=== PATIENT | male | born 1945 | race Caucasian/White ===

== ENCOUNTER 2020-05-20 14:13 | Inpatient (IN) ==
[2020-05-20] MEDS ORDERED: SODIUM CHLORIDE 0.9% 1000ML 1,000 ML IV ONE (14:33)
[2020-05-20] MEDS ORDERED: PROCHLORPERAZINE 1 ML IV ONE (14:33)
[2020-05-20] MEDS ORDERED: DiphenhydrAMINE HCL 50 MG/ML VIAL IV STA (14:33)
[2020-05-20] MEDS ORDERED: FAMOTIDINE 20MG/5ML IV PUSH IV STA (14:36)
[2020-05-20 15:16] LABS: Basophils # (auto) 0.01 K/uL (0-0.2); Basophils % (auto) 0.2 %; Eosinophils # (auto) 0.07 K/uL (0-0.5); Eosinophils % (auto) 1.5 %; Hematocrit (blood only) 43.9 % (42-52); Hemoglobin 15.8 g/dL (14.0-18.0); Immature Granulocytes # (auto) 0.01 K/uL (0.00-0.02); Immature Granulocytes % (auto) 0.2 %; Lymphocytes # (auto) 0.62 K/uL (1.2-3.4); Lymphocytes % (auto) 13.3 %; Mean Corpuscular Hemoglobin 32.2 pg (25-34); Mean Corpuscular Volume 89.6 fL (80-100); Mean Platelet Volume 9.6 fL (7.4-10.4); Monocytes # (auto) 0.57 K/uL (0.11-0.59); Monocytes % (auto) 12.3 %; Neutrophils # (auto) 3.37 K/uL (1.4-6.5); Neutrophils % (auto) 72.5 %; Platelet Count 155 K/uL (130-400); White Blood Count 4.65 K/uL (4.8-10.8)
[2020-05-20 15:31] LABS: Alanine Aminotransferase 16 U/L (12-78); Albumin Level 3.3 gm/dl (3.4-5.0); Aspartate Aminotransferase 23 U/L (15-37); BUN Creatinine Ratio 13.9 (10-20); Bilirubin Direct 0.6 mg/dl (0-0.2); Blood Urea Nitrogen 23 mg/dl (7-18); Calcium 8.6 mg/dl (8.5-10.1); Carbon Dioxide 27 mmol/L (21-32); Chloride 91 mmol/L (98-107); Creatinine Clr Calc Pharmacy 40.4 ml/min; Est GFR (African American) 47.1; Est GFR (Non-African American) 40.6; Glucose 92 mg/dl (70-99); Lipase 34 U/L (73-393); Magnesium 2.3 mg/dl (1.8-2.4); Sodium 127 mmol/L (136-145)
[2020-05-20 15:34] LABS: Alkaline Phosphatase 204 U/L (45-117); Bilirubin,Total 1.6 mg/dl (0.2-1); Globulin 3.2 gm/dl (2.5-4.0); Total Protein 6.5 gm/dl (6.4-8.2); Troponin I < 0.015 ng/ml (0-0.045)
--- NOTE | 2020-05-20 16:06 | XRay Report ---
XR chest 1V portable HISTORY: Generalized abdominal pain. COMPARISON: Chest 09/12/2018. FINDINGS: The lungs are clear. The cardiac silhouette remains mildly enlarged. No pleural effusions. No pneumothorax. IMPRESSION: Stable mild cardiomegaly. ACT 112: Negative or not required by law. Electronically signed by: Yonatan Beebe M.D. 05/20/2020 4:05 PM
[2020-05-20] MEDS ORDERED: IOVERSOL 100ml IV ONE (16:21)
--- NOTE | 2020-05-20 16:57 | CT Scan Report ---
ABDOMEN AND PELVIS CT WITH IV CONTRAST CT DOSE: 378.99 mGy.cm HISTORY: Acute generalized abdominal pain with nausea and vomiting abd pain, n/v/d TECHNIQUE: Multiaxial CT images of the abdomen and pelvis were performed following the IV administrat ion of 93 cc of Optiray 320, A dose lowering technique was utilized adhering to the principles of AL CHICHI. COMPARISON STUDY: CT abdomen and pelvis 09/12/2018 FINDINGS: Linear subsegmental scarring/atelectasis of the right lung base with mild traction bronchiectasis. No pneumatosis or pneumoperitoneum. The imaged inferior cardiac chambers are enlarged. Coronary artery calcifications. The spleen and adrenal glands are unremarkable. Cholelithiasis without CT evidence of acute cholecystitis. Moderate to marked generalized pancreatic atrophy. Scattered hepatic cysts carito ure up to 1.7 cm within the right hepatic lobe. 5 mm probable cyst of the posterior interpolar left kidney. No obstructive uropathy. Prostamegaly wit h urinary bladder wall thickening and partial distention. Calcified plaque of the abdominal aorta wit hout aneurysm. No adenopathy. Air and fluid-filled loops of large and small bowel are noted with multiple loops of mild multilevel dilation measuring up to 3.1 cm. No transition point to suggest obstruction. The appendix is not defi nitively seen. The bones appear intact. Anterolisthesis L4 on L5 and L5 on S1 is likely secondary to long-standing facet arthrosis. Remote appearing Schmorl's node with superior endplate compression at L1. IMPRESSION: 1. Distended air and fluid-filled loops of large and small bowel without discrete transition point is suggestive of enteritis with diarrheal illness. 2. No significant bowel wall thickening, pneumatosis or pneumoperitoneum. 3. Cholelithiasis. 4. Cardiomegaly. 5. Prostamegaly. 6. Additional findings as above. ACT 112: Negative or not required by law. The above report was generated using voice recognition software. It may contain grammatical, syntax o r spelling errors. Electronically signed by: Chiki Parker M.D. 05/20/2020 4:56 PM
[2020-05-20] MEDS: POTASSIUM CHLORIDE / WTR 10 MEQ/100 ML PLCT IV SCH ×2 (17:17→18:34)
[2020-05-20 17:44] LABS: Appearance Urine Clear (Clear); Bilirubin Urine Negative (Negative); Blood Urine Negative (Negative); Color Urine Yellow; Glucose Urine UA Negative (Negative); Ketones Urine Negative (Negative); Leukocyte Esterase Urine Negative (Negative); Nitrite Urine Negative (Negative); Protein Urine Negative (Negative); Specific Gravity Urine 1.026 (1.000-1.030); Urobilinogen Urine Negative (Negative)
[2020-05-20] MEDS ORDERED: CARBIDOPA/LEVODOPA 25/100MG TAB PO STA (18:07)
--- NOTE | 2020-05-20 18:32 | History & Physical Report ---
Date of Service May 20, 2020 Assessment & Plan (1) Chronic diarrhea: (2) Acute on chronic renal failure: (3) Hypokalemia due to excessive gastrointestinal loss of potassium: (4) Hyponatremia with decreased serum osmolality: (5) GERD (gastroesophageal reflux disease): (6) CKD (chronic kidney disease) stage 3, GFR 30-59 ml/min: (7) A-fib: (8) Colon, diverticulosis: 74 yo male c PMH AFIB, GERD, Chronic Diarrhea, Diverticulosis, and CKD present with c/o of profuse diarrhea that began May 13 and is not going away. He saw his PCP and got Immodium. It got better, but returned. He was referred to GI who prescribed Cholestyramine, but he couldn't keep it down. He was referred to our ER and found to have Hypo K and Na c dehydration. He will be placed under Obs c a c/s to GI, CT reveals Enteritis IVFs, IBD and Celiac panel, Fe studies, Ferritin, B12, Folate, TIBC, replete lytes, GI eval ROS-No Headache, No Visual Changes, +Nausea, + Vomiting, No Fever, No Chills, No Neck Pain or Stiffness, No Chest Pain, No Palpitations, No SOB, No BOB, No Cough, No Sputum, No Wheezing, No Abdominal Pain, + Diarrhea, No Hematemesis, No Hemoptysis, No Unexpected Weight Loss, No Flank pain, No Melena, No Hematochezia , No Frequency, No Urgency, No Burning, No Hematuria, No Rashes, No Diaphoresis. Appetite is Normal Physical Exam Gen-AAO x 3, NAD, Afebrile Head-NCAT, EOMI, PERRLA, Anicteric Sclera, No Posterior Pharyngeal Erythema Neck-Supple, No JVD, No Thyromegaly, No Masses, No LAD, No Bruits Lungs-Clear to Auscultation Bilaterally, No Rales, No Rhonchi, No Wheezing, No Crepitus Chest-No S4, +S1, +S2, No S3, No Murmurs, No Rubs, No Gallops, No Ectopy Abdomen-Soft, Bowel Sounds Present, Non Tender, Non Distended, No Hepatomegaly, No Splenomegaly, No Palpable Masses, No Rebound, No Rigidity, No Guarding Musculoskeletal-Full Range of Motion Bilaterally, No CVAT Extremities-No Cyanosis, No Clubbing, No Edema Nuero-Cranial Nerves II-XII grossly intact, Motor WNL, DTRs WNL, Strength WNL, Non Focal Psych-Normal Mood History of Present Illness Primary Care Provider: Wilmer Al MD Allergies Allergy/AdvReac Type Severity Reaction Status Date / Time lovastatin [From Mevacor] Allergy Unknown Muscle Pain Verified 05/20/20 14:54 shellfish derived Allergy Unknown Vomiting Verified 05/20/20 14:54 acetaminophen [From Percocet] AdvReac Gastrointestinal Verified 05/20/20 14:54 Upset oxycodone [From Percocet] AdvReac Gastrointestinal Verified 05/20/20 14:54 Upset Home Medications Home Medications Medication Instructions Recorded Confirmed Type omeprazole 20 mg PO QAM 09/12/18 05/20/20 History acetaminophen [Tylenol Extra 1,000 mg PO Q6H PRN 05/12/20 05/20/20 History Strength] apixaban [Eliquis] 5 mg PO BID 05/12/20 05/20/20 History carbidopa-levodopa 1 tab PO TID 05/12/20 05/20/20 History cyanocobalamin (vitamin B-12) 1,000 mcg PO QAM 05/12/20 05/20/20 History dicyclomine 10 mg PO TID 05/12/20 05/20/20 History fluticasone propionate [Flonase 2 spray INTRANASAL DAILY PRN 05/12/20 05/20/20 History Allergy Relief] loperamide [Imodium] 2 mg PO Q6H PRN 05/12/20 05/20/20 History Past Med/Surg History Medical History A-fib on Eliquis CKD (chronic kidney disease) stage 3, GFR 30-59 ml/min GERD (gastroesophageal reflux disease) Parkinson disease "mild"- following with Dr. Rizzo/ERICK Francois's sonal Surgical History History of colonoscopy 11/2017 scattered diverticulosis History of esophagogastroduodenoscopy (EGD) 11/2017 Priscila pruitt, esophagitis History of eye surgery CATARACT LEFT History of hernia repair Family History Father Colon cancer Mother , age 48, of influenza pneumonia Pneumonia Sister Rheumatoid arthritis Social History Smoking Status: Never smoker Second Hand Exposure: No; Hx Alcohol Use: Yes Alcohol type: beer and wine Alcohol Intake Frequency Comment: 1 glass of wine or beer a day Hx Substance Use: No Preferred Language: Mauritanian Communication Ability: Effective Visual Impairment: No Limitations Hearing Ability: Normal Forepart Laster Required: No Beliefs That Will Affect Care: None marital status: Current Living Situation: Spouse Feels Safe at Home: Yes Results & Data Results & Data ([facility]) Vital Signs (Past 12 Hours) Vital Signs Temp Pulse Pulse Resp BP BP Pulse Ox 05/20/20 17:39 69 20 133/89 98 05/20/20 16:12 65 20 100/63 98 05/20/20 14:16 36.5 C 77 20 100/66 98 Allergies lovastatin [From Mevacor] Allergy (Unknown, Verified 05/20/20 14:54) Muscle Pain shellfish derived Allergy (Unknown, Verified 05/20/20 14:54) Vomiting acetaminophen [From Percocet] Adverse Reaction (Verified 05/20/20 14:54) Gastrointestinal Upset oxycodone [From Percocet] Adverse Reaction (Verified 05/20/20 14:54) Gastrointestinal Upset Height/Weight/Isolation Height 5 ft 10 in Weight 73.5 kg Chemistry 05/20/20 14:54 Sodium 127 L Potassium 3.0 L Chloride 91 L Carbon Dioxide 27 Anion Gap 9.0 BUN 23 H Creatinine 1.63 H Glucose 92 Urinalysis 05/20/20 17:28 Urine Color Yellow Urine Appearance Clear Urine pH 6.0 Ur Specific [place] 1.026 Urine Protein Negative Urine Glucose (UA) Negative Urine Ketones Negative Urine Blood Negative Urine Nitrite Negative Urine Bilirubin Negative
[2020-05-20] MEDS ORDERED: DEXTROSE 50% 50 ML SYRINGE IV PRN (20:35)
[2020-05-20] MEDS ORDERED: ONDANSETRON INJ 2 MG/ML 2 ML VIAL IV PRN (20:35)
[2020-05-20] MEDS ORDERED: GLUCOSE 40% GEL 15 GM TUBE PO PRN (20:35)
[2020-05-20] MEDS ORDERED: CARBOHYDRATES FOR HYPOGLYCEMIA PO PRN (20:35)
[2020-05-20] MEDS ORDERED: GLUCOSE 10 TABS/TUBE PO PRN (20:35)
[2020-05-20] MEDS ORDERED: GLUCAGON FOR INJ 1 MG VIAL SQ PRN (20:35)
[2020-05-20] MEDS ORDERED: FLUTICASONE PROPIONATE NA SPR 16 GM BTL PRN (20:35)
[2020-05-20] MEDS ORDERED: ACETAMINOPHEN 500 MG TAB PO PRN (20:48)
[2020-05-20] MEDS ORDERED: PHARMACY GLYCEMIC MGMT CONSULT PRN (20:54)
[2020-05-20] MEDS: POTASSIUM CHLORIDE 40 MEQ in SODIUM CHLORIDE 0.9% 1000ML 1,000 ML IV SCH (21:34)
[2020-05-20] MEDS: INSULIN ASPART 100 UNITS/ML 3 ML PEN SC SCH (21:37)
[2020-05-20] MEDS: APIXABAN 5 MG TABLET PO SCH (22:19)
[2020-05-20] MEDS: DICYCLOMINE HCL 10 MG CAP PO SCH (22:19)
[2020-05-20] MEDS: LOPERAMIDE HCL 2 MG CAP PO PRN (22:19)
[2020-05-20] MEDS: CARBIDOPA/LEVODOPA 25/100MG TAB PO SCH (22:20)
--- NOTE | 2020-05-20 23:30 | Emergency Department Note ---
Impression & Plan Gastroenteritis, Acute hyponatremia, Hypokalemia, Acute kidney insufficiency, Acute dehydration ED Provider Note NAME: JOSELUIS NO AGE: 74 SEX: M ARRIVES VIA: Walk-In INFORMANT: Patient, ED PROVIDER(S): Mason Cobb MD CHIEF COMPLAINT: Diarrhea, weakness PLAN: Disposition: Admit MEDICAL DECISION MAKING: The patient is a pleasant 74-year-old gentleman who presents emerged department accompanied by his with concern for generalized weakness in the setting of having nausea, vomiting and diarrhea that has been worsening over the past 4 days in the setting of his report of having similar symptoms ongoing for many months. Denies any fevers, chills, cough, congestion, urinary symptoms. On arrival the patient is fatigued appearing but no acute distress, afebrile with stable vital signs. Patient appears clinically dry. Abdomen is benign. EKG demonstrates atrial fibrillation without overt acute ischemia. Chest x-ray negative for acute process. WBC 4.6, nonspecific. H/H and platelets within normal limits. Sodium 127 which is new. Potassium 3.0 and electrolytes otherwise unremarkable. Chemistry without acidosis. Creatinine 1.6 which is new for the patient. LFTs unremarkable. Troponin negative/undetectable. Lipase is not elevated. UA negative for infection. CT ab pelvis was performed and findings are consistent with enteritis/diarrheal illness. Otherwise no acute process. Patient was reevaluated and reporting some improvement however the patient and at the bedside agree with plan for admission given his worsening hyponatremia, which may be multifactorial with a component of dehydration as well as low sodium in the setting of the patient's diarrhea. Case was discussed with Dr. Gandhi, [facility] hospitalist, who will evaluate the patient for admission. Triage Nursing notes reviewed and agree them. Additional history obtained from [facility] records. Prior medical records reviewed Vital Signs: reviewed and remarkable for no significant abnormalities Differential diagnosis: Appendicitis, testicular torsion, infections, diverticulitis, UTI, obstruction, mesenteric ischemia, aortic pathology, inflammatory bowel disease, renal colic, PUD, pancreatitis, biliary pathology, hernia, volvulus, constipation, as well as other pathologies. ER treatment provided: See below. Diagnostics interpreted by me: ECG: Atrial fibrillation with PVCs, 63 bpm, no overt ST elevation or depression, QTC 433, QRS 96. Cardiac Monitoring: An order for continuous cardiac monitoring was placed and demonstrated defibrillation, 63 bpm, PVCs. Laboratory studies: See below Imaging studies: XR chest 1V portable HISTORY: Generalized abdominal pain. COMPARISON: Chest 09/12/2018. FINDINGS: The lungs are clear. The cardiac silhouette remains mildly enlarged. No pleural effusions. No pneumothorax. IMPRESSION: Stable mild cardiomegaly. ABDOMEN AND PELVIS CT WITH IV CONTRAST CT DOSE: 378.99 mGy.cm HISTORY: Acute generalized abdominal pain with nausea and vomiting abd pain, n/v/d TECHNIQUE: Multiaxial CT images of the abdomen and pelvis were performed following the IV administration of 93 cc of Optiray 320, A dose lowering technique was utilized adhering to the principles of ALARA. COMPARISON STUDY: CT abdomen and pelvis 09/12/2018 FINDINGS: Linear subsegmental scarring/atelectasis of the right lung base with mild traction bronchiectasis. No pneumatosis or pneumoperitoneum. The imaged inferior cardiac chambers are enlarged. Coronary artery calcifications. The spleen and adrenal glands are unremarkable. Cholelithiasis without CT evidence of acute cholecystitis. Moderate to marked generalized pancreatic atrophy. Scattered hepatic cysts measure up to 1.7 cm within the right hepatic lobe. 5 mm probable cyst of the posterior interpolar left kidney. No obstructive uropathy. Prostamegaly with urinary bladder wall thickening and partial distention. Calcified plaque of the abdominal aorta without aneurysm. No adenopathy. Air and fluid-filled loops of large and small bowel are noted with multiple loops of mild multilevel dilation measuring up to 3.1 cm. No transition point to suggest obstruction. The appendix is not definitively seen. The bones appear intact. Anterolisthesis L4 on L5 and L5 on S1 is likely secondary to long- standing facet arthrosis. Remote appearing Schmorl's node with superior endplate compression at L1. IMPRESSION: 1. Distended air and fluid-filled loops of large and small bowel without discrete transition point is suggestive of enteritis with diarrheal illness. 2. No significant bowel wall thickening, pneumatosis or pneumoperitoneum. 3. Cholelithiasis. 4. Cardiomegaly. 5. Prostamegaly. 6. Additional findings as above. Consultation(s): Case was discussed with Dr. Gandhi, [facility] hospitalist, who will evaluate the patient for admission. HPI: The patient is a pleasant 74-year-old gentleman who presents emerged department accompanied by his with concern for generalized weakness in the setting of having nausea, vomiting and diarrhea that has been worsening over the past 4 days in the setting of his report of having similar symptoms ongoing for many months. Denies any fevers, chills, cough, congestion, urinary symptoms. ROS: See above HPI for pertinent positives & negatives. A total of 10 systems reviewed and were otherwise negative. PAST MEDICAL HISTORY:See Below PAST SURGICAL HISTORY:See Below FAMILY HISTORY:See Below SOCIAL HISTORY:See Below HOME MEDICATIONS:See Below ALLERGIES:See Below VITALS:See Below PHYSICAL EXAMINATION: GENERAL: Awake, alert, fatigued-appearing, in no distress HENT: Normocephalic, atraumatic. Oropharynx with dry mucous membranes and otherwise unremarkable. EYES: Normal conjunctiva. Sclera non-icteric. NECK: Supple. No nuchal rigidity. FROM. No JVD. RESPIRATORY: Clear to auscultation. CARDIAC: Regular rate, normal rhythm. Extremities warm and well perfused. Pulses equal. ABDOMEN: Soft, non-distended. No tenderness to palpation. No rebound or guarding. No masses. RECTAL: Deferred. MUSCULOSKELETAL: Chest examination reveals no tenderness. The back is symmetrical on inspection without obvious abnormality. There is no CVA tenderness to palpation. No joint edema. LOWER EXTREMITIES: Calves are equal size bilaterally and non-tender. No edema. No discoloration. NEURO: Normal sensorium. No sensory or motor deficits noted. SKIN: No rash or jaundice noted. Mason Cobb MD Past Med/Surg History Medical History A-fib on Eliquis CKD (chronic kidney disease) stage 3, GFR 30-59 ml/min GERD (gastroesophageal reflux disease) Parkinson disease "mild"- following with Dr. Rizzo/ERICK pruitt Surgical History History of colonoscopy 11/2017 scattered diverticulosis History of esophagogastroduodenoscopy (EGD) 11/2017 Priscila pruitt, esophagitis History of eye surgery CATARACT LEFT History of hernia repair Family History Father Colon cancer Mother , age 48, of influenza pneumonia Pneumonia Sister Rheumatoid arthritis Social History Smoking Status: Never smoker Second Hand Exposure: No; Hx Alcohol Use: Yes Alcohol type: beer Alcohol Intake Frequency Comment: 1 glass of wine or beer a day Hx Substance Use: No Preferred Language: Belarusian Communication Ability: Effective Visual Impairment: No Limitations Hearing Ability: Normal Merchandising Execution Associate Required: No Beliefs That Will Affect Care: None marital status: Current Living Situation: Spouse Other Information That Helps Us Care for You: No Feels Safe at Home: Yes Safety Concerns: Feels Safe At This Time Allergies Allergies Allergy/AdvReac Type Severity Reaction Status Date / Time lovastatin [From Mevacor] Allergy Unknown Muscle Pain Verified 05/20/20 14:54 shellfish derived Allergy Unknown Vomiting Verified 05/20/20 14:54 acetaminophen [From Percocet] AdvReac Gastrointestinal Verified 05/20/20 14:54 Upset oxycodone [From Percocet] AdvReac Gastrointestinal Verified 05/20/20 14:54 Upset Home Meds Home Medications Medication Instructions Recorded Confirmed omeprazole 20 mg PO QAM 09/12/18 05/20/20 acetaminophen [Tylenol Extra 1,000 mg PO Q6H PRN 05/12/20 05/20/20 Strength] apixaban [Eliquis] 5 mg PO BID 05/12/20 05/20/20 carbidopa-levodopa 1 tab PO TID 05/12/20 05/20/20 cyanocobalamin (vitamin B-12) 1,000 mcg PO QAM 05/12/20 05/20/20 dicyclomine 10 mg PO TID 05/12/20 05/20/20 fluticasone propionate [Flonase 2 spray INTRANASAL DAILY PRN 05/12/20 05/20/20 Allergy Relief] loperamide [Imodium] 2 mg PO Q6H PRN 05/12/20 05/20/20 Results & Data (ED) Vital Signs Vital Signs - 24 hr 05/20/20 14:16 05/20/20 16:12 05/20/20 17:39 Temperature 36.5 C Temperature Source Oral Pulse Rate 77 Pulse Rate [Finger] 65 69 Respiratory Rate 20 20 20 Blood Pressure 100/66 Blood Pressure [Right Arm] 100/63 133/89 Blood Pressure Mean 77 Blood Pressure Mean [Right Arm] 75 103 Pulse Oximetry 98 98 98 Oxygen Delivery Method Room Air Room Air Room Air Sepsis Recent Fever Within 48 Hours No Sepsis New/Unexplained Change in Mental Status No Sepsis Action Taken by Nursing No Action Required Laboratory Data Attestation: I reviewed the patient's lab results. Result diagrams: 05/20/20 14:54 05/20/20 14:54 Lab Results 05/20/20 05/20/20 05/20/20 Range/Units 14:54 14:54 14:54 WBC 4.65 L (4.8-10.8) K/uL RBC 4.90 (4.7-6.1) M/uL Hgb 15.8 (14.0-18.0) g/dL Hct 43.9 (42-52) % MCV 89.6 (80-100) fL MCH 32.2 (25-34) pg MCHC 36.0 (32-36) g/dL RDW Std Deviation 46.0 (36.4-46.3) fL RDW Coeff of [place] 14.0 (11.5-14.5) % Plt Count 155 (130-400) K/uL MPV 9.6 (7.4-10.4) fL Immature Gran % (Auto) 0.2 % Neut % (Auto) 72.5 % Lymph % (Auto) 13.3 % [place] % (Auto) 12.3 % Eos % (Auto) 1.5 % Baso % (Auto) 0.2 % Neut # (Auto) 3.37 (1.4-6.5) K/uL Lymph # (Auto) 0.62 L (1.2-3.4) K/uL [place] # (Auto) 0.57 (0.11-0.59) K/uL Eos # (Auto) 0.07 (0-0.5) K/uL Baso # (Auto) 0.01 (0-0.2) K/uL Immature Gran # (Auto) 0.01 (0.00-0.02) K/uL Sodium 127 L (136-145) mmol/L Potassium 3.0 L (3.5-5.1) mmol/L Chloride 91 L (98-107) mmol/L Carbon Dioxide 27 (21-32) mmol/L Anion Gap 9.0 (3-11) BUN 23 H (7-18) mg/dl Creatinine 1.63 H (0.6-1.4) mg/dl Est Cr Clr Drug Dosing 40.4 ml/min Est GFR ( Amer) 47.1 Est GFR (Non-Af Amer) 40.6 BUN/Creatinine Ratio 13.9 (10-20) Glucose 92 (70-99) mg/dl Osmolality (280-300) mOsm/kg Calcium 8.6 (8.5-10.1) mg/dl Phosphorus 3.0 (2.5-4.9) mg/dl Magnesium 2.3 (1.8-2.4) mg/dl Iron 72 (35-175) mcg/dl TIBC 322 (250-450) mcg/dl Ferritin 98.0 (8-388) ng/ml Total Bilirubin 1.6 H (0.2-1) mg/dl Direct Bilirubin 0.6 H (0-0.2) mg/dl AST 23 (15-37) U/L ALT 16 (12-78) U/L Alkaline Phosphatase 204 H (45-117) U/L Troponin I < 0.015 (0-0.045) ng/ml Total Protein 6.5 (6.4-8.2) gm/dl Albumin 3.3 L (3.4-5.0) gm/dl Globulin 3.2 (2.5-4.0) gm/dl Albumin/Globulin Ratio 1.0 (0.9-2) Lipase 34 L (73-393) U/L Urine Color Urine Appearance (Clear) Urine pH (4.5-7.5) Ur Specific [place] (1.000-1.030) Urine Protein (Negative) Urine Glucose (UA) (Negative) Urine Ketones (Negative) Urine Blood (Negative) Urine Nitrite (Negative) Urine Bilirubin (Negative) Urine Urobilinogen (Negative) Ur Leukocyte Esterase (Negative) Urine Osmolality (500-800) mOsm/kg 05/20/20 05/20/20 05/20/20 Range/Units 17:12 17:28 17:28 WBC (4.8-10.8) K/uL RBC (4.7-6.1) M/uL Hgb (14.0-18.0) g/dL Hct (42-52) % MCV (80-100) fL MCH (25-34) pg MCHC (32-36) g/dL RDW Std Deviation (36.4-46.3) fL RDW Coeff of [place] (11.5-14.5) % Plt Count (130-400) K/uL MPV (7.4-10.4) fL Immature Gran % (Auto) % Neut % (Auto) % Lymph % (Auto) % [place] % (Auto) % Eos % (Auto) % Baso % (Auto) % Neut # (Auto) (1.4-6.5) K/uL Lymph # (Auto) (1.2-3.4) K/uL [place] # (Auto) (0.11-0.59) K/uL Eos # (Auto) (0-0.5) K/uL Baso # (Auto) (0-0.2) K/uL Immature Gran # (Auto) (0.00-0.02) K/uL Sodium (136-145) mmol/L Potassium (3.5-5.1) mmol/L Chloride (98-107) mmol/L Carbon Dioxide (21-32) mmol/L Anion Gap (3-11) BUN (7-18) mg/dl Creatinine (0.6-1.4) mg/dl Est Cr Clr Drug Dosing ml/min Est GFR ( Amer) Est GFR (Non-Af Amer) BUN/Creatinine Ratio (10-20) Glucose (70-99) mg/dl Osmolality 267 L (280-300) mOsm/kg Calcium (8.5-10.1) mg/dl Phosphorus (2.5-4.9) mg/dl Magnesium (1.8-2.4) mg/dl Iron (35-175) mcg/dl TIBC (250-450) mcg/dl Ferritin (8-388) ng/ml Total Bilirubin (0.2-1) mg/dl Direct Bilirubin (0-0.2) mg/dl AST (15-37) U/L ALT (12-78) U/L Alkaline Phosphatase (45-117) U/L Troponin I (0-0.045) ng/ml Total Protein (6.4-8.2) gm/dl Albumin (3.4-5.0) gm/dl Globulin (2.5-4.0) gm/dl Albumin/Globulin Ratio (0.9-2) Lipase (73-393) U/L Urine Color Yellow Urine Appearance Clear (Clear) Urine pH 6.0 (4.5-7.5) Ur Specific [place] 1.026 (1.000-1.030) Urine Protein Negative (Negative) Urine Glucose (UA) Negative (Negative) Urine Ketones Negative (Negative) Urine Blood Negative (Negative) Urine Nitrite Negative (Negative) Urine Bilirubin Negative (Negative) Urine Urobilinogen Negative (Negative) Ur Leukocyte Esterase Negative (Negative) Urine Osmolality 201 L (500-800) mOsm/kg Administered Medications Apixaban (Apixaban 5 Mg Tablet) 5 mg PO BID ROSEANN Stop: 06/19/20 20:59 Last Admin: 05/20/20 22:19 Dose: 5 mg Documented by: [id number] Carbidopa/Levodopa (Carbidopa/Levodopa 25/100mg Tab) 1 tab PO TID ROSEANN Stop: 06/19/20 20:59 Last Admin: 05/20/20 22:20 Dose: 1 tab Documented by: [id number] Dicyclomine HCl (Dicyclomine Hcl 10 Mg Cap) 10 mg PO TID ROSEANN Stop: 06/19/20 20:59 Last Admin: 05/20/20 22:19 Dose: 10 mg Documented by: [id number] Potassium Chloride 40 meq/ (Sodium Chloride) 1,020 mls @ 85 mls/hr IV .Q12H ROSEANN Stop: 06/19/20 20:34 Last Admin: 05/20/20 21:34 Dose: 85 mls/hr Documented by: [id number] Insulin Aspart (Insulin Aspart 100 Units/Ml 3 Ml Pen) 0 units SC ACHS ROSEANN Stop: 06/19/20 20:59 Last Admin: 05/20/20 21:37 Dose: Not Given Documented by: [id number] Cosigned by: [id number] Loperamide HCl (Loperamide Hcl 2 Mg Cap) 2 mg PO Q6H PRN PRN Reason: Diarrhea Stop: 06/19/20 20:34 Last Admin: 05/20/20 22:19 Dose: 2 mg Documented by: [id number] Discontinued Medications Carbidopa/Levodopa (Carbidopa/Levodopa 25/100mg Tab) 1 tab PO NOW STA Stop: 05/20/20 18:08 Last Admin: 05/20/20 18:58 Dose: 1 tab Documented by: [id number] Diphenhydramine HCl (Diphenhydramine Hcl 50 Mg/Ml Vial) 12.5 mg IV NOW STA Stop: 05/20/20 14:34 Last Admin: 05/20/20 16:07 Dose: 12.5 mg Documented by: [id number] Famotidine (Famotidine 20mg/5ml Iv Push) 20 mg IV ONE STA Stop: 05/20/20 14:37 Last Admin: 05/20/20 16:08 Dose: 20 mg Documented by: [id number] Sodium Chloride (Nss 1000ml) 1,000 mls @ 999 mls/hr IV .Q1H1M ONE Stop: 05/20/20 15:33 Last Infusion: 05/20/20 17:09 Dose: 0 mls/hr Documented by: [id number] Admin: 05/20/20 16:08 Dose: 999 mls/hr Documented by: [id number] Prochlorperazine (Compazine) 1 mls @ 1 mls/min IV ONE ONE Stop: 05/20/20 14:34 Last Admin: 05/20/20 16:08 Dose: 1 mls/min Documented by: [id number] Potassium Chloride (K Pietro / Wtr) 10 meq in 100 mls @ 100 mls/hr IV Q1H ROSEANN Stop: 05/20/20 18:59 Last Infusion: 05/20/20 19:55 Dose: 0 mls/hr Documented by: [id number] Admin: 05/20/20 18:34 Dose: 100 mls/hr Documented by: [id number] Infusion: 05/20/20 18:17 Dose: 100 mls/hr Documented by: [id number] Admin: 05/20/20 17:17 Dose: 100 mls/hr Documented by: [id number] Ioversol (Ioversol 100ml) 93 ml IV ONCE ONE Stop: 05/20/20 16:22 Last Admin: 05/20/20 16:21 Dose: 93 ml Documented by: [id number] Blood Pressure Blood Pressure Findings: Normal blood pressure Blood Pressure Disposition: further management by hospitalist Discharge Plan Visit Data Chief Complaint: Diarrhea Stated Complaint: DIARRHEA ED Provider: Mason Cobb Discharge Problem: Gastroenteritis, Acute hyponatremia, Hypokalemia, Acute kidney insufficiency, Acute dehydration Patient Disposition: Admitted As Inpatient Discharge Instructions Interventions: ED Discharge Assessment Last Done: 05/20/20 20:02
[2020-05-21] MEDS: LOPERAMIDE HCL 2 MG CAP PO PRN ×3 (05:10→22:53)
--- NOTE | 2020-05-21 06:00 | Electrocardiogram Report ---
Test Reason : Blood Pressure : / mmHG Vent. Rate : 063 BPM Atrial Rate : 070 BPM P-R Int : 000 ms QRS Dur : 096 ms QT Int : 424 ms P-R-T Axes : 000 -13 -16 degrees QTc Int : 433 ms Atrial fibrillation with premature ventricular or aberrantly conducted complexes Abnormal ECG No previous ECGs available Confirmed by Nicanor Salgado ([id number]) on 05/21/2020 5:59:58 AM Referred By: Wilmer Al Confirmed By:Nicanor Salgado
[2020-05-21 06:15] LABS: Hematocrit (blood only) 41.3 % (42-52); Hemoglobin 14.4 g/dL (14.0-18.0); Mean Corpuscular Hemoglobin 31.8 pg (25-34); Mean Corpuscular Hgb Conc 34.9 g/dL (32-36); Mean Corpuscular Volume 91.2 fL (80-100); Platelet Count 139 K/uL (130-400); RDW Coefficient of Variation 14.4 % (11.5-14.5); RDW Standard Deviation 47.6 fL (36.4-46.3); Red Blood Count 4.53 M/uL (4.7-6.1); White Blood Count 4.17 K/uL (4.8-10.8)
[2020-05-21 06:47] LABS: Albumin Level 2.9 gm/dl (3.4-5.0); BUN Creatinine Ratio 13.9 (10-20); Calcium 8.4 mg/dl (8.5-10.1); Creatinine Clr Calc Pharmacy 51.3 ml/min; Est GFR (African American) 63.6; Est GFR (Non-African American) 54.9
[2020-05-21 06:50] LABS: Albumin Globulin Ratio 1.1 (0.9-2); Bilirubin,Total 1.5 mg/dl (0.2-1); Globulin 2.5 gm/dl (2.5-4.0); Total Protein 5.4 gm/dl (6.4-8.2)
[2020-05-21 07:12] LABS: Estimated Average Glucose 94 mg/dl; Hemoglobin A1C 4.9 % (4.5-5.6)
--- NOTE | 2020-05-21 07:19 | Hospitalist Progress Note ---
Date of Service May 21, 2020 Assessment & Plan (1) Chronic diarrhea: (2) Acute on chronic renal failure: (3) Hypokalemia due to excessive gastrointestinal loss of potassium: (4) Hyponatremia with decreased serum osmolality: (5) GERD (gastroesophageal reflux disease): (6) CKD (chronic kidney disease) stage 3, GFR 30-59 ml/min: (7) A-fib: (8) Colon, diverticulosis: 74 yo male c PMH AFIB, GERD, Chronic Diarrhea, Diverticulosis, and CKD present with c/o of profuse diarrhea that began May 13 and is not going away. He saw his PCP and got Immodium. It got better, but returned. He was referred to GI who prescribed Cholestyramine, but he couldn't keep it down. He was referred to our ER and found to have Hypo K and Na c dehydration. He is placed under Obs c a c/s to GI, CT reveals Enteritis IVFs, IBD and Celiac panel pending, Fe studies are normal, Ferritin normal, B12, Folate, TIBC Normal, replete lytes, GI to see, Add PO k ROS-No Headache, No Visual Changes, no Nausea, no Vomiting, No Fever, No Chills, No Neck Pain or Stiffness, No Chest Pain, No Palpitations, No SOB, No BOB, No Cough, No Sputum, No Wheezing, No Abdominal Pain, +Diarrhea, No Hematemesis, No Hemoptysis, No Unexpected Weight Loss, No Flank pain, No Melena, No Hematochezia, No Frequency, No Urgency, No Burning, No Hematuria, No Rashes, No Diaphoresis. Appetite is Normal Physical Exam Gen-AAO x 3, NAD, Afebrile Head-NCAT, EOMI, PERRLA, Anicteric Sclera, No Posterior Pharyngeal Erythema Neck-Supple, No JVD, No Thyromegaly, No Masses, No LAD, No Bruits Lungs-Clear to Auscultation Bilaterally, No Rales, No Rhonchi, No Wheezing, No Crepitus Chest-No S4, +S1, +S2, No S3, No Murmurs, No Rubs, No Gallops, No Ectopy Abdomen-Soft, Bowel Sounds Present, Non Tender, Non Distended, No Hepatomegaly, No Splenomegaly, No Palpable Masses, No Rebound, No Rigidity, No Guarding Musculoskeletal-Full Range of Motion Bilaterally, No CVAT Extremities-No Cyanosis, No Clubbing, No Edema Nuero-Cranial Nerves II-XII grossly intact, Motor WNL, DTRs WNL, Strength WNL, Non Focal Psych-Normal Mood Admission and Anticipated Discharge Date Admission Date: May 20, 2020 Results & Data Results & Data ([facility]) Vital Signs (Past 12 Hours) Vital Signs Temp Pulse Pulse Resp BP Pulse Ox 05/21/20 03:00 36.6 C 58 L 18 96/65 L 98 05/20/20 23:30 61 05/20/20 23:00 36.4 C L 60 18 98/61 L 98 05/20/20 20:53 81 05/20/20 20:42 36.4 C L 68 20 117/79 99
[2020-05-21] MEDS: PANTOprazole 40 MG TAB PO SCH (08:14)
[2020-05-21] MEDS: POTASSIUM CHLORIDE 20 MEQ TABCR PO SCH ×3 (08:14→20:10)
[2020-05-21] MEDS: APIXABAN 5 MG TABLET PO SCH ×2 (08:14→20:10)
[2020-05-21] MEDS: CYANOCOBALAMIN 500 MCG TABLET (VITAMIN B-12) PO SCH (08:14)
[2020-05-21] MEDS: CARBIDOPA/LEVODOPA 25/100MG TAB PO SCH ×2 (08:14→14:18)
[2020-05-21] MEDS: DICYCLOMINE HCL 10 MG CAP PO SCH ×3 (08:15→20:10)
[2020-05-21] MEDS: POTASSIUM CHLORIDE 40 MEQ in SODIUM CHLORIDE 0.9% 1000ML 1,000 ML IV SCH ×3 (08:16→20:35)
[2020-05-21] MEDS: INSULIN ASPART 100 UNITS/ML 3 ML PEN SC SCH ×2 (08:57→11:42)
--- NOTE | 2020-05-21 09:05 | Gastrointestinal Consultation ---
Date of Consultation May 21, 2020 Assessment & Plan (1) Gastroenteritis: 74 year old male w/ chronic diarrhea > 20 years admitted with acute, worsening diarrhea w/ 6 episodes of loose, watery stools yesterday and 5/6 loose stools overnight without any black/bloody stools. No abd pain but some fecal urgency. He lost [address] w/ enteritis. EGD/Colon in 2017 w/o acute findings, recent colon w/o biopises Check c.diff and culture Continue Bentyl Low FODMAPs diet Questran 1 packet daily Ok to continue imodium 2 tablets, titrated to symptoms no more than TID follow up as OP w/ his regular GI team Will need OP colonoscopy w/ biopsies to rule out microscopic colitis Thank you for allowing us to participate in the care of this patient. Please call with any acute changes, questions or concerns. Please see addendum below with additional recommendation from my supervising physician. Supervising Physician Co-Signing Physician Notes I performed a history and physical examination of the patient today, including specifically on physical exam - soft abdomen. I have discussed the patient's management with the advanced practitioner. Please refer to the nurse practitioner's note for the documented findings and plan of care. Needs EGD/colonoscopy as OP to obtain random Bx and r/o microscopic colitis. Meanwhile, stool studies and PRN Imodium. Recall GI as needed. History of Present Illness Reason for Consultation: diarrhea Requesting Physician: Joe Attending Physician: Christian Gandhi DO History of Present Illness 74 year old male with history of afib, pulm HTN, aortic regurg, chronic diarrhea, CKD, PD and others who is admitted through the ED w/ worsening diarrhea, abd cramping. Pt was seen and evaluated, chart reviewed. Chronic diarrhea > 20 years. Maintained on Bentyl and imodium PRN. Was to trial colestid recently, just picked up the medication. Tried to 2/3 days but didnt notice much improvement. No other new medications or dietary changes. Bowels moved 7 times during the day yesterday and 5/6 times overnight. Brown/green stools. No black or bloody. No abd pain but abd cramping and urgency. Slight nausea but no vomiting. No GERD. No fever, chills, CP, SOB. Down 10 lbs. CTAP: Distended air and fluid-filled loops of large and small bowel without discrete transition point is suggestive of enteritis with diarrheal illness. 2. No significant bowel wall thickening, pneumatosis or pneumoperitoneum. 3. Cholelithiasis. 4. Cardiomegaly. 5. Prostamegaly. 6. Additional findings as above. Colonoscopy 2019: diverticulosis, no evidence of colitis, no biopsies obtained Colonoscopy 2016: diverticulosis, no specimens collected EGD 2017: reflux esophagitis, no stricture, normal stomach and normal duodenum, no specimens Allergies Allergy/AdvReac Type Severity Reaction Status Date / Time lovastatin [From Mevacor] Allergy Unknown Muscle Pain Verified 05/20/20 14:54 shellfish derived Allergy Unknown Vomiting Verified 05/20/20 14:54 acetaminophen [From Percocet] AdvReac Gastrointestinal Verified 05/20/20 14:54 Upset oxycodone [From Percocet] AdvReac Gastrointestinal Verified 05/20/20 14:54 Upset Home Medications Home Medications Medication Instructions Recorded Confirmed Type omeprazole 20 mg PO QAM 09/12/18 05/20/20 History acetaminophen [Tylenol Extra 1,000 mg PO Q6H PRN 05/12/20 05/20/20 History Strength] apixaban [Eliquis] 5 mg PO BID 05/12/20 05/20/20 History carbidopa-levodopa 1 tab PO TID 05/12/20 05/20/20 History cyanocobalamin (vitamin B-12) 1,000 mcg PO QAM 05/12/20 05/20/20 History dicyclomine 10 mg PO TID 05/12/20 05/20/20 History fluticasone propionate [Flonase 2 spray INTRANASAL DAILY PRN 05/12/20 05/20/20 History Allergy Relief] loperamide [Imodium] 2 mg PO Q6H PRN 05/12/20 05/20/20 History Patient History Medical History A-fib on Eliquis CKD (chronic kidney disease) stage 3, GFR 30-59 ml/min GERD (gastroesophageal reflux disease) Parkinson disease "mild"- following with Dr. Rizzo/ERICK Francois's ring Surgical History History of colonoscopy 11/2017 scattered diverticulosis History of esophagogastroduodenoscopy (EGD) 11/2017 Schatzki ring, esophagitis History of eye surgery CATARACT LEFT History of hernia repair Family History Father Colon cancer Mother , age 48, of influenza pneumonia Pneumonia Sister Rheumatoid arthritis Social History Smoking Status: Never smoker Second Hand Exposure: No; Hx Alcohol Use: Yes Alcohol type: beer Alcohol Intake Frequency Comment: 1 glass of wine or beer a day Hx Substance Use: No Preferred Language: Welsh Communication Ability: Effective Visual Impairment: No Limitations Hearing Ability: Normal Assistant Controller Required: No Beliefs That Will Affect Care: None marital status: Current Living Situation: Spouse Other Information That Helps Us Care for You: No Feels Safe at Home: Yes Safety Concerns: Feels Safe At This Time Review of Systems Constitutional: + weight loss; no fever, no fatigue and no anorexia Respiratory: no cough and no dyspnea Cardiovascular: no chest pain and no dyspnea Gastrointestinal: + cramping and + diarrhea/loose stools; no abdominal pain, no nausea, no hematemesis, no blood in stools and no melena Physical Exam Constitutional: well developed and well nourished; no acute distress Neck: trachea midline Respiratory: normal respiratory effort, lungs clear to auscultation Gastrointestinal (Abdomen): normal bowel sounds, soft, nontender, no hepatosplenomegaly Results & Data ([facility]) Vital Signs (Past 12 Hours) Vital Signs Temp Pulse Pulse Resp BP Pulse Ox 05/21/20 07:57 36.3 C L 69 18 112/76 98 05/21/20 07:23 61 05/21/20 03:00 36.6 C 58 L 18 96/65 L 98 05/20/20 23:30 61 05/20/20 23:00 36.4 C L 60 18 98/61 L 98 Laboratory Results 05/21/20 05/21/20 05/21/20 Range/Units 07:36 05:59 05:59 WBC 4.17 L (4.8-10.8) K/uL RBC 4.53 L (4.7-6.1) M/uL Hgb 14.4 (14.0-18.0) g/dL Hct 41.3 L (42-52) % MCV 91.2 (80-100) fL MCH 31.8 (25-34) pg MCHC 34.9 (32-36) g/dL RDW Std Deviation 47.6 H (36.4-46.3) fL RDW Coeff of [place] 14.4 (11.5-14.5) % Plt Count 139 (130-400) K/uL MPV 10.0 (7.4-10.4) fL Immature Gran % (Auto) % Neut % (Auto) % Lymph % (Auto) % D[place]key % (Auto) % Eos % (Auto) % Baso % (Auto) % Neut # (Auto) (1.4-6.5) K/uL Lymph # (Auto) (1.2-3.4) K/uL D[place]key # (Auto) (0.11-0.59) K/uL Eos # (Auto) (0-0.5) K/uL Baso # (Auto) (0-0.2) K/uL Immature Gran # (Auto) (0.00-0.02) K/uL Sodium 131 L (136-145) mmol/L Potassium 3.0 L (3.5-5.1) mmol/L Chloride 99 (98-107) mmol/L Carbon Dioxide 25 (21-32) mmol/L Anion Gap 8.0 (3-11) BUN 18 (7-18) mg/dl Creatinine 1.27 D (0.6-1.4) mg/dl Est Cr Clr Drug Dosing 51.3 ml/min Est GFR ( Amer) 63.6 Est GFR (Non-Af Amer) 54.9 BUN/Creatinine Ratio 13.9 (10-20) Glucose 77 (70-99) mg/dl POC Glucose 91 (70-99) mg/dl Estimat Average Glucose mg/dl Hemoglobin A1c (4.5-5.6) % Osmolality (280-300) mOsm/kg Calcium 8.4 L (8.5-10.1) mg/dl Phosphorus (2.5-4.9) mg/dl Magnesium (1.8-2.4) mg/dl Iron (35-175) mcg/dl TIBC (250-450) mcg/dl Ferritin (8-388) ng/ml Total Bilirubin 1.5 H (0.2-1) mg/dl Direct Bilirubin (0-0.2) mg/dl AST 22 (15-37) U/L ALT 8 L (12-78) U/L Alkaline Phosphatase 181 H (45-117) U/L Troponin I (0-0.045) ng/ml Total Protein 5.4 L (6.4-8.2) gm/dl Albumin 2.9 L (3.4-5.0) gm/dl Globulin 2.5 (2.5-4.0) gm/dl Albumin/Globulin Ratio 1.1 (0.9-2) Lipase (73-393) U/L Urine Color Urine Appearance (Clear) Urine pH (4.5-7.5) Ur Specific [place] (1.000-1.030) Urine Protein (Negative) Urine Glucose (UA) (Negative) Urine Ketones (Negative) Urine Blood (Negative) Urine Nitrite (Negative) Urine Bilirubin (Negative) Urine Urobilinogen (Negative) Ur Leukocyte Esterase (Negative) Urine Osmolality (500-800) mOsm/kg IgA Anti-Proteinase 3 Anti-Myeloperoxidase ANCA Tiss Transglutamin IgA Celiac Disease Interp S.cerevisiae IgG Ab S.cerevisiae IgA Ab 05/21/20 05/20/20 05/20/20 Range/Units 05:59 21:12 21:06 WBC (4.8-10.8) K/uL RBC (4.7-6.1) M/uL Hgb (14.0-18.0) g/dL Hct (42-52) % MCV (80-100) fL MCH (25-34) pg MCHC (32-36) g/dL RDW Std Deviation (36.4-46.3) fL RDW Coeff of [place] (11.5-14.5) % Plt Count (130-400) K/uL MPV (7.4-10.4) fL Immature Gran % (Auto) % Neut % (Auto) % Lymph % (Auto) % D[place]key % (Auto) % Eos % (Auto) % Baso % (Auto) % Neut # (Auto) (1.4-6.5) K/uL Lymph # (Auto) (1.2-3.4) K/uL D[place]key # (Auto) (0.11-0.59) K/uL Eos # (Auto) (0-0.5) K/uL Baso # (Auto) (0-0.2) K/uL Immature Gran # (Auto) (0.00-0.02) K/uL Sodium (136-145) mmol/L Potassium (3.5-5.1) mmol/L Chloride (98-107) mmol/L Carbon Dioxide (21-32) mmol/L Anion Gap (3-11) BUN (7-18) mg/dl Creatinine (0.6-1.4) mg/dl Est Cr Clr Drug Dosing ml/min Est GFR ( Amer) Est GFR (Non-Af Amer) BUN/Creatinine Ratio (10-20) Glucose (70-99) mg/dl POC Glucose 95 (70-99) mg/dl Estimat Average Glucose 94 mg/dl Hemoglobin A1c 4.9 (4.5-5.6) % Osmolality (280-300) mOsm/kg Calcium (8.5-10.1) mg/dl Phosphorus (2.5-4.9) mg/dl Magnesium (1.8-2.4) mg/dl Iron (35-175) mcg/dl TIBC (250-450) mcg/dl Ferritin (8-388) ng/ml Total Bilirubin (0.2-1) mg/dl Direct Bilirubin (0-0.2) mg/dl AST (15-37) U/L ALT (12-78) U/L Alkaline Phosphatase (45-117) U/L Troponin I (0-0.045) ng/ml Total Protein (6.4-8.2) gm/dl Albumin (3.4-5.0) gm/dl Globulin (2.5-4.0) gm/dl Albumin/Globulin Ratio (0.9-2) Lipase (73-393) U/L Urine Color Urine Appearance (Clear) Urine pH (4.5-7.5) Ur Specific [place] (1.000-1.030) Urine Protein (Negative) Urine Glucose (UA) (Negative) Urine Ketones (Negative) Urine Blood (Negative) Urine Nitrite (Negative) Urine Bilirubin (Negative) Urine Urobilinogen (Negative) Ur Leukocyte Esterase (Negative) Urine Osmolality (500-800) mOsm/kg IgA Anti-Proteinase 3 Pending Anti-Myeloperoxidase Pending ANCA Pending Tiss Transglutamin IgA Celiac Disease Interp S.cerevisiae IgG Ab Pending S.cerevisiae IgA Ab Pending 05/20/20 05/20/20 05/20/20 Range/Units 21:06 17:28 17:28 WBC (4.8-10.8) K/uL RBC (4.7-6.1) M/uL Hgb (14.0-18.0) g/dL Hct (42-52) % MCV (80-100) fL MCH (25-34) pg MCHC (32-36) g/dL RDW Std Deviation (36.4-46.3) fL RDW Coeff of [place] (11.5-14.5) % Plt Count (130-400) K/uL MPV (7.4-10.4) fL Immature Gran % (Auto) % Neut % (Auto) % Lymph % (Auto) % D[place]key % (Auto) % Eos % (Auto) % Baso % (Auto) % Neut # (Auto) (1.4-6.5) K/uL Lymph # (Auto) (1.2-3.4) K/uL D[place]key # (Auto) (0.11-0.59) K/uL Eos # (Auto) (0-0.5) K/uL Baso # (Auto) (0-0.2) K/uL Immature Gran # (Auto) (0.00-0.02) K/uL Sodium (136-145) mmol/L Potassium (3.5-5.1) mmol/L Chloride (98-107) mmol/L Carbon Dioxide (21-32) mmol/L Anion Gap (3-11) BUN (7-18) mg/dl Creatinine (0.6-1.4) mg/dl Est Cr Clr Drug Dosing ml/min Est GFR ( Amer) Est GFR (Non-Af Amer) BUN/Creatinine Ratio (10-20) Glucose (70-99) mg/dl POC Glucose (70-99) mg/dl Estimat Average Glucose mg/dl Hemoglobin A1c (4.5-5.6) % Osmolality (280-300) mOsm/kg Calcium (8.5-10.1) mg/dl Phosphorus (2.5-4.9) mg/dl Magnesium (1.8-2.4) mg/dl Iron (35-175) mcg/dl TIBC (250-450) mcg/dl Ferritin (8-388) ng/ml Total Bilirubin (0.2-1) mg/dl Direct Bilirubin (0-0.2) mg/dl AST (15-37) U/L ALT (12-78) U/L Alkaline Phosphatase (45-117) U/L Troponin I (0-0.045) ng/ml Total Protein (6.4-8.2) gm/dl Albumin (3.4-5.0) gm/dl Globulin (2.5-4.0) gm/dl Albumin/Globulin Ratio (0.9-2) Lipase (73-393) U/L Urine Color Yellow Urine Appearance Clear (Clear) Urine pH 6.0 (4.5-7.5) Ur Specific [place] 1.026 (1.000-1.030) Urine Protein Negative (Negative) Urine Glucose (UA) Negative (Negative) Urine Ketones Negative (Negative) Urine Blood Negative (Negative) Urine Nitrite Negative (Negative) Urine Bilirubin Negative (Negative) Urine Urobilinogen Negative (Negative) Ur Leukocyte Esterase Negative (Negative) Urine Osmolality 201 L (500-800) mOsm/kg IgA Pending Anti-Proteinase 3 Anti-Myeloperoxidase ANCA Tiss Transglutamin IgA Pending Celiac Disease Interp Pending S.cerevisiae IgG Ab S.cerevisiae IgA Ab 05/20/20 05/20/20 05/20/20 Range/Units 17:12 14:54 14:54 WBC (4.8-10.8) K/uL RBC (4.7-6.1) M/uL Hgb (14.0-18.0) g/dL Hct (42-52) % MCV (80-100) fL MCH (25-34) pg MCHC (32-36) g/dL RDW Std Deviation (36.4-46.3) fL RDW Coeff of [place] (11.5-14.5) % Plt Count (130-400) K/uL MPV (7.4-10.4) fL Immature Gran % (Auto) % Neut % (Auto) % Lymph % (Auto) % [place] % (Auto) % Eos % (Auto) % Baso % (Auto) % Neut # (Auto) (1.4-6.5) K/uL Lymph # (Auto) (1.2-3.4) K/uL [place] # (Auto) (0.11-0.59) K/uL Eos # (Auto) (0-0.5) K/uL Baso # (Auto) (0-0.2) K/uL Immature Gran # (Auto) (0.00-0.02) K/uL Sodium 127 L (136-145) mmol/L Potassium 3.0 L (3.5-5.1) mmol/L Chloride 91 L (98-107) mmol/L Carbon Dioxide 27 (21-32) mmol/L Anion Gap 9.0 (3-11) BUN 23 H (7-18) mg/dl Creatinine 1.63 H (0.6-1.4) mg/dl Est Cr Clr Drug Dosing 40.4 ml/min Est GFR ( Amer) 47.1 Est GFR (Non-Af Amer) 40.6 BUN/Creatinine Ratio 13.9 (10-20) Glucose 92 (70-99) mg/dl POC Glucose (70-99) mg/dl Estimat Average Glucose mg/dl Hemoglobin A1c (4.5-5.6) % Osmolality 267 L (280-300) mOsm/kg Calcium 8.6 (8.5-10.1) mg/dl Phosphorus 3.0 (2.5-4.9) mg/dl Magnesium 2.3 (1.8-2.4) mg/dl Iron 72 (35-175) mcg/dl TIBC 322 (250-450) mcg/dl Ferritin 98.0 (8-388) ng/ml Total Bilirubin 1.6 H (0.2-1) mg/dl Direct Bilirubin 0.6 H (0-0.2) mg/dl AST 23 (15-37) U/L ALT 16 (12-78) U/L Alkaline Phosphatase 204 H (45-117) U/L Troponin I < 0.015 (0-0.045) ng/ml Total Protein 6.5 (6.4-8.2) gm/dl Albumin 3.3 L (3.4-5.0) gm/dl Globulin 3.2 (2.5-4.0) gm/dl Albumin/Globulin Ratio 1.0 (0.9-2) Lipase 34 L (73-393) U/L Urine Color Urine Appearance (Clear) Urine pH (4.5-7.5) Ur Specific [place] (1.000-1.030) Urine Protein (Negative) Urine Glucose (UA) (Negative) Urine Ketones (Negative) Urine Blood (Negative) Urine Nitrite (Negative) Urine Bilirubin (Negative) Urine Urobilinogen (Negative) Ur Leukocyte Esterase (Negative) Urine Osmolality (500-800) mOsm/kg IgA Anti-Proteinase 3 Anti-Myeloperoxidase ANCA Tiss Transglutamin IgA Celiac Disease Interp S.cerevisiae IgG Ab S.cerevisiae IgA Ab 05/20/20 Range/Units 14:54 WBC 4.65 L (4.8-10.8) K/uL RBC 4.90 (4.7-6.1) M/uL Hgb 15.8 (14.0-18.0) g/dL Hct 43.9 (42-52) % MCV 89.6 (80-100) fL MCH 32.2 (25-34) pg MCHC 36.0 (32-36) g/dL RDW Std Deviation 46.0 (36.4-46.3) fL RDW Coeff of [place] 14.0 (11.5-14.5) % Plt Count 155 (130-400) K/uL MPV 9.6 (7.4-10.4) fL Immature Gran % (Auto) 0.2 % Neut % (Auto) 72.5 % Lymph % (Auto) 13.3 % D[place]key % (Auto) 12.3 % Eos % (Auto) 1.5 % Baso % (Auto) 0.2 % Neut # (Auto) 3.37 (1.4-6.5) K/uL Lymph # (Auto) 0.62 L (1.2-3.4) K/uL D[place]key # (Auto) 0.57 (0.11-0.59) K/uL Eos # (Auto) 0.07 (0-0.5) K/uL Baso # (Auto) 0.01 (0-0.2) K/uL Immature Gran # (Auto) 0.01 (0.00-0.02) K/uL Sodium (136-145) mmol/L Potassium (3.5-5.1) mmol/L Chloride (98-107) mmol/L Carbon Dioxide (21-32) mmol/L Anion Gap (3-11) BUN (7-18) mg/dl Creatinine (0.6-1.4) mg/dl Est Cr Clr Drug Dosing ml/min Est GFR ( Amer) Est GFR (Non-Af Amer) BUN/Creatinine Ratio (10-20) Glucose (70-99) mg/dl POC Glucose (70-99) mg/dl Estimat Average Glucose mg/dl Hemoglobin A1c (4.5-5.6) % Osmolality (280-300) mOsm/kg Calcium (8.5-10.1) mg/dl Phosphorus (2.5-4.9) mg/dl Magnesium (1.8-2.4) mg/dl Iron (35-175) mcg/dl TIBC (250-450) mcg/dl Ferritin (8-388) ng/ml Total Bilirubin (0.2-1) mg/dl Direct Bilirubin (0-0.2) mg/dl AST (15-37) U/L ALT (12-78) U/L Alkaline Phosphatase (45-117) U/L Troponin I (0-0.045) ng/ml Total Protein (6.4-8.2) gm/dl Albumin (3.4-5.0) gm/dl Globulin (2.5-4.0) gm/dl Albumin/Globulin Ratio (0.9-2) Lipase (73-393) U/L Urine Color Urine Appearance (Clear) Urine pH (4.5-7.5) Ur Specific [place] (1.000-1.030) Urine Protein (Negative) Urine Glucose (UA) (Negative) Urine Ketones (Negative) Urine Blood (Negative) Urine Nitrite (Negative) Urine Bilirubin (Negative) Urine Urobilinogen (Negative) Ur Leukocyte Esterase (Negative) Urine Osmolality (500-800) mOsm/kg IgA Anti-Proteinase 3 Anti-Myeloperoxidase ANCA Tiss Transglutamin IgA Celiac Disease Interp S.cerevisiae IgG Ab S.cerevisiae IgA Ab
[2020-05-21] MEDS ORDERED: Nursing to Pharmacy Communication SCH (20:00)
[2020-05-22] MEDS ORDERED: CARBIDOPA/LEVODOPA 25/100MG TAB PO SCH (07:00)
--- NOTE | 2020-05-22 07:29 | Hospitalist Progress Note ---
Date of Service May 22, 2020 Assessment & Plan (1) Chronic diarrhea: (2) Acute on chronic renal failure: (3) Hypokalemia due to excessive gastrointestinal loss of potassium: (4) Hyponatremia with decreased serum osmolality: (5) GERD (gastroesophageal reflux disease): (6) CKD (chronic kidney disease) stage 3, GFR 30-59 ml/min: (7) A-fib: (8) Colon, diverticulosis: 74 yo male c PMH AFIB, GERD, Chronic Diarrhea, Diverticulosis, and CKD present with c/o of profuse diarrhea that began May 13 and is not going away. He saw his PCP and got Immodium. It got better, but returned. He was referred to GI who prescribed Cholestyramine, but he couldn't keep it down. He was referred to our ER and found to have Hypo K and Na c dehydration. He is placed under Obs c a c/s to GI, CT reveals Enteritis IVFs, IBD and Celiac panel pending, Fe studies are normal, Ferritin normal, TIBC Normal, replete chelsi, GI saw him and ok to DC from their perspective, Kept ON for hcelsi, episode of AFIB last PM, On PO K, Labs today are pending, DC later today ROS-No Headache, No Visual Changes, no Nausea, no Vomiting, No Fever, No Chills, No Neck Pain or Stiffness, No Chest Pain, No Palpitations, No SOB, No BOB, No Cough, No Sputum, No Wheezing, No Abdominal Pain, Less Diarrhea, No Hematemesis, No Hemoptysis, No Unexpected Weight Loss, No Flank pain, No Melena, No Hematochezia, No Frequency, No Urgency, No Burning, No Hematuria, No Rashes, No Diaphoresis. Appetite is Normal Physical Exam Gen-AAO x 3, NAD, Afebrile Head-NCAT, EOMI, PERRLA, Anicteric Sclera, No Posterior Pharyngeal Erythema Neck-Supple, No JVD, No Thyromegaly, No Masses, No LAD, No Bruits Lungs-Clear to Auscultation Bilaterally, No Rales, No Rhonchi, No Wheezing, No Crepitus Chest-No S4, +S1, +S2, No S3, No Murmurs, No Rubs, No Gallops, No Ectopy Abdomen-Soft, Bowel Sounds Present, Non Tender, Non Distended, No Hepatomegaly, No Splenomegaly, No Palpable Masses, No Rebound, No Rigidity, No Guarding Musculoskeletal-Full Range of Motion Bilaterally, No CVAT Extremities-No Cyanosis, No Clubbing, No Edema Nuero-Cranial Nerves II-XII grossly intact, Motor WNL, DTRs WNL, Strength WNL, Non Focal Psych-Normal Mood Admission and Anticipated Discharge Date Admission Date: May 21, 2020 Results & Data Results & Data ([facility]) Vital Signs (Past 12 Hours) Vital Signs Temp Pulse Pulse Resp BP Pulse Ox 05/22/20 03:25 36.5 C 66 70 18 112/77 97 05/21/20 22:50 36.6 C 65 17 114/76 96
--- NOTE | 2020-05-22 07:41 | Discharge Summary ---
Date of Service May 22, 2020 Admission HPI Per Admitting Provider 74 yo male c PMH AFIB, GERD, Chronic Diarrhea, Diverticulosis, and CKD present with c/o of profuse diarrhea that began May 13 and is not going away. He saw his PCP and got Immodium. It got better, but returned. He was referred to GI who prescribed Cholestyramine, but he couldn't keep it down. He was referred to our ER and found to have Hypo K and Na c dehydration. He will be placed under Obs c a c/s to GI, CT reveals Enteritis Admission Exam Per Admitting Provider ROS-No Headache, No Visual Changes, +Nausea, + Vomiting, No Fever, No Chills, No Neck Pain or Stiffness, No Chest Pain, No Palpitations, No SOB, No BOB, No Cough, No Sputum, No Wheezing, No Abdominal Pain, + Diarrhea, No Hematemesis, No Hemoptysis, No Unexpected Weight Loss, No Flank pain, No Melena, No Hematochezia, No Frequency, No Urgency, No Burning, No Hematuria, No Rashes, No Diaphoresis. Appetite is Normal Physical Exam Gen-AAO x 3, NAD, Afebrile Head-NCAT, EOMI, PERRLA, Anicteric Sclera, No Posterior Pharyngeal Erythema Neck-Supple, No JVD, No Thyromegaly, No Masses, No LAD, No Bruits Lungs-Clear to Auscultation Bilaterally, No Rales, No Rhonchi, No Wheezing, No Crepitus Chest-No S4, +S1, +S2, No S3, No Murmurs, No Rubs, No Gallops, No Ectopy Abdomen-Soft, Bowel Sounds Present, Non Tender, Non Distended, No Hepatomegaly, No Splenomegaly, No Palpable Masses, No Rebound, No Rigidity, No Guarding Musculoskeletal-Full Range of Motion Bilaterally, No CVAT Extremities-No Cyanosis, No Clubbing, No Edema Nuero-Cranial Nerves II-XII grossly intact, Motor WNL, DTRs WNL, Strength WNL, Non Focal Psych-Normal Mood Principal Diagnosis (1) Chronic diarrhea: (2) Acute on chronic renal failure: (3) Hypokalemia due to excessive gastrointestinal loss of potassium: (4) Hyponatremia with decreased serum osmolality: (5) GERD (gastroesophageal reflux disease): (6) CKD (chronic kidney disease) stage 3, GFR 30-59 ml/min: (7) A-fib: (8) Colon, diverticulosis: Discharge Exam see below Discharge Data Allergies Allergy/AdvReac Type Severity Reaction Status Date / Time lovastatin [From Mevacor] Allergy Unknown Muscle Pain Verified 05/20/20 14:54 shellfish derived Allergy Unknown Vomiting Verified 05/20/20 14:54 acetaminophen [From Percocet] AdvReac Gastrointestinal Verified 05/20/20 14:54 Upset oxycodone [From Percocet] AdvReac Gastrointestinal Verified 05/20/20 14:54 Upset Consultations 05/20/20 17:51 ED Decision to Admit Stat 05/20/20 20:35 Consult Gastroenterology Routine Ordered Studies 05/20/20 14:36 CT abd pelvis IV con only Stat Current Diagnoses Hypo-osmolality and hyponatremia (05/21/20) Hypokalemia (05/21/20) Unspecified atrial fibrillation (05/21/20) Gastro-esophageal reflux disease without esophagitis (05/21/20) Noninfective gastroenteritis and colitis, unspecified (05/21/20) Diverticulosis of large intestine without perforation or abscess without bleeding (05/21/20) Acute kidney failure, unspecified (05/21/20) Chronic kidney disease, stage 3 (moderate) (05/21/20) Chronic kidney disease, unspecified (05/21/20) Allergies lovastatin [From Mevacor] Allergy (Unknown, Verified 05/20/20 14:54) Muscle Pain shellfish derived Allergy (Unknown, Verified 05/20/20 14:54) Vomiting acetaminophen [From Percocet] Adverse Reaction (Verified 05/20/20 14:54) Gastrointestinal Upset oxycodone [From Percocet] Adverse Reaction (Verified 05/20/20 14:54) Gastrointestinal Upset Height/Weight/Isolation Height 5 ft 10 in Weight 73 kg Chemistry 05/20/20 05/21/20 14:54 05:59 Sodium 127 L 131 L Potassium 3.0 L 3.0 L Chloride 91 L 99 Carbon Dioxide 27 25 Anion Gap 9.0 8.0 BUN 23 H 18 Creatinine 1.63 H 1.27 D Glucose 92 77 Urinalysis 05/20/20 17:28 Urine Color Yellow Urine Appearance Clear Urine pH 6.0 Ur Specific [place] 1.026 Urine Protein Negative Urine Glucose (UA) Negative Urine Ketones Negative Urine Blood Negative Urine Nitrite Negative Urine Bilirubin Negative Microbiology 05/21/20 17:00 Stool Escherichia coli Shiga Toxins Test - Pending 05/21/20 17:00 Stool Stool Culture - Pending Hospital Course (1) Chronic diarrhea: (2) Acute on chronic renal failure: (3) Hypokalemia due to excessive gastrointestinal loss of potassium: (4) Hyponatremia with decreased serum osmolality: (5) GERD (gastroesophageal reflux disease): (6) CKD (chronic kidney disease) stage 3, GFR 30-59 ml/min: (7) A-fib: (8) Colon, diverticulosis: 74 yo male c PMH AFIB, GERD, Chronic Diarrhea, Diverticulosis, and CKD present with c/o of profuse diarrhea that began May 13 and is not going away. He saw his PCP and got Immodium. It got better, but returned. He was referred to GI who prescribed Cholestyramine, but he couldn't keep it down. He was referred to our ER and found to have Hypo K and Na c dehydration. He is placed under Obs c a c/s to GI, CT reveals Enteritis IVFs, IBD and Celiac panel pending, Fe studies are normal, Ferritin normal, TIBC Normal, replete chelsi, GI saw him and ok to DC from their perspective, Kept ON for lytes, episode of AFIB last PM, On PO K, Labs today are pending, DC later today Physical Exam Gen-AAO x 3, NAD, Afebrile Head-NCAT, EOMI, PERRLA, Anicteric Sclera, No Posterior Pharyngeal Erythema Neck-Supple, No JVD, No Thyromegaly, No Masses, No LAD, No Bruits Lungs-Clear to Auscultation Bilaterally, No Rales, No Rhonchi, No Wheezing, No Crepitus Chest-No S4, +S1, +S2, No S3, No Murmurs, No Rubs, No Gallops, No Ectopy Abdomen-Soft, Bowel Sounds Present, Non Tender, Non Distended, No Hepatomegaly, No Splenomegaly, No Palpable Masses, No Rebound, No Rigidity, No Guarding Musculoskeletal-Full Range of Motion Bilaterally, No CVAT Extremities-No Cyanosis, No Clubbing, No Edema Nuero-Cranial Nerves II-XII grossly intact, Motor WNL, DTRs WNL, Strength WNL, Non Focal Psych-Normal Mood Total Time Total Time Spent Total Time Spent (In Minutes): 45 mins Total Time Includes: Examination of the Patient, Discharge Planning, Medication Reconciliation and Communication With Other Providers Discharge Plan Discharge Items Patient Disposition: Home - Self-Care Reason For Visit: DIARRHEA, DEHYDRATION Discharge Diagnosis: (1) Chronic diarrhea: (2) Acute on chronic renal failure: (3) Hypokalemia due to excessive gastrointestinal loss of potassium: (4) Hyponatremia with decreased serum osmolality: (5) GERD (gastroesophageal reflux disease): (6) CKD (chronic kidney disease) stage 3, GFR 30-59 ml/min: (7) A-fib: (8) Colon, diverticulosis: Condition on Discharge: Good Health Concerns: Continued Diarrhea Activity: Resume your previous activity Lifting: Gradually increase as tolerated Bathing: No limitations Sexual Activity: When tolerated Exercise/Sports: Gradually increase as tolerated Driving/Machine Use: No limitations Weightbearing: Full weightbearing Non-emergency contact: Primary Care Provider and Entry Level Account Manager Call non-emergency contact if: you have any medication questions Follow-up/Referrals: Wilmer Al MD [Primary Care Provider] - Diet: Regular Addtl Attending Provider Instructions: Take Pepto Bismal 30 ml every 6 hours if having Diarrhea Cholestyramine 4g Twice Daily if having Diarrhea Imodium 2 mg after each loose stool, no more than 8 tabs in a 24 hour period Pending Studies at Discharge: Yes Studies:: Electrolytes Stand-Alone Forms: My [employer], Smoking Cessation Medications and DC Order Prescriptions: New potassium chloride [Klor-Con M20] 20 mEq Tablet,Er Particles/Crystals 20 meq PO BID Qty: 30 RF: 0 prochlorperazine maleate [Compazine] 10 mg tablet 10 mg PO Q8H PRN (Reason: nausea and vomiting) Qty: 30 RF: 0 Continued Eliquis 5 mg Tablet 5 mg PO BID RF: 0 cyanocobalamin (vitamin B-12) 1,000 mcg Tablet 1,000 mcg PO QAM RF: 0 carbidopa-levodopa 25-100 mg Tablet 1 tab PO TID RF: 0 fluticasone propionate [Flonase Allergy Relief] 50 mcg/actuation [place],Suspension 2 spray INTRANASAL DAILY PRN (Reason: Congestion) RF: 0 acetaminophen 500 mg Capsule 1,000 mg PO Q6H PRN (Reason: Pain) RF: 0 dicyclomine 10 mg Capsule 10 mg PO TID RF: 0 omeprazole 20 mg Capsule,Delayed Release(Dr/Ec) 20 mg PO QAM RF: 0 Changed loperamide 2 mg Capsule 2 mg PO QID PRN (Reason: Diarrhea) Qty: 30 RF: 0 Discharge Orders: Discharge Order (Routine); Ordered 05/22/20 Ordered By: Christian Gandhi Admission Data Admit Date/Time: 05/21/20 14:11 Attending Provider: Christian Gandhi Admit Provider: Christian Gandhi Primary Care Provider: Wilmer Al Other Providers: Christian Gandhi ; Lety Connolly ; Lyudmila Hannah ; Emmanuelle House ; Jacqueline Ponce ; Mich Pringle ; Indy Ralph ; Park Arellano ; Sakshi Wagner ; Ceasar Kim ; Artur Hassan ; Selena Botello ; Dolly Farmer ; Alina Eugene ; Kiera Escudero ; Ana Rosa Calles Other Interventions: Discharge Summary Assessment (RN) Last Done: 05/22/20 08:44
[2020-05-22 07:49] LABS: Basophils # (auto) 0.01 K/uL (0-0.2); Basophils % (auto) 0.3 %; Eosinophils # (auto) 0.05 K/uL (0-0.5); Eosinophils % (auto) 1.3 %; Hematocrit (blood only) 43.6 % (42-52); Hemoglobin 15.1 g/dL (14.0-18.0); Immature Granulocytes # (auto) 0.01 K/uL (0.00-0.02); Immature Granulocytes % (auto) 0.3 %; Lymphocytes # (auto) 0.54 K/uL (1.2-3.4); Lymphocytes % (auto) 14.4 %; Mean Corpuscular Hemoglobin 32.4 pg (25-34); Mean Corpuscular Hgb Conc 34.6 g/dL (32-36); Mean Corpuscular Volume 93.6 fL (80-100); Mean Platelet Volume 10.1 fL (7.4-10.4); Monocytes % (auto) 10.7 %; Neutrophils # (auto) 2.74 K/uL (1.4-6.5); Platelet Count 145 K/uL (130-400); RDW Coefficient of Variation 14.8 % (11.5-14.5); RDW Standard Deviation 49.3 fL (36.4-46.3); Red Blood Count 4.66 M/uL (4.7-6.1); White Blood Count 3.75 K/uL (4.8-10.8)
[2020-05-22] MEDS: DICYCLOMINE HCL 10 MG CAP PO SCH (07:53)
[2020-05-22] MEDS: PANTOprazole 40 MG TAB PO SCH (07:53)
[2020-05-22] MEDS: APIXABAN 5 MG TABLET PO SCH ×2 (07:53→08:57)
[2020-05-22] MEDS: CYANOCOBALAMIN 500 MCG TABLET (VITAMIN B-12) PO SCH (07:53)
[2020-05-22 08:12] LABS: Albumin Globulin Ratio 1.1 (0.9-2); BUN Creatinine Ratio 10.7 (10-20); Bilirubin,Total 1.3 mg/dl (0.2-1); Calcium 8.4 mg/dl (8.5-10.1); Creatinine Clr Calc Pharmacy 51.5 ml/min; Est GFR (Non-African American) 54.4; Globulin 2.8 gm/dl (2.5-4.0); Potassium 4.4 mmol/L (3.5-5.1); Total Protein 5.8 gm/dl (6.4-8.2)
[2020-05-22] MEDS: POTASSIUM CHLORIDE 40 MEQ in SODIUM CHLORIDE 0.9% 1000ML 1,000 ML IV SCH (08:32)
[2020-05-22] MEDS: POTASSIUM CHLORIDE 20 MEQ TABCR PO SCH (09:05)
[2020-05-22] MEDS: LOPERAMIDE HCL 2 MG CAP PO PRN (09:15)
[2020-05-25 01:46] LABS: IgA Serum 98 mg/dL (70-320); Tis Trans IgA 1 U/mL
[2020-05-26 11:52] LABS: ANCA Screen Negative (Negative); Myeloperoxidase Ab <1.0 AI (<1.0); Proteinase-3 AB <1.0 AI (<1.0)
== END 2020-05-22 09:35 | disposition home or self-care (01) | DRG 392 ==
LOC: ED 14:13 → 2N 14:13

== ENCOUNTER 2020-12-29 15:48 | Inpatient (IN) ==
[2020-12-29 18:02] LABS: Eosinophils # (auto) 0.05 K/uL (0-0.5); Eosinophils % (auto) 1.1 %; Hematocrit (blood only) 33.5 % (42-52); Hemoglobin 11.7 g/dL (14.0-18.0); Immature Granulocytes # (auto) 0.01 K/uL (0.00-0.02); Immature Granulocytes % (auto) 0.2 %; Lymphocytes # (auto) 0.42 K/uL (1.2-3.4); Lymphocytes % (auto) 9.3 %; Mean Corpuscular Hemoglobin 29.6 pg (25-34); Mean Corpuscular Hgb Conc 34.9 g/dL (32-36); Mean Corpuscular Volume 84.8 fL (80-100); Mean Platelet Volume 8.3 fL (7.4-10.4); Monocytes % (auto) 8.9 %; Neutrophils # (auto) 3.62 K/uL (1.4-6.5); Neutrophils % (auto) 80.5 %; Platelet Count 251 K/uL (130-400); RDW Coefficient of Variation 15.3 % (11.5-14.5); RDW Standard Deviation 47.6 fL (36.4-46.3); Red Blood Count 3.95 M/uL (4.7-6.1)
--- NOTE | 2020-12-29 18:09 | XRay Report ---
XR chest 1V portable HISTORY: 75 years-old Male weakness acute weakness COMPARISON: Chest radiograph 05/20/2020 TECHNIQUE: Portable AP view of the chest FINDINGS: Cardiomegaly. The patient is rotated towards the right. No pneumothorax, pleural effusion, airspace c onsolidation or overt pulmonary edema. Degenerative changes of the shoulders and spine. IMPRESSION: Cardiomegaly without acute process. ACT 112: Negative or not required by law. The above report was generated using voice recognition software. It may contain grammatical, syntax o r spelling errors. Electronically signed by: Chiki Parker M.D. 12/29/2020 6:07 PM
[2020-12-29 18:12] LABS: INR 1.1 (0.9-1.1); Partial Thromboplastin Ratio 1.4; Prothrombin Time 11.4 Seconds (9.0-12.0)
--- NOTE | 2020-12-29 18:20 | Emergency Department Note ---
Impression & Plan Acute hyponatremia, Weakness ED Provider Note NAME: JOSELUIS NO AGE: 75 SEX: M : 1945 ARRIVES VIA: Walk-In INFORMANT: Patient, ED PROVIDER(S): Ceasar Siegel DO CHIEF COMPLAINT: Weakness HPI: The patient is a 75-year-old male who presented to the emergency department with his significant other for an evaluation of weakness. The patient has been noticing symptoms over the course of the last few weeks. He has had lower extremity weakness. He has had left foot drop. He is also had some decreased responsiveness. He went to see his primary care physician and was then referred to his primary neurologist. He went to see his neurologist and was scheduled for an EMG. 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 They are unsure the exact cause of these symptoms. He then had further laboratory studies today and was sent to the emergency department because of a low sodium. The patient states he is on no new medications except Flomax which he has been on for 2 weeks. He denies having any headaches. He denies having any cough or shortness of breath. He has had no recent illnesses otherwise. He has been compliant with all of his outpatient medications otherwise. He does a history of atrial fibrillation and has been taking blood thinners. The patient denies having any recent falls. ROS: See above HPI for pertinent positives & negatives. A total of 10 systems reviewed and were otherwise negative. PAST MEDICAL HISTORY: See Below PAST SURGICAL HISTORY: See Below FAMILY HISTORY: See Below SOCIAL HISTORY: See Below HOME MEDICATIONS: See Below ALLERGIES: See Below VITALS: See Below PHYSICAL EXAMINATION: GENERAL: The patient is listless but responds to questioning. He does not appear to be in pain. EYES: The conjunctivae are clear. The pupils are asymmetric. The left pupil is postoperative in appearance. The right pupil is constricted but reactive. EARS, NOSE, MOUTH AND THROAT: The nose is without any evidence of any deformity. NECK: The neck is nontender and supple. RESPIRATORY: Normal respiratory effort is noted there is no evidence of wheezing rhonchi or rales CARDIOVASCULAR: Irregular rhythm was noted to auscultation. There is no definite murmur. GASTROINTESTINAL: The abdomen is soft. Abdomen is nontender. MUSCULOSKELETAL/EXTREMITIES: There is no evidence of gross deformity full range of motion is noted in the hips and shoulders. SKIN: Pedal edema was noted bilaterally. Skin is warm and dry. NEUROLOGIC: Patient is awake and oriented x3. Strength was symmetric but diminished. Patient is able to hold each leg off the bed for 5 seconds but his legs start to shake and follow the bed shortly after. He does have a left foot drop. MEDICAL DECISION MAKING: The patient is a 75-year-old male who presented to the emergency department for an evaluation of weakness. The patient had a outpatient work-up with his neurologist. 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 They feel this is what is causing the patient's foot drop. He was also found to have hyponatremia on laboratory studies. This is why the patient presented to the emergency department today. He has had no specific cause for the hyponatremia. There were no definite causes noted on chest x-ray or CT of the head that would explain the hyponatremia. The only new medication has been Flomax. I discussed the patient's laboratory and radiographic studies with him. I also discussed his case with the on-call [facility]ist group. They have agreed to evaluate the patient in the emergency department for further management and disposition. Triage Nursing notes reviewed. Prior medical records reviewed Vital Signs: reviewed and remarkable for no significant abnormalities Differential diagnosis: Infection, dehydration, metabolic abnormality, hypo/hyperglycemia, electrolyte disturbance, anemia, hypoxia, cardiac sources, intracerebral event, toxicologic, neurologic, as well as other pathologies. ER treatment provided: See below Diagnostics interpreted by me: ECG: EKG was obtained in the emergency department. My interpretation is atrial fibrillation at 65 bpm. There is no PVCs noted. There is no acute ST segment abnormalities noted. This was compared to a tracing from October 142020. No significant changes were noted. Cardiac Monitoring: An order was placed for continuous cardiac monitoring. The monitor shows a rate of 85 bpm with atrial fibrillation rhythm. Laboratory studies: As stated above and show below. Imaging studies: See below Consultation(s): I discussed this case with Winsome who is on-call for the [facility] Hospitalist group. They will evaluate the patient in the emergency department. Past Med/Surg History Medical History (Updated 12/29/20 @ 19:25 by Ceasar Siegel DO) A-fib on Eliquis CKD (chronic kidney disease) stage 3, GFR 30-59 ml/min GERD (gastroesophageal reflux disease) Parkinson disease "mild"- following with Dr. Rizzo/ERICK Francois's ring Surgical History History of colonoscopy 11/2017 scattered diverticulosis History of esophagogastroduodenoscopy (EGD) 11/2017 Priscila ring, esophagitis History of eye surgery CATARACT LEFT History of hernia repair Family History Father Colon cancer Mother , age 48, of influenza pneumonia Pneumonia Sister Rheumatoid arthritis Social History Smoking Status: Never smoker Second Hand Exposure: No; Hx Alcohol Use: Yes Alcohol type: beer Alcohol Intake Frequency Comment: 1 glass of wine or beer a day Hx Substance Use: No Preferred Language: [place] Communication Ability: Effective Visual Impairment: No Limitations Hearing Ability: Normal Drug Abuse Technician Required: No Beliefs That Will Affect Care: None marital status: Current Living Situation: Spouse Feels Safe at Home: Yes Assistive Devices: Glasses Allergies Allergies Allergy/AdvReac Type Severity Reaction Status Date / Time lovastatin [From Mevacor] Allergy Unknown Muscle Pain Verified 12/29/20 18:48 shellfish derived Allergy Unknown Vomiting Verified 12/29/20 18:48 acetaminophen [From Percocet] AdvReac Gastrointestinal Verified 12/29/20 18:48 Upset oxycodone [From Percocet] AdvReac Gastrointestinal Verified 12/29/20 18:48 Upset Home Meds Home Medications Medication Instructions Recorded Confirmed omeprazole 20 mg PO QAM 09/12/18 12/29/20 Eliquis 5 mg PO BID 05/12/20 12/29/20 acetaminophen 1,000 mg PO Q6H PRN 05/12/20 12/29/20 cyanocobalamin (vitamin B-12) 1,000 mcg PO QAM 05/12/20 12/29/20 dicyclomine 10 mg PO TID PRN 05/12/20 12/29/20 fluticasone propionate [Flonase 2 spray INTRANASAL DAILY PRN 05/12/20 12/29/20 Allergy Relief] cetirizine 10 mg PO PM 10/14/20 12/29/20 colestipol 1 g PO BID PRN 10/14/20 12/29/20 carbidopa-levodopa 1 tab PO TID 12/29/20 12/29/20 potassium chloride 20 meq PO BID 12/29/20 12/29/20 tamsulosin 0.4 mg PO DAILY 12/29/20 12/29/20 Previous Rx's Medication Instructions Recorded loperamide 2 mg PO QID PRN #30 cap 05/22/20 prochlorperazine maleate 10 mg PO Q8H PRN #30 tab 05/22/20 [Compazine] Results & Data (ED) Vital Signs Vital Signs - 24 hr 12/29/20 16:19 12/29/20 17:43 Temperature 36.8 C Temperature Source Temporal Artery Scan Pulse Rate 86 Pulse Rate [Right Finger] 70 Pulse Rhythm [Right Finger] Regular Pulse Strength [Right Finger] Normal Respiratory Rate 20 18 Respiratory Effort / Characteristics Non-Labored Spontaneous Non-Labored Respiratory Depth Normal Normal Respiratory Pattern Regular Regular Blood Pressure 103/66 Blood Pressure [Right Arm] 124/86 Blood Pressure Mean 78 Blood Pressure Mean [Right Arm] 98 Blood Pressure Position Sitting Blood Pressure Position [Right Arm] Sitting Pulse Oximetry 99 99 Oxygen Delivery Method Room Air Room Air Sepsis Recent Fever Within 48 Hours No Sepsis New/Unexplained Change in Mental Status N/A Sepsis Action Taken by Nursing No Action Required Home Medications Current Medication List: was personally reviewed by me Laboratory Data Attestation: I reviewed the patient's lab results. Result diagrams: 12/29/20 17:43 12/29/20 17:43 Lab Results 12/29/20 12/29/20 12/29/20 Range/Units 17:43 17:43 17:43 WBC (4.8-10.8) K/uL RBC (4.7-6.1) M/uL Hgb (14.0-18.0) g/dL Hct (42-52) % MCV (80-100) fL MCH (25-34) pg MCHC (32-36) g/dL RDW Std Deviation (36.4-46.3) fL RDW Coeff of [place] (11.5-14.5) % Plt Count (130-400) K/uL MPV (7.4-10.4) fL Immature Gran % (Auto) % Neut % (Auto) % Lymph % (Auto) % [place] % (Auto) % Eos % (Auto) % Baso % (Auto) % Neut # (Auto) (1.4-6.5) K/uL Lymph # (Auto) (1.2-3.4) K/uL [place] # (Auto) (0.11-0.59) K/uL Eos # (Auto) (0-0.5) K/uL Baso # (Auto) (0-0.2) K/uL Immature Gran # (Auto) (0.00-0.02) K/uL PT 11.4 (9.0-12.0) Seconds INR 1.1 (0.9-1.1) APTT 37.0 H (21.0-31.0) Seconds PTT Ratio 1.4 Sodium 126 L (136-145) mmol/L Potassium 4.2 (3.5-5.1) mmol/L Chloride 95 L (98-107) mmol/L Carbon Dioxide 26 (21-32) mmol/L Anion Gap 5.0 (3-11) BUN 15 (7-18) mg/dl Creatinine 0.95 (0.6-1.4) mg/dl Est Cr Clr Drug Dosing 68.3 ml/min Est GFR ( Amer) 89.8 Est GFR (Non-Af Amer) 77.4 BUN/Creatinine Ratio 15.7 (10-20) Glucose 95 (70-99) mg/dl Osmolality 260 L (280-300) mOsm/kg Calcium 8.1 L (8.5-10.1) mg/dl Magnesium 2.0 (1.8-2.4) mg/dl Total Bilirubin 0.5 (0.2-1) mg/dl AST 18 (15-37) U/L ALT 12 (12-78) U/L Alkaline Phosphatase 143 H (45-117) U/L Total Creatine Kinase 432 H (39-308) U/L Troponin I < 0.015 (0-0.045) ng/ml Total Protein 6.0 L (6.4-8.2) gm/dl Albumin 2.6 L (3.4-5.0) gm/dl Globulin 3.4 (2.5-4.0) gm/dl Albumin/Globulin Ratio 0.8 L (0.9-2) TSH 1.740 (0.300-4.500) uIu/ml Specimen Hemolysis COVID-19 Eval Order 12/29/20 12/29/20 Range/Units 17:43 18:20 WBC 4.50 L (4.8-10.8) K/uL RBC 3.95 L (4.7-6.1) M/uL Hgb 11.7 L (14.0-18.0) g/dL Hct 33.5 L (42-52) % MCV 84.8 (80-100) fL MCH 29.6 (25-34) pg MCHC 34.9 (32-36) g/dL RDW Std Deviation 47.6 H (36.4-46.3) fL RDW Coeff of [place] 15.3 H (11.5-14.5) % Plt Count 251 (130-400) K/uL MPV 8.3 (7.4-10.4) fL Immature Gran % (Auto) 0.2 % Neut % (Auto) 80.5 % Lymph % (Auto) 9.3 % [place] % (Auto) 8.9 % Eos % (Auto) 1.1 % Baso % (Auto) 0.0 % Neut # (Auto) 3.62 (1.4-6.5) K/uL Lymph # (Auto) 0.42 L (1.2-3.4) K/uL [place] # (Auto) 0.40 (0.11-0.59) K/uL Eos # (Auto) 0.05 (0-0.5) K/uL Baso # (Auto) 0.00 (0-0.2) K/uL Immature Gran # (Auto) 0.01 (0.00-0.02) K/uL PT (9.0-12.0) Seconds INR (0.9-1.1) APTT (21.0-31.0) Seconds PTT Ratio Sodium (136-145) mmol/L Potassium (3.5-5.1) mmol/L Chloride (98-107) mmol/L Carbon Dioxide (21-32) mmol/L Anion Gap (3-11) BUN (7-18) mg/dl Creatinine (0.6-1.4) mg/dl Est Cr Clr Drug Dosing ml/min Est GFR ( Amer) Est GFR (Non-Af Amer) BUN/Creatinine Ratio (10-20) Glucose (70-99) mg/dl Osmolality (280-300) mOsm/kg Calcium (8.5-10.1) mg/dl Magnesium (1.8-2.4) mg/dl Total Bilirubin (0.2-1) mg/dl AST (15-37) U/L ALT (12-78) U/L Alkaline Phosphatase (45-117) U/L Total Creatine Kinase (39-308) U/L Troponin I (0-0.045) ng/ml Total Protein (6.4-8.2) gm/dl Albumin (3.4-5.0) gm/dl Globulin (2.5-4.0) gm/dl Albumin/Globulin Ratio (0.9-2) TSH (0.300-4.500) uIu/ml Specimen Hemolysis COVID-19 Eval Order CovFluRsv at [facility] Imaging Data Radiologist's Impression: Head CT 12/29/20 17:52 CT head/brain wo con CLINICAL HISTORY: 75 years-old Male with weakness. Acute weakness TECHNIQUE: Multiple axial CT images of the head were obtained without contrast. A dose lowering technique was utilized adhering to the principles of ALARA. CT DOSE: 537.48 mGy.cm COMPARISON: , Brain MRI 10/14/2020. FINDINGS: No acute intracranial hemorrhage, midline shift, intracranial mass, hydrocephalus, territorial ischemia or abnormal extra-axial collection. Age- related involutional changes. White matter hypodensities suggestive of chronic microvascular ischemic disease. Cerebral vascular calcifications. Mildly motion degraded exam. No acute calvarial fracture. Lucencies of the midline occipital calvarium suggestive arachnoid granulations, unchanged. Mastoid air cells are clear. Mild mucosal thickening of the ethmoid sinuses. Unremarkable soft tissues. Prior bilateral lens repair. IMPRESSION: No acute intracranial abnormality. ACT 112: Negative or not required by law. The above report was generated using voice recognition software. It may contain grammatical, syntax or spelling errors. Electronically signed by: Chiki Parker M.D. 12/29/2020 6:42 PM Chest X-Ray 12/29/20 17:53 XR chest 1V portable HISTORY: 75 years-old Male weakness acute weakness COMPARISON: Chest radiograph 05/20/2020 TECHNIQUE: Portable AP view of the chest FINDINGS: Cardiomegaly. The patient is rotated towards the right. No pneumothorax, pleural effusion, airspace consolidation or overt pulmonary edema. Degenerative changes of the shoulders and spine. IMPRESSION: Cardiomegaly without acute process. ACT 112: Negative or not required by law. The above report was generated using voice recognition software. It may contain grammatical, syntax or spelling errors. Electronically signed by: Chiki Parker M.D. 12/29/2020 6:07 PM Discharge Plan Visit Data Chief Complaint: Abnormal Labs/Diagnostic Testing Stated Complaint: LOW SODIUM ED Provider: Ceasar Siegel Discharge Problem: Acute hyponatremia, Weakness Patient Disposition: Being Evaluated by Hospitalist Condition: Good Forms Stand Alone Forms: [facility] Prescriptions Prescriptions: No Action Eliquis 5 mg Tablet 5 mg PO BID RF: 0 cyanocobalamin (vitamin B-12) 1,000 mcg Tablet 1,000 mcg PO QAM RF: 0 fluticasone propionate [Flonase Allergy Relief] 50 mcg/actuation [place],Suspension 2 spray INTRANASAL DAILY PRN (Reason: Congestion) RF: 0 acetaminophen 500 mg Capsule 1,000 mg PO Q6H PRN (Reason: Pain) RF: 0 dicyclomine 10 mg Capsule 10 mg PO TID PRN (Reason: cramping or diarrhea) RF: 0 loperamide 2 mg Capsule 2 mg PO QID PRN (Reason: Diarrhea) Qty: 30 RF: 0 prochlorperazine maleate [Compazine] 10 mg tablet 10 mg PO Q8H PRN (Reason: nausea and vomiting) Qty: 30 RF: 0 colestipol 1 gram tablet 1 g PO BID PRN (Reason: ..) RF: 0 cetirizine 10 mg Capsule 10 mg PO PM RF: 0 omeprazole 20 mg Capsule,Delayed Release(Dr/Ec) 20 mg PO QAM RF: 0 potassium chloride 40 mEq/15 mL liquid 20 meq PO BID RF: 0 carbidopa-levodopa 25-100 mg tablet 1 tab PO TID RF: 0 tamsulosin 0.4 mg capsule 0.4 mg PO DAILY RF: 0 Referrals Referrals: Wilmer Al MD [Primary Care Provider] -
[2020-12-29 18:22] LABS: Alanine Aminotransferase 12 U/L (12-78); Albumin Level 2.6 gm/dl (3.4-5.0); Aspartate Aminotransferase 18 U/L (15-37); BUN Creatinine Ratio 15.7 (10-20); Blood Urea Nitrogen 15 mg/dl (7-18); Calcium 8.1 mg/dl (8.5-10.1); Carbon Dioxide 26 mmol/L (21-32); Chloride 95 mmol/L (98-107); Creatinine Clr Calc Pharmacy 68.3 ml/min; Est GFR (African American) 89.8; Est GFR (Non-African American) 77.4; Glucose 95 mg/dl (70-99); Potassium 4.2 mmol/L (3.5-5.1); Sodium 126 mmol/L (136-145)
[2020-12-29 18:36] LABS: Albumin Globulin Ratio 0.8 (0.9-2); Alkaline Phosphatase 143 U/L (45-117); Bilirubin,Total 0.5 mg/dl (0.2-1); Creatine Kinase 432 U/L (39-308); Globulin 3.4 gm/dl (2.5-4.0); Troponin I < 0.015 ng/ml (0-0.045)
--- NOTE | 2020-12-29 18:44 | CT Scan Report ---
CT head/brain wo con CLINICAL HISTORY: 75 years-old Male with weakness. Acute weakness TECHNIQUE: Multiple axial CT images of the head were obtained without contrast. A dose lowering tech nique was utilized adhering to the principles of ALARA. CT DOSE: 537.48 mGy.cm COMPARISON: , Brain MRI 10/14/2020. FINDINGS: No acute intracranial hemorrhage, midline shift, intracranial mass, hydrocephalus, territorial ischem ia or abnormal extra-axial collection. Age-related involutional changes. White matter hypodensities s uggestive of chronic microvascular ischemic disease. Cerebral vascular calcifications. Mildly motion degraded exam. No acute calvarial fracture. Lucencies of the midline occipital calvarium suggestive arachnoid granul ations, unchanged. Mastoid air cells are clear. Mild mucosal thickening of the ethmoid sinuses. Unre markable soft tissues. Prior bilateral lens repair. IMPRESSION: No acute intracranial abnormality. ACT 112: Negative or not required by law. The above report was generated using voice recognition software. It may contain grammatical, syntax o r spelling errors. Electronically signed by: Chiki Parker M.D. 12/29/2020 6:42 PM
[2020-12-29 19:24] LABS: Influenza A virus by PCR Negative (Neg); Influenza B virus by PCR Negative (Neg); RSV by PCR Negative (Neg); SARS CoV2 RNA(COVID-19) InHosp NEGATIVE (Negative)
[2020-12-29 20:14] LABS: Appearance Urine Clear (Clear); Blood Urine Negative (Negative); Color Urine Dark Yellow; Glucose Urine UA Negative (Negative); Ketones Urine Trace (Negative); Leukocyte Esterase Urine Negative (Negative); Nitrite Urine Negative (Negative); Protein Urine Negative (Negative); Specific Gravity Urine 1.027 (1.000-1.030); Urobilinogen Urine Negative (Negative)
[2020-12-29 20:27] LABS: Bilirubin Urine 1+ (Negative)
[2020-12-29] MEDS ORDERED: FLUTICASONE PROPIONATE NA SPR 16 GM BTL PRN (23:46)
[2020-12-29] MEDS ORDERED: COLESTIPOL HCL 1 GM TAB PO PRN (23:46)
[2020-12-29] MEDS ORDERED: CETIRIZINE 10 MG PO SCH (23:46)
[2020-12-29] MEDS ORDERED: NITROGLYCERIN SL 0.4 MG/TAB TAB SL PRN (23:46)
[2020-12-29] MEDS ORDERED: ONDANSETRON INJ 2 MG/ML 2 ML VIAL IV PRN (23:46)
[2020-12-29] MEDS ORDERED: DICYCLOMINE HCL 10 MG CAP PO PRN (23:46)
[2020-12-29] MEDS ORDERED: PROCHLORPERAZINE MALEATE 10 MG TAB PO PRN (23:46)
--- NOTE | 2020-12-29 23:53 | History and Physical Report ---
DATE OF ADMISSION: 12/29/2020 CHIEF COMPLAINT: Hyponatremia. HISTORY OF PRESENT ILLNESS: This is a 75-year-old male with past medical history significant for chronic atrial fibrillation, aortic root dilatation, diastolic dysfunction, pulmonary hypertension, moderate aortic regurgitation, chronic diarrhea, esophagitis, collagenous colitis, chronic kidney disease stage III, lumbar degenerative disc disease, primary osteoarthritis of the left hip, left foot drop,Anisocoria, Parkinson's, thrombocytopenia, _Monoallelic mutation of BRCA2 gene, who lives at home with his was brought in because his outpatient labs showed hyponatremia. As per the , patient had a fall in October and he was in rehab for some time and then at [facility] for a few weeks and then got home. As per the patient, since last three weeks he is not walking much, he is wheelchair bound. As per the , he is ambulating some with a walker with help. And he is also having left foot drop. Seen by neurologist recently and ordered a bunch of labs. Also recently EMG was done, which showed severe chronic axonal sensorimotor polyneuropathy. He also has some eye ptosis, could be underlying generalized myasthenia gravis in addition to Parkinson's disease or other considerations including CIDP versus metabolic encephalopathy as per neurology.Today outpatient lab work done and lab work shows hyponatremia for which he was sent to hospital today. Neurology also recommended to stop Eliquis and start on heparin drip for possible lumbar puncture to evaluate for an elevated CSF protein. The patient except for the generalized weakness and fatigue, no other complaints. The patient states he is eating and drinking fine, micturating fine except recently he was started on Flomax because he was micturating a lot in the nighttime. He has chronic diarrhea, which is under control now. Appetite is good. No dysphagia, no chest pain. He gets some shortness of breath on exertion. Has chronic runny nose. No sore throat, no cough, no headache. Occasional blurred visions. No earache, no sore throat. No fevers. Currently resting comfortably and hemodynamically stable. ALLERGIES: LOVASTATIN AND SHELLFISH. ACETAMINOPHEN FROM PERCOCET CAUSES GASTRIC UPSET. FAMILY HISTORY: Significant for sister has rheumatoid arthritis, aunt has lung cancer, father has colon cancer. SOCIAL HISTORY: . No smoking. Two beers daily. No drug use. REVIEW OF SYSTEMS: As per HPI. Rest of the review of systems is negative. PHYSICAL EXAMINATION: GENERAL: The patient is of moderate build, not in acute distress. VITAL SIGNS: Temperature 36.8, pulse 71, respiratory rate 15, blood pressure 105/78, oxygen 96% on room air. HEENT: Pupils equal, round, reactive to light. Oral mucosa moist. NECK: No neck masses seen. CARDIOVASCULAR: S1, S2 heard. Regular rate and rhythm. No murmur, no gallop. RESPIRATORY SYSTEM: Normal AP diameter. No accessory muscle use. No wheezing, no crackles. ABDOMEN: Soft, bowel sounds present, nontender. No distention. CENTRAL NERVOUS SYSTEM: Alert and oriented. No facial droop. Speech is clear. Moves extremities. Power 4/5 in all extremities except 3/5 in right extremity. Left foot drop is seen. EXTREMITIES: No edema, no erythema. LABORATORY DATA: WBC 4.5, hemoglobin 11.7, hematocrit 33.5, platelets 251. PT 11.4, INR 1.1, APTT 37. Sodium 126, potassium 4.2, chloride 95, bicarbonate 26, BUN 15, creatinine 0.9, serum glucose 95. Serum osmolality 260, calcium 8.1, magnesium 2, total bilirubin 0.5, AST 18, ALT 12, alkaline phosphatase 143, total creatinine kinase 432. Troponin I less than 0.015. TSH 1.7. Urinalysis, urine osmolality is 747. Random sodium 46. SARS-CoV-2 PCR negative. Influenza A and B PCR negative. RSV PCR negative. IMAGING DATA: Chest x-ray, no acute findings. CT of the head, no acute findings. EKG: AFib with rate of 65, no acute ST changes seen. ASSESSMENT AND PLAN: This is a 75-year-old male who presents with hyponatremia. 1. Hyponatremia: Chest x-ray and CT head is okay. Urine osmolality is 747. Could be most likely syndrome of inappropriate antidiuretic hormone. Fluid restriction 1200 mL per day. Follow the repeat labs. Consult nephrology in a.m. for further recommendations based on labs. 2. Generalized weakness and fatigue, could be from hyponatremia. Neurology also want to rule out chronic inflammatory demyelinating polyneuropathy. Lumbar puncture as per neurology, will consult neurology. 3. Parkinson's: Continue his home medications of carbidopa/levodopa. 4. Chronic diarrhea: Continue colestipol. 5. Atrial fibrillation: Rate is under control. We will change Eliquis to heparin as planned for anticipation of lumbar puncture. 6. Gastroesophageal reflux disease: Continue omeprazole. 7. Benign prostatic hypertrophy: Continue Flomax. 8. Chronic kidney disease stage III: Creatinine 0.9. We will follow the labs. 9. Deep venous thrombosis prophylaxis: Heparin. DISPOSITION: Closely monitor in the med tele. Level 1 full code. PT and OT prior to discharge. Social service to help with discharge planning. Expect to discharge home and follow with family doctor. AI
[2020-12-29] MEDS ORDERED: ACETAMINOPHEN 500 MG TAB PO PRN (23:58)
[2020-12-30] MEDS: CARBIDOPA/LEVODOPA 25/100MG TAB PO SCH ×4 (01:37→21:49)
[2020-12-30] MEDS: POTASSIUM CHLORIDE CRTAB 20 MEQ TABCR PO SCH ×2 (01:37→08:34)
[2020-12-30 06:07] LABS: Basophils # (auto) 0.01 K/uL (0-0.2); Basophils % (auto) 0.2 %; Eosinophils # (auto) 0.07 K/uL (0-0.5); Eosinophils % (auto) 1.6 %; Hematocrit (blood only) 32.2 % (42-52); Hemoglobin 10.9 g/dL (14.0-18.0); Immature Granulocytes # (auto) 0.01 K/uL (0.00-0.02); Immature Granulocytes % (auto) 0.2 %; Lymphocytes # (auto) 0.63 K/uL (1.2-3.4); Lymphocytes % (auto) 14.8 %; Mean Corpuscular Hemoglobin 28.7 pg (25-34); Mean Corpuscular Hgb Conc 33.9 g/dL (32-36); Mean Corpuscular Volume 84.7 fL (80-100); Mean Platelet Volume 8.4 fL (7.4-10.4); Monocytes # (auto) 0.32 K/uL (0.11-0.59); Monocytes % (auto) 7.5 %; Neutrophils # (auto) 3.22 K/uL (1.4-6.5); Neutrophils % (auto) 75.7 %; Platelet Count 237 K/uL (130-400); RDW Coefficient of Variation 15.1 % (11.5-14.5); RDW Standard Deviation 47.1 fL (36.4-46.3); White Blood Count 4.26 K/uL (4.8-10.8)
[2020-12-30 06:34] LABS: Albumin Level 2.4 gm/dl (3.4-5.0); BUN Creatinine Ratio 19.2 (10-20); Bilirubin Direct 0.2 mg/dl (0-0.2); Creatinine Clr Calc Pharmacy 85.4 ml/min; Est GFR (African American) 102.7; Est GFR (Non-African American) 88.6; Potassium 3.9 mmol/L (3.5-5.1)
[2020-12-30 06:36] LABS: Bilirubin,Total 0.6 mg/dl (0.2-1); Total Protein 5.4 gm/dl (6.4-8.2)
--- NOTE | 2020-12-30 07:07 | Hospitalist Progress Note ---
Date of Service December 30, 2020 Assessment & Plan (1) Acute hyponatremia: (2) Weakness: ASSESSMENT AND PLAN: This is a 75-year-old male who presents with hyponatremia. 1. Hyponatremia: Chest x-ray and CT head is okay. Urine osmolality is 747. Could be most likely syndrome of inappropriate antidiuretic hormone. Fluid restriction 1200 mL per day. Follow the repeat labs. Consult nephrology in a.m. for further recommendations based on labs. 2. Generalized weakness and fatigue, could be from hyponatremia. Neurology also want to rule out chronic inflammatory demyelinating polyneuropathy. Lumbar puncture as per neurology, will consult neurology. 3. Parkinson's: Continue his home medications of carbidopa/levodopa. 4. Chronic diarrhea: Continue colestipol. 5. Atrial fibrillation: Rate is under control. We will change Eliquis to heparin as planned for anticipation of lumbar puncture. 6. Gastroesophageal reflux disease: Continue omeprazole. 7. Benign prostatic hypertrophy: Continue Flomax. 8. Chronic kidney disease stage III: Creatinine 0.9. We will follow the labs. 9. Deep venous thrombosis prophylaxis: Heparin. DISPOSITION: Closely monitor in the [employer] [facility]. Level 1 full code. PT and OT prior to discharge. Social service to help with discharge planning. Expect to discharge home and follow with family doctor. Labs checked. ROS-No Headache, No Visual Changes, No Nausea, No Vomiting, No Fever, No Chills, No Neck Pain or Stiffness, No Chest Pain, No Palpitations, No SOB, No BOB, No Cough, No Sputum, No Wheezing, No Abdominal Pain, No Diarrhea, No Hematemesis, No Hemoptysis, No Unexpected Weight Loss, No Flank pain, No Melena, No Hematochezia, No Frequency, No Urgency, No Burning, No Hematuria, No Rashes, No Diaphoresis. Appetite is Normal Physical Exam Gen-AAO x 3, NAD, Afebrile, Parkinsonian Head-NCAT, EOMI, PERRLA, Anicteric Sclera, No Posterior Pharyngeal Erythema Neck-Supple, No JVD, No Thyromegaly, No Masses, No LAD, No Bruits Lungs-Clear to Auscultation Bilaterally, No Rales, No Rhonchi, No Wheezing, No Crepitus Chest-No S4, +S1, +S2, No S3, No Murmurs, No Rubs, No Gallops, No Ectopy Abdomen-Soft, Bowel Sounds Present, Non Tender, Non Distended, No Hepatomegaly, No Splenomegaly, No Palpable Masses, No Rebound, No Rigidity, No Guarding Musculoskeletal-Full Range of Motion Bilaterally, No CVAT Extremities-No Cyanosis, No Clubbing, No Edema Nuero-Cranial Nerves II-XII grossly intact, Motor WNL, DTRs WNL, Strength WNL, Non Focal Psych-Normal Mood Admission and Anticipated Discharge Date Admission Date: December 29, 2020 Results & Data Results & Data ([facility]) Vital Signs (Past 12 Hours) Vital Signs Temp Pulse Pulse Resp BP BP Pulse Ox 12/30/20 04:07 36.5 C 65 19 156/88 H 90 12/30/20 01:10 81 12/30/20 00:28 36.3 C L 79 16 137/82 100 12/29/20 23:00 68 19 130/83 96 12/29/20 22:30 75 14 137/81 96 12/29/20 22:00 72 15 135/81 96 12/29/20 21:00 71 15 105/78 96 12/29/20 20:30 68 15 119/75 96 12/29/20 20:00 68 15 141/82 H 97 12/29/20 19:30 63 14 128/78 92
[2020-12-30 08:17] LABS: INR 1.1 (0.9-1.1); Partial Thromboplastin Time 26.5 Seconds (21.0-31.0); Prothrombin Time 10.9 Seconds (9.0-12.0)
[2020-12-30] MEDS: HEPARIN SODIUM/DEXTROSE 25,000 UNITS/500 ML BAG IV SCH (08:34)
[2020-12-30] MEDS: PANTOprazole 40 MG TAB PO SCH (08:35)
[2020-12-30] MEDS: TAMSULOSIN HCL 0.4 MG CAP PO SCH (08:35)
[2020-12-30] MEDS: CYANOCOBALAMIN 500 MCG TABLET (VITAMIN B-12) PO SCH (08:35)
[2020-12-30] MEDS ORDERED: Heparin IV Adult Wt-Based Low-Dose *NO* Bolus Protocol IV SCH (09:00)
[2020-12-30] MEDS ORDERED: SODIUM CHLORIDE 0.9% 1000ML 1,000 ML IV ONE (09:17)
[2020-12-30] MEDS ORDERED: POTASSIUM CHLORIDE 10 MEQ TABCR PO ONE (09:45)
--- NOTE | 2020-12-30 10:10 | Consultation Report ---
DATE OF CONSULTATION: 12/30/2020 REASON FOR CONSULT: Hyponatremia. HISTORY OF PRESENT ILLNESS: The patient is a 75-year-old male who was sent over to the hospital by his neurologist because of outpatient labs showing hyponatremia. The patient has been having fall and has been getting some rehabilitation, but for the last few weeks, he is back at home. He is getting extensive workup from the neurologist looking for multiple neurological diseases. In any case, from sodium standpoint, his sodium was 126 yesterday, this morning is 127. Urine osmolality is very inappropriately high at 747. Urine sodium was 46. It does not appear that the patient was taking any medication as such, which is known to cause low sodium. His diet and fluid intake has not changed much according to the patient, although I am not 100% sure as his takes care of most of the stuff. The patient's blood pressure is slightly high at 162/91 and he does have some lower extremity edema, especially in the right leg. He is currently on a fluid restriction 1200 mL per a day. ALLERGIES: List was reviewed in detail. SOCIAL HISTORY: . No smoking, no drugs. He drinks few beers a day. FAMILY HISTORY: Negative for renal disease or dialysis. MEDICATIONS: At home was reviewed and is as per the reconciliation list. He is not on any medications known to cause hyponatremia. He is not on any diuretics. REVIEW OF SYSTEMS: He was having issues with weakness, tremors, fall, but denies any nausea, vomiting, chest pain, shortness of breath, orthopnea, diarrhea or any other symptoms. PHYSICAL EXAMINATION: GENERAL: Elderly white male who is not in any respiratory distress. VITAL SIGNS: Blood pressure is 162/91, pulse rate 70, temperature 36.6, 95% on room air. HEENT: Mucous membrane moist. NECK: Supple. No jugular venous distention. CHEST: Bilateral clear to auscultation. CARDIOVASCULAR: S1, S2 regular. ABDOMEN: Soft, nontender. EXTREMITIES: Shows 1+ edema in the right, no edema in the left. LABORATORY TESTS: Serum sodium this morning 127. Urine osmolality is 747. Urine sodium 46. BUN is 15, creatinine 0.76. Chest x-ray was unremarkable. ASSESSMENT AND PLAN: A 75-year-old male who was admitted because of hyponatremia for which I have been consulted. Hyponatremia. 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 Urine sodium was 46. He does not appear to be volume depleted at all. If anything, he is probably slightly volume overloaded. We will do a full treatment for the hyponatremia as follows: 1. Normal saline at 80 mL per hour to give some salt load. 2. Lasix 20 mg IV q. 8 hour to decrease the urine osmolality and free water diuresis. 3. Urea 15 grams t.i.d. 4. He will need more potassium than he is getting, so we will increase the potassium supplement. 5. Labs q. 12 hours. 6. Continue free fluid restriction 1200 mL per day. MTDD
[2020-12-30] MEDS: FUROSEMIDE 20 MG in SYRINGE 0 ML IV SCH ×3 (10:34→21:50)
--- NOTE | 2020-12-30 10:42 | Electrocardiogram Report ---
Test Reason : Blood Pressure : / mmHG Vent. Rate : 065 BPM Atrial Rate : 066 BPM P-R Int : 000 ms QRS Dur : 082 ms QT Int : 396 ms P-R-T Axes : 000 -11 -05 degrees QTc Int : 411 ms Poor data quality, interpretation may be adversely affected Atrial fibrillation Abnormal ECG When compared with ECG of 14-OCT-2020 08:18, Vent. rate has decreased BY 39 BPM Confirmed by Fernie Aguilar ([id number]) on 12/30/2020 10:42:31 AM Referred By: Taurus Rizzo Confirmed By:Michael Aguilar
--- NOTE | 2020-12-30 10:45 | Neurology Consultation ---
Date of Consultation December 30, 2020 Assessment & Plan (1) Weakness: 1. r/o CIDP 2. currently on heparin gtt. Eliquis has been stopped- coordinate with radiology for timing to stop heparin 3. labs - LP include cytology, protein, cultures 4. bed rest after procedure x 2 hours and slowly increase HOB 30 degrees 5. keep well hydrated watching free fluid restriction due to hyponatremia 6. order chest/abdomen/pelvis r/o primary CA Present on Admission?: Yes (2) Acute hyponatremia: 1. will order CA r/o labs 2. nephrology for management Present on Admission?: Yes (3) Parkinson disease: 1. continue sinemet 25/100 mg TID for now 2. fall precautions 3. PT/OT for discharge needs. Present on Admission?: Yes Supervising Physician Co-Signing Physician Notes I have seen and discussed above patient with Dr Tami Newell, neurology. See my dicated note. HINA Newell MD History of Present Illness Reason for Consultation: parkinson's, neuropathy, CIDP? Requesting Physician: Christian Gandhi DO Attending Physician: Christian Gandhi DO History of Present Illness Reid is a 75 year old male with PMH AF, aortic root dilatation, diastolic dysfunction, pulmonary hypertension, moderate aortic regurgitation, chronic diarrhea, esophagitis, collagenous colitis, CKD III, lumbar DDD, primary osteoarthritis of the left hip, left foot drop, anisocoria, Parkinson's, thrombocytopenia,Monoallelic mutation of BRCA2 gene, who lives at home with his was brought in for hyponatremia. He had a fall he had a fall and was in rehab and then [facility] for a few weeks and then got home and for the three weeks he is not walking much he is wheelchair bound and ambulating some with a walker with help. He also has left foot drop he was seen by Taurus Rizzo DO who ordered alot of lab and did an EMG which showed severe chronic axonal sensorimotor polyneuropathy. He also has some eye ptosis, could be underlying generalized myasthenia gravis- acetylcholine AB was negative. CIDP and versus metabolic encephalopathy are in the differential. The Eliquis was stopped and placed on a heparin drip for LP to evaluate for CSF protein. He is very tired today. He was able to walk to the bathroom with a walker today. He has a strong family history of CA, sister with leukemia, mom colon CA, breast CA. he has occasional diplopia sometime the image is side by side sometime up and down. when he blinks his eyes it goes away. denies CP, SOB, abdominal pain, no LE pain. Allergies Allergy/AdvReac Type Severity Reaction Status Date / Time lovastatin [From Mevacor] Allergy Unknown Muscle Pain Verified 12/29/20 18:48 shellfish derived Allergy Unknown Vomiting Verified 12/29/20 18:48 acetaminophen [From Percocet] AdvReac Gastrointestinal Verified 12/29/20 18:48 Upset oxycodone [From Percocet] AdvReac Gastrointestinal Verified 12/29/20 18:48 Upset Home Medications Medication Instructions Recorded Confirmed Type omeprazole 20 mg PO QAM 09/12/18 12/29/20 History Eliquis 5 mg PO BID 05/12/20 12/29/20 History acetaminophen 1,000 mg PO Q6H PRN 05/12/20 12/29/20 History cyanocobalamin (vitamin B-12) 1,000 mcg PO QAM 05/12/20 12/29/20 History dicyclomine 10 mg PO TID PRN 05/12/20 12/29/20 History fluticasone propionate [Flonase 2 spray INTRANASAL DAILY PRN 05/12/20 12/29/20 History Allergy Relief] loperamide 2 mg PO QID PRN #30 cap 05/22/20 12/29/20 Rx prochlorperazine maleate 10 mg PO Q8H PRN #30 tab 05/22/20 12/29/20 Rx [Compazine] cetirizine 10 mg PO PM 10/14/20 12/29/20 History colestipol 1 g PO BID PRN 10/14/20 12/29/20 History carbidopa-levodopa 1 tab PO TID 12/29/20 12/29/20 History potassium chloride 20 meq PO BID 12/29/20 12/29/20 History tamsulosin 0.4 mg PO DAILY 12/29/20 12/29/20 History Patient History Medical History (Updated 12/30/20 @ 15:42 by Tami Reza PA-C) A-fib on Eliquis CKD (chronic kidney disease) stage 3, GFR 30-59 ml/min GERD (gastroesophageal reflux disease) Parkinson disease "mild"- following with Dr. Rizzo/ERICK Francois's ring Surgical History History of colonoscopy 11/2017 scattered diverticulosis History of esophagogastroduodenoscopy (EGD) 11/2017 Priscila ring, esophagitis History of eye surgery CATARACT LEFT History of hernia repair Family History Father Colon cancer Mother , age 48, of influenza pneumonia Pneumonia Sister Rheumatoid arthritis Social History Smoking Status: Never smoker Second Hand Exposure: No; Hx Alcohol Use: Yes Alcohol type: beer Alcohol Intake Frequency Comment: 1 glass of wine or beer a day Hx Substance Use: No Preferred Language: [place]dean Communication Ability: Effective Visual Impairment: No Limitations Hearing Ability: Normal Android Ios Developer Required: No Beliefs That Will Affect Care: None marital status: Current Living Situation: Spouse Feels Safe at Home: Yes Safety Concerns: Feels Safe At This Time Assistive Devices: Glasses and Walker Review of Systems Review of Systems: All systems reviewed & are unremarkable except as noted in HPI & below Physical Exam Physical Exam: Physical Exam: Constitutional: appearance thin frail Ears, Nose, Mouth and Throat: mucous membranes moist, no injection and skin normal, eyes normal Cardiovascular: irregular Respiratory: course breath sounds Musculoskeletal: no peripheral edema and good distal pulses Skin: no stigmata of neurocutaneous disease noted and normal and intact Eyes: extraocular muscles intact (EOMI) and pupils equal, round and reactive to light (PERRL), gross peripheral vision intact, decrease blink NEUROLOGIC EXAMINATION: Mental status: Alert and interactive, very drowsy but easily aroused Oriented to full date and location Oriented to person Speech fluent with no evidence of aphasia Cranial Nerves smile and eye brow raise symmetric Reflexes: Deep tendon reflexes were symmetrical and decreased, neutral toes Sensory: decrease L>R vibration, light cool touch Coordination: finger to nose no bi pass, cogwheeling R>L no reaching tremor mild resting tremor Gait/Stance: Posture lying in bed Motor: Negative for pronator drift of out stretched arms with eyes closed. Strength: hand rod puller biceps triceps bilaterally 4+/5, hip flex 4+/5, plantar flex 5/5, bilaterally, ext right 5/5, left 4/5 Results & Data ([facility]) Vital Signs (Past 12 Hours) Vital Signs Temp Pulse Pulse Resp BP BP Pulse Ox 12/30/20 07:51 36.6 C 70 18 162/91 H 95 12/30/20 07:00 68 12/30/20 04:07 36.5 C 65 19 156/88 H 90 12/30/20 01:10 81 12/30/20 00:28 36.3 C L 79 16 137/82 100 12/29/20 23:00 68 19 130/83 96 Laboratory Results Abnormal lab results 12/29/20 12/29/20 12/29/20 Range/Units 17:43 17:43 17:43 WBC (4.8-10.8) K/uL RBC (4.7-6.1) M/uL Hgb (14.0-18.0) g/dL Hct (42-52) % RDW Std Deviation (36.4-46.3) fL RDW Coeff of [place] (11.5-14.5) % Lymph # (Auto) (1.2-3.4) K/uL APTT 37.0 H (21.0-31.0) Seconds Sodium 126 L (136-145) mmol/L Chloride 95 L (98-107) mmol/L Osmolality 260 L (280-300) mOsm/kg Calcium 8.1 L (8.5-10.1) mg/dl AST (15-37) U/L ALT (12-78) U/L Alkaline Phosphatase 143 H (45-117) U/L Total Creatine Kinase 432 H (39-308) U/L Total Protein 6.0 L (6.4-8.2) gm/dl Albumin 2.6 L (3.4-5.0) gm/dl Albumin/Globulin Ratio 0.8 L (0.9-2) Urine Ketones (Negative) Urine Bilirubin (Negative) 12/29/20 12/29/20 12/30/20 Range/Units 17:43 19:43 05:47 WBC 4.50 L 4.26 L (4.8-10.8) K/uL RBC 3.95 L 3.80 L (4.7-6.1) M/uL Hgb 11.7 L 10.9 L (14.0-18.0) g/dL Hct 33.5 L 32.2 L (42-52) % RDW Std Deviation 47.6 H 47.1 H (36.4-46.3) fL RDW Coeff of [place] 15.3 H 15.1 H (11.5-14.5) % Lymph # (Auto) 0.42 L 0.63 L (1.2-3.4) K/uL APTT (21.0-31.0) Seconds Sodium (136-145) mmol/L Chloride (98-107) mmol/L Osmolality (280-300) mOsm/kg Calcium (8.5-10.1) mg/dl AST (15-37) U/L ALT (12-78) U/L Alkaline Phosphatase (45-117) U/L Total Creatine Kinase (39-308) U/L Total Protein (6.4-8.2) gm/dl Albumin (3.4-5.0) gm/dl Albumin/Globulin Ratio (0.9-2) Urine Ketones Trace H (Negative) Urine Bilirubin 1+ H (Negative) 12/30/20 12/30/20 Range/Units 05:47 10:06 WBC (4.8-10.8) K/uL RBC (4.7-6.1) M/uL Hgb (14.0-18.0) g/dL Hct (42-52) % RDW Std Deviation (36.4-46.3) fL RDW Coeff of [place] (11.5-14.5) % Lymph # (Auto) (1.2-3.4) K/uL APTT (21.0-31.0) Seconds Sodium 127 L 127 L (136-145) mmol/L Chloride 96 L 96 L (98-107) mmol/L Osmolality (280-300) mOsm/kg Calcium 8.0 L 8.4 L (8.5-10.1) mg/dl AST 11 L (15-37) U/L ALT 9 L (12-78) U/L Alkaline Phosphatase 131 H (45-117) U/L Total Creatine Kinase 388 H (39-308) U/L Total Protein 5.4 L (6.4-8.2) gm/dl Albumin 2.4 L (3.4-5.0) gm/dl Albumin/Globulin Ratio (0.9-2) Urine Ketones (Negative) Urine Bilirubin (Negative) Diagnostic Findings CT head-No acute intracranial abnormality. CXR-Cardiomegaly without acute process.
[2020-12-30 10:53] LABS: BUN Creatinine Ratio 15.4 (10-20); Calcium 8.4 mg/dl (8.5-10.1); Creatinine Clr Calc Pharmacy 82.1 ml/min; Est GFR (African American) 101.1; Est GFR (Non-African American) 87.2; Potassium 4.1 mmol/L (3.5-5.1)
[2020-12-30] MEDS: UREA (URE-NA) 15 GM PACK PO SCH ×2 (13:15→21:48)
[2020-12-30] MEDS: POTASSIUM CHLORIDE 10 MEQ TABCR PO SCH ×2 (13:16→21:48)
[2020-12-30] MEDS: LOPERAMIDE HCL 2 MG CAP PO PRN (13:18)
[2020-12-30 15:13] LABS: Partial Thromboplastin Ratio 1.4; Partial Thromboplastin Time 37.8 Seconds (21.0-31.0)
[2020-12-30] MEDS ORDERED: HEPARIN IV BOLUS 3,000 UNITS in SYRINGE 0 ML IV ONE (15:30)
--- NOTE | 2020-12-30 19:27 | Consultation Report ---
DATE OF CONSULTATION: 12/30/2020 REASON FOR CONSULTATION: Weakness.See accompanying note by WARREN Marie HISTORY OF PRESENT ILLNESS: Mr. Young is a patient of Dr. Rizzo whom I have discussed his history with. Apparently, he has mild Parkinson disease, but over the last several months has had a marked decline in ambulation. Dr. 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 He did a variety of lab tests including checking acetylcholine receptor antibody, binding, blocking and modulating antibody. The patient's CRP was elevated. A group of his labs were not performed until yesterday, and he was found to be very hyponatremic, had I believe a serum sodium of 125 as an outpatient. Therefore, he was sent to the hospital. Dr. Rizzo had a concern that the patient might have a CIDP and wanted him to have a lumbar puncture. He advised the admitting physicians to hold his DOAC and start him on heparin in anticipation of a lumbar puncture. The patient denies much in terms of sensory symptoms. There is no incontinence of bowel or bladder and no difficulty with confusion. He has occasional pain in the joints of his right leg and right hand. He denies any dysphagia or weight loss. PHYSICAL EXAMINATION: He is awake and alert. His speech and language are normal. His affect is appropriate. There may be a minor flattening of the left nasolabial fold and some minor facial masking. Extraocular motility is normal. There is mild diffuse atrophy, perhaps somewhat more so in the biceps and triceps. No fasciculations are noted. There is some mild atrophy of the left TA greater than the right TA. The patient's feet are high arched and toes are clawed suggesting some chronicity. I did not see any obvious hemiparesis. The left TA was about 3 and the gastroc was more full. Perhaps the toe flexors were mildly weak, but the peroneus longus and tibialis posterior are fairly intact. Upper extremity reflexes were symmetric, mildly reduced. Knee jerks were mildly brisk. Ankle jerks are absent. There is no clonus. I believe the toes to be downgoing. Sensory examination, perhaps vibration is present at the left knee and at the right great toe. No [id number] distal loss to temperature. There likely is an ankle level to temperature. [id number] and [id number] are not frankly dystaxic. Gait was not tested. IMPRESSION AND PLAN: 1. This patient appears to have chronic neuropathy with a superimposed left "foot drop" which preceded a fall in November.. His decline in ambulation status could be attributed to hyponatremia . I do not see any convincing evidence of anterior horn cell disease. There was a previous mention of ptosis. I do not see any fatigability, ptosis or disorder of extraocular motility, which would suggest myasthenia. I do not see any evidence of cranial neuropathies or focal neuropathies suggestive of mononeuritis multiplex. It is not unreasonable to do the lumbar puncture to see if there is elevated total protein as might be seen in CIDP Defer to interventional radiology regarding the timing of holding the heparin. We will check the usual including cell count, total protein, which is important in this setting, cytology, basic cultures, AFB, fungal and tuberculosis. Would check serum Lyme. We will defer any additional treatment pending the results of the spinal fluid, i.e., if the total protein is markedly elevated, treating for chronic inflammatory demyelinating polyneuropathy. Again, this may be the effect of metabolic abnormalities superimposed on chronic neuropathy. consider paraneoplastic work-up with CT chest, abd and pelvis 2. Parkinsonism or mild Parkinson disease, not specifically discussed. Dr. Cottrell will follow with you tomorrow. [facility]OSPITALDam[facility]
[2020-12-30 23:37] LABS: Partial Thromboplastin Time 52.4 Seconds (21.0-31.0)
[2020-12-30 23:39] LABS: BUN Creatinine Ratio 31.5 (10-20); Calcium 8.5 mg/dl (8.5-10.1); Est GFR (African American) 81.4; Est GFR (Non-African American) 70.2; Potassium 4.4 mmol/L (3.5-5.1)
[2020-12-31] MEDS: FUROSEMIDE 20 MG in SYRINGE 0 ML IV SCH (06:17)
[2020-12-31 07:36] LABS: Hematocrit (blood only) 35.5 % (42-52); Mean Corpuscular Hgb Conc 33.8 g/dL (32-36); Mean Corpuscular Volume 85.7 fL (80-100); Mean Platelet Volume 8.7 fL (7.4-10.4); Platelet Count 283 K/uL (130-400); RDW Coefficient of Variation 15.2 % (11.5-14.5); RDW Standard Deviation 48.3 fL (36.4-46.3); Red Blood Count 4.14 M/uL (4.7-6.1)
[2020-12-31 07:43] LABS: Partial Thromboplastin Ratio 1.7; Partial Thromboplastin Time 44.4 Seconds (21.0-31.0)
[2020-12-31] MEDS: CARBIDOPA/LEVODOPA 25/100MG TAB PO SCH ×3 (07:53→20:38)
[2020-12-31] MEDS: CYANOCOBALAMIN 500 MCG TABLET (VITAMIN B-12) PO SCH (07:54)
[2020-12-31] MEDS: TAMSULOSIN HCL 0.4 MG CAP PO SCH (07:54)
[2020-12-31] MEDS: PANTOprazole 40 MG TAB PO SCH (07:54)
[2020-12-31] MEDS: POTASSIUM CHLORIDE 10 MEQ TABCR PO SCH ×3 (07:55→20:37)
[2020-12-31] MEDS: UREA (URE-NA) 15 GM PACK PO SCH ×3 (07:56→20:37)
[2020-12-31 08:12] LABS: BUN Creatinine Ratio 29.8 (10-20); Calcium 8.7 mg/dl (8.5-10.1); Creatinine Clr Calc Pharmacy 67.6 ml/min; Est GFR (African American) 88.6; Est GFR (Non-African American) 76.5; Potassium 4.2 mmol/L (3.5-5.1)
--- NOTE | 2020-12-31 08:19 | Hospitalist Progress Note ---
Date of Service December 31, 2020 Assessment & Plan (1) Acute hyponatremia: (2) Weakness: ASSESSMENT AND PLAN: This is a 75-year-old male who presents with hyponatremia. 1. Hyponatremia: Chest x-ray and CT head is okay. Urine osmolality is 747. Could be most likely syndrome of inappropriate antidiuretic hormone. Fluid restriction 1200 mL per day. Follow the repeat labs. Nephrology on case. 2. Generalized weakness and fatigue, could be from hyponatremia. 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 Lumbar puncture as per neurology. Dr Cottrell to see today. 3. Parkinson's: Continue his home medications of carbidopa/levodopa. 4. Chronic diarrhea: Continue colestipol. 5. Atrial fibrillation: Rate is under control. We will change Eliquis to heparin as planned for anticipation of lumbar puncture. 6. Gastroesophageal reflux disease: Continue omeprazole. 7. Benign prostatic hypertrophy: Continue Flomax. 8. Chronic kidney disease stage III: Creatinine 0.9. We will follow the labs. 9. Deep venous thrombosis prophylaxis: Heparin. DISPOSITION: Closely monitor in the [employer]. Level 1 full code. PT and OT. Social service to help with discharge planning. Expect to discharge home and follow with family doctor. Labs checked. ROS-No Headache, No Visual Changes, No Nausea, No Vomiting, No Fever, No Chills, No Neck Pain or Stiffness, No Chest Pain, No Palpitations, No SOB, No BOB, No Cough, No Sputum, No Wheezing, No Abdominal Pain, No Diarrhea, No Hematemesis, No Hemoptysis, No Unexpected Weight Loss, No Flank pain, No Melena, No Hematochezia, No Frequency, No Urgency, No Burning, No Hematuria, No Rashes, No Diaphoresis. Appetite is Normal, c/o L hand pain today Physical Exam Gen-AAO x 3, NAD, Afebrile, Parkinsonian Head-NCAT, EOMI, PERRLA, Anicteric Sclera, No Posterior Pharyngeal Erythema Neck-Supple, No JVD, No Thyromegaly, No Masses, No LAD, No Bruits Lungs-Clear to Auscultation Bilaterally, No Rales, No Rhonchi, No Wheezing, No Crepitus Chest-No S4, +S1, +S2, No S3, No Murmurs, No Rubs, No Gallops, No Ectopy Abdomen-Soft, Bowel Sounds Present, Non Tender, Non Distended, No Hepatomegaly, No Splenomegaly, No Palpable Masses, No Rebound, No Rigidity, No Guarding Musculoskeletal-Full Range of Motion Bilaterally, No CVAT Extremities-No Cyanosis, No Clubbing, No Edema Nuero-Cranial Nerves II-XII grossly intact, Motor WNL, DTRs WNL, Strength WNL, Non Focal Psych-Normal Mood Admission and Anticipated Discharge Date Admission Date: December 29, 2020 Results & Data Results & Data ([facility]) Vital Signs (Past 12 Hours) Vital Signs Temp Pulse Pulse Resp BP Pulse Ox 12/31/20 07:30 36.6 C 93 H 19 112/66 12/31/20 02:51 36.2 C L 73 16 130/78 97 12/31/20 00:14 79 12/30/20 22:27 36.3 C L 74 18 140/87 97
[2020-12-31] MEDS: HEPARIN SODIUM/DEXTROSE 25,000 UNITS/500 ML BAG IV SCH ×3 (09:42→14:28)
--- NOTE | 2020-12-31 10:31 | Nephrology Progress Note ---
Date of Service December 31, 2020 Assessment & Plan Admission and Anticipated Discharge Date Admission Date: December 29, 2020 Subjective No New issues. Sodium still not rising much. PHYSICAL EXAMINATION: GENERAL: Elderly white male who is not in any respiratory distress. HEENT: Mucous membrane moist. NECK: Supple. No jugular venous distention. CHEST: Bilateral clear to auscultation. CARDIOVASCULAR: S1, S2 regular. ABDOMEN: Soft, nontender. EXTREMITIES: Shows 1+ edema in the right, no edema in the left. LABORATORY TESTS: Serum sodium this morning 127. Urine osmolality is 747. Urine sodium 46. BUN is 15, creatinine 0.76. Chest x-ray was unremarkable. ASSESSMENT AND PLAN: A 75-year-old male who was admitted because of hyponatremia for which I have been consulted. Hyponatremia. 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 Urine sodium was 46. He does not appear to be volume depleted at all. If anything, he is probably slightly volume overloaded. We will do a full treatment for the hyponatremia as follows: 1. Stop Normal saline. Will give Salt tab 1 gm bid. 2. Lasix 40 mg IV q. 12 hour to decrease the urine osmolality and free water diuresis. 3. Urea 15 grams t.i.d. 4. He will need more potassium than he is getting, so we will increase the potassium supplement. 5. Labs q. 12 hours. 6. Continue free fluid restriction 1200 mL per day. 7 rpt urine osm today Results & Data ([facility]) Vital Signs (Past 12 Hours) Vital Signs Temp Pulse Pulse Resp BP Pulse Ox 12/31/20 09:34 78 12/31/20 07:30 36.6 C 93 H 19 112/66 12/31/20 02:51 36.2 C L 73 16 130/78 97 12/31/20 00:14 79
[2020-12-31 10:35] LABS: BUN Creatinine Ratio 32.6 (10-20); Calcium 8.4 mg/dl (8.5-10.1); Creatinine Clr Calc Pharmacy 59.5 ml/min; Est GFR (Non-African American) 65.6; Potassium 4.4 mmol/L (3.5-5.1)
[2020-12-31] MEDS: SODIUM CHLORIDE 1 GM TABLET PO SCH ×2 (11:00→20:37)
[2020-12-31 14:20] LABS: Partial Thromboplastin Ratio 1.5; Partial Thromboplastin Time 38.3 Seconds (21.0-31.0)
[2020-12-31] MEDS ORDERED: OPTIRAY 320 100ml IV ONE (18:19)
--- NOTE | 2020-12-31 19:07 | CT Scan Report ---
CT SCAN OF THE CHEST, ABDOMEN, AND PELVIS WITH IV CONTRAST CLINICAL HISTORY: Hyponatremia. Generalized weakness. COMPARISON STUDY: Chest x-ray dated 12/29/2020. Abdominal CT dated 05/20/2020. TECHNIQUE: Following the IV administration of 94 of Optiray 320, CT scan of the chest, abdomen, and p john was performed from the thoracic inlet to the proximal femora. Images are reviewed in the axial, sagittal, and coronal planes. IV contrast was administered without complication. Oral contrast was u tilized. A dose lowering technique was utilized adhering to the principles of ALARA. CT DOSE: 706.08 mGy.cm FINDINGS: CHEST: Thyroid: Imaged portions of the thyroid gland are normal in size and attenuation. Thoracic aorta: There is atherosclerotic calcification of the thoracic aorta, which is normal in pj ricki and demonstrates standard 3-vessel arch anatomy. No dissection is seen. Pulmonary vasculature: The pulmonary trunk is normal in caliber. There are no filling defects identif ied in the central pulmonary vessels to indicate pulmonary embolus. Note that this examination was no t protocoled for evaluation of the pulmonary arteries. Heart: The heart is markedly enlarged and without pericardial effusion. The coronary arteries are den sely calcified. Lungs and pleural spaces: There is no airspace consolidation typical for pneumonia or pleural effusio n. The trachea and central airways are clear. Linear scarring versus atelectasis is seen at the right lung base. Mediastinum: There is no mediastinal lymphadenopathy. Stephanie: Clear. Axillae: There is no axillary lymphadenopathy. Bony thorax: The skeletal structures are osteopenic. Degenerative change and hyperkyphosis are noted in the thoracic spine. Advanced arthritic change is noted in the shoulders. There are moderate compre ssion fractures of T8 and T9. There is mild paravertebral edema, and these fractures are likely acute to subacute. No significantly retropulsed fragments are identified. There are milder compression fra ctures of T4 and T11. No lytic or blastic lesions are identified. There are chronic/healed bilateral rib fractures. Fractures of the right anterolateral 7th, 8th, 9th ribs appear subacute, as does a lef t lateral 10th rib fracture. ABDOMEN AND PELVIS: Liver: The contrast-enhanced liver is normal in size, contour, and attenuation. There is no intra- or extrahepatic biliary ductal dilatation. The hepatic veins and portal veins are patent. Gallbladder: There are calcified gallstones with no CT evidence of acute cholecystitis. Spleen: Normal in size and attenuation. Pancreas: The pancreas is atrophic and grossly unremarkable. Adrenal glands: Unremarkable. Kidneys: The contrast enhanced kidneys demonstrate cortical atrophy and are without hydronephrosis. T he kidneys enhance symmetrically. Abdominal vasculature: The abdominal aorta is normal in course and caliber noting moderate atheroscle rotic calcification. Bowel: There is no bowel obstruction. Enteric contrast reaches the distal small bowel. A portion of t he cecum is located within a large inguinal hernia and not visualized. There is moderate colonic feca l retention. The appendix is not visualized. Peritoneum: There is no intraperitoneal free air or abdominal ascites. Lymphadenopathy: None. Pelvic viscera: The prostate gland is enlarged and heterogeneous noting median lobe hypertrophy. The bladder wall is mildly thickened and trabeculated indicating chronic outlet obstruction. Findings sug gest previous left inguinal herniorrhaphy. There is a large right inguinal hernia which contains cj l. Skeletal structures: The skeletal structures are osteopenic. There is a mild chronic superior endplat e compression deformity of L1. There are bilateral pars defects at L5 with 10 mm of anterolisthesis a t L5-S1. Mild anterolisthesis is also seen at L4-L5. There are bilateral sacral insufficiency fractur es. This crosses midline at S2. No lytic or blastic lesions are seen. IMPRESSION: 1. Cardiomegaly with no acute cardiopulmonary abnormality. 2. There is no airspace consolidation or pleural effusion. 3. There are moderate compression fractures of T8 and T9 which appear acute to subacute. No retropuls ed fragments are identified. Correlate for point tenderness. 4. There are bilateral subacute/healing rib fractures. 5. There are bilateral sacral insufficiency fractures. 6. There are no acute infectious or inflammatory findings in the abdomen or pelvis. 7. A large right inguinal hernia contains nonobstructed bowel. 8. Cholelithiasis. 9. Prostatomegaly with evidence of chronic bladder outlet obstruction. 10. Moderate constipation. 11. Additional findings as above. ACT 112: Negative or not required by law. Electronically signed by: Cuba Taylor M.D. 12/31/2020 7:06 PM
[2020-12-31] MEDS: FUROSEMIDE 40 MG in SYRINGE 0 ML IV SCH (20:37)
[2020-12-31] MEDS: LOPERAMIDE HCL 2 MG CAP PO PRN (20:46)
[2020-12-31 21:06] LABS: BUN Creatinine Ratio 38.3 (10-20); Calcium 8.5 mg/dl (8.5-10.1); Creatinine Clr Calc Pharmacy 55.9 ml/min; Est GFR (African American) 70.5; Est GFR (Non-African American) 60.8; Potassium 4.4 mmol/L (3.5-5.1)
[2020-12-31 21:29] LABS: Partial Thromboplastin Ratio 1.9
[2020-12-31 22:10] LABS: Partial Thromboplastin Time 50.1 Seconds (21.0-31.0)
[2020-12-31] MEDS ORDERED: MICONAZOLE NITRATE POWDER 43 GM EXT PRN (22:36)
--- NOTE | 2021-01-01 07:09 | Hospitalist Progress Note ---
Date of Service January 01, 2021 Assessment & Plan (1) Acute hyponatremia: (2) Weakness: ASSESSMENT AND PLAN: This is a 75-year-old male who presents with hyponatremia. 1. Hyponatremia: Chest x-ray and CT head is okay. Urine osmolality is 747. Could be most likely syndrome of inappropriate antidiuretic hormone. Fluid restriction 1200 mL per day. Follow the repeat labs. Nephrology on case. 2. Generalized weakness and fatigue, could be from hyponatremia. 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 Lumbar puncture Sunday. 3. Parkinson's: Continue his home medications of carbidopa/levodopa. 4. Chronic diarrhea: Continue colestipol. 5. Atrial fibrillation: Rate is under control. We will change Eliquis to heparin as planned for anticipation of lumbar puncture. 6. Gastroesophageal reflux disease: Continue omeprazole. 7. Benign prostatic hypertrophy: Continue Flomax. 8. Chronic kidney disease stage III: Creatinine 0.9. We will follow the labs. 9. Deep venous thrombosis prophylaxis: Heparin. DISPOSITION: Closely monitor in the [facility]. Level 1 full code. PT and OT. Social service to help with discharge planning. Expect to discharge home and follow with family doctor. Labs checked. ROS-No Headache, No Visual Changes, No Nausea, No Vomiting, No Fever, No Chills, No Neck Pain or Stiffness, No Chest Pain, No Palpitations, No SOB, No BOB, No Cough, No Sputum, No Wheezing, No Abdominal Pain, No Diarrhea, No Hematemesis, No Hemoptysis, No Unexpected Weight Loss, No Flank pain, No Melena, No Hematochezia, No Frequency, No Urgency, No Burning, No Hematuria, No Rashes, No Diaphoresis. Appetite is Normal, no c/o L hand pain today Physical Exam Gen-AAO x 3, NAD, Afebrile, Parkinsonian Head-NCAT, EOMI, PERRLA, Anicteric Sclera, No Posterior Pharyngeal Erythema Neck-Supple, No JVD, No Thyromegaly, No Masses, No LAD, No Bruits Lungs-Clear to Auscultation Bilaterally, No Rales, No Rhonchi, No Wheezing, No Crepitus Chest-No S4, +S1, +S2, No S3, No Murmurs, No Rubs, No Gallops, No Ectopy Abdomen-Soft, Bowel Sounds Present, Non Tender, Non Distended, No Hepatomegaly, No Splenomegaly, No Palpable Masses, No Rebound, No Rigidity, No Guarding Musculoskeletal-Full Range of Motion Bilaterally, No CVAT Extremities-No Cyanosis, No Clubbing, No Edema Nuero-Cranial Nerves II-XII grossly intact, Motor WNL, DTRs WNL, Strength WNL, Non Focal Psych-Normal Mood Admission and Anticipated Discharge Date Admission Date: December 29, 2020 Results & Data Results & Data ([facility]) Vital Signs (Past 12 Hours) Vital Signs Temp Pulse Pulse Resp BP Pulse Ox 01/01/21 04:31 77 01/01/21 03:53 36.5 C 77 14 123/78 97 12/31/20 23:10 36.5 C 74 16 101/62 97 12/31/20 19:17 36.7 C 58 L 14 116/79 95
[2021-01-01] MEDS: POTASSIUM CHLORIDE 10 MEQ TABCR PO SCH ×3 (07:41→20:15)
[2021-01-01] MEDS: SODIUM CHLORIDE 1 GM TABLET PO SCH (07:41)
[2021-01-01] MEDS: FUROSEMIDE 40 MG in SYRINGE 0 ML IV SCH (07:41)
[2021-01-01] MEDS: PANTOprazole 40 MG TAB PO SCH (07:42)
[2021-01-01] MEDS: TAMSULOSIN HCL 0.4 MG CAP PO SCH (07:42)
[2021-01-01] MEDS: CYANOCOBALAMIN 500 MCG TABLET (VITAMIN B-12) PO SCH (07:42)
[2021-01-01] MEDS: UREA (URE-NA) 15 GM PACK PO SCH ×2 (07:42→20:14)
[2021-01-01] MEDS: CARBIDOPA/LEVODOPA 25/100MG TAB PO SCH ×3 (07:42→20:15)
[2021-01-01 07:45] LABS: Partial Thromboplastin Ratio 1.9
[2021-01-01 07:46] LABS: Partial Thromboplastin Time 50.7 Seconds (21.0-31.0)
[2021-01-01] MEDS: HEPARIN SODIUM/DEXTROSE 25,000 UNITS/500 ML BAG IV SCH (09:20)
[2021-01-01] MEDS ORDERED: UREA (URE-NA) 15 GM PACK PO ONE (09:45)
--- NOTE | 2021-01-01 09:51 | Communication Note ---
Date of Service: January 01, 2021 I am reviewing Mr. Canales's chart from my home computer. 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 The illness is further complicated by the presence of atrial fibrillation on novel anticoagulation and a lumbar puncture which is appropriate in the setting to search for CIDP has been delayed until Sunday when the procedure can be done after stopping his heparin bridge at about 2 AM Sunday morning. It is paramount to have a very clean unadulterated lumbar puncture in the setting and avoid potential drug so radiology is going to do the study under fluoroscopy hoping to increase the odds of obtaining is clean possible study as we can. Will be sent for the usual cell count protein glucose etc. and we will get also protein and cytology Currently his serum sodium is still not rising he remains anemic, his BUN is rising probably due to fluid restriction and remains generally weak possibly as result of the metabolic abnormalities superimposed upon his pre-existing neurologic illnesses. The development of SIADH however in the setting can be associated with both AIDP and CIDP He has had an unremarkable CT of the chest abdomen pelvis revealing no evidence for primary or secondary neoplasm so lung tumor is unlikely because of the SIADH I will continue to review his chart through the weekend and Tami Reza and I will return on Sunday hopefully after the lumbar puncture is done we will review the results and make decision about whether we place him on empiric trial of steroids for CIDP possibly high-dose intravenous for a few days and followed by oral taper and have him followed up by Dr. Wilcox who is his neurologist of record. All this however is contingent upon how he does in terms of serum sodium and obviously on results of the lumbar puncture which has not yet been performed. Chidi Cottrell MD
--- NOTE | 2021-01-01 11:13 | Nephrology Progress Note ---
Date of Service January 01, 2021 Assessment & Plan (1) Acute hyponatremia: Patient with hyponatremia likely due to syndrome of inappropriate ADH. Admission sodium of 128. Sodium today 129. Recommend stopping Lasix. To increase Bolaños to 30 grams twice daily. Avoid heparin drip as it is extra dextrose which would drop sodium if no clear plan for procedure today, consider putting patient back on his home oral anticoagulants -Monitor Na daily -Fluid limit 1.2 litres daily -3 regular meals. high protein Admission and Anticipated Discharge Date Admission Date: December 29, 2020 Subjective Seen in follow-up for hyponatremia. 75-year-old man with Parkinson's disease admitted with hyponatremia, sodium 128. Sodium is up 129 today. He feels well denies any shortness of breath. Review of Systems Review of Systems: All systems reviewed & are unremarkable except as noted in HPI & below Physical Exam Physical Exam: General exam: Appears comfortable, no acute distress HEENT: Pupils are equal and reactive to light Neck: No JVD, neck is supple trachea is midline Respiratory system: Clear breath sounds bilaterally. Gastrointestinal: Abdomen is soft, non distended, non tender, bowel sounds are present CVS: Regular rate and rhythm. No murmurs, rubs or gallops Musculoskeletal: No joint or muscle tenderness Extremities: Non tender, no edema, peripheral pulses are present Neuro: Oriented, no tremors, no focal neurological deficits Skin: No rashes Results & Data ([facility]) Vital Signs (Past 12 Hours) Vital Signs Temp Pulse Pulse Resp BP BP Pulse Ox 01/01/21 11:01 36.6 C 98 H 18 96/66 L 95 01/01/21 07:40 36.5 C 55 L 93 H 123/80 93 01/01/21 07:11 74 01/01/21 04:31 77 01/01/21 03:53 36.5 C 77 14 123/78 97 12/31/20 23:10 36.5 C 74 16 101/62 97 Laboratory Results 12/31/20 20:41
[2021-01-02] MEDS: HEPARIN SODIUM/DEXTROSE 25,000 UNITS/500 ML BAG IV SCH (05:12)
[2021-01-02 06:45] LABS: Basophils # (auto) 0.01 K/uL (0-0.2); Basophils % (auto) 0.2 %; Eosinophils # (auto) 0.08 K/uL (0-0.5); Eosinophils % (auto) 1.5 %; Hemoglobin 11.5 g/dL (14.0-18.0); Immature Granulocytes # (auto) 0.01 K/uL (0.00-0.02); Immature Granulocytes % (auto) 0.2 %; Lymphocytes # (auto) 0.59 K/uL (1.2-3.4); Mean Corpuscular Hemoglobin 28.6 pg (25-34); Mean Corpuscular Hgb Conc 32.9 g/dL (32-36); Mean Corpuscular Volume 87.1 fL (80-100); Mean Platelet Volume 8.9 fL (7.4-10.4); Monocytes # (auto) 0.37 K/uL (0.11-0.59); Monocytes % (auto) 6.9 %; Neutrophils # (auto) 4.32 K/uL (1.4-6.5); Neutrophils % (auto) 80.2 %; Platelet Count 251 K/uL (130-400); RDW Coefficient of Variation 15.3 % (11.5-14.5); RDW Standard Deviation 49.4 fL (36.4-46.3); Red Blood Count 4.02 M/uL (4.7-6.1); White Blood Count 5.38 K/uL (4.8-10.8)
--- NOTE | 2021-01-02 06:47 | Hospitalist Progress Note ---
Date of Service January 02, 2021 Assessment & Plan (1) Acute hyponatremia: (2) Weakness: ASSESSMENT AND PLAN: This is a 75-year-old male who presents with hyponatremia. 1. Hyponatremia: Chest x-ray and CT head is okay. Urine osmolality is 747. Could be most likely syndrome of inappropriate antidiuretic hormone. Fluid restriction 1200 mL per day. Follow the repeat labs. Nephrology on case. 2. Generalized weakness and fatigue, could be from hyponatremia. 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 Lumbar puncture Sunday. 3. Parkinson's: Continue his home medications of carbidopa/levodopa. 4. Chronic diarrhea: Continue colestipol. 5. Atrial fibrillation: Rate is under control. We will change Eliquis to heparin as planned for anticipation of lumbar puncture. 6. Gastroesophageal reflux disease: Continue omeprazole. 7. Benign prostatic hypertrophy: Continue Flomax. 8. Chronic kidney disease stage III: Will follow the labs. 9. Deep venous thrombosis prophylaxis: IV Heparin for AFIB, Hold at 2 am Sunday for LP, d/w RNs. DISPOSITION: Closely monitor in the [employer]. Level 1 full code. PT and OT. Social service to help with discharge planning. Expect to discharge home and follow with family doctor. Labs checked. Updated ROS-No Headache, No Visual Changes, No Nausea, No Vomiting, No Fever, No Chills, No Neck Pain or Stiffness, No Chest Pain, No Palpitations, No SOB, No BOB, No Cough, No Sputum, No Wheezing, No Abdominal Pain, No Diarrhea, No Hematemesis, No Hemoptysis, No Unexpected Weight Loss, No Flank pain, No Melena, No Hematochezia, No Frequency, No Urgency, No Burning, No Hematuria, No Rashes, No Diaphoresis. Appetite is Normal, Physical Exam Gen-AAO x 3, NAD, Afebrile, Parkinsonian Head-NCAT, EOMI, PERRLA, Anicteric Sclera, No Posterior Pharyngeal Erythema Neck-Supple, No JVD, No Thyromegaly, No Masses, No LAD, No Bruits Lungs-Clear to Auscultation Bilaterally, No Rales, No Rhonchi, No Wheezing, No Crepitus Chest-No S4, +S1, +S2, No S3, No Murmurs, No Rubs, No Gallops, No Ectopy Abdomen-Soft, Bowel Sounds Present, Non Tender, Non Distended, No Hepatomegaly, No Splenomegaly, No Palpable Masses, No Rebound, No Rigidity, No Guarding Musculoskeletal-Full Range of Motion Bilaterally, No CVAT Extremities-No Cyanosis, No Clubbing, No Edema Nuero-Cranial Nerves II-XII grossly intact, Motor WNL, DTRs WNL, Strength WNL, Non Focal Psych-Normal Mood Admission and Anticipated Discharge Date Admission Date: December 29, 2020 Results & Data Results & Data ([facility]) Vital Signs (Past 12 Hours) Vital Signs Temp Pulse Resp BP Pulse Ox 01/02/21 03:15 36.9 C 85 18 126/80 96 01/01/21 23:00 36.9 C 56 L 18 105/69 92 01/01/21 19:42 36.7 C 79 18 110/73 98
[2021-01-02 07:05] LABS: Partial Thromboplastin Ratio 2.3
[2021-01-02 07:08] LABS: Partial Thromboplastin Time 60.6 Seconds (21.0-31.0)
[2021-01-02 07:09] LABS: Albumin Level 2.4 gm/dl (3.4-5.0); BUN Creatinine Ratio 67.9 (10-20); Calcium 8.4 mg/dl (8.5-10.1); Est GFR (African American) 95.8; Est GFR (Non-African American) 82.7; Potassium 4.4 mmol/L (3.5-5.1)
[2021-01-02 07:12] LABS: Albumin Globulin Ratio 0.8 (0.9-2); Bilirubin,Total 0.5 mg/dl (0.2-1); Globulin 3.2 gm/dl (2.5-4.0); Total Protein 5.6 gm/dl (6.4-8.2)
[2021-01-02] MEDS: UREA (URE-NA) 15 GM PACK PO SCH ×2 (08:09→21:26)
[2021-01-02] MEDS: POTASSIUM CHLORIDE 10 MEQ TABCR PO SCH ×3 (08:10→21:26)
[2021-01-02] MEDS: CARBIDOPA/LEVODOPA 25/100MG TAB PO SCH ×3 (08:10→21:26)
[2021-01-02] MEDS: TAMSULOSIN HCL 0.4 MG CAP PO SCH (08:11)
[2021-01-02] MEDS: CYANOCOBALAMIN 500 MCG TABLET (VITAMIN B-12) PO SCH (08:11)
[2021-01-02] MEDS: PANTOprazole 40 MG TAB PO SCH (08:11)
--- NOTE | 2021-01-02 09:34 | Nephrology Progress Note ---
Date of Service January 02, 2021 Assessment & Plan (1) Acute hyponatremia: Patient with hyponatremia likely due to syndrome of inappropriate ADH. Admission sodium of 128. Sodium today 134. Continue Bolaños to 30 grams twice daily. Patient is planned for lumbar puncture on Sunday. We will continue heparin drip tonight. From renal standpoint patient can be discharged tomorrow 15 g daily. I explained that Bolaños is not covered by insurance and will have to buy it out of pocket. Patient is agreeable -Monitor Na daily while in-house -Fluid limit 1.2 litres daily even on discharge -3 regular meals. high protein Admission and Anticipated Discharge Date Admission Date: December 29, 2020 Subjective Seen in follow-up for hyponatremia. He feels better today. No shortness of breath. He is eating and drinking well. Still on heparin drip. Plan for lumbar puncture tomorrow. Sodium is up to 134 Review of Systems Review of Systems: All systems reviewed & are unremarkable except as noted in HPI & below Physical Exam Physical Exam: General exam: Appears comfortable, no acute distress HEENT: Pupils are equal and reactive to light Neck: No JVD, neck is supple trachea is midline Respiratory system: Clear breath sounds bilaterally. Gastrointestinal: Abdomen is soft, non distended, non tender, bowel sounds are present CVS: Regular rate and rhythm. No murmurs, rubs or gallops Musculoskeletal: No joint or muscle tenderness Extremities: Non tender, no edema, peripheral pulses are present Neuro: Oriented, no tremors, no focal neurological deficits Skin: No rashes Results & Data ([facility]) Vital Signs (Past 12 Hours) Vital Signs Temp Pulse Pulse Resp BP BP Pulse Ox 01/02/21 07:59 36.6 C 75 18 141/88 H 98 01/02/21 07:35 70 01/02/21 03:15 36.9 C 85 18 126/80 96 01/01/21 23:00 36.9 C 56 L 18 105/69 92 Laboratory Results 01/02/21 06:03 01/02/21 01/02/21 06:03 06:03 WBC 5.38 RBC 4.02 L MCV 87.1 MCH 28.6 MCHC 32.9 RDW Std Deviation 49.4 H RDW Coeff of Mariana 15.3 H Plt Count 251 MPV 8.9 Albumin 2.4 L
[2021-01-03 06:30] LABS: Hematocrit (blood only) 37.4 % (42-52); Mean Corpuscular Hemoglobin 28.4 pg (25-34); Mean Corpuscular Hgb Conc 32.1 g/dL (32-36); Mean Corpuscular Volume 88.6 fL (80-100); Mean Platelet Volume 8.4 fL (7.4-10.4); Platelet Count 234 K/uL (130-400); RDW Coefficient of Variation 15.6 % (11.5-14.5); RDW Standard Deviation 50.1 fL (36.4-46.3); Red Blood Count 4.22 M/uL (4.7-6.1); White Blood Count 3.76 K/uL (4.8-10.8)
[2021-01-03 06:44] LABS: INR 1.1 (0.9-1.1); Partial Thromboplastin Ratio 1.2; Partial Thromboplastin Time 30.5 Seconds (21.0-31.0); Prothrombin Time 10.9 Seconds (9.0-12.0)
[2021-01-03 07:04] LABS: BUN Creatinine Ratio 55.3 (10-20); Calcium 8.7 mg/dl (8.5-10.1); Creatinine Clr Calc Pharmacy 61.5 ml/min; Est GFR (African American) 83.4; Est GFR (Non-African American) 71.9; Potassium 4.9 mmol/L (3.5-5.1)
--- NOTE | 2021-01-03 07:15 | Hospitalist Progress Note ---
Date of Service January 03, 2021 Assessment & Plan (1) Acute hyponatremia: (2) Weakness: ASSESSMENT AND PLAN: This is a 75-year-old male who presents with hyponatremia. 1. Hyponatremia: Chest x-ray and CT head is okay. Urine osmolality is 747. Could be most likely syndrome of inappropriate antidiuretic hormone. Fluid restriction 1200 mL per day. Follow the repeat labs. Nephrology on case. 2. Generalized weakness and fatigue, could be from hyponatremia. 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 Lumbar puncture Sunday. 3. Parkinson's: Continue his home medications of carbidopa/levodopa. 4. Chronic diarrhea: Continue colestipol. 5. Atrial fibrillation: Rate is under control. We will change Eliquis to heparin as planned for anticipation of lumbar puncture. 6. Gastroesophageal reflux disease: Continue omeprazole. 7. Benign prostatic hypertrophy: Continue Flomax. 8. Chronic kidney disease stage III: Will follow the labs. 9. Deep venous thrombosis prophylaxis: IV Heparin for AFIB, Held at 2 am Today for LP DISPOSITION: Closely monitor in the [employer]. Level 1 full code. PT and OT. Social service to help with discharge planning. Expect to discharge home and follow with family doctor. Labs checked. LP today, DC tomorrow, restart A/C Sunday or Sun, Hopefully DC 01/04 ROS-No Headache, No Visual Changes, No Nausea, No Vomiting, No Fever, No Chills, No Neck Pain or Stiffness, No Chest Pain, No Palpitations, No SOB, No BOB, No Cough, No Sputum, No Wheezing, No Abdominal Pain, No Diarrhea, No Hematemesis, No Hemoptysis, No Unexpected Weight Loss, No Flank pain, No Melena, No Hematochezia, No Frequency, No Urgency, No Burning, No Hematuria, No Rashes, No Diaphoresis. Appetite is Normal, Physical Exam Gen-AAO x 3, NAD, Afebrile, Parkinsonian Head-NCAT, EOMI, PERRLA, Anicteric Sclera, No Posterior Pharyngeal Erythema Neck-Supple, No JVD, No Thyromegaly, No Masses, No LAD, No Bruits Lungs-Clear to Auscultation Bilaterally, No Rales, No Rhonchi, No Wheezing, No Crepitus Chest-No S4, +S1, +S2, No S3, No Murmurs, No Rubs, No Gallops, No Ectopy Abdomen-Soft, Bowel Sounds Present, Non Tender, Non Distended, No Hepatomegaly, No Splenomegaly, No Palpable Masses, No Rebound, No Rigidity, No Guarding Musculoskeletal-Full Range of Motion Bilaterally, No CVAT Extremities-No Cyanosis, No Clubbing, No Edema Nuero-Cranial Nerves II-XII grossly intact, Motor WNL, DTRs WNL, Strength WNL, Non Focal Psych-Normal Mood Admission and Anticipated Discharge Date Admission Date: December 29, 2020 Results & Data Results & Data ([facility]) Vital Signs (Past 12 Hours) Vital Signs Temp Pulse Pulse Resp BP Pulse Ox 01/03/21 03:36 36.7 C 70 18 130/83 99 01/03/21 00:12 81 01/02/21 22:25 36.8 C 85 18 99/64 L 98
[2021-01-03] MEDS: PANTOprazole 40 MG TAB PO SCH (07:57)
[2021-01-03] MEDS: POTASSIUM CHLORIDE 10 MEQ TABCR PO SCH (07:57)
[2021-01-03] MEDS: TAMSULOSIN HCL 0.4 MG CAP PO SCH (07:57)
[2021-01-03] MEDS: CYANOCOBALAMIN 500 MCG TABLET (VITAMIN B-12) PO SCH (07:57)
[2021-01-03] MEDS: CARBIDOPA/LEVODOPA 25/100MG TAB PO SCH ×3 (07:57→20:00)
[2021-01-03] MEDS: UREA (URE-NA) 15 GM PACK PO SCH (09:41)
--- NOTE | 2021-01-03 09:59 | Nephrology Progress Note ---
Date of Service January 03, 2021 Assessment & Plan Admission and Anticipated Discharge Date Admission Date: December 29, 2020 Subjective Subjective No New issues. Sodium normal now. PHYSICAL EXAMINATION: GENERAL: Elderly white male who is not in any respiratory distress. HEENT: Mucous membrane moist. NECK: Supple. No jugular venous distention. CHEST: Bilateral clear to auscultation. CARDIOVASCULAR: S1, S2 regular. ABDOMEN: Soft, nontender. EXTREMITIES: Shows 1+ edema in the right, no edema in the left. LABORATORY TESTS: Serum sodium this morning 127. Urine osmolality is 747. Urine sodium 46. BUN is 15, creatinine 0.76. Chest x-ray was unremarkable. ASSESSMENT AND PLAN: A 75-year-old male who was admitted because of hyponatremia for which I have been consulted. Hyponatremia. 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 Urine sodium was 46. He does not appear to be volume depleted at all. If anything, he is probably slightly volume overloaded. We will do a full treatment for the hyponatremia as follows: 1. Stop urea . Hard to give this outpt. Will follow 2. No lasix. Cut down K.cl to 20 bid. 3. Labs q. 24 hours. 4. Continue free fluid restriction 1200 mL per day. 5 Want to see how he does on his own without meds. Results & Data ([facility]) Vital Signs (Past 12 Hours) Vital Signs Temp Pulse Pulse Resp BP Pulse Ox 01/03/21 07:28 36.4 C L 69 18 116/73 99 01/03/21 07:00 73 01/03/21 03:36 36.7 C 70 18 130/83 99 01/03/21 00:12 81 01/02/21 22:25 36.8 C 85 18 99/64 L 98
--- NOTE | 2021-01-03 11:09 | Fluoroscopy Report ---
FL lumbar puncture diagnostic CLINICAL HISTORY: Possible chronic inflammatory demyelinating polyradiculoneuropathy COMPARISON STUDY: None FLUOROSCOPY TIME: 24 seconds. NUMBER OF FLUOROSCOPIC IMAGES: 2 FINDINGS: A timeout was performed. The risks the procedure were explained the patient and informed consent was obtained. The patient was prepped and draped in sterile fashion. The skin was anesthetized 1% lidocaine. Under fluoroscopic guidance, a lumbar puncture was performed at the superior L3 level utilizing a 20- gauge spinal needle. Opening CSF pressure was less than 9 cm H2O. 4 cc of clear CSF was obtained and into 4 tubes. The fluid was sent for laboratory analysis as specified by the referring clinician. There were no immediate complications. IMPRESSION: Successful fluoroscopically guided diagnostic lumbar puncture performed at the L3 level. ACT 112: Negative or not required by law. Electronically signed by: Toi Caicedo M.D. 01/03/2021 11:08 AM
[2021-01-03 11:23] LABS: Appearance CSF Clear; CSF Count Tube # 3; CSF Xanthrochromic No xanthochromia; Color CSF Colorless; Red Blood Cell CSF (A) 7 /uL (0-); White Blood Cell CSF (A) 1 /uL (0-5); White Blood Cell CSF (B) 1 /uL (0-5)
[2021-01-03 11:24] LABS: Red Blood Cell CSF (B) 6 /uL (0-)
[2021-01-03 11:26] LABS: CSF Chemistry Tube # 1; CSF Glucose 48 mg/dl (40-70); Total Protein CSF 116.3 mg/dl (15-45)
[2021-01-03] MEDS ORDERED: IMMUNE GLOBULIN(HUMAN) 10% 100 ML IV SCH (13:30)
[2021-01-03] MEDS ORDERED: IMMUNE GLOBULIN(HUMAN) 10% 200 ML IV SCH (15:00)
[2021-01-03] MEDS: TOCOPHERYL, DL-ALPHA 400 UNITS CAP PO SCH (15:23)
--- NOTE | 2021-01-03 15:45 | Neurology Progress Note ---
Date of Service January 03, 2021 Assessment & Plan (1) Weakness: 1. CIDP- current working diagnosis 2. Eliquis should be restarted 3. labs - LP include cytology, protein, cultures -protein 115 4. bed rest after procedure x 2 hours and slowly increase HOB 30 degrees 5. keep well hydrated watching free fluid restriction due to hyponatremia - no headache currently 6. order chest/abdomen/pelvis r/o primary CA- no lesions or inflammatory process identified . 7. IVIG - 1 dose x 5 days- will see if there is response to first dose. (2) Acute hyponatremia: 1. correcting SIADH 2. nephrology for management (3) Parkinson disease: 1. continue sinemet 25/100 mg TID for now 2. fall precautions 3. PT/OT for discharge needs. 4. needs inpatient rehab before going home. 5. will continue to follow with you. Admission and Anticipated Discharge Date Admission Date: December 29, 2020 Supervising Physician Co-Signing Physician Notes I have seen and discussed above patient with Dr Chidi Cottrell, neurology I am seeing Mr. Young today for the first time I reviewed his case to date his laboratory studies his imaging studies and now the results of the spinal fluid which show a marked elevation of the protein 126 and would be consistent theoretically with the potential diagnosis of CIDP. This is probably occurring superimposed upon a pre-existing axonal neuropathy, Parkinson's disease, some mild cognitive impairment, and hyponatremia which has now largely resolved with appropriate management from nephrology and we have found no evidence for neoplasia on appropriate imaging of the chest abdomen pelvis and thus far the spinal fluid is negative although cytology is still pending Exam reveals some mild Parkinson's features areflexia a steppage gait and a little slowness of mental processing but is otherwise as has been described in prior notes by Dr. Silva and Dr. Rizzo who is his primary neurologist Based on my discussion with Dr. Rizzo today the plan is to use IVIG daily for 5 days and I believe after that I think he will need some rehabilitation efforts as I really do not anticipate that this is going to miraculously produce significant improvement in his condition. He does have a pre-existing axonal polyneuropathy and what ever elements of demyelination are present and might be responsive to CIDP may well be masked by the pre-existing issue I hope my assessment is wrong and he does have a significant response but have my doubts Only time will tell we are going continue to follow him daily I did discuss this therapeutic approach with his and we have the approval of his attending neurologist Dr. Rizzo I see no need to change his Parkinson medications at this point as his primary cause of weakness appears to be the neuropathy Chidi Cottrell MD Stas Mathews is a 75 year old male with PMH AF, aortic root dilatation, diastolic dysfunction, pulmonary hypertension, moderate aortic regurgitation, chronic diarrhea, esophagitis, collagenous colitis, CKD III, lumbar DDD, primary osteoarthritis of the left hip, left foot drop, anisocoria, Parkinson's, thrombocytopenia,Monoallelic mutation of BRCA2 gene, who lives at home with his was brought in for hyponatremia. He had a fall he had a fall and was in rehab and then [facility] for a few weeks and then got home and for the three weeks he is not walking much he is wheelchair bound and ambulating some with a walker with help. He also has left foot drop he was seen by Taurus Rizzo DO who ordered alot of lab and did an EMG which showed severe chronic axonal sensorimotor polyneuropathy. He also has some eye ptosis, could be underlying generalized myasthenia gravis- acetylcholine AB was negative. CIDP and versus metabolic encephalopathy are in the differential. The Eliquis was stopped and placed on a heparin drip for LP to evaluate for CSF protein. He has a strong family history of CA, sister with leukemia, mom colon CA, breast CA. he has occasional diplopia sometime the image is side by side sometime up and down. when he blinks his eyes it goes away. He thinks he is better today. He is anxious to start physical therapy so he can go back home. He was able to walk to the bathroom with a walker today. discussed the CT scans but he seems a bit confused about why they were done. He would like his to be updated with the information which Dr Cottrell has talked to her today. He is now being treated with IVIG due to the elevated protein in his CSF. likely CIDP. denies CP, SOB, abdominal pain, no LE pain, +bilateral LE foot drop Review of Systems Review of Systems: All systems reviewed & are unremarkable except as noted in HPI & below Physical Exam Physical Exam: Physical Exam: Constitutional: appearance thin frail Ears, Nose, Mouth and Throat: mucous membranes moist, no injection and skin normal, eyes normal Cardiovascular: irregular Respiratory: course breath sounds Musculoskeletal: no peripheral edema and good distal pulses Skin: no stigmata of neurocutaneous disease noted and normal and intact Eyes: extraocular muscles intact (EOMI) and pupils equal, round and reactive to light (PERRL), gross peripheral vision intact, decrease blink NEUROLOGIC EXAMINATION: Mental status: Alert and interactive, very drowsy but easily aroused Oriented to full date and location Oriented to person Speech fluent with no evidence of aphasia Cranial Nerves smile and eye brow raise symmetric Reflexes: Deep tendon reflexes were symmetrical and decreased, neutral toes Sensory: decrease L>R vibration, light cool touch Coordination: finger to nose no bi pass, cogwheeling R>L no reaching tremor mild resting tremor Gait/Stance: Posture lying in bed Motor: Negative for pronator drift of out stretched arms with eyes closed. 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, hip flex 4+/5, plantar flex 4/5 BILATERALLY Results & Data ([facility]) Vital Signs (Past 12 Hours) Vital Signs Temp Pulse Pulse Resp BP BP Pulse Ox 01/03/21 14:58 68 01/03/21 14:45 36.5 C 88 18 125/80 98 01/03/21 14:15 36.7 C 65 18 114/75 98 01/03/21 13:45 36.6 C 76 18 115/74 97 01/03/21 13:30 36.4 C L 73 18 112/73 97 01/03/21 12:28 36.4 C L 76 18 101/63 95 01/03/21 11:11 36.4 C L 71 18 109/73 93 01/03/21 07:28 36.4 C L 69 18 116/73 99 01/03/21 07:00 73 Laboratory Results Abnormal lab results 01/03/21 01/03/21 01/03/21 Range/Units 06:19 06:19 10:50 WBC 3.76 L (4.8-10.8) K/uL RBC 4.22 L (4.7-6.1) M/uL Hgb 12.0 L (14.0-18.0) g/dL Hct 37.4 L (42-52) % RDW Std Deviation 50.1 H (36.4-46.3) fL RDW Coeff of [place] 15.6 H (11.5-14.5) % BUN 56 H (7-18) mg/dl BUN/Creatinine Ratio 55.3 H (10-20) CSF Total Protein 116.3 H (15-45) mg/dl Diagnostic Findings CT chest/abd/pelvis-Cardiomegaly with no acute cardiopulmonary abnormality. There is no airspace consolidation or pleural effusion. There are moderate compression fractures of T8 and T9 which appear acute to subacute. No retropulsed fragments are identified. Correlate for point tenderness. There are bilateral subacute/healing rib fractures. There are bilateral sacral insufficiency fractures. There are no acute infectious or inflammatory findings in the abdomen or pelvis. A large right inguinal hernia contains non obstructed bowel. Cholelithiasis. Prostatomegaly with evidence of chronic bladder outlet obstruction. Moderate constipation.
[2021-01-03] MEDS: POTASSIUM CHLORIDE CRTAB 20 MEQ TABCR PO SCH (20:00)
[2021-01-04 06:32] LABS: Basophils # (auto) 0.01 K/uL (0-0.2); Basophils % (auto) 0.2 %; Eosinophils # (auto) 0.17 K/uL (0-0.5); Hematocrit (blood only) 35.6 % (42-52); Hemoglobin 11.9 g/dL (14.0-18.0); Immature Granulocytes # (auto) 0.02 K/uL (0.00-0.02); Immature Granulocytes % (auto) 0.5 %; Lymphocytes # (auto) 0.59 K/uL (1.2-3.4); Lymphocytes % (auto) 13.9 %; Mean Corpuscular Hemoglobin 29.3 pg (25-34); Mean Corpuscular Hgb Conc 33.4 g/dL (32-36); Mean Corpuscular Volume 87.7 fL (80-100); Mean Platelet Volume 8.5 fL (7.4-10.4); Monocytes # (auto) 0.53 K/uL (0.11-0.59); Monocytes % (auto) 12.5 %; Neutrophils # (auto) 2.91 K/uL (1.4-6.5); Neutrophils % (auto) 68.9 %; Platelet Count 209 K/uL (130-400); RDW Coefficient of Variation 15.3 % (11.5-14.5); RDW Standard Deviation 49.4 fL (36.4-46.3); Red Blood Count 4.06 M/uL (4.7-6.1); White Blood Count 4.23 K/uL (4.8-10.8)
[2021-01-04 06:40] LABS: Partial Thromboplastin Time 25.9 Seconds (21.0-31.0)
[2021-01-04 06:59] LABS: BUN Creatinine Ratio 41.1 (10-20); Calcium 8.8 mg/dl (8.5-10.1); Creatinine Clr Calc Pharmacy 60.1 ml/min; Est GFR (African American) 78.6; Est GFR (Non-African American) 67.8; Potassium 4.5 mmol/L (3.5-5.1)
[2021-01-04] MEDS: TOCOPHERYL, DL-ALPHA 400 UNITS CAP PO SCH (08:25)
[2021-01-04] MEDS: CARBIDOPA/LEVODOPA 25/100MG TAB PO SCH ×3 (08:26→20:46)
[2021-01-04] MEDS: TAMSULOSIN HCL 0.4 MG CAP PO SCH (08:26)
[2021-01-04] MEDS: PANTOprazole 40 MG TAB PO SCH (08:26)
[2021-01-04] MEDS: POTASSIUM CHLORIDE CRTAB 20 MEQ TABCR PO SCH (08:26)
[2021-01-04] MEDS: CYANOCOBALAMIN 500 MCG TABLET (VITAMIN B-12) PO SCH (08:27)
[2021-01-04] MEDS: IMMUNE GLOBULIN(HUMAN) 10% 100 ML IV SCH (08:28)
--- NOTE | 2021-01-04 09:05 | Nephrology Progress Note ---
Date of Service January 04, 2021 Assessment & Plan Admission and Anticipated Discharge Date Admission Date: December 29, 2020 Subjective No New issues. Weakness--Dx CIDP and now getting IVIG. PHYSICAL EXAMINATION: GENERAL: Elderly white male who is not in any respiratory distress. HEENT: Mucous membrane moist. NECK: Supple. No jugular venous distention. CHEST: Bilateral clear to auscultation. CARDIOVASCULAR: S1, S2 regular. ABDOMEN: Soft, nontender. EXTREMITIES: NO edema LABORATORY TESTS: Serum sodium this morning 134. ASSESSMENT AND PLAN: A 75-year-old male who was admitted because of hyponatremia for which I have been consulted. Hyponatremia. 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 1. Stop urea . Hard to give this outpt--Cost, Insurance, taste etc. 2. No lasix. Cut down K.cl to 10 bid. 3. Labs q. 24 hours. 4. Continue free fluid restriction 1200 mL per day. 5 Add salt tab 1 gm bid. 6 Given IVIG will follow Na and Creat closely.. Results & Data ([facility]) Vital Signs (Past 12 Hours) Vital Signs Temp Pulse Pulse Resp BP BP Pulse Ox 01/04/21 07:20 62 01/04/21 07:07 36.6 C 76 20 119/77 98 01/04/21 03:07 36.4 C L 66 18 117/81 96 01/04/21 02:00 79 01/03/21 22:52 36.6 C 68 18 120/76 99
[2021-01-04] MEDS: IMMUNE GLOBULIN(HUMAN) 10% 200 ML IV SCH (10:05)
--- NOTE | 2021-01-04 10:24 | Hospitalist Progress Note ---
Date of Service January 04, 2021 Assessment & Plan (1) Acute hyponatremia: (2) Weakness: ASSESSMENT AND PLAN: This is a 75-year-old male who presents with hyponatremia. 1. Hyponatremia: Chest x-ray and CT head is okay. Urine osmolality is 747. Could be most likely syndrome of inappropriate antidiuretic hormone. Fluid restriction 1200 mL per day. Follow the repeat labs. Nephrology on case. 2. Generalized weakness and fatigue, could be from hyponatremia. Neurology on case-LP confirms (CIDP) chronic inflammatory demyelinating polyneuropathy. Lumbar puncture done Sunday-+Protein in CSF, IVIg started 400 mg/kg/Day x 5 days. 3. Parkinson's: Continue his home medications of carbidopa/levodopa. 4. Chronic diarrhea: Continue colestipol. 5. Atrial fibrillation: Rate is under control. Changed Eliquis to heparin for lumbar puncture. Resume Eliquis today 6. Gastroesophageal reflux disease: Continue omeprazole. 7. Benign prostatic hypertrophy: Continue Flomax. 8. Chronic kidney disease stage III: Will follow the labs. 9. Deep venous thrombosis prophylaxis: Resume Eliquis DISPOSITION: Closely monitor in the [employer]. Level 1 full code. PT and OT. Social service to help with discharge planning. Expect to discharge home and follow with family doctor. Labs checked. Restart A/C today, 5 Days of IVIg, Hopefully DC 01/07 or 01/08 ROS-No Headache, No Visual Changes, No Nausea, No Vomiting, No Fever, No Chills, No Neck Pain or Stiffness, No Chest Pain, No Palpitations, No SOB, No BOB, No Cough, No Sputum, No Wheezing, No Abdominal Pain, No Diarrhea, No Hematemesis, No Hemoptysis, No Unexpected Weight Loss, No Flank pain, No Melena, No Hematochezia, No Frequency, No Urgency, No Burning, No Hematuria, No Rashes, No Diaphoresis. Appetite is Normal, Physical Exam Gen-AAO x 3, NAD, Afebrile, Parkinsonian Head-NCAT, EOMI, PERRLA, Anicteric Sclera, No Posterior Pharyngeal Erythema Neck-Supple, No JVD, No Thyromegaly, No Masses, No LAD, No Bruits Lungs-Clear to Auscultation Bilaterally, No Rales, No Rhonchi, No Wheezing, No Crepitus Chest-No S4, +S1, +S2, No S3, No Murmurs, No Rubs, No Gallops, No Ectopy Abdomen-Soft, Bowel Sounds Present, Non Tender, Non Distended, No Hepatomegaly, No Splenomegaly, No Palpable Masses, No Rebound, No Rigidity, No Guarding Musculoskeletal-Full Range of Motion Bilaterally, No CVAT Extremities-No Cyanosis, No Clubbing, No Edema Nuero-Cranial Nerves II-XII grossly intact, Motor WNL, DTRs WNL, Strength WNL, Non Focal Psych-Normal Mood Admission and Anticipated Discharge Date Admission Date: December 29, 2020 Results & Data Results & Data ([facility]) Vital Signs (Past 12 Hours) Vital Signs Temp Pulse Pulse Resp BP BP Pulse Ox 01/04/21 07:20 62 01/04/21 07:07 36.6 C 76 20 119/77 98 01/04/21 03:07 36.4 C L 66 18 117/81 96 01/04/21 02:00 79 01/03/21 22:52 36.6 C 68 18 120/76 99
[2021-01-04] MEDS: SODIUM CHLORIDE 1 GM TABLET PO SCH ×2 (13:23→20:46)
--- NOTE | 2021-01-04 15:27 | Neurology Progress Note ---
Date of Service January 04, 2021 Assessment & Plan (1) Weakness: 1. CIDP- current working diagnosis 2. Eliquis should be restarted 3. labs - LP include cytology, protein, cultures -protein 115 4. order chest/abdomen/pelvis r/o primary CA- no lesions or inflammatory process identified . 5. IVIG - 1 dose x 5 days- will see if there is response to first dose. 6. he appears improved from previous days. (2) Acute hyponatremia: 1. correcting SIADH 2. nephrology for management (3) Parkinson disease: 1. continue sinemet 25/100 mg TID for now 2. fall precautions 3. PT/OT for discharge needs. 4. needs inpatient rehab before going home. 5. will continue to follow with you. Admission and Anticipated Discharge Date Admission Date: December 29, 2020 Supervising Physician Co-Signing Physician Notes I have seen and discussed above patient with Dr Chidi Cottrell, neurology Mr. Young is brighter and more alert today but his motor system and foot drop appears to be fairly stable and certainly no worse but again I do not anticipate that the IVIG is going to produce any sudden improvement in his overall status but hopefully will serve to arrest the process of presumptive immune mediated demyelination at the motor and sensory nerve root level. I think his mental status is better because of the improvement in his sodium and his Parkinson's remains very mild and not needing any further management of his carbidopa L-dopa He is getting physical therapy he has 3 more days of the IVIG and I think he really would benefit from another visit at [facility] where he was following his fall several months ago Hopefully the IVIG will stop the presumptive inflammatory process going on at the root level and allow improved conduction through these presumptively demyelinated segments and dialysis produce at least some improvement in his weakness over a period of time. He does have an axonal neuropathy and IVIG is highly unlikely to produce any major acute changes in axon function as these require a process of axonal regrowth and require time unlike the process of remyelination which if stopped may reverse itself in 3 to 4 weeks We will come back tomorrow make another visit but again would suggest that the process of trying to get [facility] after completion of the IV Ig be initiated Long-term management may require periodic pulses of IVIG, perhaps even daily steroids but I think the plan now is to try an initial pulse of IVIG followed by rehabilitation and then a visit to Dr. Rizzo and the ultimate decision about recurrent pulses or steroid therapy be made by him in several weeks time Chidi Cottrell MD Stas Mathews is a 75 year old male with PMH AF, aortic root dilatation, diastolic dysfunction, pulmonary hypertension, moderate aortic regurgitation, chronic diarrhea, esophagitis, collagenous colitis, CKD III, lumbar DDD, primary osteoarthritis of the left hip, left foot drop, anisocoria, Parkinson's, thrombocytopenia,Monoallelic mutation of BRCA2 gene, who lives at home with his was brought in for hyponatremia. He had a fall he had a fall and was in rehab and then [facility] for a few weeks and then got home and for the three weeks he is not walking much he is wheelchair bound and ambulating some with a walker with help. He also has left foot drop he was seen by Taurus Rizzo DO who ordered alot of lab and did an EMG which showed severe chronic axonal sensorimotor polyneuropathy. He also has some eye ptosis, could be underlying generalized myasthenia gravis- acetylcholine AB was negative. CIDP and versus metabolic encephalopathy are in the differential. The Eliquis was stopped and placed on a heparin drip for LP to evaluate for CSF protein. He has a strong family history of CA, sister with leukemia, mom colon CA, breast CA. he has occasional diplopia sometime the image is side by side sometime up and down. when he blinks his eyes it goes away. He thinks he is better today. He is anxious to start physical therapy so he can go back home. He was able to walk to the bathroom with a walker today and worked with PT and walked in the room several times to the door and anticipates walking in the asif tomorrow. He is now being treated with IVIG due to the elevated protein in his CSF likely CIDP. denies CP, SOB, abdominal pain, no LE pain, +bilateral LE foot drop Physical Exam Physical Exam: Physical Exam: Constitutional: appearance thin frail Ears, Nose, Mouth and Throat: mucous membranes moist, no injection and skin normal, eyes normal Cardiovascular: irregular Respiratory: course breath sounds Musculoskeletal: no peripheral edema and good distal pulses, global muscular atrophy Skin: no stigmata of neurocutaneous disease noted and normal and intact Eyes: extraocular muscles intact (EOMI) and pupils equal, round and reactive to light (PERRL), gross peripheral vision intact, decrease blink NEUROLOGIC EXAMINATION: Mental status: Alert and interactive, sitting up in bedside chair Oriented to full date and location Oriented to person Speech fluent with no evidence of aphasia Cranial Nerves smile and eye brow raise symmetric Reflexes: Deep tendon reflexes were symmetrical and decreased Sensory: decrease L>R vibration, light cool touch Coordination: finger to nose no bi pass, cogwheeling R>L no reaching tremor mild resting tremor Gait/Stance: sitting bedside alert and interactive Motor: Negative for pronator drift of out stretched arms with eyes closed. Strength: hand mold dresser biceps triceps bilaterally 4+/5, hip flex 4+/5, plantar flex 3/5 BILATERALLY Results & Data ([facility]) Vital Signs (Past 12 Hours) Vital Signs Temp Pulse Pulse Resp BP Pulse Ox 01/04/21 12:24 36.4 C L 87 18 109/78 95 01/04/21 11:27 36.8 C 68 18 110/74 100 01/04/21 09:05 36.3 C L 80 20 97/62 L 99 01/04/21 08:30 36.9 C 71 20 99 01/04/21 07:20 62 01/04/21 07:07 36.6 C 76 20 119/77 98
[2021-01-04] MEDS: APIXABAN 2.5 MG TAB PO SCH (20:46)
[2021-01-04] MEDS: POTASSIUM CHLORIDE 10 MEQ TABCR PO SCH (20:46)
[2021-01-05 07:33] LABS: Hematocrit (blood only) 34.5 % (42-52); Hemoglobin 11.7 g/dL (14.0-18.0); Mean Corpuscular Hemoglobin 29.7 pg (25-34); Mean Corpuscular Hgb Conc 33.9 g/dL (32-36); Mean Corpuscular Volume 87.6 fL (80-100); Mean Platelet Volume 8.7 fL (7.4-10.4); Platelet Count 206 K/uL (130-400); RDW Coefficient of Variation 15.4 % (11.5-14.5); RDW Standard Deviation 50.4 fL (36.4-46.3); Red Blood Count 3.94 M/uL (4.7-6.1)
[2021-01-05] MEDS: IMMUNE GLOBULIN(HUMAN) 10% 100 ML IV SCH (07:34)
[2021-01-05] MEDS: CARBIDOPA/LEVODOPA 25/100MG TAB PO SCH ×3 (07:40→20:59)
[2021-01-05] MEDS: SODIUM CHLORIDE 1 GM TABLET PO SCH ×2 (07:40→21:00)
[2021-01-05] MEDS: PANTOprazole 40 MG TAB PO SCH (07:40)
[2021-01-05] MEDS: TOCOPHERYL, DL-ALPHA 400 UNITS CAP PO SCH (07:41)
[2021-01-05] MEDS: CYANOCOBALAMIN 500 MCG TABLET (VITAMIN B-12) PO SCH (07:41)
[2021-01-05] MEDS: POTASSIUM CHLORIDE 10 MEQ TABCR PO SCH ×2 (07:41→20:59)
[2021-01-05] MEDS: TAMSULOSIN HCL 0.4 MG CAP PO SCH (07:41)
[2021-01-05] MEDS: APIXABAN 2.5 MG TAB PO SCH ×2 (07:41→21:00)
[2021-01-05 08:04] LABS: Albumin Level 2.4 gm/dl (3.4-5.0); Calcium 8.6 mg/dl (8.5-10.1); Creatinine Clr Calc Pharmacy 61.1 ml/min; Est GFR (African American) 87.5; Est GFR (Non-African American) 75.5; Potassium 4.2 mmol/L (3.5-5.1)
[2021-01-05 08:11] LABS: Albumin Globulin Ratio 0.6 (0.9-2); Bilirubin,Total 0.5 mg/dl (0.2-1); Globulin 3.9 gm/dl (2.5-4.0); Total Protein 6.3 gm/dl (6.4-8.2)
[2021-01-05] MEDS: IMMUNE GLOBULIN(HUMAN) 10% 200 ML IV SCH (09:55)
--- NOTE | 2021-01-05 12:32 | Hospitalist Progress Note ---
Date of Service January 05, 2021 Assessment & Plan (1) Acute hyponatremia: (2) Weakness: Patient is 75-year-old male with past medical history of atrial fibrillation on Eliquis, aortic root dilatation, diastolic heart failure, aortic regurgitation, esophagitis, collagenous colitis, CKD stage III, osteoarthritis, Parkinson's, thrombocytopenia, _Monoallelic mutation of BRCA2 gene who presented to the ED because he was found to have hyponatremia as an outpatient. Patient is noted to have marked decline in his ambulation over the last few months. He has history of chronic neuropathy as well. Patient has history of left foot drop. As an outpatient he did have an EMG which showed severe chronic axonal sensorimotor polyneuropathy. At some point he also had left eye proptosis. Neurology believes patient might have CIDP. 1. Hyponatremia: Chest x-ray and CT head is okay. Urine osmolality is 747. Possibly component of inappropriate antidiuretic hormone. Sodium today at 134. Continue fluid restriction at 100 mL daily. Appreciate nephrology input. Urea and Lasix have been discontinued daily BMP continue sodium chloride 1 g twice daily. 2. Generalized weakness and fatigue, could be from hyponatremia: Neurology is on board. Went underwent LP; evidence for CIDP. She was started on IVIG 400 mg/kg/Day x 5 days. 3. Parkinson's: Continue his home medications of carbidopa/levodopa. 4. Chronic diarrhea: Continue colestipol. 5. Atrial fibrillation: Rate is under control. Eliquis has been resumed. 6. Gastroesophageal reflux disease: Continue omeprazole. 7. Benign prostatic hypertrophy: Continue Flomax. 8. Chronic kidney disease stage III: Will follow the labs. 9. Deep venous thrombosis prophylaxis: Resume Eliquis DISPOSITION: Closely monitor in the [employer] tele. Level 1 full code. PT and OT. Social service to help with discharge planning. Patient likely needs inpatient rehab. Admission and Anticipated Discharge Date Admission Date: December 29, 2020 Subjective This morning patient is awake, alert and oriented x3. Having breakfast. Denies any headache or dizziness. Chest pain, abdominal pain, diarrhea or any other weakness at this. Review of system is mainly negative. Review of Systems Review of Systems: All systems reviewed & are unremarkable except as noted in HPI & below Physical Exam Physical Exam: General: A&Ox3 HENT: NCAT, MMM, EOMI Eyes: PERRLA Neck: Supple, normal range of motion CVS: normal rate and rhythm Resp: b/l good breath sounds Abdomen: Soft, ND/NT, +BS Extremities: No c/c/e Neuro: face symmetric, no focal deficit appreciated Skin: warm and dry, no rashes/lesions/errythema MSK: no joint swelling/erythema Results & Data Results & Data ([facility]) Vital Signs (Past 12 Hours) Vital Signs Temp Pulse Pulse Resp BP BP Pulse Ox 01/05/21 10:55 36.5 C 80 17 124/81 94 01/05/21 09:20 36.6 C 85 20 95/58 L 100 01/05/21 08:00 63 01/05/21 07:30 36.5 C 67 19 115/74 99 01/05/21 04:11 36.5 C 65 18 119/74 98
[2021-01-06] MEDS: IMMUNE GLOBULIN(HUMAN) 10% 100 ML IV SCH (08:02)
[2021-01-06] MEDS: TAMSULOSIN HCL 0.4 MG CAP PO SCH (08:05)
[2021-01-06] MEDS: CARBIDOPA/LEVODOPA 25/100MG TAB PO SCH ×3 (08:05→20:24)
[2021-01-06] MEDS: TOCOPHERYL, DL-ALPHA 400 UNITS CAP PO SCH (08:05)
[2021-01-06] MEDS: CYANOCOBALAMIN 500 MCG TABLET (VITAMIN B-12) PO SCH (08:05)
[2021-01-06] MEDS: PANTOprazole 40 MG TAB PO SCH (08:05)
[2021-01-06] MEDS: APIXABAN 2.5 MG TAB PO SCH (08:05)
[2021-01-06] MEDS: POTASSIUM CHLORIDE 10 MEQ TABCR PO SCH ×2 (08:05→20:24)
[2021-01-06 09:00] LABS: Basophils # (auto) 0.01 K/uL (0-0.2); Basophils % (auto) 0.5 %; Eosinophils # (auto) 0.08 K/uL (0-0.5); Eosinophils % (auto) 3.6 %; Hematocrit (blood only) 38.3 % (42-52); Hemoglobin 12.4 g/dL (14.0-18.0); Immature Granulocytes # (auto) 0.01 K/uL (0.00-0.02); Immature Granulocytes % (auto) 0.5 %; Lymphocytes # (auto) 0.42 K/uL (1.2-3.4); Lymphocytes % (auto) 19.1 %; Mean Corpuscular Hemoglobin 28.6 pg (25-34); Mean Corpuscular Hgb Conc 32.4 g/dL (32-36); Mean Corpuscular Volume 88.2 fL (80-100); Mean Platelet Volume 8.7 fL (7.4-10.4); Monocytes # (auto) 0.15 K/uL (0.11-0.59); Monocytes % (auto) 6.8 %; Neutrophils # (auto) 1.53 K/uL (1.4-6.5); Neutrophils % (auto) 69.5 %; Platelet Count 172 K/uL (130-400); RDW Coefficient of Variation 15.3 % (11.5-14.5); RDW Standard Deviation 49.5 fL (36.4-46.3); Red Blood Count 4.34 M/uL (4.7-6.1)
[2021-01-06] MEDS: SODIUM CHLORIDE 1 GM TABLET PO SCH ×3 (09:00→20:25)
[2021-01-06 09:33] LABS: Albumin Level 2.5 gm/dl (3.4-5.0); BUN Creatinine Ratio 19.5 (10-20); Calcium 8.5 mg/dl (8.5-10.1); Creatinine Clr Calc Pharmacy 58.6 ml/min; Est GFR (African American) 83.4; Est GFR (Non-African American) 71.9; Potassium 4.2 mmol/L (3.5-5.1)
[2021-01-06 09:36] LABS: Albumin Globulin Ratio 0.6 (0.9-2); Bilirubin,Total 0.7 mg/dl (0.2-1); Globulin 4.2 gm/dl (2.5-4.0); Total Protein 6.7 gm/dl (6.4-8.2)
--- NOTE | 2021-01-06 10:00 | Nephrology Progress Note ---
Date of Service January 06, 2021 Assessment & Plan Admission and Anticipated Discharge Date Admission Date: December 29, 2020 Subjective No New issues. Weakness--Dx CIDP and now getting IVIG. PHYSICAL EXAMINATION: GENERAL: Elderly white male who is not in any respiratory distress. HEENT: Mucous membrane moist. NECK: Supple. No jugular venous distention. CHEST: Bilateral clear to auscultation. CARDIOVASCULAR: S1, S2 regular. ABDOMEN: Soft, nontender. EXTREMITIES: NO edema LABORATORY TESTS: Serum sodium this morning 132. ASSESSMENT AND PLAN: A 75-year-old male who was admitted because of hyponatremia for which I have been consulted. Hyponatremia. 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 1. Stop urea . Hard to give this outpt--Cost, Insurance, taste etc. 2. No lasix. Cut down K.cl to 10 bid. 3. Labs q. 24 hours. 4. Continue free fluid restriction 1200 mL per day. 5 Will raise the salt tab 1 gm tid. 6 Given IVIG will follow Na and Creat closely. 7 Rpt Urine osm today. Results & Data ([facility]) Vital Signs (Past 12 Hours) Vital Signs Temp Pulse Pulse Resp BP BP Pulse Ox 01/06/21 07:54 36.8 C 76 18 122/76 94 01/06/21 07:35 60 01/06/21 03:05 36.9 C 76 16 106/64 93 01/05/21 23:45 36.8 C 80 18 100/67 97
[2021-01-06] MEDS: IMMUNE GLOBULIN(HUMAN) 10% 200 ML IV SCH (10:31)
--- NOTE | 2021-01-06 10:54 | Hospitalist Progress Note ---
Date of Service January 06, 2021 Assessment & Plan (1) Acute hyponatremia: (2) Weakness: Patient is 75-year-old male with past medical history of atrial fibrillation on Eliquis, aortic root dilatation, diastolic heart failure, aortic regurgitation, esophagitis, collagenous colitis, CKD stage III, osteoarthritis, Parkinson's, thrombocytopenia, _Monoallelic mutation of BRCA2 gene who presented to the ED because he was found to have hyponatremia as an outpatient. Patient is noted to have marked decline in his ambulation over the last few months. He has history of chronic neuropathy as well. Patient has history of left foot drop. As an outpatient he did have an EMG which showed severe chronic axonal sensorimotor polyneuropathy. At some point he also had left eye proptosis. Neurology believes patient might have CIDP. 1. Hyponatremia: Chest x-ray and CT head is okay. Urine osmolality is 747. Possibly component of inappropriate antidiuretic hormone. Sodium today at 133. Continue fluid restriction at 1200 mL daily. Appreciate nephrology input. Urea and Lasix have been discontinued daily BMP continue sodium chloride 1 g twice daily. 2. Generalized weakness and fatigue, could be from hyponatremia: Neurology is on board. Went underwent LP; evidence for CIDP chronic inflammatory demyelinating polyneuropathy. Currenlty on IVIG 400 mg/kg/Day x 5 days. Final LP studies are pending. 3. Parkinson's: Continue his home medications of carbidopa/levodopa. 4. Chronic diarrhea: Continue colestipol. 5. Atrial fibrillation: Rate is under control. Eliquis has been resumed. 6. Gastroesophageal reflux disease: Continue omeprazole. 7. Benign prostatic hypertrophy: Continue Flomax. 8. Chronic kidney disease stage III: Will follow the labs. 9. Deep venous thrombosis prophylaxis: Resume Eliquis DISPOSITION: Closely monitor in the [employer]. Level 1 full code. PT and OT. Social service to help with discharge planning. Patient likely needs inpatient rehab. Admission and Anticipated Discharge Date Admission Date: December 29, 2020 Subjective Patient is awake, alert and oriented x3. Currently having breakfast. No active complaints at the moment. Hemodynamically patient is doing fine. Review of system is mainly negative. Review of Systems Review of Systems: All systems reviewed & are unremarkable except as noted in HPI & below Physical Exam Physical Exam: General: A&Ox3 HENT: NCAT, MMM, EOMI Eyes: PERRLA Neck: Supple, normal range of motion CVS: normal rate and rhythm Resp: b/l good breath sounds Abdomen: Soft, ND/NT, +BS Extremities: No c/c/e Neuro: face symmetric, no focal deficit appreciated Skin: warm and dry, no rashes/lesions/errythema MSK: no joint swelling/erythema Results & Data Results & Data ([facility]) Vital Signs (Past 12 Hours) Vital Signs Temp Pulse Pulse Resp BP BP Pulse Ox 01/06/21 07:54 36.8 C 76 18 122/76 94 01/06/21 07:35 60 01/06/21 03:05 36.9 C 76 16 106/64 93 01/05/21 23:45 36.8 C 80 18 100/67 97
--- NOTE | 2021-01-06 16:01 | Communication Note ---
Date of Service: January 06, 2021 Reid was seen today he is received 4 days of IVIG is due for another one tomorrow and his serum sodium is now 133 his BUN and creatinine are nearly normal and he looks better but today is a little less oriented than he was previously and his strength is difficult to dowel inspector because the presence of a chronic axonal polyneuropathy and his Parkinson's disease but he still has significant proximal weakness and has trouble rising from a chair and his right leg appears to be fairly strong distally but the left leg still has the foot drop and has an AFO on today which does make his gait more functional. Upper extremity strength is fine and he has a little distal sensory loss in the lower extremities consistent with his known pre-existing axonal neuropathy CSF studies have continued to show only the elevated protein is a significant abnormality and consistent with the CIDP diagnostic criteria but the EMG is nonspecific and it would be hard to tell whether or not he has proximal demyelination at the root levels but that would be one of the potential causes of his subacute weakness over the past several months. Is not clear whether he has improved clinically. He feels he is more alert so this would speak to the hyponatremia issue and is little neutral on whether his strength in his legs is better so we would have to rely on physical therapy assessment At this point I am not sure about discharge plans. If his feels safe taking him home and he can get therapy in the home environment this would be ideal. Alternatively if therapy does not feel he is safe and his is insecure about handling him at home in the event that he would fall then I think he would benefit from a [facility] Newell will be reassuming the neurology service tomorrow and Tami Reza knows the patient well from her prior evaluation and I be curious what Dr. Newell and Tami Reza PA-C think about him now a week later after receiving 5 days of IVIG in terms of his overall neuromuscular function. I myself am not certain he is that much better but again in light of his pre- existing neuropathy I would not expect a significant sudden improvement with IVIG and my best hope would be treatment that would halt the progressive nature of his decline and more time will have to elapse before any conclusion about progression or lack thereof can be reached Chidi Cottrell MD
[2021-01-06] MEDS: APIXABAN 5 MG TABLET PO SCH (20:24)
[2021-01-07] MEDS: APIXABAN 5 MG TABLET PO SCH ×2 (08:26→20:17)
[2021-01-07] MEDS: CARBIDOPA/LEVODOPA 25/100MG TAB PO SCH ×3 (08:26→20:17)
[2021-01-07] MEDS: TOCOPHERYL, DL-ALPHA 400 UNITS CAP PO SCH (08:26)
[2021-01-07] MEDS: PANTOprazole 40 MG TAB PO SCH (08:26)
[2021-01-07] MEDS: CYANOCOBALAMIN 500 MCG TABLET (VITAMIN B-12) PO SCH (08:26)
[2021-01-07] MEDS: TAMSULOSIN HCL 0.4 MG CAP PO SCH (08:26)
[2021-01-07] MEDS: IMMUNE GLOBULIN(HUMAN) 10% 100 ML IV SCH (08:26)
[2021-01-07] MEDS: POTASSIUM CHLORIDE 10 MEQ TABCR PO SCH ×2 (08:26→20:17)
[2021-01-07] MEDS: SODIUM CHLORIDE 1 GM TABLET PO SCH ×3 (08:26→20:17)
[2021-01-07] MEDS: IMMUNE GLOBULIN(HUMAN) 10% 200 ML IV SCH (10:51)
--- NOTE | 2021-01-07 17:03 | Progress Notes ---
DATE: 01/07/2021 SUBJECTIVE: I am seeing the patient in followup of presumed CIDP. His lumbar puncture was notable for an elevated total protein, and today he should have received his fifth dose of IVIG. He is uncertain if he feels any different than he had. His vitals today are 109/70, 67, 17, 36.5, O2 sat is normal on room air. The patient's white count is 2.2 with a low absolute lymphocyte count of 0.42. Serum sodium is 133. The CT of his chest, abdomen and pelvis showed cardiomegaly, moderate compression fractures of T8-T9, bilateral subacute healing rib fractures, bilateral sacral insufficiency fractures. No evidence of infectious or inflammatory findings in the abdomen or pelvis. Large right inguinal hernia, prostatomegaly, cholelithiasis, moderate constipation. PHYSICAL EXAMINATION: The patient is awake, alert, oriented x3. He is mildly hypophonic with a mild decrease in blink frequency. No resting tremor is noted. Upper extremity strength is diffusely 4/5 as does right lower extremity. Left lower extremity proximally iliopsoas, quad, hamstring is at least 4-4+. The TA is mildly more than antigravity. The gastroc appears more full. He is wearing a splint in his shoe, but I am able to check some of the strengths at the ankle. His ankle jerks and knee jerks are absent. 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 The patient, I believe has received his fifth dose of IVIG. Clinically, he looks about the same as he had pretreatment but I think the patient would be a better guide as to whether or not he is stronger. He is scheduled to go to rehabilitation in the next day or so. The etiology of the patient's low white blood cell count is unclear to this examiner. Immunoglobulin therapy has been shown to cause leukopenia Consider Hematology consultation. We will follow with you. AI
--- NOTE | 2021-01-07 21:23 | Hospitalist Progress Note ---
Date of Service January 07, 2021 Assessment & Plan (1) CIDP (chronic inflammatory demyelinating polyneuropathy): Went underwent LP; evidence for CIDP chronic inflammatory demyelinating polyneuropathy. Currently on IVIG 400 mg/kg/Day x 5 days. Final LP studies are pending. (2) SIADH (syndrome of inappropriate ADH production): Hyponatremia, SIADH per Nephrology. Urea and Lasix have been discontinued. Cont daily BMP and NaCl 1g BID. (3) Weakness: generalized weakness. CIDP s/p IVIG. PT/OT and transition to [facility] at discharge when bed available. (4) Parkinson disease: Cont Sinemet per home medications. (5) A-fib: Cont Eliquis, rate is controlled. (6) CKD (chronic kidney disease) stage 3, GFR 30-59 ml/min: at baseline. Cont daily labs. (7) Chronic diarrhea: Cont colestipol PRN per home regimen. (8) Benign prostatic hyperplasia: Cont flomax per home regimen. (9) DVT prophylaxis: Eliquis Full Dispo-to [facility] at discharge. Maris Bonds DO [facility] Hospitalist Admission and Anticipated Discharge Date Admission Date: December 29, 2020 Subjective 75-year-old man presented to the hospital with hyponatremia and generalized weakness. Patient reports [facility] Denies any pain Reports typically ambulating with a walker Reports tolerating p.o. Denies any trouble breathing or shortness of breath. Review of Systems Review of Systems: All systems reviewed & are unremarkable except as noted in Subjective Physical Exam Physical Exam: CONSTITUTIONAL: WNWD, vitals as above, generally well- appearing EYES: normal conjunctivae, no scleral icterus ENT: external ear and nose normal, MMM RESPIRATORY: clear to auscultation bilaterally, no crackles, rales or wheezes, normal respiratory effort CARDIOVASCULAR: regular rate and rhythm, S1 and 2 heard without murmurs, gallops or rubs, no JVD, no peripheral edema GASTROINTESTINAL: soft, nontender, nondistended, no guarding : large hernia in scrotal sac noted on the right side. Reduction was not attempted. MUSCULOSKELETAL: generalized weakness, head is normocephalic and atraumatic SKIN: warm and dry NEUROLOGIC: CN 2-12 grossly intact, normal cognition, normal speech PSYCHIATRIC: alert cooperative and oriented to person, place and time. Results & Data Results & Data ([facility]) Vital Signs (Past 12 Hours) Vital Signs Temp Pulse Pulse Resp BP BP Pulse Ox 01/07/21 19:00 36.6 C 71 19 113/71 96 01/07/21 15:27 36.5 C 67 17 109/70 100 01/07/21 15:20 58 L 01/07/21 11:39 36.5 C 71 19 97/61 L 98 Medications Administered Current Inpatient Medications Acetaminophen (Acetaminophen 500 Mg Tab) 1,000 mg PO Q6H PRN PRN Reason: Pain Stop: 01/28/21 23:57 Last Admin: 12/31/20 07:58 Dose: 1,000 mg Documented by: Apixaban (Apixaban 5 Mg Tablet) 5 mg PO BID ROSEANN Stop: 02/05/21 20:59 Last Admin: 01/07/21 20:17 Dose: 5 mg Documented by: Carbidopa/Levodopa (Carbidopa/Levodopa 25/100mg Tab) 1 tab PO TID ROSEANN Stop: 01/28/21 23:45 Last Admin: 01/07/21 20:17 Dose: 1 tab Documented by: Colestipol HCl (Colestipol Hcl 1 Gm Tab) 1 gm PO BID PRN PRN Reason: .. Stop: 01/28/21 23:45 Cyanocobalamin (Cyanocobalamin 500 Mcg Tablet (Vitamin B-12)) 1,000 mcg PO QAM ROSEANN Stop: 01/29/21 08:59 Last Admin: 01/07/21 08:26 Dose: 1,000 mcg Documented by: Dicyclomine HCl (Dicyclomine Hcl 10 Mg Cap) 10 mg PO TID PRN PRN Reason: cramping or diarrhea Stop: 01/28/21 23:45 Fluticasone Propionate (Fluticasone Propionate Na Spr 16 Gm Btl) 2 sprays NA DAILY PRN PRN Reason: Congestion Stop: 01/28/21 23:45 Loperamide HCl (Loperamide Hcl 2 Mg Cap) 2 mg PO QID PRN PRN Reason: Diarrhea Stop: 01/28/21 23:45 Last Admin: 12/31/20 20:46 Dose: 2 mg Documented by: Miconazole Nitrate (Miconazole Nitrate Powder 43 Gm) 1 appln EXT PRN PRN PRN Reason: Affected Skin Folds Stop: 01/30/21 22:35 Nitroglycerin (Nitroglycerin Sl 0.4 Mg/Tab Tab) 0.4 mg SL UD PRN PRN Reason: Chest Pain Stop: 01/28/21 23:45 Ondansetron HCl (Ondansetron Inj 2 Mg/Ml 2 Ml Vial) 4 mg IV Q6H PRN PRN Reason: Nausea Stop: 01/28/21 23:45 Pantoprazole Sodium (Pantoprazole 40 Mg Tab) 40 mg PO QAM [facility] Stop: 01/29/21 08:59 Last Admin: 01/07/21 08:26 Dose: 40 mg Documented by: Potassium Chloride (Potassium Chloride 10 Meq Tabcr) 10 meq PO BID [facility] Stop: 02/03/21 20:59 Last Admin: 01/07/21 20:17 Dose: 10 meq Documented by: Prochlorperazine (Prochlorperazine Maleate 10 Mg Tab) 10 mg PO Q8H PRN PRN Reason: nausea and vomiting Stop: 01/28/21 23:45 Sodium Chloride (Sodium Chloride 1 Gm Tablet) 1 gm PO TID [facility] Stop: 02/05/21 13:59 Last Admin: 01/07/21 20:17 Dose: 1 gm Documented by: Tamsulosin HCl (Tamsulosin Hcl 0.4 Mg Cap) 0.4 mg PO DAILY [facility] Stop: 01/29/21 08:59 Last Admin: 01/07/21 08:26 Dose: 0.4 mg Documented by: Vitamin E (Tocopheryl, Dl-Alpha 400 Units Cap) 400 units PO QAM [facility] Stop: 02/02/21 12:29 Last Admin: 01/07/21 08:26 Dose: 400 units Documented by:
[2021-01-08 07:03] LABS: BUN Creatinine Ratio 18.1 (10-20); Calcium 8.9 mg/dl (8.5-10.1); Creatinine Clr Calc Pharmacy 48.9 ml/min; Est GFR (Non-African American) 53.5; Potassium 4.2 mmol/L (3.5-5.1)
[2021-01-08] MEDS: APIXABAN 5 MG TABLET PO SCH (08:12)
[2021-01-08] MEDS: TAMSULOSIN HCL 0.4 MG CAP PO SCH (08:13)
[2021-01-08] MEDS: CYANOCOBALAMIN 500 MCG TABLET (VITAMIN B-12) PO SCH (08:13)
[2021-01-08] MEDS: CARBIDOPA/LEVODOPA 25/100MG TAB PO SCH ×2 (08:13→12:47)
[2021-01-08] MEDS: PANTOprazole 40 MG TAB PO SCH (08:13)
[2021-01-08] MEDS: SODIUM CHLORIDE 1 GM TABLET PO SCH ×2 (08:13→12:47)
[2021-01-08] MEDS: TOCOPHERYL, DL-ALPHA 400 UNITS CAP PO SCH (08:13)
[2021-01-08] MEDS: POTASSIUM CHLORIDE 10 MEQ TABCR PO SCH (08:13)
[2021-01-08 11:25] LABS: Basophils # (auto) 0.02 K/uL (0-0.2); Basophils % (auto) 0.9 %; Eosinophils # (auto) 0.08 K/uL (0-0.5); Eosinophils % (auto) 3.6 %; Hematocrit (blood only) 35.4 % (42-52); Hemoglobin 11.8 g/dL (14.0-18.0); Immature Granulocytes # (auto) 0.01 K/uL (0.00-0.02); Immature Granulocytes % (auto) 0.4 %; Lymphocytes # (auto) 0.58 K/uL (1.2-3.4); Lymphocytes % (auto) 25.9 %; Monocytes # (auto) 0.27 K/uL (0.11-0.59); Monocytes % (auto) 12.1 %; Neutrophils # (auto) 1.28 K/uL (1.4-6.5); Neutrophils % (auto) 57.1 %; Platelet Count 178 K/uL (130-400); RDW Coefficient of Variation 15.5 % (11.5-14.5); RDW Standard Deviation 49.8 fL (36.4-46.3); Red Blood Count 4.07 M/uL (4.7-6.1); White Blood Count 2.24 K/uL (4.8-10.8)
[2021-01-08 11:27] LABS: Mean Corpuscular Hgb Conc 33.3 g/dL (32-36)
--- NOTE | 2021-01-08 11:49 | Progress Notes ---
DATE: 01/08/2021 SUBJECTIVE: I am seeing the patient in followup of CIDP and Parkinson's disease. My understanding is that he has received 5 days of IVIG. I believe he feels unchanged. OBJECTIVE: On exam, he is awake and alert. His strength is mildly diffusely diminished in the bilateral upper as well as right lower. Left lower, the TA is probably 3+, gastroc about the same. No resting tremor. There is decreased blink frequency. 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 The patient has received 5 days of IVIG. White blood cell count was 2.2 on 01/06/2021. I would repeat if it remains low, consider Hematology consult. This can be a side effect of IVIG, but would need advice regarding further followup, how to follow and whether or not it is advised against that we use IVIG in this patient given his white count. I have texted/communicated with Dr. Bonds regarding this case.
--- NOTE | 2021-01-08 12:26 | Discharge Summary ---
Date of Service January 08, 2021 Admission HPI Per Admitting Provider HISTORY OF PRESENT ILLNESS: This is a 75-year-old male with past medical history significant for chronic atrial fibrillation, aortic root dilatation, diastolic dysfunction, pulmonary hypertension, moderate aortic regurgitation, chronic diarrhea, esophagitis, collagenous colitis, chronic kidney disease stage III, lumbar degenerative disc disease, primary osteoarthritis of the left hip, left foot drop,Anisocoria, Parkinson's, thrombocytopenia, _Monoallelic mutation of BRCA2 gene, who lives at home with his was brought in because his outpatient labs showed hyponatremia. As per the , patient had a fall in October and he was in rehab for some time and then at [facility] for a few weeks and then got home. As per the patient, since last three weeks he is not walking much, he is wheelchair bound. As per the , he is ambulating some with a walker with help. And he is also having left foot drop. Seen by neurologist recently and ordered a bunch of labs. Also recently EMG was done, which showed severe chronic axonal sensorimotor polyneuropathy. He also has some eye ptosis, could be underlying generalized myasthenia gravis in addition to Parkinson's disease or other considerations including CIDP versus metabolic encephalopathy as per neurology.Today outpatient lab work done and lab work shows hyponatremia for which he was sent to hospital today. Neurology also recommended to stop Eliquis and start on heparin drip for possible lumbar puncture to evaluate for an elevated CSF protein. The patient except for the generalized weakness and fatigue, no other complaints. The patient states he is eating and drinking fine, micturating fine except recently he was started on Flomax because he was micturating a lot in the nighttime. He has chronic diarrhea, which is under control now. Appetite is good. No dysphagia, no chest pain. He gets some shortness of breath on exertion. Has chronic runny nose. No sore throat, no cough, no headache. Occasional blurred visions. No earache, no sore throat. No fevers. Currently resting comfortably and hemodynamically stable. Admission Exam Per Admitting Provider PHYSICAL EXAMINATION: GENERAL: The patient is of moderate build, not in acute distress. VITAL SIGNS: Temperature 36.8, pulse 71, respiratory rate 15, blood pressure 105/78, oxygen 96% on room air. HEENT: Pupils equal, round, reactive to light. Oral mucosa moist. NECK: No neck masses seen. CARDIOVASCULAR: S1, S2 heard. Regular rate and rhythm. No murmur, no gallop. RESPIRATORY SYSTEM: Normal AP diameter. No accessory muscle use. No wheezing, no crackles. ABDOMEN: Soft, bowel sounds present, nontender. No distention. CENTRAL NERVOUS SYSTEM: Alert and oriented. No facial droop. Speech is clear. Moves extremities. Power 4/5 in all extremities except 3/5 in right extremity. Left foot drop is seen. EXTREMITIES: No edema, no erythema. 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 Generalized weakness, improved Leukopenia 2/2 IVIG infusion Discharge Exam CONSTITUTIONAL: WNWD, vitals as above, generally well-appearing EYES: normal conjunctivae, no scleral icterus ENT: external ear and nose normal, MMM RESPIRATORY: clear to auscultation bilaterally, no crackles, rales or wheezes, normal respiratory effort CARDIOVASCULAR: regular rate and rhythm, S1 and 2 heard without murmurs, gallops or rubs, no JVD, no peripheral edema GASTROINTESTINAL: soft, nontender, nondistended, no guarding MUSCULOSKELETAL: generalized weakness, head is normocephalic and atraumatic SKIN: warm and dry NEUROLOGIC: CN 2-12 grossly intact, normal cognition, normal speech PSYCHIATRIC: alert cooperative and oriented to person, place and time. Discharge Data Allergies Allergy/AdvReac Type Severity Reaction Status Date / Time lovastatin [From Mevacor] Allergy Unknown Muscle Pain Verified 12/29/20 18:48 shellfish derived Allergy Unknown Vomiting Verified 12/29/20 18:48 acetaminophen [From Percocet] AdvReac Gastrointestinal Verified 12/29/20 18:48 Upset oxycodone [From Percocet] AdvReac Gastrointestinal Verified 12/29/20 18:48 Upset Consultations 12/29/20 19:09 ED Decision to Admit Stat 12/30/20 08:00 Consult Nephrology Routine Consult Neurology Routine Ordered Studies Laboratory Results WBC 2.24 K/uL (4.8-10.8) L 01/08/21 05:47 RBC 4.07 M/uL (4.7-6.1) L 01/08/21 05:47 Hgb 11.8 g/dL (14.0-18.0) L 01/08/21 05:47 Hct 35.4 % (42-52) L 01/08/21 05:47 MCV 87.0 fL (80-100) 01/08/21 05:47 MCH 29.0 pg (25-34) 01/08/21 05:47 MCHC 33.3 g/dL (32-36) 01/08/21 05:47 RDW Std Deviation 49.8 fL (36.4-46.3) H 01/08/21 05:47 RDW Coeff of Mariana 15.5 % (11.5-14.5) H 01/08/21 05:47 Plt Count 178 K/uL (130-400) 01/08/21 05:47 MPV 10.0 fL (7.4-10.4) 01/08/21 05:47 Immature Gran % (Auto) 0.4 % 01/08/21 05:47 Neut % (Auto) 57.1 % 01/08/21 05:47 Lymph % (Auto) 25.9 % 01/08/21 05:47 Davidson % (Auto) 12.1 % 01/08/21 05:47 Eos % (Auto) 3.6 % 01/08/21 05:47 Baso % (Auto) 0.9 % 01/08/21 05:47 Neut # (Auto) 1.28 K/uL (1.4-6.5) L 01/08/21 05:47 Lymph # (Auto) 0.58 K/uL (1.2-3.4) L 01/08/21 05:47 Davidson # (Auto) 0.27 K/uL (0.11-0.59) 01/08/21 05:47 Eos # (Auto) 0.08 K/uL (0-0.5) 01/08/21 05:47 Baso # (Auto) 0.02 K/uL (0-0.2) 01/08/21 05:47 Immature Gran # (Auto) 0.01 K/uL (0.00-0.02) 01/08/21 05:47 PT 10.9 Seconds (9.0-12.0) 01/03/21 06:19 INR 1.1 (0.9-1.1) 01/03/21 06:19 APTT 25.9 Seconds (21.0-31.0) 01/04/21 06:04 PTT Ratio 1.0 01/04/21 06:04 Sodium 134 mmol/L (136-145) L 01/08/21 05:44 Potassium 4.2 mmol/L (3.5-5.1) 01/08/21 05:44 Chloride 102 mmol/L (98-107) 01/08/21 05:44 Carbon Dioxide 27 mmol/L (21-32) 01/08/21 05:44 Anion Gap 4.0 (3-11) 01/08/21 05:44 BUN 23 mg/dl (7-18) H 01/08/21 05:44 Creatinine 1.29 mg/dl (0.6-1.4) 01/08/21 05:44 Est Cr Clr Drug Dosing 48.9 ml/min 01/08/21 05:44 Est GFR ( Amer) 62.0 01/08/21 05:44 Est GFR (Non-Af Amer) 53.5 01/08/21 05:44 BUN/Creatinine Ratio 18.1 (10-20) 01/08/21 05:44 Glucose 78 mg/dl (70-99) 01/08/21 05:44 Osmolality 260 mOsm/kg (280-300) L 12/29/20 17:43 Calcium 8.9 mg/dl (8.5-10.1) 01/08/21 05:44 Magnesium 2.0 mg/dl (1.8-2.4) 12/30/20 05:47 Total Bilirubin 0.7 mg/dl (0.2-1) 01/06/21 08:45 Direct Bilirubin 0.2 mg/dl (0-0.2) 12/30/20 05:47 AST 17 U/L (15-37) 01/06/21 08:45 ALT 9 U/L (12-78) L 01/06/21 08:45 Alkaline Phosphatase 157 U/L (45-117) H 01/06/21 08:45 Total Creatine Kinase 388 U/L (39-308) H 12/30/20 05:47 Troponin I < 0.015 ng/ml (0-0.045) 12/29/20 17:43 Total Protein 6.7 gm/dl (6.4-8.2) 01/06/21 08:45 Albumin 2.5 gm/dl (3.4-5.0) L 01/06/21 08:45 Globulin 4.2 gm/dl (2.5-4.0) H 01/06/21 08:45 Albumin/Globulin Ratio 0.6 (0.9-2) L 01/06/21 08:45 TSH 1.740 uIu/ml (0.300-4.500) 12/29/20 17:43 Specimen Hemolysis 01/08/21 05:44 Urine Color Dark Yellow 12/29/20 19:43 Urine Appearance Clear (Clear) 12/29/20 19:43 Urine pH 5.0 (4.5-7.5) 12/29/20 19:43 Ur Specific [place] 1.027 (1.000-1.030) 12/29/20 19:43 Urine Protein Negative (Negative) 12/29/20 19:43 Urine Glucose (UA) Negative (Negative) 12/29/20 19:43 Urine Ketones Trace (Negative) H 12/29/20 19:43 Urine Blood Negative (Negative) 12/29/20 19:43 Urine Nitrite Negative (Negative) 12/29/20 19:43 Urine Bilirubin 1+ (Negative) H 12/29/20 19:43 Urine Urobilinogen Negative (Negative) 12/29/20 19:43 Ur Leukocyte Esterase Negative (Negative) 12/29/20 19:43 Urine Osmolality 775 mOsm/kg (500-800) 01/06/21 Unknown Ur Random Sodium 46 mmol/L 12/29/20 19:43 Fluid Comment 01/03/21 10:50 CSF Appearance Clear 01/03/21 10:50 CSF Color Colorless 01/03/21 10:50 Xanthrochromic No xanthochromia 01/03/21 10:50 CSF WBC 1 /uL (0-5) 01/03/21 10:50 CSF RBC 7 /uL (0-) 01/03/21 10:50 CSF Cell Count Tube # 3 01/03/21 10:50 CSF Mononuclear WBCs % % 01/03/21 10:50 CSF Chemistry Tube # 1 01/03/21 10:50 CSF Glucose 48 mg/dl (40-70) 01/03/21 10:50 CSF Total Protein 116.3 mg/dl (15-45) H 01/03/21 10:50 CSF Total Protein Cancelled 01/03/21 10:50 COVID-19 Eval Order CovFluRsv at [facility] 12/29/20 18:20 SARS-CoV-2 (PCR) NEGATIVE (Negative) 12/29/20 18:20 Influenza Type A (PCR) Negative (Neg) 12/29/20 18:20 Influenza Type B (PCR) Negative (Neg) 12/29/20 18:20 RSV (RT-PCR) Negative (Neg) 12/29/20 18:[address] 12/29/20 17:52 CT head/brain wo con CLINICAL HISTORY: 75 years-old Male with weakness. Acute weakness TECHNIQUE: Multiple axial CT images of the head were obtained without contrast. A dose lowering technique was utilized adhering to the principles of ALARA. CT DOSE: 537.48 mGy.cm COMPARISON: , Brain MRI 10/14/2020. FINDINGS: No acute intracranial hemorrhage, midline shift, intracranial mass, hydrocephalus, territorial ischemia or abnormal extra-axial collection. Age- related involutional changes. White matter hypodensities suggestive of chronic microvascular ischemic disease. Cerebral vascular calcifications. Mildly motion degraded exam. No acute calvarial fracture. Lucencies of the midline occipital calvarium suggestive arachnoid granulations, unchanged. Mastoid air cells are clear. Mild mucosal thickening of the ethmoid sinuses. Unremarkable soft tissues. Prior bilateral lens repair. IMPRESSION: No acute intracranial abnormality. ACT 112: Negative or not required by law. The above report was generated using voice recognition software. It may contain grammatical, syntax or spelling errors. Electronically signed by: Chiki Parker M.D. 12/29/2020 6:42 PM Chest X-Ray 12/29/20 17:53 XR chest 1V portable HISTORY: 75 years-old Male weakness acute weakness COMPARISON: Chest radiograph 05/20/2020 TECHNIQUE: Portable AP view of the chest FINDINGS: Cardiomegaly. The patient is rotated towards the right. No pneumothorax, pleural effusion, airspace consolidation or overt pulmonary edema. Degenerative changes of the shoulders and spine. IMPRESSION: Cardiomegaly without acute process. ACT 112: Negative or not required by law. The above report was generated using voice recognition software. It may contain grammatical, syntax or spelling errors. Electronically signed by: Chiki Parker M.D. 12/29/2020 6:07 PM Abdomen/Pelvis CT 12/31/20 15:30 CT SCAN OF THE CHEST, ABDOMEN, AND PELVIS WITH IV CONTRAST CLINICAL HISTORY: Hyponatremia. Generalized weakness. COMPARISON STUDY: Chest x-ray dated 12/29/2020. Abdominal CT dated 05/20/2020. TECHNIQUE: Following the IV administration of 94 of Optiray 320, CT scan of the chest, abdomen, and pelvis was performed from the thoracic inlet to the proximal femora. Images are reviewed in the axial, sagittal, and coronal planes. IV contrast was administered without complication. Oral contrast was utilized. A dose lowering technique was utilized adhering to the principles of ALARA. CT DOSE: 706.08 mGy.cm FINDINGS: CHEST: Thyroid: Imaged portions of the thyroid gland are normal in size and attenuation. Thoracic aorta: There is atherosclerotic calcification of the thoracic aorta, which is normal in caliber and demonstrates standard 3-vessel arch anatomy. No dissection is seen. Pulmonary vasculature: The pulmonary trunk is normal in caliber. There are no filling defects identified in the central pulmonary vessels to indicate pulmonary embolus. Note that this examination was not protocoled for evaluation of the pulmonary arteries. Heart: The heart is markedly enlarged and without pericardial effusion. The coronary arteries are densely calcified. Lungs and pleural spaces: There is no airspace consolidation typical for pneumonia or pleural effusion. The trachea and central airways are clear. Linear scarring versus atelectasis is seen at the right lung base. Mediastinum: There is no mediastinal lymphadenopathy. Stephanie: Clear. Axillae: There is no axillary lymphadenopathy. Bony thorax: The skeletal structures are osteopenic. Degenerative change and hyperkyphosis are noted in the thoracic spine. Advanced arthritic change is noted in the shoulders. There are moderate compression fractures of T8 and T9. There is mild paravertebral edema, and these fractures are likely acute to subacute. No significantly retropulsed fragments are identified. There are milder compression fractures of T4 and T11. No lytic or blastic lesions are identified. There are chronic/healed bilateral rib fractures. Fractures of the right anterolateral 7th, 8th, 9th ribs appear subacute, as does a left lateral 10th rib fracture. ABDOMEN AND PELVIS: Liver: The contrast-enhanced liver is normal in size, contour, and attenuation. There is no intra- or extrahepatic biliary ductal dilatation. The hepatic veins and portal veins are patent. Gallbladder: There are calcified gallstones with no CT evidence of acute cholecystitis. Spleen: Normal in size and attenuation. Pancreas: The pancreas is atrophic and grossly unremarkable. Adrenal glands: Unremarkable. Kidneys: The contrast enhanced kidneys demonstrate cortical atrophy and are without hydronephrosis. The kidneys enhance symmetrically. Abdominal vasculature: The abdominal aorta is normal in course and caliber noting moderate atherosclerotic calcification. Bowel: There is no bowel obstruction. Enteric contrast reaches the distal small bowel. A portion of the cecum is located within a large inguinal hernia and not visualized. There is moderate colonic fecal retention. The appendix is not visualized. Peritoneum: There is no intraperitoneal free air or abdominal ascites. Lymphadenopathy: None. Pelvic viscera: The prostate gland is enlarged and heterogeneous noting median lobe hypertrophy. The bladder wall is mildly thickened and trabeculated indicating chronic outlet obstruction. Findings suggest previous left inguinal herniorrhaphy. There is a large right inguinal hernia which contains bowel. Skeletal structures: The skeletal structures are osteopenic. There is a mild chronic superior endplate compression deformity of L1. There are bilateral pars defects at L5 with 10 mm of anterolisthesis at L5-S1. Mild anterolisthesis is also seen at L4-L5. There are bilateral sacral insufficiency fractures. This crosses midline at S2. No lytic or blastic lesions are seen. IMPRESSION: 1. Cardiomegaly with no acute cardiopulmonary abnormality. 2. There is no airspace consolidation or pleural effusion. 3. There are moderate compression fractures of T8 and T9 which appear acute to subacute. No retropulsed fragments are identified. Correlate for point tenderness. 4. There are bilateral subacute/healing rib fractures. 5. There are bilateral sacral insufficiency fractures. 6. There are no acute infectious or inflammatory findings in the abdomen or pelvis. 7. A large right inguinal hernia contains nonobstructed bowel. 8. Cholelithiasis. 9. Prostatomegaly with evidence of chronic bladder outlet obstruction. 10. Moderate constipation. 11. Additional findings as above. ACT 112: Negative or not required by law. Electronically signed by: Cuba Taylor M.D. 12/31/2020 7:[address] 12/31/20 15:30 CT SCAN OF THE CHEST, ABDOMEN, AND PELVIS WITH IV CONTRAST CLINICAL HISTORY: Hyponatremia. Generalized weakness. COMPARISON STUDY: Chest x-ray dated 12/29/2020. Abdominal CT dated 05/20/2020. TECHNIQUE: Following the IV administration of 94 of Optiray 320, CT scan of the chest, abdomen, and pelvis was performed from the thoracic inlet to the proximal femora. Images are reviewed in the axial, sagittal, and coronal planes. IV contrast was administered without complication. Oral contrast was utilized. A dose lowering technique was utilized adhering to the principles of ALARA. CT DOSE: 706.08 mGy.cm FINDINGS: CHEST: Thyroid: Imaged portions of the thyroid gland are normal in size and attenuation. Thoracic aorta: There is atherosclerotic calcification of the thoracic aorta, which is normal in caliber and demonstrates standard 3-vessel arch anatomy. No dissection is seen. Pulmonary vasculature: The pulmonary trunk is normal in caliber. There are no filling defects identified in the central pulmonary vessels to indicate pulmonary embolus. Note that this examination was not protocoled for evaluation of the pulmonary arteries. Heart: The heart is markedly enlarged and without pericardial effusion. The coronary arteries are densely calcified. Lungs and pleural spaces: There is no airspace consolidation typical for pneumonia or pleural effusion. The trachea and central airways are clear. Linear scarring versus atelectasis is seen at the right lung base. Mediastinum: There is no mediastinal lymphadenopathy. Stephanie: Clear. Axillae: There is no axillary lymphadenopathy. Bony thorax: The skeletal structures are osteopenic. Degenerative change and hyperkyphosis are noted in the thoracic spine. Advanced arthritic change is no levi in the shoulders. There are moderate compression fractures of T8 and T9. There is mild paravertebral edema, and these fractures are likely acute to subacute. No significantly retropulsed fragments are identified. There are milder compression fractures of T4 and T11. No lytic or blastic lesions are identified. There are chronic/healed bilateral rib fractures. Fractures of the right anterolateral 7th, 8th, 9th ribs appear subacute, as does a left lateral 10th rib fracture. ABDOMEN AND PELVIS: Liver: The contrast-enhanced liver is normal in size, contour, and attenuation. There is no intra- or extrahepatic biliary ductal dilatation. The hepatic veins and portal veins are patent. Gallbladder: There are calcified gallstones with no CT evidence of acute cholecystitis. Spleen: Normal in size and attenuation. Pancreas: The pancreas is atrophic and grossly unremarkable. Adrenal glands: Unremarkable. Kidneys: The contrast enhanced kidneys demonstrate cortical atrophy and are without hydronephrosis. The kidneys enhance symmetrically. Abdominal vasculature: The abdominal aorta is normal in course and caliber noting moderate atherosclerotic calcification. Bowel: There is no bowel obstruction. Enteric contrast reaches the distal small bowel. A portion of the cecum is located within a large inguinal hernia and not visualized. There is moderate colonic fecal retention. The appendix is not visualized. Peritoneum: There is no intraperitoneal free air or abdominal ascites. Lymphadenopathy: None. Pelvic viscera: The prostate gland is enlarged and heterogeneous noting median lobe hypertrophy. The bladder wall is mildly thickened and trabeculated indicating chronic outlet obstruction. Findings suggest previous left inguinal herniorrhaphy. There is a large right inguinal hernia which contains bowel. Skeletal structures: The skeletal structures are osteopenic. There is a mild chronic superior endplate compression deformity of L1. There are bilateral pars defects at L5 with 10 mm of anterolisthesis at L5-S1. Mild anterolisthesis is also seen at L4-L5. There are bilateral sacral insufficiency fractures. This crosses midline at S2. No lytic or blastic lesions are seen. IMPRESSION: 1. Cardiomegaly with no acute cardiopulmonary abnormality. 2. There is no airspace consolidation or pleural effusion. 3. There are moderate compression fractures of T8 and T9 which appear acute to subacute. No retropulsed fragments are identified. Correlate for point tenderness. 4. There are bilateral subacute/healing rib fractures. 5. There are bilateral sacral insufficiency fractures. 6. There are no acute infectious or inflammatory findings in the abdomen or pelvis. 7. A large right inguinal hernia contains nonobstructed bowel. 8. Cholelithiasis. 9. Prostatomegaly with evidence of chronic bladder outlet obstruction. 10. Moderate constipation. 11. Additional findings as above. ACT 112: Negative or not required by law. Electronically signed by: Cuba Taylor M.D. 12/31/2020 7:06 PM Lumbar Puncture Fluoroscopy 01/03/21 07:00 FL lumbar puncture diagnostic CLINICAL HISTORY: Possible chronic inflammatory demyelinating polyradiculoneuropathy COMPARISON STUDY: None FLUOROSCOPY TIME: 24 seconds. NUMBER OF FLUOROSCOPIC IMAGES: 2 FINDINGS: A timeout was performed. The risks the procedure were explained the patient and informed consent was obtained. The patient was prepped and draped in sterile fashion. The skin was anesthetized 1% lidocaine. Under fluoroscopic guidance, a lumbar puncture was performed at the superior L3 level utilizing a 20-gauge spinal needle. Opening CSF pressure was less than 9 cm H2O. 4 cc of clear CSF was obtained and into 4 tubes. The fluid was sent for laboratory analysis as specified by the referring clinician. There were no immediate complications. IMPRESSION: Successful fluoroscopically guided diagnostic lumbar puncture performed at the L3 level. ACT 112: Negative or not required by law. Electronically signed by: Toi Caicedo M.D. 01/03/2021 11:08 AM Hospital Course (1) CIDP (chronic inflammatory demyelinating polyneuropathy): Went underwent LP; evidence for CIDP chronic inflammatory demyelinating polyneuropathy. Administered IVIG 400 mg/kg/Day x 5 days with improvement in symptoms. Neuro following throughout hospitalization and will followup with him as outpatient. DC to [facility] for continued physical rehabilitation. (2) SIADH (syndrome of inappropriate ADH production): Hyponatremia, SIADH per Nephrology. Urea and Lasix have been discontinued. Salt tabs stopped. Resolving into normal range. Cont daily fluid restriction and recheck BMP in one week at facility or with PCP in follow- up. (3) Weakness: generalized weakness. CIDP s/p IVIG. PT/OT and transition to [facility] at discharge (4) Parkinson disease: Cont Sinemet per home medications. (5) A-fib: Cont Eliquis, rate is controlled. (6) CKD (chronic kidney disease) stage 3, GFR 30-59 ml/min: at baseline. (7) Chronic diarrhea: Cont colestipol PRN per home regimen. (8) Benign prostatic hyperplasia: Cont flomax per home regimen. ' At time of discharge he was hemodynamically stable and afebrile and oxygenating well on room air. He was mentating at his baseline and transferred to rehab in stable condition with close primary care followup recommended. 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 It is recommended that you have a CBC WITH DIFFERENTIAL (nonfasting bloodwork) in one week to ensure your white blood cell count is improved. It is recommended that you follow-up with your primary care physician within one week of discharge from the hospital to ensure you are still doing well. Please follow-up with [facility]rology as needed for continued follow-up of your lower extremity weakness. It was a pleasure taking care of you! Please call if you have any questions or problems. You can reach a [facility] hospitalist on duty at [facility] 24 hours a day by calling [phone]. Take care of yourself. Maris Bonds, [facility] Center[facility] Pending Studies at Discharge: No Stand-Alone Forms: My [facility] Skilled Items Patient informed of condition?: No DNR: No Discharge Level of Care: Skilled Communicable Disease: No Discharge Prognosis: Stable Lines: None Urinary Catheter: No Medications and DC Order Prescriptions: New sodium chloride 1 gram Tablet 1 g PO TID Qty: 30 RF: 0 Continued Eliquis 5 mg Tablet 5 mg PO BID RF: 0 cyanocobalamin (vitamin B-12) 1,000 mcg Tablet 1,000 mcg PO QAM RF: 0 fluticasone propionate [Flonase Allergy Relief] 50 mcg/actuation Adolphus,Suspension 2 spray INTRANASAL DAILY PRN (Reason: Congestion) RF: 0 acetaminophen 500 mg Capsule 1,000 mg PO Q6H PRN (Reason: Pain) RF: 0 dicyclomine 10 mg Capsule 10 mg PO TID PRN (Reason: cramping or diarrhea) RF: 0 loperamide 2 mg Capsule 2 mg PO QID PRN (Reason: Diarrhea) Qty: 30 RF: 0 prochlorperazine maleate [Compazine] 10 mg tablet 10 mg PO Q8H PRN (Reason: nausea and vomiting) Qty: 30 RF: 0 colestipol 1 gram tablet 1 g PO BID PRN (Reason: ..) RF: 0 cetirizine 10 mg Capsule 10 mg PO PM RF: 0 omeprazole 20 mg Capsule,Delayed Release(Dr/Ec) 20 mg PO QAM RF: 0 potassium chloride 40 mEq/15 mL liquid 20 meq PO BID RF: 0 carbidopa-levodopa 25-100 mg tablet 1 tab PO TID RF: 0 tamsulosin 0.4 mg capsule 0.4 mg PO DAILY RF: 0 Discharge Orders: Discharge Order (Routine); Ordered 01/08/21 Ordered By: Maris Bonds Admission Data Admit Date/Time: 12/29/20 21:48 Attending Provider: Maris Bonds Admit Provider: Eduin Mansfield Primary Care Provider: Wilmer Al Other Providers: [facility] ; Stefania Figueroa ; Eduin Mansfield ; Precious Mohan ; Hunter Yeboah ; Maia Lau ; Suly Carcamo Japheth E. ; Amelia San ; Taurus Rizzo Other Interventions: Discharge Summary Assessment (RN) Last Done: 01/08/21 14:40
== END 2021-01-08 15:30 | DRG 74 ==
LOC: ED 15:48 → 2N 21:48 → SUATTDRO 21:48 → 2N 23:20

== ENCOUNTER 2021-11-07 09:57 | Inpatient (IN) ==
[2021-11-07] MEDS ORDERED: SODIUM CHLORIDE 0.9% 500 ML IV ONE (11:05)
[2021-11-07] MEDS ORDERED: ACETAMINOPHEN 1,000 MG/100 ML VIAL IV STA (11:05)
[2021-11-07 11:16] LABS: Eosinophils # (auto) 0.01 K/uL (0-0.5); Eosinophils % (auto) 0.1 %; Hematocrit (blood only) 41.9 % (42-52); Hemoglobin 13.5 g/dL (14.0-18.0); Immature Granulocytes # (auto) 0.02 K/uL (0.00-0.02); Immature Granulocytes % (auto) 0.2 %; Lymphocytes # (auto) 0.33 K/uL (1.2-3.4); Lymphocytes % (auto) 3.2 %; Mean Corpuscular Hgb Conc 32.2 g/dL (32-36); Mean Corpuscular Volume 96.1 fL (80-100); Mean Platelet Volume 9.3 fL (7.4-10.4); Monocytes # (auto) 0.04 K/uL (0.11-0.59); Monocytes % (auto) 0.4 %; Neutrophils # (auto) 9.88 K/uL (1.4-6.5); Neutrophils % (auto) 96.1 %; Platelet Count 181 K/uL (130-400); RDW Coefficient of Variation 15.9 % (11.5-14.5); RDW Standard Deviation 55.8 fL (36.4-46.3); Red Blood Count 4.36 M/uL (4.7-6.1); White Blood Count 10.28 K/uL (4.8-10.8)
[2021-11-07 11:24] LABS: Prothrombin Time 10.5 Seconds (9.0-12.0)
[2021-11-07 11:30] LABS: Troponin I 0.04 ng/ml (0-0.04)
--- NOTE | 2021-11-07 11:35 | XRay Report ---
XR chest 1V portable CLINICAL HISTORY: Chest Pain. Nonsmoker COMPARISON STUDY: 12/19/2020 TECHNIQUE: 1 view of the chest FINDINGS: Single frontal view of the chest demonstrates the heart to again be mildly enlarged. The lungs are cl ear of alveolar opacities. There is no evidence for pleural effusion. There is no evidence for vascul ar congestion. There is no acute osseous pathology. IMPRESSION: No acute cardiopulmonary disease. ACT 112: Negative or not required by law. Electronically signed by: Andrews Reyes M.D. 11/07/2021 11:33 AM
[2021-11-07 11:38] LABS: Appearance Urine Clear (Clear); Bacteria Urine Automated 4+ (Negative); Blood Urine Negative (Negative); Color Urine Dark Yellow; Epithelial Cell Urine Auto 0-5 /lpf (0-5); Glucose Urine UA Negative (Negative); Ketones Urine Trace (Negative); Leukocyte Esterase Urine 2+ (Negative); Nitrite Urine Positive (Negative); Protein Urine Negative (Negative); RBC Urine Automated 0-4 /hpf (0-4); Urobilinogen Urine Negative (Negative); WBC Urine Automated >30 /hpf (0-5)
[2021-11-07 11:40] LABS: Albumin Globulin Ratio 1.4 (0.9-2); Albumin Level 3.1 gm/dl (3.4-5.0); BUN Creatinine Ratio 22.9 (10-20); Bilirubin,Total 0.9 mg/dl (0.2-1.0); Calcium 8.3 mg/dl (8.5-10.1); Creatinine Clr Calc Pharmacy 48.8 ml/min; Est GFR (African American) 60.4 ml/min; Est GFR (Non-African American) 52.1 ml/min; Globulin 2.2 gm/dl (2.5-4.0); Magnesium 1.9 mg/dl (1.7-2.4); Phosphorus 2.2 mg/dl (2.5-4.9); Potassium 3.8 mmol/L (3.5-5.1); Total Protein 5.3 gm/dl (6.0-8.3)
[2021-11-07] MEDS ORDERED: CEFEPIME 2,000 MG/20 ML VIAL IV STA (11:50)
[2021-11-07 12:01] LABS: Bilirubin Urine 1+ (Negative)
[2021-11-07] MEDS ORDERED: SODIUM CHLORIDE 0.9% 1000ML 1,000 ML IV STA (12:22)
[2021-11-07] MEDS ORDERED: SODIUM CHLORIDE 0.9% 1000ML 2,000 ML IV ONE (12:25)
[2021-11-07] MEDS ORDERED: OPTIRAY 320 100ml IV ONE (13:04)
--- NOTE | 2021-11-07 13:43 | CT Scan Report ---
CT OF THE ABDOMEN AND PELVIS WITH CONTRAST CLINICAL HISTORY: ?UTI, sepsis COMPARISON STUDY: CT of the abdomen and pelvis December 31, 2020. TECHNIQUE: Following IV administration of 94 mL of Optiray, axial images of the abdomen and pelvis we re obtained from the lung bases to the proximal femurs. Images were reviewed in the axial, sagittal, and coronal planes. IV contrast was administered without complication. Automated exposure control wa s utilized for the study. A dose lowering technique was utilized adhering to the principles of ALARA . CT DOSE: 1235.09 mGycm FINDINGS: Mild linear opacities reflect atelectasis. No pneumatosis, free air or portal venous gas is present. Hepatic lesions are unchanged. These favor cysts. There is no biliary or pancreatic ductal dilatation. No peripancreatic or pericholecystic infiltration. The pancreas is atrophic. This is unch anged. No peripancreatic fluid collection is present. There are gallstones within the gallbladder inc luding gallstones within the gallbladder neck. Gallbladder is mildly distended. There is no perichole cystic infiltration. There is no hydronephrosis. The adrenal glands and kidneys are unremarkable. Pro state is moderately enlarged. There is no evidence for a bowel obstruction. A right inguinal hernia c ontains multiple small bowel loops as well as the cecum, ileocecal valve and proximal ascending colon . There is a small right hydrocele. The hernia does not result in a bowel obstruction. Large amount o f stool within the rectum is present. Note is made of an old T11 compression fracture. This is unchan ged since CT of December 31, 2020. Anterolisthesis of L5 on S1 due to bilateral L5 pars defects is again noted. Note is made of L1, L2, L3 and L4 compression fractures which are new since CT of December 31 1. There is moderate loss of height of the L2 and L4 vertebra. These fractures are age indeterminate but probably subacute. No extension into the posterior elements is noted. There is no significant ret ropulsion. No acute pelvic or hip fracture is identified. Bilateral sacral fractures are old. No susp icious lesions are identified within visualized skeletal structures. IMPRESSION: 1. Cholelithiasis and moderate gallbladder distention. Although no pericholecystic infiltration, acut e cholecystitis cannot be excluded. This could be correlated with right upper quadrant. If present, r ight upper quadrant ultrasound is recommended. 2. Large right inguinal hernia which contains distal ileal loops, the cecum, ileocecal valve and prox imal ascending colon. No resultant bowel obstruction. 3. Large amount stool within the rectum. 4. No hydronephrosis. Enlarged prostate. 5. L1, L2, L3 and L4 compression fractures which are new since CT of January 20, 2021. Although age ind eterminate, these are likely subacute. ACT 112: Negative or not required by law. Electronically signed by: Tk Vick M.D. 11/07/2021 1:42 PM
[2021-11-07] MEDS ORDERED: CARBIDOPA/LEVODOPA 25/100MG TAB PO STA (14:22)
--- NOTE | 2021-11-07 14:37 | History & Physical Report ---
Date of Service November 07, 2021 Assessment & Plan (1) Severe sepsis: (2) UTI (urinary tract infection): (3) Hypophosphatemia: (4) Lumbar compression fracture: (5) Ambulatory dysfunction: (6) Parkinson disease: (7) CIDP (chronic inflammatory demyelinating polyneuropathy): (8) SIADH (syndrome of inappropriate ADH production): (9) A-fib: (10) CKD (chronic kidney disease) stage 3, GFR 30-59 ml/min: Plan: This is a 76-year-old male who has significant past medical history of chronic atrial fibrillation anticoagulated with Eliquis, SIADH and chronic hyponatremia on fluid restriction and sodium chloride tablets, 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 Patient meets criteria for severe sepsis per current CMS guidelines secondary to fever, tachycardia, hypotension. His lactic acid and procalcitonin were WNL. Source: UTI Blood and urine cultures were obtained He received 2.5 L of IV fluid along with IV cefepime. Blood pressure improved to > 90s systolic with fluid resuscitation. Severe sepsis in setting of urosepsis Continue IV antibiotics with Zosyn, de-escalate in a.m. if fever curve improving Await blood and urine cultures Continue IV fluid, BP continues to remain on lower side consider hydrocortisone in setting of chronic prednisone use (per patient's blood pressure typically does run on the lower side in setting of Parkinson's disease) Hypophosphatemia Replace Ambulatory dysfunction Lumbar compression fracture L1-L4 Patient was seen and evaluated by [facility] 10/25 He was prescribed LSO brace, patient does not have in house Scheduled Tylenol for pain control, Lidoderm patch PT/OT CIDP on chronic prednisone 40mg daily also on bactrim 3x/wk due to immunosuppression Parkinson Disease continue sinemet PT/OT SIADH Hyponatremia On sodium chloride tablets as well as 1100 mL fluid restriction and will fluid restriction currently in setting of sepsis Follow BMP daily Chronic atrial fibrillation Anticoagulated on Eliquis Currently not on rate controlling agent DVT prophylaxis: Eliquis Code: PCU DNR/DNI PCP: Servando Pt was seen and examined in collaboration with Dr. Gutierres, please see addendum History of Present Illness Chief Complaint: Unable to walk x 1 day. Primary Care Provider: Wilmer Al MD This is a 76-year-old male who has significant past medical history of chronic atrial fibrillation anticoagulated with Eliquis, SIADH and chronic hyponatremia on fluid restriction and sodium chloride tablets, CIDP on chronic prednisone therapy, Parkinson's disease, CKD stage III, BPH, pulmonary pretension, diasto lic dysfunction who presents ED due to unable to walk x1 day. Patient's is at bedside. She states he initially got out of bed at approximately 4 AM to go to the bathroom. He generally felt weak and had difficulty ambulating to the bathroom. He went back to bed at 6:00 this morning when he tried to get back up he was unable to get out of bed due to weakness. He also complained of lower ba ck pain and being chilled. He denied any documented fevers, sweats, lightheadedness, dizziness, syncope, fall, chest pain, shortness of breath, palpitations, hemoptysis, cough, emesis, abdominal pain, dysuria, increased urgency or frequency with urination, hematuria, melena or hematochezia. Patient's feels like he has increased urinary frequency, but this is unchanged. At baseline patient does ambulate with a walker due to chronic ambulatory dysfunction in setting of CIDP. He denies any recent falls. He was recently seen and evaluated by orthopedics due to back pain. He was found to have acute lumbar compression fractures and was prescribed a brace. He feels his back pain today is similar to that of his back pain with his fractures, "but more severe." He denies any radicular symptoms including numbness or tingling to bilateral lower extremities, saddle anesthesia or incontinence of bowel or bladder. Patient arrived to ED hypotensive, tachycardic and febrile. His lab work consistent of H&H 13.5 and 41.9, WBC 10.28, sodium 130, BUN 30, creatinine 1.31, Phos 2.2, LFTs WNL, pro-Travis 0.40. Urinalysis concerning for infection. He received 2.5 L of IV fluid while in ED as well as IV cefepime. Allergies Allergy/AdvReac Type Severity Reaction Status Date / Time lovastatin [From Mevacor] Allergy Unknown Muscle Pain Verified 11/07/21 14:48 shellfish derived Allergy Unknown Vomiting Verified 11/07/21 14:48 acetaminophen [From Percocet] AdvReac Gastrointestinal Verified 11/07/21 14:48 Upset oxycodone [From Percocet] AdvReac Gastrointestinal Verified 11/07/21 14:48 Upset Home Medications Medication Instructions Recorded Confirmed Type omeprazole 20 mg capsule,delayed 20 mg PO QAM 09/12/18 11/07/21 History release acetaminophen 500 mg capsule 1,000 mg PO Q6H PRN 05/12/20 11/07/21 History apixaban 5 mg tablet (Eliquis) 5 mg PO BID 05/12/20 11/07/21 History cyanocobalamin (vitamin B-12) 1,000 mcg PO QAM 05/12/20 11/07/21 History 1,000 mcg tablet dicyclomine 10 mg capsule 10 mg PO TID 05/12/20 11/07/21 History fluticasone propionate 50 2 spray INTRANASAL DAILY PRN 05/12/20 11/07/21 History mcg/actuation nasal spray,suspension (Flonase Allergy Relief) loperamide 2 mg capsule 2 mg PO QID PRN #30 cap 05/22/20 11/07/21 Rx cetirizine 10 mg capsule 10 mg PO PM 10/14/20 11/07/21 History colestipol 1 gram tablet 1 g PO BID 10/14/20 11/07/21 History carbidopa 25 mg-levodopa 100 mg 1 tab PO TID 12/29/20 11/07/21 History tablet tamsulosin 0.4 mg capsule 0.4 mg PO DAILY 12/29/20 11/07/21 History sodium chloride 1 gram tablet 1 g PO TID #30 tab 01/08/21 11/07/21 Rx cholecalciferol (vitamin D3) 25 25 mcg PO DAILY 11/07/21 11/07/21 History mcg (1,000 unit) tablet (Vitamin D3) potassium chloride 20 mEq 20 meq PO BID 11/07/21 11/07/21 History tablet,extended release(part/cryst) (Klor-Con M) prednisone 20 mg tablet 40 mg PO DAILY 11/07/21 11/07/21 History sulfamethoxazole 800 1 tab PO MOWEFR 11/07/21 11/07/21 History mg-trimethoprim 160 mg tablet Past Med/Surg History Medical History A-fib on Eliquis CKD (chronic kidney disease) stage 3, GFR 30-59 ml/min GERD (gastroesophageal reflux disease) Parkinson disease "mild"- following with Dr. Rizzo/ERICK Francois's ring Surgical History History of colonoscopy 11/2017 scattered diverticulosis History of esophagogastroduodenoscopy (EGD) 11/2017 Schatzmaria c ring, esophagitis History of eye surgery CATARACT LEFT History of hernia repair Family History Father Colon cancer Mother , age 48, of influenza pneumonia Pneumonia Sister Rheumatoid arthritis Social History Smoking Status: Never smoker Second Hand Exposure: No; Hx Alcohol Use: Yes Alcohol type: beer Alcohol Intake Frequency Comment: 1 glass of wine or beer a day Hx Substance Use: No Preferred Language: Nauruan Communication Ability: Effective Visual Impairment: No Limitations Hearing Ability: Normal Program Lead Required: No Beliefs That Will Affect Care: None marital status: Current Living Situation: Spouse Feels Safe at Home: Yes Assistive Devices: Walker Review of Systems Review of Systems: All systems reviewed & are unremarkable except as noted in HPI & below Physical Exam Physical Exam: Constitutional: WD/WN, vitals as above, NAD, sitting up in bed, pleasant, conversing easily Head: Normocephalic, Atraumatic Eyes: PERRL, conjunctivae normal, anicteric sclerae ENMT: external ear and nose normal, oropharynx normal Neck: trachea midline, no thyromegaly normal visual inspection Respiratory: normal respiratory effort, lungs clear to auscultation, no wheeze, rales, rhonchi. Normal insp/exp effort, no accessory muscle use Cardiovascular: Regular rate, irregular rhythm, no murmur, no edema Vessels: no JVD or carotid bruit Chest: normal inspection of chest Abdomen: normal bowel sounds, soft, nontender, no hepatosplenomegaly Musculoskeletal: no cyanosis or clubbing, Skin: no rashes, warm and dry normal turgor Neurologic: PERRL, EOMI, accommodation nl, no face palsy, no dysarthria CN's II-XI intact bilaterally and moves all extremities Psychiatric: A+Ox3, euthymic affect : deferred Results & Data Results & Data ([facility]) Vital Signs (Past 12 Hours) Vital Signs Temp Pulse Pulse Resp BP BP Pulse Ox 11/07/21 14:30 89 18 94/65 L 94 11/07/21 14:04 86 16 101/62 96 11/07/21 13:07 89 18 95/47 L 94 11/07/21 12:35 91 H 20 85/52 L 94 11/07/21 12:16 96 H 19 85/62 L 94 11/07/21 12:00 100 H 19 73/52 L 94 11/07/21 11:53 95 H 20 88/67 L 97 11/07/21 11:52 103 H 21 80/57 L 98 11/07/21 11:51 99 H 26 H 95 11/07/21 11:13 104 H 24 90/62 L 96 11/07/21 11:09 94 11/07/21 10:18 38.0 C H 109 H 18 99/65 L 97 Diagnostic Findings Chest X-Ray 11/07/21 11:04 XR chest 1V portable CLINICAL HISTORY: Chest Pain. Nonsmoker COMPARISON STUDY: 12/19/2020 TECHNIQUE: 1 view of the chest FINDINGS: Single frontal view of the chest demonstrates the heart to again be mildly enlarged. The lungs are clear of alveolar opacities. There is no evidence for pleural effusion. There is no evidence for vascular congestion. There is no acute osseous pathology. IMPRESSION: No acute cardiopulmonary disease. ACT 112: Negative or not required by law. Electronically signed by: Andrews Reyes M.D. 11/07/2021 11:33 AM Abdomen/Pelvis CT 11/07/21 11:05 CT OF THE ABDOMEN AND PELVIS WITH CONTRAST CLINICAL HISTORY: ?UTI, sepsis COMPARISON STUDY: CT of the abdomen and pelvis December 31, 2020. TECHNIQUE: Following IV administration of 94 mL of Optiray, axial images of the abdomen and pelvis were obtained from the lung bases to the proximal femurs. Images were reviewed in the axial, sagittal, and coronal planes. IV contrast was administered without complication. Automated exposure control was utilized for the study. A dose lowering technique was utilized adhering to the principles of ALARA. CT DOSE: 1235.09 mGycm FINDINGS: Mild linear opacities reflect atelectasis. No pneumatosis, free air or portal venous gas is present. Hepatic lesions are unchanged. These favor cysts. There is no biliary or pancreatic ductal dilatation. No peripancreatic or pericholecystic infiltration. The pancreas is atrophic. This is unchanged. No peripancreatic fluid collection is present. There are gallstones within the gallbladder including gallstones within the gallbladder neck. Gallbladder is mildly distended. There is no pericholecystic infiltration. There is no hydronephrosis. The adrenal glands and kidneys are unremarkable. Prostate is moderately enlarged. There is no evidence for a bowel obstruction. A right inguinal hernia contains multiple small bowel loops as well as the cecum, ileocecal valve and proximal ascending colon. There is a small right hydrocele. The hernia does not result in a bowel obstruction. Large amount of stool within the rectum is present. Note is made of an old T11 compression fracture. This is unchanged since CT of December 31, 2020. Anterolisthesis of L5 on S1 due to bilateral L5 pars defects is again noted. Note is made of L1, L2, L3 and L4 compression fractures which are new since CT of December 31, 2020. There is moderate loss of height of the L2 and L4 vertebra. These fractures are age indeterminate but probably subacute. No extension into the posterior elements is noted. There is no significant retropulsion. No acute pelvic or hip fracture is identified. Bilateral sacral fractures are old. No suspicious lesions are identified within visualized skeletal structures. IMPRESSION: 1. Cholelithiasis and moderate gallbladder distention. Although no pericholecystic infiltration, acute cholecystitis cannot be excluded. This could be correlated with right upper quadrant. If present, right upper quadrant ultrasound is recommended. 2. Large right inguinal hernia which contains distal ileal loops, the cecum, ileocecal valve and proximal ascending colon. No resultant bowel obstruction. 3. Large amount stool within the rectum. 4. No hydronephrosis. Enlarged prostate. 5. L1, L2, L3 and L4 compression fractures which are new since CT of January 20, 2021. Although age indeterminate, these are likely subacute. ACT 112: Negative or not required by law. Electronically signed by: Tk Vick M.D. 11/07/2021 1:42 PM Medications Administered Medication List Discontinued Medications Sodium Chloride (Nss) 500 mls @ 999 mls/hr IV .Q31M ONE Stop: 11/07/21 11:35 Last Infusion: 11/07/21 11:57 Dose: 0 mls/hr Documented by: [id number] Admin: 11/07/21 11:20 Dose: 999 mls/hr Documented by: [id number] Acetaminophen (Ofirmev) 1,000 mg in 100 mls @ 400 mls/hr IV NOW STA Stop: 11/07/21 11:19 Last Infusion: 11/07/21 11:40 Dose: 0 mls/hr Documented by: [id number] Admin: 11/07/21 11:20 Dose: 400 mls/hr Documented by: [id number] Cefepime HCl (Maxipime) 2,000 mg in 20 mls @ 5 mls/min IV NOW STA; Protocol Stop: 11/07/21 11:53 Last Admin: 11/07/21 12:09 Dose: 5 mls/min Documented by: [id number] Sodium Chloride (Nss 1000ml) 1,000 mls @ 999 mls/hr IV .Q1H1M STA Stop: 11/07/21 13:22 Last Infusion: 11/07/21 13:27 Dose: 0 mls/hr Documented by: [id number] Admin: 11/07/21 12:24 Dose: 999 mls/hr Documented by: [id number] Sodium Chloride (Nss 1000ml) 2,000 mls @ 999 mls/hr IV .Q2H1M ONE Stop: 11/07/21 14:25 Last Admin: 11/07/21 12:44 Dose: Not Given Documented by: [id number] Ioversol (Optiray 320 100ml) 94 ml IV ONCE ONE Stop: 11/07/21 13:05 Last Admin: 11/07/21 13:04 Dose: 94 ml Documented by: [id number] COVID-19 Results Results COVID-19 Adm Lab Results: RBC 4.36 M/uL (4.7-6.1) L 11/07/21 WBC 10.28 K/uL (4.8-10.8) 11/07/21 Hgb 13.5 g/dL (14.0-18.0) L 11/07/21 Hct 41.9 % (42-52) L 11/07/21 Plt Count 181 K/uL (130-400) 11/07/21 Neutrophils (%) (Auto) 96.1 % 11/07/21 Lymphocytes (%) (Auto) 3.2 % 11/07/21 Monocytes # (Auto) 0.04 K/uL (0.11-0.59) L 11/07/21 Eosinophils # (Auto) 0.01 K/uL (0-0.5) 11/07/21 Immature Granulocyte % (Auto) 0.2 % 11/07/21 Neutrophils # (Auto) 9.88 K/uL (1.4-6.5) H 11/07/21 Lymphocytes # (Auto) 0.33 K/uL (1.2-3.4) L 11/07/21 Monocytes # (Auto) 0.04 K/uL (0.11-0.59) L 11/07/21 Eosinophils # (Auto) 0.01 K/uL (0-0.5) 11/07/21 Basophils # (Auto) 0.00 K/uL (0-0.2) 11/07/21 Immature Granulocyte # (Auto) 0.02 K/uL (0.00-0.02) 11/07/21 Na 138 mmol/L (136-145) 11/07/21 K 3.8 mmol/L (3.5-5.1) 11/07/21 Cl 106 mmol/L (98-107) 11/07/21 CO2 27 mmol/L (21-32) 11/07/21 Anion Gap 5 (3-11) 11/07/21 BUN 30 mg/dl (6-23) H 11/07/21 Creatinine 1.31 mg/dl (0.6-1.4) 11/07/21 BUN/Creatinine Ratio 22.9 (10-20) H 11/07/21 Glucose Level 73 mg/dl (70-99(Fasting)) 11/07/21 Ca 8.3 mg/dl (8.5-10.1) L 11/07/21 Phosphorus Level 2.2 mg/dl (2.5-4.9) L 11/07/21 Total Bilirubin 0.9 mg/dl (0.2-1.0) 11/07/21 AST/SGOT 17 U/L (13-39) 11/07/21 ALT/SGPT 5 U/L (7-52) L 11/07/21 Alkaline Phosphatase 160 U/L (34-104) H 11/07/21 Total Protein 5.3 gm/dl (6.0-8.3) L 11/07/21 Albumin 3.1 gm/dl (3.4-5.0) L 11/07/21 Globulin 2.2 gm/dl (2.5-4.0) L 11/07/21 Albumin/Globulin Ratio 1.4 (0.9-2) 11/07/21 Troponin I 0.04 ng/ml (0-0.04) 11/07/21 Procalcitonin 0.40 ng/ml (0-0.5) 11/07/21 INR 1.0 (0.9-1.1) 11/07/21 SARS-CoV-2, RNA, NAAT NEGATIVE (NEGATIVE) 11/07/21 Chest X-Ray 11/07/21 Code Status & VTE Plan Code Status DNR/DNI VTE Prophylaxis Plan VTE Prophylaxis will be ordered: Yes Supervising Physician Co-Signing Physician Notes 76-year-old gentleman with PMH of chronic atrial fibrillation on Eliquis, SIADH and chronic hyponatremia on fluid restriction and sodium chloride tablets, CIDP on chronic prednisone therapy, Parkinson's disease, CKD stage III, BPH, pulmonary pretension, diastolic dysfunction presented to the ED 11/07 due to inability to walk/weakness for 1 day. Overnight prior to arrival, patient had difficulty getting out of the bed due to low back pain and was also noted to be exhausted and shaking by his . No documented fever at home. Patient denies any urinary signs and symptoms, no belly pain, bowels WNL, appetite has been normal. Patient denies any fall. Patient has fever recorded at 38C in the ED. SBP in 70s. Heart rate in 90s. Lactate WNL. Severe sepsis secondary to UTI. Blood pressure responded to IV fluid resuscitation. Labs reviewed, WBC WNL elevated from baseline. BMP fairly WNL. Phosphorus minimally low, continue to monitor. UA suggestive of UTI, await urine culture. Send blood culture. Imagings reviewed: CXR with no acute pulmonary findings. CTAP with L1-4 compression fractures likely subacute and no new acute findings. IV antibiotic, IV fluid, pain management for low back pain. PT/OT. Upper examination: GENERAL: Alert and oriented x3. NAD, on RA. Appears weak. HEENT: No pallor, no icterus. Pupils equal, round and reactive to light. Oral mucosa moist. NECK: No JVD, no neck masses. HEART: S1 and S2 heard. Regular rate and rhythm. No murmur, no gallop. RESPIRATORY SYSTEM: Normal AP diameter. No accessory muscle use. No wheezing, no crackles. ABDOMEN: Soft, bowel sounds present, nontender, no distention. CENTRAL NERVOUS SYSTEM: No facial droop. Speech is clear. Obeys simple comm ands. Moves extremities. EXTREMITIES: No edema, no erythema seen. I have seen and examined the patient and have discussed the case with the provider above. I agree with the assessment and plan as stated.
[2021-11-07] MEDS ORDERED: POTASSIUM PHOS 3 MMOL/1 ML INFUSION IV STA (15:13)
[2021-11-07] MEDS ORDERED: POTASSIUM PHOSPHATE 15 MMOL in SODIUM CHLORIDE 0.9% 250 ML IV ONE (15:30)
[2021-11-07] MEDS ORDERED: ONDANSETRON INJ 2 MG/ML 2 ML VIAL IV PRN (16:15)
[2021-11-07] MEDS ORDERED: DICYCLOMINE HCL 10 MG CAP PO PRN (16:15)
[2021-11-07] MEDS ORDERED: SODIUM CHLORIDE 0.9% 1000ML 1,000 ML IV SCH (16:15)
[2021-11-07] MEDS ORDERED: POLYETHYLENE (MIRALAX) 17 GM PACK PO PRN (16:15)
[2021-11-07] MEDS ORDERED: MAGNESIUM HYDROXIDE SUSP 30 ML UDC PO PRN (16:15)
[2021-11-07] MEDS ORDERED: PIPERACILL/TAZOBAC CONSULT ACTIVE PRN (16:15)
[2021-11-07] MEDS ORDERED: ALUMINUM/MAGNESIUM SUSP 30 ML UDC PO PRN (16:15)
[2021-11-07] MEDS ORDERED: FLUTICASONE PROPIONATE NA SPR 16 GM BTL PRN (16:15)
[2021-11-07] MEDS ORDERED: ACETAMINOPHEN 325 MG TAB PO PRN (16:15)
[2021-11-07] MEDS ORDERED: PIPERACILLIN/TAZOBACTAM 3.375 GM in DEXTROSE 5% 100 ML IV ONE (16:45)
[2021-11-07] MEDS: ACETAMINOPHEN 500 MG TAB PO SCH ×2 (17:22→20:07)
[2021-11-07] MEDS: LIDOCAINE 5% 1 PATCH TD SCH (17:23)
[2021-11-07] MEDS: SULFAMETHOXAZOLE/TRIMETHOPRIM DS 800/160MG TAB PO SCH (17:28)
--- NOTE | 2021-11-07 19:17 | Emergency Department Note ---
Impression & Plan Severe sepsis, Parkinson disease, CIDP (chronic inflammatory demyelinating polyneuropathy), UTI (urinary tract infection), Hypotension ED Provider Note NAME: JOSELUIS NO AGE: 76 SEX: M ARRIVES VIA: Ambulance INFORMANT: Patient, ED PROVIDER(S): Mason Cobb MD CHIEF COMPLAINT: Weakness, back pain. PLAN: Disposition: Admit MEDICAL DECISION MAKING: The patient is a pleasant 76-year-old gentleman with a past medical history of Parkinson disease, CIDP (chronic inflammatory demyelinating polyneuropathy) on chronic prednisone and prophylactic Bactrim SIADH, atrial fibrillation on Eliquis, CKD who presents to the emergency department, accompanied by his for evaluation of generalized weakness, malaise with body aches and low back p ain that has worsened over the past several days. Denies any cough, congestion, chest pain or shortness of breath. They deny any known COVID-19 exposures. On arrival the patient is uncomfortable, ill-appearing, febrile to 38.0 with heart 100s and BP 70-90s/50-60s was fluid responsive. O2 saturation was normal on room air. The patient appears clinically dry. He has generalized weakness without focal deficit. EKG demonstrates atrial fibrillation without overt acute ischemia. Chest x-ray negative for acute cardiopulmonary process. WBC within normal limits. H/H 13.5/41.9 improved from prior value. Platelets within normal limits. Chemistry without metabolic acidosis. Creatinine 1.3 similar to prior values. BUN/creatinine> 20 consistent with patient's clinical dry appearance. Electrolytes without significant abnormality. LFTs were unremarkable. Troponin 0.04, within normal limits. Lipase not elevated. Lactic acid was 1.4, within normal limits. Procalcitonin was not elevated. UA is consistent with infection with positive nitrites, WBCs and 4+ bacteria with no epithelial cells. Covid-19 RNA, NAAT negative. CT of the abdomen pelvis was negative for acute findings. Note is made of cholelithiasis with gallbladder distention however no pericholecystic fluid. Moreover upon reevaluation the patient continued to have benign abdominal exam with no right upper quadrant tenderness nor Wagoner sign. Large right inguinal hernia correlates with patient's chronic hernia that is nontender and soft on exam. Compression fractures of lumbar spine are noted and correlated to findings that the patient and were already aware about. Upon reevaluation the patient felt some im provement though still unwell. Blood pressure remained stable 90-100s/60s setting of the patient's report that the patient does have lower blood pressure chronically in the setting of his Parkinson disease. Patient was treated empirically on arrival with IV cefepime given suspicion for sepsis. Patient and his are in agreement with plan for admission. Almas Arzola PAC, with Dr. Bhavik Coburn hospitalist who will evaluate the patient for admission. Triage Nursing notes reviewed and agree them. Prior medical records reviewed Vital Signs: reviewed and remarkable for fever, tachycardia, hypotension. Differential diagnosis: Sepsis, UTI, pneumonia, metabolic, electrolyte abnormalities, cardiac sources, intracerebral event, toxicologic, neurologic, as well as other pathologies. ER treatment provided: See below. Diagnostics interpreted by me: ECG: Atrial fibrillation with RVR, 109 bpm, PVCs, no overt ST elevation or depression, QTC 430, QRS 80. Cardiac Monitoring: An order for continuous cardiac monitoring was placed and demonstrated atrial fibrillation, 109 bpm, PVCs. Laboratory studies: See below Imaging studies: See below Consultation(s): Almas Arzola PAC, with Dr. Bhavik Coburn hospitalist who will evaluate the patient for admission. HPI: The patient is a pleasant 76-year-old gentleman with a past medical history of Parkinson disease, CIDP (chronic inflammatory demyelinating polyneuropathy) on chronic prednisone and prophylactic Bactrim SIADH, atrial fibrillation on Eliquis, CKD who presents to the emergency department, accompanied by his for evaluation of generalized weakness, malaise with body aches and low back pain that has worsened over the past several days. Denies any cough, congestion, chest pain or shortness of breath. They deny any known COVID-19 exposures. ROS: See above HPI for pertinent positives & negatives. A total of 10 systems reviewed and were otherwise negative. PAST MEDICAL HISTORY:See Below PAST SURGICAL HISTORY:See Below FAMILY HISTORY:See Below SOCIAL HISTORY:See Below HOME MEDICATIONS:See Below ALLERGIES:See Below VITALS:See Below PHYSICAL EXAMINATION: GENERAL: Awake, alert, fatigued-appearing, in no distress HENT: Normocephalic, atraumatic. Oropharynx with dry mucous membranes and otherwise unremarkable. EYES: Normal conjunctiva. Sclera non-icteric. NECK: Supple. No nuchal rigidity. FROM. No JVD. RESPIRATORY: Clear to auscultation. CARDIAC: Tachycardic rate, normal rhythm. Extremities warm and well perfused. Pulses equal. ABDOMEN: Soft, non-distended. No tenderness to palpation. No rebound or guarding. No masses. RECTAL: Deferred. : Large right inguinal hernia, soft, nontender, no discoloration. MUSCULOSKELETAL: Chest examination reveals no tenderness. The back is symmetrical on inspection without obvious abnormality. There is no CVA tenderness to palpation. No joint edema. LOWER EXTREMITIES: Calves are equal size bilaterally and non-tender. No edema. No discoloration. NEURO: No focal sensory or motor deficits noted. Generalized weakness with 4/5 s trength x 4 Ext. SKIN: No rash or jaundice noted. ED COURSE: Critical Care: I have personally spent greater than 95 minutes of critical care time in the direct management of this patient. This includes bedside care, interpretation of diagnostic studies, and testing, discussion with consultants, patient, and family members, and other required patient management activities. This 95 minutes is in excess of all separately billable procedures. Mason Cobb MD Past Med/Surg History Medical History A-fib on Eliquis CKD (chronic kidney disease) stage 3, GFR 30-59 ml/min GERD (gastroesophageal reflux disease) Parkinson disease "mild"- following with Dr. Rizzo/ERICK Francois's sonal Surgical History History of colonoscopy 11/2017 scattered diverticulosis History of esophagogastroduodenoscopy (EGD) 11/2017 Priscila pruitt, esophagitis History of eye surgery CATARACT LEFT History of hernia repair Family History Father Colon cancer Mother , age 48, of influenza pneumonia Pneumonia Sister Rheumatoid arthritis Social History Smoking Status: Never smoker Second Hand Exposure: No; Do You Dip or Chew Tobacco: No; Hx Alcohol Use: Yes Alcohol type: beer, wine and hard liquor Alcohol Intake Frequency Comment: 1 glass of wine or beer a day Hx Substance Use: No Preferred Language: Mongolian Communication Ability: Effective Visual Impairment: No Limitations Hearing Ability: Normal 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 Required: No Beliefs That Will Affect Care: None marital status: Current Living Situation: Spouse Current Living Situation Comment: at home Other Information That Helps Us Care for You: No Feels Safe at Home: Yes Safety Concerns: Feels Safe At This Time Assistive Devices: Cane, Glasses, Walker and Wheelchair Allergies Allergies Allergy/AdvReac Type Severity Reaction Status Date / Time lovastatin [From Mevacor] Allergy Unknown Muscle Pain Verified 11/07/21 14:48 shellfish derived Allergy Unknown Vomiting Verified 11/07/21 14:48 acetaminophen [From Percocet] AdvReac Gastrointestinal Verified 11/07/21 14:48 Upset oxycodone [From Percocet] AdvReac Gastrointestinal Verified 11/07/21 14:48 Upset Home Meds Home Medications Medication Instructions Recorded Confirmed omeprazole 20 mg capsule,delayed 20 mg PO QAM 09/12/18 11/07/21 release acetaminophen 500 mg capsule 1,000 mg PO Q6H PRN 05/12/20 11/07/21 apixaban 5 mg tablet (Eliquis) 5 mg PO BID 05/12/20 11/07/21 cyanocobalamin (vitamin B-12) 1,000 mcg PO QAM 05/12/20 11/07/21 1,000 mcg tablet dicyclomine 10 mg capsule 10 mg PO TID 05/12/20 11/07/21 fluticasone propionate 50 2 spray INTRANASAL DAILY PRN 05/12/20 11/07/21 mcg/actuation nasal spray,suspension (Flonase Allergy Relief) cetirizine 10 mg capsule 10 mg PO PM 10/14/20 11/07/21 colestipol 1 gram tablet 1 g PO BID 10/14/20 11/07/21 carbidopa 25 mg-levodopa 100 mg 1 tab PO TID 12/29/20 11/07/21 tablet tamsulosin 0.4 mg capsule 0.4 mg PO DAILY 12/29/20 11/07/21 cholecalciferol (vitamin D3) 25 25 mcg PO DAILY 11/07/21 11/07/21 mcg (1,000 unit) tablet (Vitamin D3) potassium chloride 20 mEq 20 meq PO BID 11/07/21 11/07/21 tablet,extended release(part/cryst) (Klor-Con M) prednisone 20 mg tablet 40 mg PO DAILY 11/07/21 11/07/21 sulfamethoxazole 800 1 tab PO MOWEFR 11/07/21 11/07/21 mg-trimethoprim 160 mg tablet Previous Rx's Medication Instructions Recorded loperamide 2 mg capsule 2 mg PO QID PRN #30 cap 05/22/20 sodium chloride 1 gram tablet 1 g PO TID #30 tab 01/08/21 Results & Data (ED) Vital Signs Vital Signs - 24 hr 11/07/21 10:18 11/07/21 11:09 11/07/21 11:13 Temperature 38.0 C H Temperature Source Oral Pulse Rate 109 H 104 H Pulse Rate [Right] Pulse Rate from SpO2 Sensor 94 H Pulse Rhythm [Right] Respiratory Rate 18 24 Respiratory Effort / Characteristics Respiratory Depth Respiratory Pattern Blood Pressure 99/65 L 90/62 L Blood Pressure [Right Arm] Blood Pressure Mean 76 71 Blood Pressure Mean [Right Arm] Blood Pressure Position [Right Arm] Pulse Oximetry 97 94 96 Oxygen Delivery Method Room Air Room Air Room Air Sepsis Recent Fever Within 48 Hours Yes Sepsis New/Unexplained Change in Mental Status No Sepsis Action Taken by Nursing No Action Required 11/07/21 11:51 11/07/21 11:52 11/07/21 11:53 Temperature Temperature Source Pulse Rate 99 H 103 H 95 H Pulse Rate [Right] Pulse Rate from SpO2 Sensor 99 H 99 H 99 H Pulse Rhythm [Right] Respiratory Rate 26 H 21 20 Respiratory Effort / Characteristics Respiratory Depth Respiratory Pattern Blood Pressure 80/57 L 88/67 L Blood Pressure [Right Arm] Blood Pressure Mean 64 74 Blood Pressure Mean [Right Arm] Blood Pressure Position [Right Arm] Pulse Oximetry 95 98 97 Oxygen Delivery Method Room Air Room Air Sepsis Recent Fever Within 48 Hours Sepsis New/Unexplained Change in Mental Status Sepsis Action Taken by Nursing 11/07/21 12:00 11/07/21 12:16 11/07/21 12:35 Temperature Temperature Source Pulse Rate 100 H 96 H 91 H Pulse Rate [Right] Pulse Rate from SpO2 Sensor 97 H 98 H 99 H Pulse Rhythm [Right] Respiratory Rate 19 19 20 Respiratory Effort / Characteristics Respiratory Depth Respiratory Pattern Blood Pressure 73/52 L 85/62 L 85/52 L Blood Pressure [Right Arm] Blood Pressure Mean 59 69 63 Blood Pressure Mean [Right Arm] Blood Pressure Position [Right Arm] Pulse Oximetry 94 94 94 Oxygen Delivery Method Room Air Room Air Room Air Sepsis Recent Fever Within 48 Hours Sepsis New/Unexplained Change in Mental Status Sepsis Action Taken by Nursing 11/07/21 13:07 11/07/21 14:04 11/07/21 14:30 Temperature Temperature Source Pulse Rate 89 89 Pulse Rate [Right] 86 Pulse Rate from SpO2 Sensor 91 H 87 Pulse Rhythm [Right] Regular Respiratory Rate 18 16 18 Respiratory Effort / Characteristics Non-Labored Spontaneous Respiratory Depth Normal Respiratory Pattern Regular Blood Pressure 95/47 L 94/65 L Blood Pressure [Right Arm] 101/62 Blood Pressure Mean 63 74 Blood Pressure Mean [Right Arm] 75 Blood Pressure Position [Right Arm] Lying Pulse Oximetry 94 96 94 Oxygen Delivery Method Room Air Room Air Room Air Sepsis Recent Fever Within 48 Hours Sepsis New/Unexplained Change in Mental Status Sepsis Action Taken by Nursing Laboratory Data Attestation: I reviewed the patient's lab results. Result diagrams: 11/07/21 10:05 11/07/21 10:05 Lab Results 11/07/21 11/07/21 11/07/21 Range/Units 10:05 10:05 10:05 WBC 10.28 (4.8-10.8) K/uL RBC 4.36 L (4.7-6.1) M/uL Hgb 13.5 L (14.0-18.0) g/dL Hct 41.9 L (42-52) % MCV 96.1 (80-100) fL MCH 31.0 (25-34) pg MCHC 32.2 (32-36) g/dL RDW Std Deviation 55.8 H (36.4-46.3) fL RDW Coeff of [place] 15.9 H (11.5-14.5) % Plt Count 181 (130-400) K/uL MPV 9.3 (7.4-10.4) fL Immature Gran % (Auto) 0.2 % Neut % (Auto) 96.1 % Lymph % (Auto) 3.2 % [place] % (Auto) 0.4 % Eos % (Auto) 0.1 % Baso % (Auto) 0.0 % Neut # (Auto) 9.88 H (1.4-6.5) K/uL Lymph # (Auto) 0.33 L (1.2-3.4) K/uL [place] # (Auto) 0.04 L (0.11-0.59) K/uL Eos # (Auto) 0.01 (0-0.5) K/uL Baso # (Auto) 0.00 (0-0.2) K/uL Immature Gran # (Auto) 0.02 (0.00-0.02) K/uL PT 10.5 (9.0-12.0) Seconds INR 1.0 (0.9-1.1) Sodium 138 (136-145) mmol/L Potassium 3.8 (3.5-5.1) mmol/L Chloride 106 (98-107) mmol/L Carbon Dioxide 27 (21-32) mmol/L Anion Gap 5 (3-11) BUN 30 H (6-23) mg/dl Creatinine 1.31 (0.6-1.4) mg/dl Est Cr Clr Drug Dosing 48.8 ml/min Est GFR ( Amer) 60.4 ml/min Est GFR (Non-Af Amer) 52.1 ml/min BUN/Creatinine Ratio 22.9 H (10-20) Glucose 73 (70-99(Fasting)) mg/dl Lactate (0.4-2.0) mmol/L Calcium 8.3 L (8.5-10.1) mg/dl Phosphorus 2.2 L (2.5-4.9) mg/dl Magnesium 1.9 (1.7-2.4) mg/dl Total Bilirubin 0.9 (0.2-1.0) mg/dl AST 17 (13-39) U/L ALT 5 L (7-52) U/L Alkaline Phosphatase 160 H (34-104) U/L Troponin I 0.04 (0-0.04) ng/ml Total Protein 5.3 L (6.0-8.3) gm/dl Albumin 3.1 L (3.4-5.0) gm/dl Globulin 2.2 L (2.5-4.0) gm/dl Albumin/Globulin Ratio 1.4 (0.9-2) Lipase 5 L (11-82) U/L Procalcitonin (0-0.5) ng/ml Urine Color Urine Appearance (Clear) Urine pH (4.5-7.5) Ur Specific [place] (1.000-1.030) Urine Protein (Negative) Urine Glucose (UA) (Negative) Urine Ketones (Negative) Urine Blood (Negative) Urine Nitrite (Negative) Urine Bilirubin (Negative) Urine Urobilinogen (Negative) Ur Leukocyte Esterase (Negative) Urine WBC (Auto) (0-5) /hpf Urine RBC (Auto) (0-4) /hpf U Hyaline Cast (Auto) (0-5) /lpf U Epithel Cells (Auto) (0-5) /lpf Urine Bacteria (Auto) (Negative) SARS-CoV-2, RNA, NAAT (NEGATIVE) 11/07/21 11/07/21 11/07/21 Range/Units 10:05 10:20 11:11 WBC (4.8-10.8) K/uL RBC (4.7-6.1) M/uL Hgb (14.0-18.0) g/dL Hct (42-52) % MCV (80-100) fL MCH (25-34) pg MCHC (32-36) g/dL RDW Std Deviation (36.4-46.3) fL RDW Coeff of [place] (11.5-14.5) % Plt Count (130-400) K/uL MPV (7.4-10.4) fL Immature Gran % (Auto) % Neut % (Auto) % Lymph % (Auto) % [place] % (Auto) % Eos % (Auto) % Baso % (Auto) % Neut # (Auto) (1.4-6.5) K/uL Lymph # (Auto) (1.2-3.4) K/uL [place] # (Auto) (0.11-0.59) K/uL Eos # (Auto) (0-0.5) K/uL Baso # (Auto) (0-0.2) K/uL Immature Gran # (Auto) (0.00-0.02) K/uL PT (9.0-12.0) Seconds INR (0.9-1.1) Sodium (136-145) mmol/L Potassium (3.5-5.1) mmol/L Chloride (98-107) mmol/L Carbon Dioxide (21-32) mmol/L Anion Gap (3-11) BUN (6-23) mg/dl Creatinine (0.6-1.4) mg/dl Est Cr Clr Drug Dosing ml/min Est GFR ( Amer) ml/min Est GFR (Non-Af Amer) ml/min BUN/Creatinine Ratio (10-20) Glucose (70-99(Fasting)) mg/dl Lactate (0.4-2.0) mmol/L Calcium (8.5-10.1) mg/dl Phosphorus (2.5-4.9) mg/dl Magnesium (1.7-2.4) mg/dl Total Bilirubin (0.2-1.0) mg/dl AST (13-39) U/L ALT (7-52) U/L Alkaline Phosphatase (34-104) U/L Troponin I (0-0.04) ng/ml Total Protein (6.0-8.3) gm/dl Albumin (3.4-5.0) gm/dl Globulin (2.5-4.0) gm/dl Albumin/Globulin Ratio (0.9-2) Lipase (11-82) U/L Procalcitonin 0.40 (0-0.5) ng/ml Urine Color Dark Yellow Urine Appearance Clear (Clear) Urine pH 5.0 (4.5-7.5) Ur Specific [place] 1.030 (1.000-1.030) Urine Protein Negative (Negative) Urine Glucose (UA) Negative (Negative) Urine Ketones Trace H (Negative) Urine Blood Negative (Negative) Urine Nitrite Positive A (Negative) Urine Bilirubin 1+ H (Negative) Urine Urobilinogen Negative (Negative) Ur Leukocyte Esterase 2+ H (Negative) Urine WBC (Auto) >30 H (0-5) /hpf Urine RBC (Auto) 0-4 (0-4) /hpf U Hyaline Cast (Auto) 10-30 H (0-5) /lpf U Epithel Cells (Auto) 0-5 (0-5) /lpf Urine Bacteria (Auto) 4+ H (Negative) SARS-CoV-2, RNA, NAAT NEGATIVE (NEGATIVE) 11/07/21 Range/Units 11:37 WBC (4.8-10.8) K/uL RBC (4.7-6.1) M/uL Hgb (14.0-18.0) g/dL Hct (42-52) % MCV (80-100) fL MCH (25-34) pg MCHC (32-36) g/dL RDW Std Deviation (36.4-46.3) fL RDW Coeff of [place] (11.5-14.5) % Plt Count (130-400) K/uL MPV (7.4-10.4) fL Immature Gran % (Auto) % Neut % (Auto) % Lymph % (Auto) % [place] % (Auto) % Eos % (Auto) % Baso % (Auto) % Neut # (Auto) (1.4-6.5) K/uL Lymph # (Auto) (1.2-3.4) K/uL [place] # (Auto) (0.11-0.59) K/uL Eos # (Auto) (0-0.5) K/uL Baso # (Auto) (0-0.2) K/uL Immature Gran # (Auto) (0.00-0.02) K/uL PT (9.0-12.0) Seconds INR (0.9-1.1) Sodium (136-145) mmol/L Potassium (3.5-5.1) mmol/L Chloride (98-107) mmol/L Carbon Dioxide (21-32) mmol/L Anion Gap (3-11) BUN (6-23) mg/dl Creatinine (0.6-1.4) mg/dl Est Cr Clr Drug Dosing ml/min Est GFR ( Amer) ml/min Est GFR (Non-Af Amer) ml/min BUN/Creatinine Ratio (10-20) Glucose (70-99(Fasting)) mg/dl Lactate 1.4 (0.4-2.0) mmol/L Calcium (8.5-10.1) mg/dl Phosphorus (2.5-4.9) mg/dl Magnesium (1.7-2.4) mg/dl Total Bilirubin (0.2-1.0) mg/dl AST (13-39) U/L ALT (7-52) U/L Alkaline Phosphatase (34-104) U/L Troponin I (0-0.04) ng/ml Total Protein (6.0-8.3) gm/dl Albumin (3.4-5.0) gm/dl Globulin (2.5-4.0) gm/dl Albumin/Globulin Ratio (0.9-2) Lipase (11-82) U/L Procalcitonin (0-0.5) ng/ml Urine Color Urine Appearance (Clear) Urine pH (4.5-7.5) Ur Specific [place] (1.000-1.030) Urine Protein (Negative) Urine Glucose (UA) (Negative) Urine Ketones (Negative) Urine Blood (Negative) Urine Nitrite (Negative) Urine Bilirubin (Negative) Urine Urobilinogen (Negative) Ur Leukocyte Esterase (Negative) Urine WBC (Auto) (0-5) /hpf Urine RBC (Auto) (0-4) /hpf U Hyaline Cast (Auto) (0-5) /lpf U Epithel Cells (Auto) (0-5) /lpf Urine Bacteria (Auto) (Negative) SARS-CoV-2, RNA, NAAT (NEGATIVE) Administered Medications Acetaminophen (Acetaminophen 500 Mg Tab) 500 mg PO QID ROSEANN Stop: 12/07/21 16:59 Last Admin: 11/07/21 20:07 Dose: 500 mg Documented by: [id number] Admin: 11/07/21 17:22 Dose: 500 mg Documented by: [id number] Apixaban (Apixaban 5 Mg Tablet) 5 mg PO BID ROSEANN Stop: 12/07/21 20:59 Last Admin: 11/07/21 20:07 Dose: 5 mg Documented by: [id number] Carbidopa/Levodopa (Carbidopa/Levodopa 25/100mg Tab) 1 tab PO TID ROSEANN Stop: 12/07/21 20:59 Last Admin: 11/07/21 20:06 Dose: 1 tab Documented by: [id number] Cetirizine HCl (Cetirizine Hcl 10 Mg Tablet) 10 mg PO PM ROSEANN Stop: 12/07/21 20:59 Last Admin: 11/07/21 20:09 Dose: 10 mg Documented by: [id number] Colestipol HCl (Colestipol Hcl 1 Gm Tab) 1 gm PO BID@1000,2200 ROSEANN Stop: 12/07/21 21:59 Last Admin: 11/07/21 21:21 Dose: 1 gm Documented by: [id number] Sodium Chloride (Nss 1000ml) 1,000 mls @ 80 mls/hr IV .[id number] [facility] Stop: 11/08/21 04:44 Last Admin: 11/07/21 16:59 Dose: 80 mls/hr Documented by: [id number] Piperacillin Sod/Tazobactam (Sod 3.375 gm/ Dextrose) 115 mls @ 28.75 mls/hr IV Q8H [facility]; Protocol Stop: 11/17/21 21:59 Last Admin: 11/07/21 21:18 Dose: 28.8 mls/hr Documented by: [id number] Lidocaine (Lidocaine 5% 1 Patch) 1 patch TD HS [facility] Stop: 12/07/21 16:59 Last Admin: 11/07/21 17:23 Dose: 1 patch Documented by: [id number] Potassium Chloride (Potassium Chloride Crtab 20 Meq Tabcr) 20 meq PO BID [facility] Stop: 12/07/21 20:59 Last Admin: 11/07/21 20:08 Dose: 20 meq Documented by: [id number] Sodium Chloride (Sodium Chloride 1 Gm Tablet) 1 gm PO TID [facility] Stop: 12/07/21 20:59 Last Admin: 11/07/21 20:07 Dose: 1 gm Documented by: [id number] Trimethoprim/Sulfamethoxazole (Sulfamethoxazole/Trimethoprim Ds 800/160mg Tab) 1 tab PO MoWeFr@0900 [facility] Stop: 12/07/21 16:14 Last Admin: 11/07/21 17:28 Dose: 1 tab Documented by: [id number] Discontinued Medications Carbidopa/Levodopa (Carbidopa/Levodopa 25/100mg Tab) 1 tab PO NOW STA Stop: 11/07/21 14:23 Last Admin: 11/07/21 15:11 Dose: 1 tab Documented by: [id number] Sodium Chloride (Nss) 500 mls @ 999 mls/hr IV .Q31M ONE Stop: 11/07/21 11:35 Last Infusion: 11/07/21 11:57 Dose: 0 mls/hr Documented by: [id number] Admin: 11/07/21 11:20 Dose: 999 mls/hr Documented by: [id number] Acetaminophen (Ofirmev) 1,000 mg in 100 mls @ 400 mls/hr IV NOW STA Stop: 11/07/21 11:19 Last Infusion: 11/07/21 11:40 Dose: 0 mls/hr Documented by: [id number] Admin: 11/07/21 11:20 Dose: 400 mls/hr Documented by: [id number] Cefepime HCl (Maxipime) 2,000 mg in 20 mls @ 5 mls/min IV NOW STA; Protocol Stop: 11/07/21 11:53 Last Admin: 11/07/21 12:09 Dose: 5 mls/min Documented by: [id number] Sodium Chloride (Nss 1000ml) 1,000 mls @ 999 mls/hr IV .Q1H1M STA Stop: 11/07/21 13:22 Last Infusion: 11/07/21 13:27 Dose: 0 mls/hr Documented by: [id number] Admin: 11/07/21 12:24 Dose: 999 mls/hr Documented by: [id number] Sodium Chloride (Nss 1000ml) 2,000 mls @ 999 mls/hr IV .Q2H1M ONE Stop: 11/07/21 14:25 Last Admin: 11/07/21 12:44 Dose: Not Given Documented by: [id number] Potassium Phosphate 15 mmol/ (Sodium Chloride) 255 mls @ 88 mls/hr IV ONE ONE Stop: 11/07/21 18:23 Last Infusion: 11/07/21 19:04 Dose: 0 mls/hr Documented by: [id number] Admin: 11/07/21 16:08 Dose: 88 mls/hr Documented by: [id number] Piperacillin Sod/Tazobactam (Sod 3.375 gm/ Dextrose) 115 mls @ 230 mls/hr IV NOW ONE; Protocol Stop: 11/07/21 17:14 Last Infusion: 11/07/21 18:11 Dose: 0 mls/hr Documented by: [id number] Admin: 11/07/21 17:26 Dose: 230 mls/hr Documented by: [id number] Ioversol (Optiray 320 100ml) 94 ml IV ONCE ONE Stop: 11/07/21 13:05 Last Admin: 11/07/21 13:04 Dose: 94 ml Documented by: [id number] Imaging Data Radiologist's Impression: Chest X-Ray 11/07/21 11:04 XR chest 1V portable CLINICAL HISTORY: Chest Pain. Nonsmoker COMPARISON STUDY: 12/19/2020 TECHNIQUE: 1 view of the chest FINDINGS: Single frontal view of the chest demonstrates the heart to again be mildly enlarged. The lungs are clear of alveolar opacities. There is no evidence for pleural effusion. There is no evidence for vascular congestion. There is no acute osseous pathology. IMPRESSION: No acute cardiopulmonary disease. ACT 112: Negative or not required by law. Electronically signed by: Andrews Reyes M.D. 11/07/2021 11:33 AM Abdomen/Pelvis CT 11/07/21 11:05 CT OF THE ABDOMEN AND PELVIS WITH CONTRAST CLINICAL HISTORY: ?UTI, sepsis COMPARISON STUDY: CT of the abdomen and pelvis December 31, 2020. TECHNIQUE: Following IV administration of 94 mL of Optiray, axial images of the abdomen and pelvis were obtained from the lung bases to the proximal femurs. Images were reviewed in the axial, sagittal, and coronal planes. IV contrast was administered without complication. Automated exposure control was utilized for the study. A dose lowering technique was utilized adhering to the principles of ALARA. CT DOSE: 1235.09 mGycm FINDINGS: Mild linear opacities reflect atelectasis. No pneumatosis, free air or portal venous gas is present. Hepatic lesions are unchanged. These favor cysts. There is no biliary or pancreatic ductal dilatation. No peripancreatic or pericholecystic infiltration. The pancreas is atrophic. This is unchanged. No peripancreatic fluid collection is present. There are gallstones within the gallbladder including gallstones within the gallbladder neck. Gallbladder is mildly distended. There is no pericholecystic infiltration. There is no hydronephrosis. The adrenal glands and kidneys are unremarkable. Prostate is moderately enlarged. There is no evidence for a bowel obstruction. A right inguinal hernia contains multiple small bowel loops as well as the cecum, ileocecal valve and proximal ascending colon. There is a small right hydrocele. The hernia does not result in a bowel obstruction. Large amount of stool within the rectum is present. Note is made of an old T11 compression fracture. This is unchanged since CT of December 31, 2020. Anterolisthesis of L5 on S1 due to bilateral L5 pars defects is again noted. Note is made of L1, L2, L3 and L4 compression fractures which are new since CT of December 31, 2020. There is moderate loss of height of the L2 and L4 vertebra. These fractures are age indeterminate but probably subacute. No extension into the posterior elements is noted. There is no significant retropulsion. No acute pelvic or hip fracture is identified. Bilateral sacral fractures are old. No suspicious lesions are identified within visualized skeletal structures. IMPRESSION: 1. Cholelithiasis and moderate gallbladder distention. Although no kallie cholecystic infiltration, acute cholecystitis cannot be excluded. This could be correlated with right upper quadrant. If present, right upper quadrant ultrasound is recommended. 2. Large right inguinal hernia which contains distal ileal loops, the cecum, ileocecal valve and proximal ascending colon. No resultant bowel obstruction. 3. Large amount stool within the rectum. 4. No hydronephrosis. Enlarged prostate. 5. L1, L2, L3 and L4 compression fractures which are new since CT of January 20, 2021. Although age indeterminate, these are likely subacute. ACT 112: Negative or not required by law. Electronically signed by: Tk Vick M.D. 11/07/2021 1:42 PM Discharge Plan Visit Data Chief Complaint: Illness ED Provider: Mason Cobb Discharge Problem: Severe sepsis, Parkinson disease, CIDP (chronic inflammatory demyelinating polyneuropathy), UTI (urinary tract infection), Hypotension Patient Disposition: Admitted As Inpatient Discharge Instructions Interventions: ED Discharge Assessment Last Done: 11/07/21 15:47 Discharge Problem: UTI (urinary tract infection) Qualifiers: Urinary tract infection type: acute cystitis Hematuria presence: without hematuria Qualified Code(s): N30.00 - Acute cystitis without hematuria Hypotension Qualifiers: Hypotension type: unspecified hypotension type Qualified Code(s): I95.9 - Hypotension, unspecified
[2021-11-07] MEDS: CARBIDOPA/LEVODOPA 25/100MG TAB PO SCH (20:06)
[2021-11-07] MEDS: SODIUM CHLORIDE 1 GM TABLET PO SCH (20:07)
[2021-11-07] MEDS: APIXABAN 5 MG TABLET PO SCH (20:07)
[2021-11-07] MEDS: POTASSIUM CHLORIDE CRTAB 20 MEQ TABCR PO SCH (20:08)
[2021-11-07] MEDS: CETIRIZINE HCL 10 MG TABLET PO SCH (20:09)
[2021-11-07] MEDS: PIPERACILLIN/TAZOBACTAM 3.375 GM in DEXTROSE 5% 100 ML IV SCH (21:18)
[2021-11-07] MEDS: COLESTIPOL HCL 1 GM TAB PO SCH (21:21)
[2021-11-08] MEDS: PIPERACILLIN/TAZOBACTAM 3.375 GM in DEXTROSE 5% 100 ML IV SCH ×3 (05:18→21:28)
[2021-11-08 05:52] LABS: Basophils # (auto) 0.01 K/uL (0-0.2); Basophils % (auto) 0.1 %; Eosinophils # (auto) 0.01 K/uL (0-0.5); Eosinophils % (auto) 0.1 %; Hematocrit (blood only) 39.6 % (42-52); Hemoglobin 12.7 g/dL (14.0-18.0); Immature Granulocytes # (auto) 0.04 K/uL (0.00-0.02); Immature Granulocytes % (auto) 0.4 %; Lymphocytes # (auto) 0.35 K/uL (1.2-3.4); Lymphocytes % (auto) 3.6 %; Mean Corpuscular Hemoglobin 30.3 pg (25-34); Mean Corpuscular Hgb Conc 32.1 g/dL (32-36); Mean Corpuscular Volume 94.5 fL (80-100); Mean Platelet Volume 8.9 fL (7.4-10.4); Monocytes # (auto) 0.32 K/uL (0.11-0.59); Monocytes % (auto) 3.3 %; Neutrophils # (auto) 8.91 K/uL (1.4-6.5); Neutrophils % (auto) 92.5 %; Platelet Count 134 K/uL (130-400); RDW Coefficient of Variation 16.2 % (11.5-14.5); RDW Standard Deviation 56.2 fL (36.4-46.3); Red Blood Count 4.19 M/uL (4.7-6.1); White Blood Count 9.64 K/uL (4.8-10.8)
[2021-11-08 06:12] LABS: Albumin Globulin Ratio 1.4 (0.9-2); Albumin Level 2.6 gm/dl (3.4-5.0); BUN Creatinine Ratio 21.3 (10-20); Calcium 7.4 mg/dl (8.5-10.1); Creatinine Clr Calc Pharmacy 59.1 ml/min; Est GFR (African American) 76.3 ml/min; Est GFR (Non-African American) 65.9 ml/min; Globulin 1.9 gm/dl (2.5-4.0); Phosphorus 3.7 mg/dl (2.5-4.9); Potassium 3.9 mmol/L (3.5-5.1); Total Protein 4.5 gm/dl (6.0-8.3)
[2021-11-08] MEDS: CYANOCOBALAMIN (B-12) 500 MCG TABLET PO SCH (08:46)
[2021-11-08] MEDS: predniSONE 20 MG TAB PO SCH (08:46)
[2021-11-08] MEDS: PANTOprazole 40 MG TAB PO SCH (08:46)
[2021-11-08] MEDS: CHOLECALCIFEROL 1,000 UNITS 25 MCG TAB PO SCH (08:46)
[2021-11-08] MEDS: ACETAMINOPHEN 500 MG TAB PO SCH ×4 (08:47→20:26)
[2021-11-08] MEDS: CARBIDOPA/LEVODOPA 25/100MG TAB PO SCH ×3 (08:47→20:29)
[2021-11-08] MEDS: POTASSIUM CHLORIDE CRTAB 20 MEQ TABCR PO SCH ×2 (08:47→20:30)
[2021-11-08] MEDS: SODIUM CHLORIDE 1 GM TABLET PO SCH ×3 (08:47→20:30)
[2021-11-08] MEDS: APIXABAN 5 MG TABLET PO SCH ×2 (08:48→20:29)
[2021-11-08] MEDS ORDERED: TAMSULOSIN HCL 0.4 MG CAP PO SCH (09:00)
--- NOTE | 2021-11-08 10:54 | Hospitalist Progress Note ---
Date of Service November 08, 2021 Assessment & Plan (1) Severe sepsis: (2) UTI (urinary tract infection): (3) Hypophosphatemia: (4) Lumbar compression fracture: (5) Ambulatory dysfunction: (6) Parkinson disease: (7) CIDP (chronic inflammatory demyelinating polyneuropathy): (8) SIADH (syndrome of inappropriate ADH production): (9) A-fib: (10) CKD (chronic kidney disease) stage 3, GFR 30-59 ml/min: Plan: 76-year-old male who has significant past medical history of chronic atrial fibrillation anticoagulated with Eliquis, SIADH and chronic hyponatremia on fluid restriction and sodium chloride tablets, 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 Severe sepsis Complicated Urinary tract infection Gram negative sepsis Patient met criteria for severe sepsis per current CMS guidelines secondary to fever, tachycardia, hypotension. His lactic acid and procalcitonin were WNL. Source: UTI Blood and urine cultures growing GNR. Follow up speciation and sensitivities BP improved this AM Will change home tamsulosin to HS from tomorrow Per RN, had reported patient is usually on 1100cc/day fluid restriction Continue IV antibiotics with Zosyn Per patient's blood pressure typically does run on the lower side Hypophosphatemia Phosphate was 2.2 on admission Repleted. Currently 3.7 Ambulatory dysfunction Lumbar compression fracture L1-L4 Patient was seen and evaluated by [facility] orth[facility] 10/25 He was prescribed LSO brace Spoke with and updated her. She is going to bring his brace when coming to visit today Scheduled Tylenol for pain control, Lidoderm patch PT/OT CIDP On chronic prednisone 40mg daily Also on bactrim 3x/wk due to immunosuppression Parkinson Disease Continue sinemet PT/OT SIADH Hyponatremia On sodium chloride tablets as well as 1100 mL fluid restriction Resume home fluid restriction Na is 135 today. Monitor Chronic atrial fibrillation Anticoagulated on Eliquis Currently not on rate controlling agent DVT prophylaxis: Eliquis Code: PCU DNR/DNI PCP: Servando Admission and Anticipated Discharge Date Admission Date: November 07, 2021 Subjective Patient seen and examined Reports low back pain Denied any fevers, chills, nausea, vomiting Denied dysuria, hematuria Reports frequency Denied any chest pain, cough, Shortness of breath Physical Exam Constitutional: + well hydrated; no acute distress Elderly man Eyes: PERRL, conjunctivae normal, anicteric sclerae ENMT: external ear and nose normal, oropharynx normal Respiratory: normal respiratory effort, lungs clear to auscultation Cardiovascular: Rate/Rhythm: + irregularly irregular S1 S2 Gastrointestinal (Abdomen): normal bowel sounds, soft, nontender, no hepatosplenomegaly Musculoskeletal: No pedal edema Neurologic: PERRL, EOMI, accommodation nl, no face palsy, no dysarthria Psychiatric: A+Ox3, euthymic affect Results & Data Results & Data ([facility]) Vital Signs (Past 12 Hours) Vital Signs Temp Pulse Pulse Resp BP Pulse Ox 11/08/21 07:36 87 11/08/21 07:00 37.0 C 102 H 16 124/79 97 11/08/21 04:15 37.0 C 88 16 94/63 L 95 11/08/21 00:20 37.0 C 11/07/21 23:25 38.2 C H Laboratory Results Abnormal lab results 11/08/21 11/08/21 Range/Units 05:37 05:37 RBC 4.19 L (4.7-6.1) M/uL Hgb 12.7 L (14.0-18.0) g/dL Hct 39.6 L (42-52) % RDW Std Deviation 56.2 H (36.4-46.3) fL RDW Coeff of Mariana 16.2 H (11.5-14.5) % Neut # (Auto) 8.91 H (1.4-6.5) K/uL Lymph # (Auto) 0.35 L (1.2-3.4) K/uL Immature Gran # (Auto) 0.04 H (0.00-0.02) K/uL Sodium 135 L (136-145) mmol/L Chloride 110 H (98-107) mmol/L BUN/Creatinine Ratio 21.3 H (10-20) Calcium 7.4 L (8.5-10.1) mg/dl ALT 4 L (7-52) U/L Alkaline Phosphatase 120 H (34-104) U/L Total Protein 4.5 L (6.0-8.3) gm/dl Albumin 2.6 L (3.4-5.0) gm/dl Globulin 1.9 L (2.5-4.0) gm/dl (1) UTI (urinary tract infection) Hematuria presence: without hematuria Urinary tract infection type: acute cystitis Qualified Code(s): N30.00 - Acute cystitis without hematuria
[2021-11-08] MEDS: COLESTIPOL HCL 1 GM TAB PO SCH ×2 (11:18→21:42)
[2021-11-08] MEDS: LIDOCAINE 5% 1 PATCH TD SCH (20:25)
[2021-11-08] MEDS: CETIRIZINE HCL 10 MG TABLET PO SCH (20:30)
--- NOTE | 2021-11-08 22:26 | Electrocardiogram Report ---
Test Reason : Blood Pressure : / mmHG Vent. Rate : 109 BPM Atrial Rate : 107 BPM P-R Int : 000 ms QRS Dur : 080 ms QT Int : 320 ms P-R-T Axes : 000 -07 -28 degrees QTc Int : 430 ms Atrial fibrillation with rapid ventricular response with premature ventricular or aberrantly conducte d complexes Nonspecific T wave abnormality Abnormal ECG When compared with ECG of 29-DEC-2020 17:39, Vent. rate has increased BY 44 BPM Confirmed by Nicanor Salgado ([id number]) on 11/08/2021 10:26:08 PM Referred By: REFERRED SELF Confirmed By:Nicanor Salgado
[2021-11-09] MEDS: PIPERACILLIN/TAZOBACTAM 3.375 GM in DEXTROSE 5% 100 ML IV SCH ×3 (05:20→20:59)
[2021-11-09 06:53] LABS: Hematocrit (blood only) 41.5 % (42-52); Hemoglobin 13.2 g/dL (14.0-18.0); Mean Corpuscular Hgb Conc 31.8 g/dL (32-36); Mean Corpuscular Volume 94.3 fL (80-100); Mean Platelet Volume 9.9 fL (7.4-10.4); Platelet Count 132 K/uL (130-400); RDW Coefficient of Variation 15.9 % (11.5-14.5); RDW Standard Deviation 55.1 fL (36.4-46.3); White Blood Count 8.39 K/uL (4.8-10.8)
[2021-11-09 07:17] LABS: BUN Creatinine Ratio 17.6 (10-20); Creatinine Clr Calc Pharmacy 62.6 ml/min; Est GFR (African American) 81.8 ml/min; Est GFR (Non-African American) 70.6 ml/min; Potassium 4.2 mmol/L (3.5-5.1)
[2021-11-09] MEDS: SULFAMETHOXAZOLE/TRIMETHOPRIM DS 800/160MG TAB PO SCH (08:29)
[2021-11-09] MEDS: POTASSIUM CHLORIDE CRTAB 20 MEQ TABCR PO SCH ×2 (08:30→21:00)
[2021-11-09] MEDS: ACETAMINOPHEN 500 MG TAB PO SCH ×4 (08:30→21:00)
[2021-11-09] MEDS: SODIUM CHLORIDE 1 GM TABLET PO SCH ×3 (08:30→21:00)
[2021-11-09] MEDS: predniSONE 20 MG TAB PO SCH (08:30)
[2021-11-09] MEDS: CYANOCOBALAMIN (B-12) 500 MCG TABLET PO SCH (08:30)
[2021-11-09] MEDS: CHOLECALCIFEROL 1,000 UNITS 25 MCG TAB PO SCH (08:30)
[2021-11-09] MEDS: APIXABAN 5 MG TABLET PO SCH ×2 (08:30→21:00)
[2021-11-09] MEDS: PANTOprazole 40 MG TAB PO SCH (08:31)
[2021-11-09] MEDS: CARBIDOPA/LEVODOPA 25/100MG TAB PO SCH ×3 (08:31→21:00)
[2021-11-09] MEDS: COLESTIPOL HCL 1 GM TAB PO SCH ×2 (10:25→22:12)
--- NOTE | 2021-11-09 15:27 | Ultrasound Report ---
ABDOMINAL ULTRASOUND, RIGHT UPPER QUADRANT HISTORY: Abnormal CT. gallbladder distention. COMPARISON: Abdomen and pelvis CT 11/07/2021. FINDINGS: Pancreas: Obscured by overlying bowel gas. Liver: There is a 1 cm hypoechoic focus within the right hepatic lobe. This is nonspecific but could represent focal fatty sparing. The liver is slightly echogenic suggestive of mild fatty change. Gallbladder: The gallbladder distention has improved. No gallbladder wall thickening. Multiple gallst ones are present. CBD: 2 mm. Right kidney: No hydronephrosis. IMPRESSION: 1. Interval improvement in gallbladder distention. Cholelithiasis without gallbladder wall thickening . 2. Normal caliber common bile duct. 3. A 1 cm hypoechoic focus within the right hepatic lobe. This is incompletely characterized on this study but could represent focal fatty sparing ACT 112: Negative or not required by law. Electronically signed by: Yonatan Beebe M.D. 11/09/2021 3:26 PM
--- NOTE | 2021-11-09 19:40 | Hospitalist Progress Note ---
Date of Service November 09, 2021 Assessment & Plan (1) Severe sepsis: (2) UTI (urinary tract infection): (3) Hypophosphatemia: (4) Lumbar compression fracture: (5) Ambulatory dysfunction: (6) Parkinson disease: (7) CIDP (chronic inflammatory demyelinating polyneuropathy): (8) SIADH (syndrome of inappropriate ADH production): (9) A-fib: (10) CKD (chronic kidney disease) stage 3, GFR 30-59 ml/min: Plan: Patient is a 76 yr male with H/O chronic atrial fibrillation anticoagulated with Eliquis, SIADH and chronic hyponatremia on fluid restriction and sodium chloride tablets, 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 Severe sepsis Complicated Urinary tract infection Gram negative sepsis lactic acid and procalcitonin WNL. Blood cultures growing gram-negative bacilli Repeat blood cultures negative to date Urine culture growing E. coli Continue IV Zosyn for now BP usually run on the lower side as per family Hypophosphatemia Replace and monitor Ambulatory dysfunction Lumbar compression fracture L1-L4 Patient was seen and evaluated by [facility] 10/25 He was prescribed LSO brace Pain control, Lidoderm patch PT/OT CIDP On chronic prednisone 40mg daily Also on bactrim 3x/wk due to immunosuppression Parkinson Disease Continue sinemet PT/OT SIADH Hyponatremia On sodium chloride tablets as well as 1100 mL fluid restriction Resume home fluid restriction Na is 136 today Monitor sodium levels Chronic atrial fibrillation Anticoagulated on Eliquis Currently not on rate controlling agent DVT px: Eliquis Code Status: DNR/DNI Disposition PT OT prior to discharge Admission and Anticipated Discharge Date Admission Date: November 07, 2021 Subjective Patient is seen and examined at bedside States having bilateral flank, back pain with movement Offers no other complaints Denies any chest pain, shortness of breath, dizziness, nausea Review of Systems Review of Systems: All systems reviewed & are unremarkable except as noted in Subjective Physical Exam Physical Exam: Physical Exam: Vitals signs as noted above General Appearance:Moderately built and nourished, no apparent distress, Elderly Head: normocephalic, Atraumatic Eyes: normal inspection, EOMI Neck: supple, Trachea midline Respiratory/Chest: Normal breath sounds, CTA, No accessory muscle use Cardiovascular: Irregularly irregular, No murmur Abdomen/GI:Soft, Non tender, Bowel sounds present Extremities/Musculoskeletal:normal inspection, no edema Neurologic/Psych:AAOX3, grossly no focal neurological deficits Skin: normal color, warm Results & Data Results & Data ([facility]) Vital Signs (Past 12 Hours) Vital Signs Temp Pulse Pulse Resp BP Pulse Ox 11/09/21 19:25 36.7 C 66 18 124/73 99 11/09/21 16:40 36.8 C 65 18 113/79 96 11/09/21 10:33 36.6 C 88 20 101/65 99 11/09/21 10:24 103/61 11/09/21 10:08 65 11/09/21 08:03 37.0 C 78 20 144/77 H 96 Laboratory Results Short CBC 11/09/21 Range/Units 05:47 WBC 8.39 (4.8-10.8) K/uL Hgb 13.2 L (14.0-18.0) g/dL Hct 41.5 L (42-52) % Plt Count 132 (130-400) K/uL BMP 11/09/21 05:47 Sodium 136 Potassium 4.2 Chloride 109 H Carbon Dioxide 23 BUN 18 Creatinine 1.02 Glucose 92 Calcium 8.0 L (1) UTI (urinary tract infection) Hematuria presence: without hematuria Urinary tract infection type: acute cystitis Qualified Code(s): N30.00 - Acute cystitis without hematuria
[2021-11-09] MEDS: TAMSULOSIN HCL 0.4 MG CAP PO SCH (21:00)
[2021-11-09] MEDS: CETIRIZINE HCL 10 MG TABLET PO SCH (21:00)
[2021-11-09] MEDS: LIDOCAINE 5% 1 PATCH TD SCH (21:00)
[2021-11-10] MEDS: PIPERACILLIN/TAZOBACTAM 3.375 GM in DEXTROSE 5% 100 ML IV SCH (06:00)
[2021-11-10] MEDS: APIXABAN 5 MG TABLET PO SCH ×2 (08:19→20:41)
[2021-11-10] MEDS: ACETAMINOPHEN 500 MG TAB PO SCH ×4 (08:19→20:41)
[2021-11-10] MEDS: SODIUM CHLORIDE 1 GM TABLET PO SCH ×3 (08:20→20:41)
[2021-11-10] MEDS: CHOLECALCIFEROL 1,000 UNITS 25 MCG TAB PO SCH (08:20)
[2021-11-10] MEDS: POTASSIUM CHLORIDE CRTAB 20 MEQ TABCR PO SCH ×2 (08:20→20:41)
[2021-11-10] MEDS: predniSONE 20 MG TAB PO SCH (08:20)
[2021-11-10] MEDS: PANTOprazole 40 MG TAB PO SCH (08:20)
[2021-11-10] MEDS: CARBIDOPA/LEVODOPA 25/100MG TAB PO SCH ×3 (08:20→20:41)
[2021-11-10] MEDS: CYANOCOBALAMIN (B-12) 500 MCG TABLET PO SCH (08:21)
[2021-11-10] MEDS: COLESTIPOL HCL 1 GM TAB PO SCH ×2 (10:25→23:35)
[2021-11-10] MEDS: cefTRIAXone SODIUM 1,000 MG in DEXTROSE 5% 50 ML IV SCH (12:30)
--- NOTE | 2021-11-10 17:42 | Hospitalist Progress Note ---
Date of Service November 10, 2021 Assessment & Plan (1) Severe sepsis: (2) UTI (urinary tract infection): (3) Hypophosphatemia: (4) Lumbar compression fracture: (5) Ambulatory dysfunction: (6) Parkinson disease: (7) CIDP (chronic inflammatory demyelinating polyneuropathy): (8) SIADH (syndrome of inappropriate ADH production): (9) A-fib: (10) CKD (chronic kidney disease) stage 3, GFR 30-59 ml/min: Plan: Patient is a 76 yr male with H/O chronic atrial fibrillation anticoagulated with Eliquis, SIADH and chronic hyponatremia on fluid restriction and sodium chloride tablets, 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 Severe sepsis Complicated Urinary tract infection E.Coli septicemia lactic acid and procalcitonin WNL. Blood/Urine cultures growing E.Coli Repeat blood cultures negative to date Continue IV Zosyn>> transition to ceftriaxone BP usually run on the lower side as per family Needs rehab placement Hypophosphatemia Replace and monitor Ambulatory dysfunction Lumbar compression fracture L1-L4 Patient was seen and evaluated by [facility] orthopedics 10/25 He was prescribed LSO brace Pain control, Lidoderm patch PT/OT Needs Rehab CIDP On chronic prednisone 40mg daily Also on bactrim 3x/wk due to immunosuppression Parkinson Disease Continue sinemet PT/OT SIADH Hyponatremia On sodium chloride tablets Also on fluid restriction Na is 136 Monitor sodium levels Chronic atrial fibrillation Anticoagulated on Eliquis Currently not on rate controlling agent DVT px: Eliquis Code Status: DNR/DNI Disposition Rehab as able Admission and Anticipated Discharge Date Admission Date: November 07, 2021 Subjective Patient is seen and examined at bedside Back pain is better today No new complaints Denies any chest pain, shortness of breath, dizziness, nausea Having his lunch during my encounter Blood culture growing E. coli Review of Systems Review of Systems: All systems reviewed & are unremarkable except as noted in Subjective Physical Exam Physical Exam: Physical Exam: Vitals signs as noted above General Appearance:Moderately built and nourished, no apparent distress, Elderly Head: normocephalic, Atraumatic Eyes: normal inspection, EOMI Neck: supple, Trachea midline Respiratory/Chest: Normal breath sounds, CTA, No accessory muscle use Cardiovascular: Irregularly irregular, No murmur Abdomen/GI:Soft, Non tender, Bowel sounds present Extremities/Musculoskeletal:normal inspection, no edema Neurologic/Psych:AAOX3, grossly no focal neurological deficits Skin: normal color, warm Results & Data Results & Data ([facility]) Vital Signs (Past 12 Hours) Vital Signs Temp Pulse Pulse Resp BP BP Pulse Ox 11/10/21 14:59 36.7 C 86 17 108/73 94 11/10/21 11:33 36.5 C 81 18 116/75 97 11/10/21 08:38 86 11/10/21 08:30 36.7 C 72 18 141/94 H 96 (1) UTI (urinary tract infection) Hematuria presence: without hematuria Urinary tract infection type: acute cystitis Qualified Code(s): N30.00 - Acute cystitis without hematuria
[2021-11-10] MEDS: LIDOCAINE 5% 1 PATCH TD SCH (20:40)
[2021-11-10] MEDS: CETIRIZINE HCL 10 MG TABLET PO SCH (20:41)
[2021-11-10] MEDS: TAMSULOSIN HCL 0.4 MG CAP PO SCH (20:41)
[2021-11-11 07:31] LABS: Hematocrit (blood only) 40.8 % (42-52); Hemoglobin 12.9 g/dL (14.0-18.0); Mean Corpuscular Hemoglobin 30.2 pg (25-34); Mean Corpuscular Hgb Conc 31.6 g/dL (32-36); Mean Corpuscular Volume 95.6 fL (80-100); Mean Platelet Volume 9.6 fL (7.4-10.4); Platelet Count 160 K/uL (130-400); RDW Coefficient of Variation 15.9 % (11.5-14.5); RDW Standard Deviation 55.7 fL (36.4-46.3); Red Blood Count 4.27 M/uL (4.7-6.1)
[2021-11-11 07:55] LABS: BUN Creatinine Ratio 12.9 (10-20); Calcium 8.3 mg/dl (8.5-10.1); Est GFR (African American) 56.3 ml/min; Est GFR (Non-African American) 48.5 ml/min; Potassium 4.1 mmol/L (3.5-5.1)
[2021-11-11] MEDS: PANTOprazole 40 MG TAB PO SCH (08:01)
[2021-11-11] MEDS: SULFAMETHOXAZOLE/TRIMETHOPRIM DS 800/160MG TAB PO SCH (08:02)
[2021-11-11] MEDS: CARBIDOPA/LEVODOPA 25/100MG TAB PO SCH ×3 (08:02→20:59)
[2021-11-11] MEDS: APIXABAN 5 MG TABLET PO SCH ×2 (08:02→20:58)
[2021-11-11] MEDS: ACETAMINOPHEN 500 MG TAB PO SCH ×4 (08:02→20:59)
[2021-11-11] MEDS: predniSONE 20 MG TAB PO SCH (08:02)
[2021-11-11] MEDS: SODIUM CHLORIDE 1 GM TABLET PO SCH ×3 (08:02→20:58)
[2021-11-11] MEDS: POTASSIUM CHLORIDE CRTAB 20 MEQ TABCR PO SCH ×2 (08:02→20:58)
[2021-11-11] MEDS: CHOLECALCIFEROL 1,000 UNITS 25 MCG TAB PO SCH (08:02)
[2021-11-11] MEDS: CYANOCOBALAMIN (B-12) 500 MCG TABLET PO SCH (08:02)
[2021-11-11] MEDS: COLESTIPOL HCL 1 GM TAB PO SCH ×2 (10:38→20:58)
[2021-11-11] MEDS: cefTRIAXone SODIUM 1,000 MG in DEXTROSE 5% 50 ML IV SCH (11:39)
--- NOTE | 2021-11-11 18:55 | Hospitalist Progress Note ---
Date of Service November 11, 2021 Assessment & Plan (1) Severe sepsis: (2) UTI (urinary tract infection): (3) Hypophosphatemia: (4) Lumbar compression fracture: (5) Ambulatory dysfunction: (6) Parkinson disease: (7) CIDP (chronic inflammatory demyelinating polyneuropathy): (8) SIADH (syndrome of inappropriate ADH production): (9) A-fib: (10) CKD (chronic kidney disease) stage 3, GFR 30-59 ml/min: Plan: Patient is a 76 yr male with H/O chronic atrial fibrillation anticoagulated with Eliquis, SIADH and chronic hyponatremia on fluid restriction and sodium chloride tablets, 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 Severe sepsis Complicated Urinary tract infection E.Coli septicemia lactic acid and procalcitonin WNL. Blood/Urine cultures growing E.Coli Repeat blood cultures negative to date Continue IV Zosyn>> transition to ceftriaxone BP usually run on the lower side as per family Plan to discharge to rehab facility tomorrow if possible Hypophosphatemia Replace and monitor Ambulatory dysfunction Lumbar compression fracture L1-L4 Patient was seen and evaluated by [facility] orthopedics 10/25 He was prescribed LSO brace Pain control, Lidoderm patch PT/OT Needs Rehab CIDP On chronic prednisone 40mg daily Also on bactrim 3x/wk due to immunosuppression Parkinson Disease Continue sinemet PT/OT SIADH Hyponatremia On sodium chloride tablets Also on fluid restriction Na is 137 Monitor sodium levels Chronic atrial fibrillation Anticoagulated on Eliquis Currently not on rate controlling agent DVT px: Eliquis Code Status: DNR/DNI Disposition Rehab Admission and Anticipated Discharge Date Admission Date: November 07, 2021 Subjective Patient is seen and examined at bedside States feeling well today No new complaints Back pain is controlled Denies any chest pain, shortness of breath, dizziness, nausea Review of Systems Review of Systems: All systems reviewed & are unremarkable except as noted in Subjective Physical Exam Physical Exam: Physical Exam: Vitals signs as noted above General Appearance:Moderately built and nourished, no apparent distress, Elderly Head: normocephalic, Atraumatic Eyes: normal inspection, EOMI Neck: supple, Trachea midline Respiratory/Chest: Normal breath sounds, CTA, No accessory muscle use Cardiovascular: Irregularly irregular, No murmur Abdomen/GI:Soft, Non tender, Bowel sounds present Extremities/Musculoskeletal:normal inspection, no edema Neurologic/Psych:AAOX3, grossly no focal neurological deficits Skin: normal color, warm Results & Data Results & Data ([facility]) Vital Signs (Past 12 Hours) Vital Signs Temp Pulse Pulse Resp BP Pulse Ox 11/11/21 15:33 36.4 C L 92 H 18 113/72 97 11/11/21 14:00 77 11/11/21 12:54 88 11/11/21 11:13 36.9 C 83 18 111/71 96 11/11/21 08:00 36.5 C 69 73 18 125/79 97 Laboratory Results Short CBC 11/11/21 Range/Units 07:13 WBC 7.60 (4.8-10.8) K/uL Hgb 12.9 L (14.0-18.0) g/dL Hct 40.8 L (42-52) % Plt Count 160 (130-400) K/uL BMP 11/11/21 07:13 Sodium 137 Potassium 4.1 Chloride 107 Carbon Dioxide 26 BUN 18 Creatinine 1.39 Glucose 75 Calcium 8.3 L (1) UTI (urinary tract infection) Hematuria presence: without hematuria Urinary tract infection type: acute cystitis Qualified Code(s): N30.00 - Acute cystitis without hematuria
[2021-11-11] MEDS: TAMSULOSIN HCL 0.4 MG CAP PO SCH (20:58)
[2021-11-11] MEDS: CETIRIZINE HCL 10 MG TABLET PO SCH (20:59)
[2021-11-11] MEDS: LIDOCAINE 5% 1 PATCH TD SCH (20:59)
[2021-11-12] MEDS: SODIUM CHLORIDE 1 GM TABLET PO SCH ×2 (07:40→13:56)
[2021-11-12] MEDS: CARBIDOPA/LEVODOPA 25/100MG TAB PO SCH ×2 (07:40→13:56)
[2021-11-12] MEDS: CYANOCOBALAMIN (B-12) 500 MCG TABLET PO SCH (07:40)
[2021-11-12] MEDS: APIXABAN 5 MG TABLET PO SCH (07:41)
[2021-11-12] MEDS: ACETAMINOPHEN 500 MG TAB PO SCH ×2 (07:41→11:46)
[2021-11-12] MEDS: predniSONE 20 MG TAB PO SCH (07:41)
[2021-11-12] MEDS: POTASSIUM CHLORIDE CRTAB 20 MEQ TABCR PO SCH (07:41)
[2021-11-12] MEDS: PANTOprazole 40 MG TAB PO SCH (07:41)
[2021-11-12] MEDS: CHOLECALCIFEROL 1,000 UNITS 25 MCG TAB PO SCH (07:41)
[2021-11-12] MEDS: COLESTIPOL HCL 1 GM TAB PO SCH (10:34)
[2021-11-12] MEDS: cefTRIAXone SODIUM 1,000 MG in DEXTROSE 5% 50 ML IV SCH (11:46)
--- NOTE | 2021-11-12 12:24 | Hospitalist Progress Note ---
Date of Service November 12, 2021 Assessment & Plan (1) Severe sepsis: (2) UTI (urinary tract infection): (3) Hypophosphatemia: (4) Lumbar compression fracture: (5) Ambulatory dysfunction: (6) Parkinson disease: (7) CIDP (chronic inflammatory demyelinating polyneuropathy): (8) SIADH (syndrome of inappropriate ADH production): (9) A-fib: (10) CKD (chronic kidney disease) stage 3, GFR 30-59 ml/min: Plan: Patient is a 76 yr male with H/O chronic atrial fibrillation anticoagulated with Eliquis, SIADH and chronic hyponatremia on fluid restriction and sodium chloride tablets, 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 Severe sepsis Complicated Urinary tract infection E.Coli septicemia lactic acid and procalcitonin WNL. Blood/Urine cultures growing E.Coli Repeat blood cultures negative to date Continue IV Zosyn>> transition to ceftriaxone BP usually run on the lower side as per family Plan to transition to oral antibiotics to complete the course Discharge to rehab facility today. Hypophosphatemia Replace and monitor Ambulatory dysfunction Lumbar compression fracture L1-L4 Patient was seen and evaluated by [facility] orthoped[facility] 10/25 He was prescribed LSO brace Pain control, Lidoderm patch PT/OT: Acute Rehab CIDP On chronic prednisone 40mg daily Also on Bactrim 3x/wk due to immunosuppression Parkinson Disease Continue sinemet PT/OT SIADH Hyponatremia On sodium chloride tablets Also on fluid restriction Na is 137 Monitor sodium levels Chronic atrial fibrillation Anticoagulated on Eliquis Currently not on rate controlling agent DVT px: Eliquis Code Status: DNR/DNI Disposition Rehab today Admission and Anticipated Discharge Date Admission Date: November 07, 2021 Subjective Patient is seen and examined at bedside Offers no complaints Planned to be discharged to rehab facility today Denies any chest pain, shortness of breath, dizziness, nausea Review of Systems Review of Systems: All systems reviewed & are unremarkable except as noted in Subjective Physical Exam Physical Exam: Physical Exam: Vitals signs as noted above General Appearance:Moderately built and nourished, no apparent distress, Elderly Head: normocephalic, Atraumatic Eyes: normal inspection, EOMI Neck: supple, Trachea midline Respiratory/Chest: Normal breath sounds, CTA, No accessory muscle use Cardiovascular: Irregularly irregular, No murmur Abdomen/GI:Soft, Non tender, Bowel sounds present Extremities/Musculoskeletal:normal inspection, no edema Neurologic/Psych:AAOX3, grossly no focal neurological deficits Skin: normal color, warm Results & Data Results & Data ([facility]) Vital Signs (Past 12 Hours) Vital Signs Temp Pulse Pulse Resp BP Pulse Ox 11/12/21 11:39 36.9 C 74 16 146/80 H 96 11/12/21 05:40 36.9 C 72 16 146/80 H 96 11/12/21 00:46 37.1 C 74 18 124/83 99 (1) UTI (urinary tract infection) Hematuria presence: without hematuria Urinary tract infection type: acute cystitis Qualified Code(s): N30.00 - Acute cystitis without hematuria
--- NOTE | 2021-11-12 12:35 | Discharge Summary ---
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 Patient's is at bedside. She states he initially got out of bed at approximately 4 AM to go to the bathroom. He generally felt weak and had difficulty ambulating to the bathroom. He went back to bed at 6:00 this morning when he tried to get back up he was unable to get out of bed due to weakness. He also complained of lower back pain and being chilled. He denied any documented fevers, sweats, lightheadedness, dizziness, syncope, fall, chest pain, shortness of breath, palpitations, hemoptysis, cough, emesis, abdominal pain, dysuria, increased urgency or frequency with urination, hematuria, melena or hematochezia. Patient's feels like he has increased urinary frequency, but this is unchanged. At baseline patient does ambulate with a walker due to chronic ambulatory dysfunction in setting of CIDP. He denies any recent falls. He was recently seen and evaluated by orthopedics due to back pain. He was found to have acute lumbar compression fractures and was prescribed a brace. He feels his back pain today is similar to that of his back pain with his fractures, "but more severe." He denies any radicular symptoms including numbness or tingling to bilateral lower extremities, saddle anesthesia or incontinence of bowel or bladder. Patient arrived to ED hypotensive, tachycardic and febrile. His lab work consistent of H&H 13.5 and 41.9, WBC 10.28, sodium 130, BUN 30, creatinine 1.31, Phos 2.2, LFTs WNL, pro-Travis 0.40. Urinalysis concerning for infection. He received 2.5 L of IV fluid while in ED as well as IV cefepime. Admission Exam Per Admitting Provider Physical Exam Physical Exam: Constitutional: WD/WN, vitals as above, NAD, sitting up in bed, pleasant, conversing easily Head: Normocephalic, Atraumatic Eyes: PERRL, conjunctivae normal, anicteric sclerae ENMT: external ear and nose normal, oropharynx normal Neck: trachea midline, no thyromegaly normal visual inspection Respiratory: normal respiratory effort, lungs clear to auscultation, no wheeze, rales, rhonchi. Normal insp/exp effort, no accessory muscle use Cardiovascular: Regular rate, irregular rhythm, no murmur, no edema Vessels: no JVD or carotid bruit Chest: normal inspection of chest Abdomen: normal bowel sounds, soft, nontender, no hepatosplenomegaly Musculoskeletal: no cyanosis or clubbing, Skin: no rashes, warm and dry normal turgor Neurologic: PERRL, EOMI, accommodation nl, no face palsy, no dysarthria CN's II-XI intact bilaterally and moves all extremities Psychiatric: A+Ox3, euthymic affect : deferred Principal Diagnosis Severe sepsis Complicated Urinary tract infection E.Coli septicemia Lumbar compression fracture L1-L4 Ambulatory dysfunction Parkinson Disease SIADH chronic inflammatory demyelinating polyneuropathy Discharge Data Allergies Allergy/AdvReac Type Severity Reaction Status Date / Time lovastatin [From Mevacor] Allergy Unknown Muscle Pain Verified 11/07/21 14:48 shellfish derived Allergy Unknown Vomiting Verified 11/07/21 14:48 acetaminophen [From Percocet] AdvReac Gastrointestinal Verified 11/07/21 14:48 Upset oxycodone [From Percocet] AdvReac Gastrointestinal Verified 11/07/21 14:48 Upset Consultations 11/07/21 13:50 ED Decision to Admit Stat Ordered Studies 11/07/21 11:05 CT abd pelvis IV con only Stat 11/09/21 09:20 US gallbladder Routine Hospital Course (1) Severe sepsis: (2) UTI (urinary tract infection): (3) Hypophosphatemia: (4) Lumbar compression fracture: (5) Ambulatory dysfunction: (6) Parkinson disease: (7) CIDP (chronic inflammatory demyelinating polyneuropathy): (8) SIADH (syndrome of inappropriate ADH production): (9) A-fib: (10) CKD (chronic kidney disease) stage 3, GFR 30-59 ml/min: Patient is a 76 yr male with H/O chronic atrial fibrillation antico agulated with Eliquis, SIADH and chronic hyponatremia on fluid restriction and sodium chloride tablets, 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 Severe sepsis Complicated Urinary tract infection E.Coli septicemia lactic acid and procalcitonin WNL. Blood/Urine cultures growing E.Coli Repeat blood cultures negative to date Continue IV Zosyn>> transition to ceftriaxone BP usually run on the lower side as per family Plan to transition to oral antibiotics to complete the course Discharge to rehab facility today. Hypophosphatemia Replace and monitor Ambulatory dysfunction Lumbar compression fracture L1-L4 Patient was seen and evaluated by [facility] orthopedics 10/25 He was prescribed LSO brace Pain control, Lidoderm patch PT/OT: Acute Rehab CIDP On chronic prednisone 40mg daily Also on Bactrim 3x/wk due to immunosuppression Parkinson Disease Continue sinemet PT/OT SIADH Hyponatremia On sodium chloride tablets Also on fluid restriction Na is 137 Monitor sodium levels Chronic atrial fibrillation Anticoagulated on Eliquis Currently not on rate controlling agent DVT px: Eliquis Code Status: DNR/DNI Disposition Rehab today Total Time Total Time Spent Total Time Spent (In Minutes): 46 minutes Discharge Plan Discharge Items Patient Disposition: Transfer Inpatient Rehab Fac Reason For Visit: UROSEPSIS Discharge Diagnosis: Severe sepsis Complicated Urinary tract infection E.Coli septicemia Lumbar compression fracture L1-L4 Ambulatory dysfunction Parkinson Disease SIADH chronic inflammatory demyelinating polyneuropathy Activity: Per Instructions section Exercise/Sports: Gradually increase as tolerated Non-emergency contact: Primary Care Provider Call non-emergency contact if: you have any medication questions, your symptoms worsen, your pain is concerning for you and you have a fever Follow-up/Referrals: Wilmer Al MD [Primary Care Provider] - Diet: Heart Healthy Fluids: 1500ml (6 cups) Addtl Attending Provider Instructions: Follow-up with your primary care physician Dr. Al in 1 week upon discharge from rehab facility --- Complete antibiotic course cefdinir 300 mg twice a day for 7 more days. Seek immediate medical attention if your symptoms reoccur or worsen Please take all medications as instructed on discharge list below. Please call if you have any questions or problems. You can reach a [facility] hospitalist on duty at [facility] 24 hours a day by calling [phone] Pending Studies at Discharge: Yes Studies:: Repeat Blood cultures from 11/08/2021 Stand-Alone Forms: My [facility] Skilled Items Patient informed of condition?: Yes DNR: Yes Discharge Level of Care: Acute rehab Communicable Disease: No Discharge Prognosis: Stable Lines: None Urinary Catheter: No Medications and DC Order Prescriptions: New cefdinir 300 mg capsule 300 mg PO BID Qty: 14 RF: 0 lidocaine 5 % Adhesive Patch,Medicated 1 patch transdermal HS Qty: 0 RF: 0 Continued Eliquis 5 mg Tablet 5 mg PO BID RF: 0 cyanocobalamin (vitamin B-12) 1,000 mcg Tablet 1,000 mcg PO QAM RF: 0 fluticasone propionate [Flonase Allergy Relief] 50 mcg/actuation [place],Suspension 2 spray INTRANASAL DAILY PRN (Reason: Congestion) RF: 0 acetaminophen 500 mg Capsule 1,000 mg PO Q6H PRN (Reason: Pain) RF: 0 dicyclomine 10 mg Capsule 10 mg PO TID RF: 0 loperamide 2 mg Capsule 2 mg PO QID PRN (Reason: Diarrhea) Qty: 30 RF: 0 colestipol 1 gram tablet 1 g PO BID RF: 0 cetirizine 10 mg Capsule 10 mg PO PM RF: 0 omeprazole 20 mg Capsule,Delayed Release(Dr/Ec) 20 mg PO QAM RF: 0 sulfamethoxazole-trimethoprim 800-160 mg tablet 1 tab PO MOWEFR RF: 0 potassium chloride [Klor-Con M20] 20 mEq tablet,ER particles/crystals 20 meq PO BID RF: 0 prednisone 20 mg tablet 40 mg PO DAILY RF: 0 cholecalciferol (vitamin D3) [Vitamin D3] 25 mcg (1,000 unit) Tablet 25 mcg PO DAILY RF: 0 carbidopa-levodopa 25-100 mg tablet 1 tab PO TID RF: 0 tamsulosin 0.4 mg capsule 0.4 mg PO DAILY RF: 0 sodium chloride 1 gram Tablet 1 g PO TID Qty: 30 RF: 0 Discharge Orders: Discharge Order (Routine); Ordered 11/12/21 Ordered By: Harvey Paz Admission Data Admit Date/Time: 11/07/21 14:35 Attending Provider: Harvey Paz Admit Provider: Rashmi Gutierres Primary Care Provider: Wilmer Al Other Providers: [facility] ; Rashmi Gutierres Other Interventions: Discharge Summary Assessment (RN) Last Done: 11/12/21 11:39
== END 2021-11-12 14:19 | DRG 872 ==
LOC: ED 09:57 → SUATTDRO 14:35 → 2S 14:35 → 3W 11-11 20:26
DX: G61.81 Chronic inflammatory demyelinating polyneuritis; A41.51 Sepsis due to Escherichia coli [E. coli]; Z79.52 Long term (current) use of systemic steroids; M48.56XD Collapsed vertebra, not elsewhere classified, lumbar region, subsequent encounter for fracture with routine healing; Z79.01 Long term (current) use of anticoagulants; N40.0 Benign prostatic hyperplasia without lower urinary tract symptoms; E22.2 Syndrome of inappropriate secretion of antidiuretic hormone; N18.30 Chronic kidney disease, stage 3 unspecified; R65.20 Severe sepsis without septic shock; D68.4 Acquired coagulation factor deficiency; I48.20 Chronic atrial fibrillation, unspecified; G20 Parkinson's disease; N39.0 Urinary tract infection, site not specified; Z66 Do not resuscitate; E83.39 Other disorders of phosphorus metabolism; I27.20 Pulmonary hypertension, unspecified

== ENCOUNTER 2021-11-27 18:12 | Inpatient (IN) ==
[2021-11-27] MEDS ORDERED: SODIUM CHLORIDE 0.9% 500 ML IV SCH (18:30)
--- NOTE | 2021-11-27 18:42 | Emergency Department Note ---
Impression & Plan Weakness, Acute hyponatremia ED Provider Note NAME: JOSELUIS NO AGE: 76 SEX: M : 1945 ARRIVES VIA: Ambulance INFORMANT: Patient, ED PROVIDER(S): Ceasar Siegel DO CHIEF COMPLAINT: Weakness HPI: The patient is a 76-year-old male who presented to emergency department for an evaluation of weakness. The patient states that he has had similar episodes in the past. He has a history of Parkinson's. He was seen in our facility earlier this month with similar issues. He went to stand up from the table and could not get out of the chair. His tried to help him. After multiple attempts at trying to stand he had to call 911. He was not found to be febrile or hypoxic. He denies having any pain anywhere. He denies having any headache nausea or vomiting. He has had no recent fever or trauma. He has had no c hanges to his medications since his discharge from our facility. The patient states he feels somewhat improved at this time but still has a generalized weakness. He denies having any slurred speech or unilateral weakness. ROS: See above HPI for pertinent positives & negatives. A total of 10 systems reviewed and were otherwise negative. PAST MEDICAL HISTORY: See Below PAST SURGICAL HISTORY: See Below FAMILY HISTORY: See Below SOCIAL HISTORY: See Below HOME MEDICATIONS: See Below ALLERGIES: See Below VITALS: See Below PHYSICAL EXAMINATION: GENERAL: Patient is awake alert in no acute distress patient is resting comfortably and showing no signs of anxiety EYES: The conjunctivae are clear. The pupils are round and reactive. EARS, NOSE, MOUTH AND THROAT: The nose is without any evidence of any deformity. NECK: The neck is nontender and supple. RESPIRATORY: Normal respiratory effort is noted there is no evidence of wheezing rhonchi or rales CARDIOVASCULAR: Regular rate and rhythm noted there no murmurs rubs or gallops normal S1 normal S2. GASTROINTESTINAL: The abdomen is soft. Abdomen is nontender. MUSCULOSKELETAL/EXTREMITIES: There is no evidence of gross deformity full range of motion is noted in the hips and shoulders. SKIN: No significant pedal edema was noted. There were braces on both lower extremities. NEUROLOGIC: Patient is awake alert and oriented x3. Strength was symmetric but diminished bilaterally. Speech is clear. MEDICAL DECISION MAKING: The patient is a 76-year-old male who presented to emergency department by ambulance for generalized weakness. The patient has a history of Parkinson's. He was seen in our facility for previous symptoms in the past. I discussed patient's laboratory and radiographic studies with him. He was treated with IV fluids in the emergency department. He was reevaluated multiple times. [facility] They have agreed to evaluate the patient in the emergency department for further management and disposition. I discussed patient's condition with his significant other as well. She is very concerned because the patient's weakness appears to be worsening ever since his discharge. Triage Nursing notes reviewed. Prior medical records reviewed Vital Signs: reviewed and remarkable for elevated blood pressure. Differential diagnosis: Infection, dehydration, metabolic abnormality, hypo/hyperglycemia, electrolyte disturbance, anemia, hypoxia, cardiac sources, intracerebral event, toxicologic, neurologic, as well as other pathologies. ER treatment provided: See below Diagnostics interpreted by me: ECG: EKG was obtained in the emergency department. My interpretation is atrial fibrillation at 81 bpm. Peak T waves were noted in the anterior leads. There is no acute ST segment abnormalities noted. This was compared to a tracing from November 072021. No changes were noted. Cardiac Monitoring: An order was placed for continuous cardiac monitoring. The monitor shows a rate of 83 bpm with atrial fibrillation rhythm. Laboratory studies: As stated above and show below. Imaging studies: See below Consultation(s): I discussed this case with Dr. Woodruff who is on-call for the [facility] group. They have agreed to evaluate the patient in the emergency department for further management and disposition. Past Med/Surg History Medical History A-fib on Eliquis CKD (chronic kidney disease) stage 3, GFR 30-59 ml/min GERD (gastroesophageal reflux disease) Parkinson disease "mild"- following with Dr. Rizzo/ERICK pruitt Surgical History History of colonoscopy 11/2017 scattered diverticulosis History of esophagogastroduodenoscopy (EGD) 11/2017 Priscila pruitt, esophagitis History of eye surgery CATARACT LEFT History of hernia repair Family History Father Colon cancer Mother , age 48, of influenza pneumonia Pneumonia Sister Rheumatoid arthritis Social History Smoking Status: Former smoker Second Hand Exposure: No; Hx Alcohol Use: Yes Alcohol type: beer, wine and hard liquor Alcohol Intake Frequency Comment: 1 glass of wine or beer a day Hx Substance Use: No Preferred Language: Kenyan Communication Ability: Effective Visual Impairment: No Limitations Hearing Ability: Normal 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 Beliefs That Will Affect Care: None marital status: Current Living Situation: Spouse Current Living Situation Comment: at home Feels Safe at Home: Yes Assistive Devices: Brace/Splint/Immobilizer, Glasses and Walker Allergies Allergies Allergy/AdvReac Type Severity Reaction Status Date / Time lovastatin [From Mevacor] Allergy Unknown Muscle Pain Verified 11/07/21 14:48 shellfish derived Allergy Unknown Vomiting Verified 11/07/21 14:48 acetaminophen [From Percocet] AdvReac Gastrointestinal Verified 11/07/21 14:48 Upset oxycodone [From Percocet] AdvReac Gastrointestinal Verified 11/07/21 14:48 Upset Home Meds Home Medications Medication Instructions Recorded Confirmed omeprazole 20 mg capsule,delayed 20 mg PO QAM 09/12/18 11/07/21 release acetaminophen 500 mg capsule 1,000 mg PO Q6H PRN 05/12/20 11/07/21 apixaban 5 mg tablet (Eliquis) 5 mg PO BID 05/12/20 11/07/21 cyanocobalamin (vitamin B-12) 1,000 mcg PO QAM 05/12/20 11/07/21 1,000 mcg tablet dicyclomine 10 mg capsule 10 mg PO TID 05/12/20 11/07/21 fluticasone propionate 50 2 spray INTRANASAL DAILY PRN 05/12/20 11/07/21 mcg/actuation nasal spray,suspension (Flonase Allergy Relief) cetirizine 10 mg capsule 10 mg PO PM 10/14/20 11/07/21 colestipol 1 gram tablet 1 g PO BID 10/14/20 11/07/21 carbidopa 25 mg-levodopa 100 mg 1 tab PO TID 12/29/20 11/07/21 tablet tamsulosin 0.4 mg capsule 0.4 mg PO DAILY 12/29/20 11/07/21 cholecalciferol (vitamin D3) 25 25 mcg PO DAILY 11/07/21 11/07/21 mcg (1,000 unit) tablet (Vitamin D3) potassium chloride 20 mEq 20 meq PO BID 11/07/21 11/07/21 tablet,extended release(part/cryst) (Klor-Con M) prednisone 20 mg tablet 40 mg PO DAILY 11/07/21 11/07/21 sulfamethoxazole 800 1 tab PO MOWEFR 11/07/21 11/07/21 mg-trimethoprim 160 mg tablet Previous Rx's Medication Instructions Recorded loperamide 2 mg capsule 2 mg PO QID PRN #30 cap 05/22/20 sodium chloride 1 gram tablet 1 g PO TID #30 tab 01/08/21 cefdinir 300 mg capsule 300 mg PO BID #14 cap 11/12/21 lidocaine 5 % topical patch 1 patch TRANSDERMAL HS #0 ea 11/12/21 Results & Data (ED) Vital Signs Vital Signs - 24 hr 11/27/21 18:19 11/27/21 18:30 11/27/21 19:02 Temperature 36.5 C Temperature Source Oral Pulse Rate 90 84 83 Pulse Rate from SpO2 Sensor 88 82 Pulse Rhythm Regular Pulse Strength Normal Respiratory Rate 17 21 15 Respiratory Effort / Characteristics Non-Labored Respiratory Depth Normal Blood Pressure 145/96 H 137/88 158/92 H Blood Pressure Mean 112 104 114 Pulse Oximetry 100 99 Oxygen Delivery Method Room Air Sepsis Recent Fever Within 48 Hours No Sepsis New/Unexplained Change in Mental Status N/A Sepsis Action Taken by Nursing No Action Required Home Medications Current Medication List: was personally reviewed by me Laboratory Data Attestation: I reviewed the patient's lab results. Result diagrams: 11/27/21 18:38 11/27/21 18:38 Lab Results 11/27/21 11/27/21 11/27/21 Range/Units 18:38 18:38 18:38 WBC 7.39 (4.8-10.8) K/uL RBC 4.08 L (4.7-6.1) M/uL Hgb 12.7 L (14.0-18.0) g/dL Hct 38.5 L (42-52) % MCV 94.4 (80-100) fL MCH 31.1 (25-34) pg MCHC 33.0 (32-36) g/dL RDW Std Deviation 57.7 H (36.4-46.3) fL RDW Coeff of [place] 16.6 H (11.5-14.5) % Plt Count 208 (130-400) K/uL MPV 9.0 (7.4-10.4) fL Immature Gran % (Auto) 1.4 % Neut % (Auto) 88.2 % Lymph % (Auto) 5.1 % Bay % (Auto) 5.3 % Eos % (Auto) 0.0 % Baso % (Auto) 0.0 % Neut # (Auto) 6.52 H (1.4-6.5) K/uL Lymph # (Auto) 0.38 L (1.2-3.4) K/uL Bay # (Auto) 0.39 (0.11-0.59) K/uL Eos # (Auto) 0.00 (0-0.5) K/uL Baso # (Auto) 0.00 (0-0.2) K/uL Immature Gran # (Auto) 0.10 H (0.00-0.02) K/uL Ovalocytes 1+ Acanthocytes (Spur) 1+ PT 10.2 (9.0-12.0) Seconds INR 1.0 (0.9-1.1) APTT 29.7 (21.0-31.0) Seconds PTT Ratio 1.1 Sodium 130 L (136-145) mmol/L Potassium 4.6 (3.5-5.1) mmol/L Chloride 98 (98-107) mmol/L Carbon Dioxide 26 (21-32) mmol/L Anion Gap 6 (3-11) BUN 21 (6-23) mg/dl Creatinine 1.12 (0.6-1.4) mg/dl Est Cr Clr Drug Dosing 55.2 ml/min Est GFR ( Amer) 73.0 ml/min Est GFR (Non-Af Amer) 63.0 ml/min BUN/Creatinine Ratio 18.8 (10-20) Glucose 81 (70-99(Fasting)) mg/dl Calcium 7.7 L (8.5-10.1) mg/dl Magnesium 1.8 (1.7-2.4) mg/dl Total Bilirubin 0.9 (0.2-1.0) mg/dl AST 18 (13-39) U/L ALT 12 (7-52) U/L Alkaline Phosphatase 125 H (34-104) U/L Troponin I < 0.03 (0-0.04) ng/ml Total Protein 5.1 L (6.0-8.3) gm/dl Albumin 3.2 L (3.4-5.0) gm/dl Globulin 1.9 L (2.5-4.0) gm/dl Albumin/Globulin Ratio 1.7 (0.9-2) TSH (0.300-4.500) uIu/ml Urine Color Urine Appearance (Clear) Urine pH (4.5-7.5) Ur Specific [place] (1.000-1.030) Urine Protein (Negative) Urine Glucose (UA) (Negative) Urine Ketones (Negative) Urine Blood (Negative) Urine Nitrite (Negative) Urine Bilirubin (Negative) Urine Urobilinogen (Negative) Ur Leukocyte Esterase (Negative) Ur Random Sodium mmol/L 11/27/21 11/27/21 11/27/21 Range/Units 18:38 19:54 19:54 WBC (4.8-10.8) K/uL RBC (4.7-6.1) M/uL Hgb (14.0-18.0) g/dL Hct (42-52) % MCV (80-100) fL MCH (25-34) pg MCHC (32-36) g/dL RDW Std Deviation (36.4-46.3) fL RDW Coeff of [place] (11.5-14.5) % Plt Count (130-400) K/uL MPV (7.4-10.4) fL Immature Gran % (Auto) % Neut % (Auto) % Lymph % (Auto) % Bay % (Auto) % Eos % (Auto) % Baso % (Auto) % Neut # (Auto) (1.4-6.5) K/uL Lymph # (Auto) (1.2-3.4) K/uL Bay # (Auto) (0.11-0.59) K/uL Eos # (Auto) (0-0.5) K/uL Baso # (Auto) (0-0.2) K/uL Immature Gran # (Auto) (0.00-0.02) K/uL Ovalocytes Acanthocytes (Spur) PT (9.0-12.0) Seconds INR (0.9-1.1) APTT (21.0-31.0) Seconds PTT Ratio Sodium (136-145) mmol/L Potassium (3.5-5.1) mmol/L Chloride (98-107) mmol/L Carbon Dioxide (21-32) mmol/L Anion Gap (3-11) BUN (6-23) mg/dl Creatinine (0.6-1.4) mg/dl Est Cr Clr Drug Dosing ml/min Est GFR ( Amer) ml/min Est GFR (Non-Af Amer) ml/min BUN/Creatinine Ratio (10-20) Glucose (70-99(Fasting)) mg/dl Calcium (8.5-10.1) mg/dl Magnesium (1.7-2.4) mg/dl Total Bilirubin (0.2-1.0) mg/dl AST (13-39) U/L ALT (7-52) U/L Alkaline Phosphatase (34-104) U/L Troponin I (0-0.04) ng/ml Total Protein (6.0-8.3) gm/dl Albumin (3.4-5.0) gm/dl Globulin (2.5-4.0) gm/dl Albumin/Globulin Ratio (0.9-2) TSH 2.099 (0.300-4.500) uIu/ml Urine Color Yellow Urine Appearance Clear (Clear) Urine pH 5.0 (4.5-7.5) Ur Specific Edison 1.012 (1.000-1.030) Urine Protein Negative (Negative) Urine Glucose (UA) Negative (Negative) Urine Ketones Negative (Negative) Urine Blood Negative (Negative) Urine Nitrite Negative (Negative) Urine Bilirubin Negative (Negative) Urine Urobilinogen Negative (Negative) Ur Leukocyte Esterase Negative (Negative) Ur Random Sodium 68 mmol/L Administered Medications Magnesium Sulfate/Dextrose (Magnesium Sulfate / D5w) 1 gm in 100 mls @ 50 mls/hr IV ONE ONE Stop: 11/27/21 22:09 Last Admin: 11/27/21 20:15 Dose: 50 mls/hr Documented by: [id number] Discontinued Medications Sodium Chloride (Nss) 500 mls @ 999 mls/hr IV .Q31M [facility] Stop: 11/27/21 19:00 Last Infusion: 11/27/21 19:08 Dose: 0 mls/hr Documented by: [id number] Admin: 11/27/21 18:28 Dose: 999 mls/hr Documented by: [id number] Magnesium Sulfate/Dextrose (Magnesium Sulfate 1gm / D5w Bag) Confirm Administered Dose 1 gm IV .STK-MED ONE Stop: 11/27/21 19:59 Last Admin: 11/27/21 20:15 Dose: Not Given Documented by: [id number] Imaging Data Radiologist's Impression: Chest X-Ray 11/27/21 18:23 XR chest 1V portable CLINICAL HISTORY: weakness COMPARISON STUDY: Chest CT December 31, 2020. Chest radiograph November 07, 2021. FINDINGS: Exam is compromised given difficulty positioning. No pneumothorax or pleural effusion is noted. Patient is rotated. There is apparent right basilar opacity. Left lung is clear. There is no evidence for pulmonary edema. Several old right rib fractures are present. IMPRESSION: Apparent right basilar opacity. This may represent normal right hilar structures on this rotated exam however radiographic follow-up is recommended to exclude a focus of pneumonia. ACT 112: Negative or not required by law. Electronically signed by: Tk Vick M.D. 11/27/2021 7:[address] 11/27/21 18:[address] DOSE: 1425.10 mGy.cm HISTORY: weakness TECHNIQUE: Multiaxial CT images of the head were performed without the use of intravenous contrast. Automated exposure control was utilized for this study. A dose lowering technique was utilized adhering to the principles of ALARA. Comparison: Head CT 12/29/2020. Findings: There are a few partially opacified ethmoid air cells, unchanged. The mastoid air cells are clear. Multifocal lucencies within the occipital bone posteriorly remain unchanged and favor arachnoid granulations. The calvarium and skull base are intact. There is no mass, hematoma, midline shift, acute infarct. White matter hypodensity is nonspecific but suggestive of microvascular ischemic change. The ventricles and sulci demonstrate mild age-related involutional changes. Mild motion artifact. Impression: Mild motion artifact. No definite acute intracranial abnormality. ACT 112: Negative or not required by law. Electronically signed by: Yonatan Beebe M.D. 11/27/2021 7:05 PM Discharge Plan Visit Data Chief Complaint: Weakness ED Provider: Ceasar Siegel Discharge Problem: Weakness, Acute hyponatremia Patient Disposition: Being Evaluated by Hospitalist Forms Stand Alone Forms: My [facility] Prescriptions Prescriptions: No Action Eliquis 5 mg Tablet 5 mg PO BID RF: 0 cyanocobalamin (vitamin B-12) 1,000 mcg Tablet 1,000 mcg PO QAM RF: 0 fluticasone propionate [Flonase Allergy Relief] 50 mcg/actuation [place],Suspension 2 spray INTRANASAL DAILY PRN (Reason: Congestion) RF: 0 acetaminophen 500 mg Capsule 1,000 mg PO Q6H PRN (Reason: Pain) RF: 0 dicyclomine 10 mg Capsule 10 mg PO TID RF: 0 loperamide 2 mg Capsule 2 mg PO QID PRN (Reason: Diarrhea) Qty: 30 RF: 0 colestipol 1 gram tablet 1 g PO BID RF: 0 cetirizine 10 mg Capsule 10 mg PO PM RF: 0 omeprazole 20 mg Capsule,Delayed Release(Dr/Ec) 20 mg PO QAM RF: 0 sulfamethoxazole-trimethoprim 800-160 mg tablet 1 tab PO MOWEFR RF: 0 potassium chloride [Klor-Con M20] 20 mEq tablet,ER particles/crystals 20 meq PO BID RF: 0 prednisone 20 mg tablet 40 mg PO DAILY RF: 0 cholecalciferol (vitamin D3) [Vitamin D3] 25 mcg (1,000 unit) Tablet 25 mcg PO DAILY RF: 0 lidocaine 5 % Adhesive Patch,Medicated 1 patch transdermal HS Qty: 0 RF: 0 cefdinir 300 mg capsule 300 mg PO BID Qty: 14 RF: 0 carbidopa-levodopa 25-100 mg tablet 1 tab PO TID RF: 0 tamsulosin 0.4 mg capsule 0.4 mg PO DAILY RF: 0 sodium chloride 1 gram Tablet 1 g PO TID Qty: 30 RF: 0 Referrals Referrals: Wilmer Al MD [Primary Care Provider] -
[2021-11-27 18:46] LABS: Hematocrit (blood only) 38.5 % (42-52); Hemoglobin 12.7 g/dL (14.0-18.0); Immature Granulocytes % (auto) 1.4 %; Lymphocytes # (auto) 0.38 K/uL (1.2-3.4); Lymphocytes % (auto) 5.1 %; Mean Corpuscular Hemoglobin 31.1 pg (25-34); Mean Corpuscular Volume 94.4 fL (80-100); Monocytes # (auto) 0.39 K/uL (0.11-0.59); Monocytes % (auto) 5.3 %; Neutrophils # (auto) 6.52 K/uL (1.4-6.5); Neutrophils % (auto) 88.2 %; Platelet Count 208 K/uL (130-400); RDW Coefficient of Variation 16.6 % (11.5-14.5); RDW Standard Deviation 57.7 fL (36.4-46.3); Red Blood Count 4.08 M/uL (4.7-6.1); White Blood Count 7.39 K/uL (4.8-10.8)
[2021-11-27 18:56] LABS: Partial Thromboplastin Ratio 1.1; Partial Thromboplastin Time 29.7 Seconds (21.0-31.0); Prothrombin Time 10.2 Seconds (9.0-12.0)
--- NOTE | 2021-11-27 19:04 | XRay Report ---
XR chest 1V portable CLINICAL HISTORY: weakness COMPARISON STUDY: Chest CT December 31, 2020. Chest radiograph November 07, 2021. FINDINGS: Exam is compromised given difficulty positioning. No pneumothorax or pleural effusion is no levi. Patient is rotated. There is apparent right basilar opacity. Left lung is clear. There is no vangie dence for pulmonary edema. Several old right rib fractures are present. IMPRESSION: Apparent right basilar opacity. This may represent normal right hilar structures on this rotated exam however radiographic follow-up is recommended to exclude a focus of pneumonia. ACT 112: Negative or not required by law. Electronically signed by: Tk Vick M.D. 11/27/2021 7:03 PM
--- NOTE | 2021-11-27 19:06 | CT Scan Report ---
HEAD CT NONCONTRAST CT DOSE: 1425.10 mGy.cm HISTORY: weakness TECHNIQUE: Multiaxial CT images of the head were performed without the use of intravenous contrast. A utomated exposure control was utilized for this study. A dose lowering technique was utilized adheri ng to the principles of ALARA. Comparison: Head CT 12/29/2020. Findings: There are a few partially opacified ethmoid air cells, unchanged. The mastoid air cells are clear. Multifocal lucencies within the occipital bone posteriorly remain unchanged and favor arachno id granulations. The calvarium and skull base are intact. There is no mass, hematoma, midline shift, acute infarct. White matter hypodensity is nonspecific but suggestive of microvascular ischemic britt e. The ventricles and sulci demonstrate mild age-related involutional changes. Mild motion artifact. Impression: Mild motion artifact. No definite acute intracranial abnormality. ACT 112: Negative or not required by law. Electronically signed by: Yonatan Beebe M.D. 11/27/2021 7:05 PM
[2021-11-27 19:07] LABS: Acanthocytes 1+; Ovalocytes 1+
[2021-11-27 19:08] LABS: Alanine Aminotransferase 12 U/L (7-52); Albumin Globulin Ratio 1.7 (0.9-2); Albumin Level 3.2 gm/dl (3.4-5.0); Alkaline Phosphatase 125 U/L (34-104); Anion Gap 6 (3-11); Aspartate Aminotransferase 18 U/L (13-39); BUN Creatinine Ratio 18.8 (10-20); Bilirubin,Total 0.9 mg/dl (0.2-1.0); Blood Urea Nitrogen 21 mg/dl (6-23); Calcium 7.7 mg/dl (8.5-10.1); Carbon Dioxide 26 mmol/L (21-32); Chloride 98 mmol/L (98-107); Creatinine Clr Calc Pharmacy 55.2 ml/min; Globulin 1.9 gm/dl (2.5-4.0); Glucose 81 mg/dl (70-99(Fasting)); Magnesium 1.8 mg/dl (1.7-2.4); Potassium 4.6 mmol/L (3.5-5.1); Sodium 130 mmol/L (136-145); Total Protein 5.1 gm/dl (6.0-8.3)
[2021-11-27 19:09] LABS: Troponin I < 0.03 ng/ml (0-0.04)
[2021-11-27] MEDS ORDERED: MAGNESIUM SULFATE 1GM / D5W BAG IV ONE (19:58)
[2021-11-27 20:05] LABS: Appearance Urine Clear (Clear); Bilirubin Urine Negative (Negative); Blood Urine Negative (Negative); Color Urine Yellow; Glucose Urine UA Negative (Negative); Ketones Urine Negative (Negative); Leukocyte Esterase Urine Negative (Negative); Nitrite Urine Negative (Negative); Protein Urine Negative (Negative); Specific Gravity Urine 1.012 (1.000-1.030); Urobilinogen Urine Negative (Negative)
[2021-11-27] MEDS ORDERED: MAGNESIUM SULFATE / D5W 1 GM/100 ML BAG IV ONE (20:10)
--- NOTE | 2021-11-27 20:46 | History & Physical Report ---
Date of Service November 27, 2021 Assessment & Plan (1) Generalized weakness: Plan: ? 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 Continue fluid restriction, may need nephrology consultation PT OT eval DVT prophylaxis. Eliquis Full code Patient requests for his to be given periodic updates on care. Ms. Block Hector, contact #[phone]. Text document was generated using [employer] voice recognition software. It may contain grammatical or spelling errors. Kindly contact undersigned for clarification of any documentation item in question. History of Present Illness Chief Complaint: Weakness all over Primary Care Provider: Wilmer lA MD History obtained from patient and records. Medical history significant for chronic diastolic heart failure (EF 60%, TTE 2020), A. 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 Last confinement 3 weeks ago for severe sepsis secondary to E. coli UTI. Patient discharged to rehab on cefdinir course. Patient discharged home last week. Patient had a fall at home after losing balance a few days ago. Since being home, patient noted double vision, finger numbness, inability to walk, grabbing at things that are not there, and fatigue. Involuntary jerking during sleep as per documentation. Patient worried about possible CIDP exacerbation. Patient neurologist recommended office evaluation next week. IVIG treatment possibly to be restarted as per note. Patient noted worsening generalized weakness today. Patient unable to get out of the chair to stand up. No chest pain, no S OB, no headache. Appetite okay as per patient. Following 1.5 L daily fluid restriction for SIADH. 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 Allergies Allergy/AdvReac Type Severity Reaction Status Date / Time lovastatin [From Mevacor] Allergy Unknown Muscle Pain Verified 11/27/21 20:36 shellfish derived Allergy Unknown Vomiting Verified 11/27/21 20:36 acetaminophen [From Percocet] AdvReac Gastrointestinal Verified 11/27/21 20:36 Upset oxycodone [From Percocet] AdvReac Gastrointestinal Verified 11/27/21 20:36 Upset tramadol [From Ultram] AdvReac Unverified 11/27/21 20:51 states that this makes him seem "Out of it" Home Medications Medication Instructions Recorded Confirmed Type omeprazole 20 mg capsule,delayed 20 mg PO QAM 09/12/18 11/27/21 History release acetaminophen 500 mg capsule 1,000 mg PO Q6H PRN 05/12/20 11/27/21 History apixaban 5 mg tablet (Eliquis) 5 mg PO BID 05/12/20 11/27/21 History cyanocobalamin (vitamin B-12) 1,000 mcg PO QAM 05/12/20 11/27/21 History 1,000 mcg tablet dicyclomine 10 mg capsule 10 mg PO TID 05/12/20 11/27/21 History fluticasone propionate 50 2 spray INTRANASAL DAILY PRN 05/12/20 11/27/21 History mcg/actuation nasal spray,suspension (Flonase Allergy Relief) loperamide 2 mg capsule 2 mg PO QID PRN #30 cap 05/22/20 11/27/21 Rx cetirizine 10 mg capsule 10 mg PO PM 10/14/20 11/27/21 History colestipol 1 gram tablet 1 g PO BID 10/14/20 11/27/21 History carbidopa 25 mg-levodopa 100 mg 1 tab PO TID 12/29/20 11/27/21 History tablet tamsulosin 0.4 mg capsule 0.4 mg PO HS 12/29/20 11/27/21 History sodium chloride 1 gram tablet 1 g PO TID #30 tab 01/08/21 11/27/21 Rx cholecalciferol (vitamin D3) 25 25 mcg PO QAM 11/07/21 11/27/21 History mcg (1,000 unit) tablet (Vitamin D3) potassium chloride 20 mEq 20 meq PO BID 11/07/21 11/27/21 History tablet,extended release(part/cryst) (Klor-Con M) prednisone 20 mg tablet 40 mg PO QAM 11/07/21 11/27/21 History sulfamethoxazole 800 1 tab PO MOWEFR 11/07/21 11/27/21 History mg-trimethoprim 160 mg tablet lidocaine 5 % topical patch 1 patch TRANSDERMAL HS #0 ea 11/12/21 11/27/21 Rx Past Med/Surg History Medical History A-fib on Eliquis CKD (chronic kidney disease) stage 3, GFR 30-59 ml/min GERD (gastroesophageal reflux disease) Parkinson disease "mild"- following with Dr. Rizzo/ERICK Francois's ring Surgical History History of colonoscopy 11/2017 scattered diverticulosis History of esophagogastroduodenoscopy (EGD) 11/2017 Priscila ring, esophagitis History of eye surgery CATARACT LEFT History of hernia repair Family History Father Colon cancer Mother , age 48, of influenza pneumonia Pneumonia Sister Rheumatoid arthritis Social History Smoking Status: Never smoker Second Hand Exposure: No; Do You Dip or Chew Tobacco: No; Tobacco Cessation Education Requested by Patient: No Hx Alcohol Use: No Hx Substance Use: No Preferred Language: [place] Communication Ability: Effective Visual Impairment: No Limitations Hearing Ability: Normal Utility Specialist Required: No Beliefs That Will Affect Care: None marital status: Current Living Situation: Spouse Current Living Situation Comment: at home Other Information That Helps Us Care for You: No Feels Safe at Home: Yes Safety Concerns: Feels Safe At This Time Assistive Devices: Glasses Review of Systems Review of Systems: As per HPI, all 10 systems reviewed, all other ROS negative Physical Exam Physical Exam: GENERAL: Comfortable, pleasant, dysarthric (? chronic ), no respiratory distress SKIN: Pallor , warm HEENT: Alopecia, pale palpebral conjunctivae, no ptosis, lower lip asymmetry, buccal mucosa NECK : Supple, no tenderness CHEST : Decreased breath sounds, no tenderness HEART : Irregular, no obvious murmurs ABDOMEN: no distention, nontender EXTREMITIES : Minimal LE swelling/tenderness, no other conspicuous deformities noted NEUROLOGIC : Coherent, lower lip symmetry, mild dysarthria, MMTS BUE 4/5, BLE 3/5, intention tremors, gait and stance not assessed Results & Data Results & Data ([facility]) Vital Signs (Past 12 Hours) Vital Signs Temp Pulse Resp BP Pulse Ox 11/27/21 19:02 83 15 158/92 H 11/27/21 18:30 84 21 137/88 99 11/27/21 18:19 36.5 C 90 17 145/96 H 100 Laboratory Results Laboratory Results WBC 7.39 K/uL (4.8-10.8) 11/27/21 18:38 RBC 4.08 M/uL (4.7-6.1) L 11/27/21 18:38 Hgb 12.7 g/dL (14.0-18.0) L 11/27/21 18:38 Hct 38.5 % (42-52) L 11/27/21 18:38 MCV 94.4 fL (80-100) 11/27/21 18:38 MCH 31.1 pg (25-34) 11/27/21 18:38 MCHC 33.0 g/dL (32-36) 11/27/21 18:38 RDW Std Deviation 57.7 fL (36.4-46.3) H 11/27/21 18:38 RDW Coeff of [place] 16.6 % (11.5-14.5) H 11/27/21 18:38 Plt Count 208 K/uL (130-400) 11/27/21 18:38 MPV 9.0 fL (7.4-10.4) 11/27/21 18:38 Immature Gran % (Auto) 1.4 % 11/27/21 18:38 Neut % (Auto) 88.2 % 11/27/21 18:38 Lymph % (Auto) 5.1 % 11/27/21 18:38 [place] % (Auto) 5.3 % 11/27/21 18:38 Eos % (Auto) 0.0 % 11/27/21 18:38 Baso % (Auto) 0.0 % 11/27/21 18:38 Neut # (Auto) 6.52 K/uL (1.4-6.5) H 11/27/21 18:38 Lymph # (Auto) 0.38 K/uL (1.2-3.4) L 11/27/21 18:38 [place] # (Auto) 0.39 K/uL (0.11-0.59) 11/27/21 18:38 Eos # (Auto) 0.00 K/uL (0-0.5) 11/27/21 18:38 Baso # (Auto) 0.00 K/uL (0-0.2) 11/27/21 18:38 Immature Gran # (Auto) 0.10 K/uL (0.00-0.02) H 11/27/21 18:38 Ovalocytes 1+ 11/27/21 18:38 Acanthocytes (Spur) 1+ 11/27/21 18:38 PT 10.2 Seconds (9.0-12.0) 11/27/21 18:38 INR 1.0 (0.9-1.1) 11/27/21 18:38 APTT 29.7 Seconds (21.0-31.0) 11/27/21 18:38 PTT Ratio 1.1 11/27/21 18:38 Sodium 130 mmol/L (136-145) L 11/27/21 18:38 Potassium 4.6 mmol/L (3.5-5.1) 11/27/21 18:38 Chloride 98 mmol/L (98-107) 11/27/21 18:38 Carbon Dioxide 26 mmol/L (21-32) 11/27/21 18:38 Anion Gap 6 (3-11) 11/27/21 18:38 BUN 21 mg/dl (6-23) 11/27/21 18:38 Creatinine 1.12 mg/dl (0.6-1.4) 11/27/21 18:38 Est Cr Clr Drug Dosing 55.2 ml/min 11/27/21 18:38 Est GFR ( Amer) 73.0 ml/min 11/27/21 18:38 Est GFR (Non-Af Amer) 63.0 ml/min 11/27/21 18:38 BUN/Creatinine Ratio 18.8 (10-20) 11/27/21 18:38 Glucose 81 mg/dl (70-99(Fasting)) 11/27/21 18:38 Osmolality 273 mOsm/kg (280-300) L 11/27/21 20:07 Calcium 7.7 mg/dl (8.5-10.1) L 11/27/21 18:38 Magnesium 1.8 mg/dl (1.7-2.4) 11/27/21 18:38 Total Bilirubin 0.9 mg/dl (0.2-1.0) 11/27/21 18:38 AST 18 U/L (13-39) 11/27/21 18:38 ALT 12 U/L (7-52) 11/27/21 18:38 Alkaline Phosphatase 125 U/L (34-104) H 11/27/21 18:38 Troponin I < 0.03 ng/ml (0-0.04) 11/27/21 18:38 Total Protein 5.1 gm/dl (6.0-8.3) L 11/27/21 18:38 Albumin 3.2 gm/dl (3.4-5.0) L 11/27/21 18:38 Globulin 1.9 gm/dl (2.5-4.0) L 11/27/21 18:38 Albumin/Globulin Ratio 1.7 (0.9-2) 11/27/21 18:38 TSH 2.099 uIu/ml (0.300-4.500) 11/27/21 18:38 Urine Color Yellow 11/27/21 19:54 Urine Appearance Clear (Clear) 11/27/21 19:54 Urine pH 5.0 (4.5-7.5) 11/27/21 19:54 Ur Specific [place] 1.012 (1.000-1.030) 11/27/21 19:54 Urine Protein Negative (Negative) 11/27/21 19:54 Urine Glucose (UA) Negative (Negative) 11/27/21 19:54 Urine Ketones Negative (Negative) 11/27/21 19:54 Urine Blood Negative (Negative) 11/27/21 19:54 Urine Nitrite Negative (Negative) 11/27/21 19:54 Urine Bilirubin Negative (Negative) 11/27/21 19:54 Urine Urobilinogen Negative (Negative) 11/27/21 19:54 Ur Leukocyte Esterase Negative (Negative) 11/27/21 19:54 Urine Osmolality 437 mOsm/kg (500-800) L 11/27/21 19:54 Ur Random Sodium 68 mmol/L 11/27/21 19:54 SARS-CoV-2, RNA, NAAT NEGATIVE (NEGATIVE) 11/27/21 20:05 Impressions Chest X-Ray 11/27/21 18:23 XR chest 1V portable CLINICAL HISTORY: weakness COMPARISON STUDY: Chest CT December 31, 2020. Chest radiograph November 07, 2021. FINDINGS: Exam is compromised given difficulty positioning. No pneumothorax or pleural effusion is noted. Patient is rotated. There is apparent right basilar opacity. Left lung is clear. There is no evidence for pulmonary edema. Several old right rib fractures are present. IMPRESSION: Apparent right basilar opacity. This may represent normal right hilar structures on this rotated exam however radiographic follow-up is recommended to exclude a focus of pneumonia. ACT 112: Negative or not required by law. Electronically signed by: Tk Vick M.D. 11/27/2021 7:[address] 11/27/21 18:[address] DOSE: 1425.10 mGy.cm HISTORY: weakness TECHNIQUE: Multiaxial CT images of the head were performed without the use of intravenous contrast. Automated exposure control was utilized for this study. A dose lowering technique was utilized adhering to the principles of ALARA. Comparison: Head CT 12/29/2020. Findings: There are a few partially opacified ethmoid air cells, unchanged. The mastoid air cells are clear. Multifocal lucencies within the occipital bone posteriorly remain unchanged and favor arachnoid granulations. The calvarium and skull base are intact. There is no mass, hematoma, midline shift, acute infarct. White matter hypodensity is nonspecific but suggestive of microvascular ischemic change. The ventricles and sulci demonstrate mild age-related involutional changes. Mild motion artifact. Impression: Mild motion artifact. No definite acute intracranial abnormality. ACT 112: Negative or not required by law. Electronically signed by: Yonatan Beebe M.D. 11/27/2021 7:05 PM Diagnostic Findings EKG as per my interpretation:Rate 80, A. fib, normal axis, no ischemia
[2021-11-27] MEDS ORDERED: ACETAMINOPHEN 325 MG TAB PO PRN (22:24)
[2021-11-27] MEDS ORDERED: PROMETHAZINE HCL 12.5 MG in SODIUM CHLORIDE 0.9% 50 ML IV PRN (22:24)
[2021-11-28] MEDS ORDERED: FLUTICASONE PROPIONATE NA SPR 16 GM BTL PRN (04:12)
[2021-11-28 04:28] LABS: Eosinophils # (auto) 0.02 K/uL (0-0.5); Eosinophils % (auto) 0.3 %; Hematocrit (blood only) 40.1 % (42-52); Hemoglobin 12.8 g/dL (14.0-18.0); Immature Granulocytes # (auto) 0.11 K/uL (0.00-0.02); Immature Granulocytes % (auto) 1.5 %; Lymphocytes # (auto) 0.87 K/uL (1.2-3.4); Lymphocytes % (auto) 11.7 %; Mean Corpuscular Hemoglobin 30.2 pg (25-34); Mean Corpuscular Hgb Conc 31.9 g/dL (32-36); Mean Corpuscular Volume 94.6 fL (80-100); Mean Platelet Volume 9.3 fL (7.4-10.4); Monocytes # (auto) 0.49 K/uL (0.11-0.59); Monocytes % (auto) 6.6 %; Neutrophils # (auto) 5.94 K/uL (1.4-6.5); Neutrophils % (auto) 79.9 %; Platelet Count 191 K/uL (130-400); RDW Coefficient of Variation 16.6 % (11.5-14.5); RDW Standard Deviation 57.6 fL (36.4-46.3); Red Blood Count 4.24 M/uL (4.7-6.1); White Blood Count 7.43 K/uL (4.8-10.8)
[2021-11-28 04:51] LABS: BUN Creatinine Ratio 17.3 (10-20); Calcium 8.1 mg/dl (8.5-10.1); Creatinine Clr Calc Pharmacy 65.2 ml/min; Est GFR (African American) 85.8 ml/min; Est GFR (Non-African American) 74.1 ml/min
[2021-11-28] MEDS: APIXABAN 5 MG TABLET PO SCH ×2 (08:53→21:17)
[2021-11-28] MEDS: CYANOCOBALAMIN (B-12) 500 MCG TABLET PO SCH (08:53)
[2021-11-28] MEDS: SULFAMETHOXAZOLE/TRIMETHOPRIM DS 800/160MG TAB PO SCH (08:54)
[2021-11-28] MEDS: PANTOprazole 40 MG TAB PO SCH (08:54)
[2021-11-28] MEDS: predniSONE 20 MG TAB PO SCH (08:54)
[2021-11-28] MEDS: SODIUM CHLORIDE 1 GM TABLET PO SCH ×3 (08:54→21:16)
[2021-11-28] MEDS: CARBIDOPA/LEVODOPA 25/100MG TAB PO SCH ×3 (08:55→21:16)
[2021-11-28] MEDS: COLESTIPOL HCL 1 GM TAB PO SCH ×2 (10:03→21:16)
--- NOTE | 2021-11-28 12:51 | Electrocardiogram Report ---
Test Reason : Blood Pressure : / mmHG Vent. Rate : 081 BPM Atrial Rate : 063 BPM P-R Int : 000 ms QRS Dur : 080 ms QT Int : 342 ms P-R-T Axes : 000 -08 013 degrees QTc Int : 397 ms Atrial fibrillation Abnormal ECG When compared with ECG of 07-NOV-2021 10:29, No significant change was found Confirmed by Ceasar Vallejo ([id number]) on 11/28/2021 12:50:41 PM Referred By: REFERRED SELF Confirmed By:Ceasar Vallejo
--- NOTE | 2021-11-28 14:19 | Hospitalist Progress Note ---
Date of Service November 28, 2021 Assessment & Plan (1) Generalized weakness: Plan: This is a 76-year-old male who has significant past medical history of chronic atrial fibrillation anticoagulated with Eliquis, SIADH and chronic hyponatremia on fluid restriction and sodium chloride tablets, CIDP on chronic prednisone therapy, Parkinson's disease, CKD stage III, BPH, pulmonary pretension, diastolic dysfunction who presents ED due to unable to walk. Recent hospitalization 11/07-11/12 secondary to E. coli bacteremia. Presented to ED 11/27 secondary to recent fall after losing balance, inability to walk and fatigue. concerned about CIDP (chronic inflammatory demyelinating polyradicularneuropathy) Generalized Weakness Ambulatory dysfunction admit to med/surg PT/OT neuro consult afebrile, no sign of infection CIDP on chronic prednisone 40mg daily also on bactrim 3x/wk due to immunosuppression consult neurology for possible CIPD flare? Parkinson Disease continue sinemet PT/OT SIADH Hyponatremia exacerbated in ED yesterday, 130, improved with IVF Serum osm 273, urine osm 437, random sodium 68 On sodium chloride tablets as well as 1500 mL fluid restriction and Follow BMP daily Chronic atrial fibrillation Anticoagulated on Eliquis Currently not on rate controlling agent DVT prophylaxis: Eliquis Code: med/surg DNR/DNI PCP: Servando Patient requests for his to be given periodic updates on care. Ms. Mckayla Young, contact #[phone]. Pt was seen and examined in collaboration with Dr. Paz, please see addendum Admission and Anticipated Discharge Date Admission Date: November 27, 2021 Supervising Physician Co-Signing Physician Notes Patient is seen and examined at bedside. States having generalized weakness and ambulatory dysfunction. Otherwise feels well. Denies any chest pain, shortness of breath, dizziness, nausea, abdominal pain. On exam patient is elderly, no apparent distress, normocephalic atraumatic, EOMI, normal breath sounds, clear to auscultation, irregularly irregular rhythm, no pedal edema, no murmur, abdomen soft, nontender, normal bowel sounds, alert, awake, oriented, grossly no focal deficits,+ foot drop bilaterally, brace. Patient is admitted for management of generalized weakness ambulatory dysfunction, possible CIDP exacerbation. PT OT evaluation requested. Also consulted neurology for further input. Continue Sinemet for Parkinson's. Fall precautions. Chronic hyponatremia secondary to SIADH. Monitor sodium levels. Continue Eliquis for atrial fibrillation. Will need rehab placement. I personally reviewed the record. Patient is interviewed and examined at bedside. Patient's care is coordinated with Sarah Morin PA-C. Please refer to the documentation above for details of patient's presentation and for discussion of other issues. Subjective Patient was seen and evaluated in room 377 bed 2 Follow-up generalized weakness, status post recent hospitalization secondary to E. coli bacteremia. Currently he offers no complaints. He could does complain of being generally weak but has been ongoing for several weeks. He denies any specific joint pain, fever, chills, sweats, lightheadedness, dizziness, chest pain, shortness of breath, nausea, vomiting, abdominal pain. His appetite has been okay. He offers no acute concerns. Review of Systems Review of Systems: All systems reviewed & are unremarkable except as noted in HPI & below Physical Exam Physical Exam: Gen: WD/WN, elderly, M, NAD, A&O x3 HEENT: Normocephalic, atraumatic, conjunctivae moist, sclerae anicteric, mucous membranes moist. Lung: Clear to Auscultation bilaterally, no wheezes/rales/rhonchi Heart: IRR/IRR, regular rhythm, no murmurs, rubs, or gallops Abdomen: Soft, NT, ND +BS x 4 Extremities: No edema, generalized weakness throughout 4/5, foot drop noted Skin: Warm, no rash, negative turgor. Results & Data Results & Data ([facility]) Vital Signs (Past 12 Hours) Vital Signs Temp Pulse Resp BP Pulse Ox 11/28/21 08:40 36.3 C L 61 16 137/79 95 Laboratory Results Short CBC 11/27/21 11/28/21 Range/Units 18:38 04:17 WBC 7.39 7.43 (4.8-10.8) K/uL Hgb 12.7 L 12.8 L (14.0-18.0) g/dL Hct 38.5 L 40.1 L (42-52) % Plt Count 208 191 (130-400) K/uL BMP 11/27/21 11/28/21 11/28/21 18:38 00:34 04:17 Sodium 130 L 131 L 135 L Potassium 4.6 4.0 Chloride 98 104 Carbon Dioxide 26 26 BUN 21 17 Creatinine 1.12 0.98 Glucose 81 74 Calcium 7.7 L 8.1 L Cardiac Enzymes 11/27/21 11/28/21 Range/Units 18:38 04:17 Total Creatine Kinase 32 (30-223) U/L Troponin I < 0.03 (0-0.04) ng/ml Liver Function 11/27/21 Range/Units 18:38 Total Bilirubin 0.9 (0.2-1.0) mg/dl AST 18 (13-39) U/L ALT 12 (7-52) U/L Alkaline Phosphatase 125 H (34-104) U/L Albumin 3.2 L (3.4-5.0) gm/dl Urine 11/27/21 Range/Units 19:54 Urine Color Yellow Urine Appearance Clear (Clear) Urine pH 5.0 (4.5-7.5) Ur Specific [place] 1.012 (1.000-1.030) Urine Protein Negative (Negative) Urine Glucose (UA) Negative (Negative) Diagnostic Findings Chest X-Ray 11/27/21 18:23 XR chest 1V portable CLINICAL HISTORY: weakness COMPARISON STUDY: Chest CT December 31, 2020. Chest radiograph November 07, 2021. FINDINGS: Exam is compromised given difficulty positioning. No pneumothorax or pleural effusion is noted. Patient is rotated. There is apparent right basilar opacity. Left lung is clear. There is no evidence for pulmonary edema. Several old right rib fractures are present. IMPRESSION: Apparent right basilar opacity. This may represent normal right hilar structures on this rotated exam however radiographic follow-up is recommended to exclude a focus of pneumonia. ACT 112: Negative or not required by law. Electronically signed by: Tk Vick M.D. 11/27/2021 7:[address] 11/27/21 18:[address] DOSE: 1425.10 mGy.cm HISTORY: weakness TECHNIQUE: Multiaxial CT images of the head were performed without the use of intravenous contrast. Automated exposure control was utilized for this study. A dose lowering technique was utilized adhering to the principles of ALARA. Comparison: Head CT 12/29/2020. Findings: There are a few partially opacified ethmoid air cells, unchanged. The mastoid air cells are clear. Multifocal lucencies within the occipital bone posteriorly remain unchanged and favor arachnoid granulations. The calvarium and skull base are intact. There is no mass, hematoma, midline shift, acute infarct. White matter hypodensity is nonspecific but suggestive of microvascular ischemic change. The ventricles and sulci demonstrate mild age-related involutional michel ges. Mild motion artifact. Impression: Mild motion artifact. No definite acute intracranial abnormality. ACT 112: Negative or not required by law. Electronically signed by: Yonatan Beebe M.D. 11/27/2021 7:05 PM Medications Administered Current Inpatient Medications Acetaminophen (Acetaminophen 325 Mg Tab) 650 mg PO Q4H PRN PRN Reason: pain/fever Stop: 12/27/21 22:23 Apixaban (Apixaban 5 Mg Tablet) 5 mg PO BID [facility] Stop: 12/28/21 08:59 Last Admin: 11/28/21 08:53 Dose: 5 mg Documented by: Carbidopa/Levodopa (Carbidopa/Levodopa 25/100mg Tab) 1 tab PO TID ROSEANN Stop: 12/28/21 08:59 Last Admin: 11/28/21 14:14 Dose: 1 tab Documented by: Cetirizine HCl (Cetirizine Hcl 10 Mg Tablet) 10 mg PO PM ROSEANN Stop: 12/28/21 20:59 Colestipol HCl (Colestipol Hcl 1 Gm Tab) 1 gm PO BID@1000,2200 [facility] Stop: 12/28/21 09:59 Last Admin: 11/28/21 10:03 Dose: 1 gm Documented by: Cyanocobalamin (Cyanocobalamin (B-12) 500 Mcg Tablet) 1,000 mcg PO QAM ROSEANN Stop: 12/28/21 08:59 Last Admin: 11/28/21 08:53 Dose: 1,000 mcg Documented by: Fluticasone Propionate (Fluticasone Propionate Na Spr 16 Gm Btl) 2 sprays NA DAILY PRN PRN Reason: Congestion Stop: 12/28/21 04:11 Promethazine HCl 12.5 mg/ (Sodium Chloride) 50.5 mls @ 202 mls/hr IV Q6H PRN PRN Reason: Nausea And Vomiting Stop: 12/27/21 22:23 Lidocaine (Lidocaine 5% 1 Patch) 1 patch TD DAILY@2100 [facility] Stop: 12/28/21 20:59 Miscellaneous (Remove Lidoderm Patch) 1 ea N/A DAILY@0900 [facility] Stop: 12/28/21 08:59 Last Admin: 11/28/21 08:55 Dose: Not Given Documented by: Pantoprazole Sodium (Pantoprazole 40 Mg Tab) [address] [facility] Stop: 12/28/21 08:59 Last Admin: 11/28/21 08:54 Dose: 40 mg Documented by: Prednisone (Prednisone 20 Mg Tab) [address] [facility] Stop: 12/28/21 08:59 Last Admin: 11/28/21 08:54 Dose: 40 mg Documented by: Sodium Chloride (Sodium Chloride 1 Gm Tablet) 1 gm PO TID [facility] Stop: 12/28/21 08:59 Last Admin: 11/28/21 14:14 Dose: 1 gm Documented by: Tamsulosin HCl (Tamsulosin Hcl 0.4 Mg Cap) 0.4 mg PO HS [facility] Stop: 12/28/21 20:59 Trimethoprim/Sulfamethoxazole (Sulfamethoxazole/Trimethoprim Ds 800/160mg Tab) 1 tab PO MoWeFr@0900 [facility] Stop: 12/28/21 08:59 Last Admin: 11/28/21 08:54 Dose: 1 tab Documented by:
--- NOTE | 2021-11-28 19:12 | Consultation Report ---
DATE OF SERVICE: 11/28/2021 REASON FOR CONSULTATION: CIDP, assess etiology of symptoms. 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 The patient was diagnosed last spring on the basis of ner ve conduction and elevated total protein in the CSF. He had been receiving once a month IVIG until when it was put on hold. The patient had not been walking well, but with IVIG was able to am bulate with a walker and occasionally without. About 3 weeks ago, the patient was hospitalized for urosepsis. He was generally weak at that time and required inpatient rehabilitation at [facility]. T day were able to get him back to walking with a walker. He was discharged to home 1 week prior to ad mission and though was fatigued, could still walk short distances in the house with a walker. He was otherwise eating and drinking well. None of his medicines were new or changed in dose. On the morn ing of admission, his called home health and they asked that she try forcing fluids to improve h is symptoms. The thinks, therefore, that it is possible that he was dehydrated, but labs may no t show that given that she hydrated him. His serum sodium was mildly low, although periodically has been and was 130. He was otherwise not ill. On the day of admission, the patient could not get out of his lift chair with the assist of his lift. No focal neurologic findings were noted by his . He episodically will have double vision if he looks in one direction or the other, lasting seconds a nd not accompanied by other neurologic symptoms. He was not lightheaded. He periodically experience s nonpositional vertigo. This was not the case. Did not have a headache. As far as his knows, none of his medicines are new or changed in dose during the hospitalization at [facility]. PAST MEDICAL HISTORY: Congestive heart failure, atrial fibrillation, peripheral vascular disease, hy pertension, Parkinson's disease, anemia. PAST SURGICAL HISTORY: Cataract, hernia repair. The patient has a large right inguinal hernia that has been scheduled to be operated on for 2 years. FAMILY HISTORY: Lung cancer, colon cancer. SOCIAL HISTORY: Nonsmoker, occasional alcohol. 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 ALLERGIES: LOVASTATIN, SHELLFISH, ACETAMINOPHEN, OXYCODONE AND TRAMADOL. HOME MEDICATIONS: Omeprazole, Tylenol, apixaban, B12, dicyclomine, Flonase, loperamide, cetirizine, c olestipol, levodopa/carbidopa 25/100 three times a day, tamsulosin, sodium chloride tabs, vitamin D, potassium, prednisone 40 mg q.a.m., lidocaine patch. IMAGING: CT of the head, noncontrast, which I reviewed, shows mild motion artifact and no definitive intracranial abnormality. PHYSICAL EXAMINATION: VITAL SIGNS: 102/64, 63, 36.2, 93%. NEUROLOGIC: The patient is awake and alert, thinking it is 11/29 when it is 11/28/2021. Oriented to person and place. He is in no distress. Follows simple commands easily. Head is normocephalic, at raumatic. There may be minor facial masking. Pupils are equal, I had difficulty visualizing the opt ic nerves. Trejo were full. Motility normal. No facial asymmetry was noted. Minor cogwheeling at the left wrist. Strength is mildly diffusely diminished about 4/5. Although he has bilateral AFOs, I do not find him to be any weaker proximally versus distally. He is areflexic in the lowers. Toes are downgoing. No clear sensory loss is noted. There is a prominent tremor with intention. Heel-t o-garcia is normal. The patient arises from a bed with difficulty and the assistance of two. He ambul ates with a walker with both legs externally rotated. His gait is not overtly parkinsonian. IMPRESSION AND PLAN: This patient has been medically ill for several weeks with urosepsis. He had a week of inpatient physical therapy and has been home for about a week. His reported him to be very fatigued and then suddenly weaker on Sunday. That weakness has improved, although likely not ba ck to baseline. There is no obvious toxic metabolic etiology. He is not dehydrated. His serum sodi um is no lower than typical. There is no current evidence of a urinary tract infection. It would be difficult to say that this was a flare of chronic inflammatory demyelinating polyneuropat hy given how ill he has been recently and the fact that he suddenly could not get out of a chair. He has improved today, again also unlikely related to a chronic inflammatory demyelinating polyneuropat hy flare. He has Parkinson's disease and that may have represented some freezing, although Parkinson 's disease in his case is quite mild. My plan is to obtain an MRI of the brain, noncontrast, given h is atrial fibrillation to rule out a new cerebral infarction and see him back tomorrow. Physical the rapy should see him for further analysis of his gait. I will reach out to Dr. Rizzo as well. Job ID: [id number]
[2021-11-28] MEDS: TAMSULOSIN HCL 0.4 MG CAP PO SCH (21:16)
[2021-11-28] MEDS: LIDOCAINE 5% 1 PATCH TD SCH (21:17)
[2021-11-28] MEDS: CETIRIZINE HCL 10 MG TABLET PO SCH (21:17)
[2021-11-29] MEDS: APIXABAN 5 MG TABLET PO SCH ×2 (08:42→21:06)
[2021-11-29] MEDS: CYANOCOBALAMIN (B-12) 500 MCG TABLET PO SCH (08:43)
[2021-11-29] MEDS: CARBIDOPA/LEVODOPA 25/100MG TAB PO SCH ×3 (08:43→21:07)
[2021-11-29] MEDS: SODIUM CHLORIDE 1 GM TABLET PO SCH ×3 (08:43→21:07)
[2021-11-29] MEDS: predniSONE 20 MG TAB PO SCH (08:44)
[2021-11-29] MEDS: PANTOprazole 40 MG TAB PO SCH (08:44)
[2021-11-29 08:46] LABS: BUN Creatinine Ratio 14.8 (10-20); Calcium 7.7 mg/dl (8.5-10.1); Creatinine Clr Calc Pharmacy 47.3 ml/min; Est GFR (African American) 58.3 ml/min; Est GFR (Non-African American) 50.3 ml/min; Potassium 4.4 mmol/L (3.5-5.1)
--- NOTE | 2021-11-29 09:07 | Magnetic Resonance Report ---
MR brain wo con CLINICAL HISTORY: sudden onset genl weakness. COMPARISON STUDY: 10/14/2020 TECHNIQUE: Multiplanar multisequence images of the Brain were performed without IV contrast. Diffusi on weighted imaging and ADC mapping was also performed. FINDINGS: This study is again degraded by patient motion artifact. Extra-axial space: There is no evidence for a subdural hematoma, There are no extra-axial fluid caro ections. Ventricles and cisterns: The ventricles are mildly dilated bilaterally. There is no evidence for mid line shift or mass effect. Parenchyma: There is no evidence for an acute hemorrhage or infarct. No acute diffusion abnormalities are noted on diffusion weighted imaging or ADC mapping. There is normal saravia-white differentiation. There is mild cerebral cortical atrophy present. The sulci and gyri appear normal without effacement . The midline structures are unremarkable. The posterior fossa structures appear normal. There is no evidence for mass lesion. Osseous structures: The paranasal sinuses are well aerated. The mastoid air cells are well aerated. Soft tissues: No focal soft tissue abnormalities are identified. IMPRESSION: 1. No acute intracranial abnormalities. 2. Mild cerebral cortical atrophy is again seen. ACT 112: Negative or not required by law. Electronically signed by: Andrews Reyes M.D. 11/29/2021 9:06 AM
[2021-11-29] MEDS ORDERED: IMMUNE GLOBULIN (HUMAN) SOLN IV SCH (10:15)
[2021-11-29] MEDS: COLESTIPOL HCL 1 GM TAB PO SCH ×2 (10:50→22:12)
[2021-11-29] MEDS: IMMUN GLOBG(IGG)/MALT/IGA OV50 200 ML IV SCH ×2 (11:57→14:52)
--- NOTE | 2021-11-29 12:15 | Hospitalist Progress Note ---
Date of Service November 29, 2021 Assessment & Plan (1) Generalized weakness: Plan: This is a 76-year-old male who has significant past medical history of chronic atrial fibrillation anticoagulated with Eliquis, SIADH and chronic hyponatremia on fluid restriction and sodium chloride tablets, CIDP on chronic prednisone therapy, Parkinson's disease, CKD stage III, BPH, pulmonary pretension, diastolic dysfunction who presents ED due to unable to walk. Recent hospitalization 11/07-11/12 secondary to E. coli bacteremia. Presented to ED 11/27 secondary to recent fall after losing balance, inability to walk and fatigue. 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 Generalized Weakness Ambulatory dysfunction admit to med/surg PT/OT neuro consult afebrile, no sign of infection CIDP on chronic prednisone 40mg daily also on bactrim 3x/wk due to immunosuppression appreciate neurology recs MRI resulted: no acute abnormality Discussed with Dr. Brown who discussed with primary neurologist Dr. Rizzo Agreed to give IVIG 2mg/kg over 3 days, to start today Per neuro continue prednisone, PT/OT Parkinson Disease continue sinemet PT/OT SIADH Hyponatremia exacerbated in ED yesterday, 130, improved with IVF likely due to mild dehydration Serum osm 273, urine osm 437, random sodium 68 On sodium chloride tablets as well as 1500 mL fluid restriction and Na stable at 135 Chronic atrial fibrillation Anticoagulated on Eliquis Currently not on rate controlling agent DVT prophylaxis: Eliquis Code: DNR/DNI PCP: Servando Patient requests for his to be given periodic updates on care. Ms. Block Hector, contact #[phone]. Discussed with regarding starting IVIG, she was in agreement. Pt was seen and examined in collaboration with Dr. Paz, please see addendum Admission and Anticipated Discharge Date Admission Date: November 29, 2021 Supervising Physician Co-Signing Physician Notes Patient is seen and examined at bedside. States feeling tired today. Discussed with neurology today. MRI brain showed no acute findings. Plan to be started on IVIG is for CIDP. Denies any chest pain, shortness of breath, dizziness, nausea, abdominal pain. On exam patient is elderly, no apparent distress, normocephalic atraumatic, EOMI, normal breath sounds, clear to auscultation, irregularly irregular rhythm, no pedal edema, no murmur, abdomen soft, nontender, normal bowel sounds, alert, awake, oriented, grossly no focal deficits,+ foot drop bilaterally, brace. Generalized weakness, ambulatory dysfu nction, CIDP exacerbation. Imaging studies showed no acute findings. Started on IVIG as per CIDP as per neurology. Continue PT OT. Continue Sinemet for Parkinson's. Fall precautions. Chronic hyponatremia secondary to SIADH. Monitor sodium levels. Continue Eliquis for atrial fibrillation. Will need rehab placement. I personally reviewed the record. Patient is interviewed and examined at bedside. Patient's care is coordinated with Sarah Morin PA-C. Please refer to the documentation above for details of patient's presentation and for discussion of other issues. Subjective Patient was seen and evaluated in room 377 bed 2 Follow-up generalized weakness, status post recent hospitalization secondary to E. coli bacteremia. He continues to complain of generalized weakness, feels the same as yesterday. Denies fever, chills, sweats, lightheadedness, dizziness, chest pain, shortness of breath, nausea, vomiting, abdominal pain. Feels appetite is at baseline. Had BM yesterday. Review of Systems Review of Systems: All systems reviewed & are unremarkable except as noted in HPI & below Physical Exam Physical Exam: Gen: WD/WN, elderly, M, NAD, A&O x3, lying in bed HEENT: Normocephalic, atraumatic, conjunctivae moist, sclerae anicteric, mucous membranes moist. Lung: Clear to Auscultation bilaterally, no wheezes/rales/rhonchi Heart: IRR/IRR, regular rhythm, no murmurs, rubs, or gallops Abdomen: Soft, NT, ND +BS x 4 Extremities: No edema, generalized weakness throughout 4/5, foot drop noted Skin: Warm, no rash, negative turgor. Results & Data Results & Data ([facility]) Vital Signs (Past 12 Hours) Vital Signs Temp Pulse Resp BP Pulse Ox 11/29/21 11:54 37.1 C 80 16 112/76 95 11/29/21 08:27 36.7 C 85 16 132/79 99 Laboratory Results [facility] 11/29/21 07:42 Sodium 135 L Potassium 4.4 Chloride 105 Carbon Dioxide 26 BUN 20 Creatinine 1.35 D Glucose 87 Calcium 7.7 L Diagnostic Findings Brain MRI 11/28/21 17:51 MR brain wo con CLINICAL HISTORY: sudden onset genl weakness. COMPARISON STUDY: 10/14/2020 TECHNIQUE: Multiplanar multisequence images of the Brain were performed without IV contrast. Diffusion weighted imaging and ADC mapping was also performed. FINDINGS: This study is again degraded by patient motion artifact. Extra-axial space: There is no evidence for a subdural hematoma, There are no extra-axial fluid collections. Ventricles and cisterns: The ventricles are mildly dilated bilaterally. There is no evidence for midline shift or mass effect. Parenchyma: There is no evidence for an acute hemorrhage or infarct. No acute diffusion abnormalities are noted on diffusion weighted imaging or ADC mapping. There is normal saravia-white differentiation. There is mild cerebral cortical atrophy present. The sulci and gyri appear normal without effacement. The midline structures are unremarkable. The posterior fossa structures appear normal. There is no evidence for mass lesion. Osseous structures: The paranasal sinuses are well aerated. The mastoid air cells are well aerated. Soft tissues: No focal soft tissue abnormalities are identified. IMPRESSION: 1. No acute intracranial abnormalities. 2. Mild cerebral cortical atrophy is again seen. ACT 112: Negative or not required by law. Electronically signed by: Andrews Reyes M.D. 11/29/2021 9:06 AM
--- NOTE | 2021-11-29 12:26 | Neurology Progress Note ---
Date of Service November 29, 2021 Assessment & Plan (1) CIDP (chronic inflammatory demyelinating polyneuropathy): Plan: 1. continue prednisone 40 mg daily 2. start IV IG 3. PT/OT for discharge needs. 4. will likely need rehab prior to return home 5. follow with Dr Rizzo 4-6 weeks after discharge or sooner if needed. (2) Parkinson disease: Plan: 1. continue Sinemet 25/100 mg TID Admission and Anticipated Discharge Date Admission Date: November 29, 2021 Supervising Physician Co-Signing Physician Notes I have seen and discussed above patient with Dr Tami Newell, neurology. Patient seen and examined exam appears similar as yesterday although we did not attempt to ambulate. Have begun IVIG to treat CIDP as it has been 3 months since the patient has last been treated and Dr. Griffin felt he was declining gradually over time. Due to the suddenness MRI of the brain was performed and was unremarkable did not show an acute event Parkinson's disease continue levodopa carbidopa. Stas Mathews is a 76 year old male who presented to [facility] ED 11/27/2021 for an evaluation of weakness. He has had similar episodes in the past and has a history of Parkinson's. He was seen in at [facility] earlier this month with similar issues. He went to stand up from the table and could not get out of the chair. After multiple attempts at trying to stand he had to call 911. He was not found to be febrile or hypoxic and no pain anywhere. he is sitting up bedside and according to nursing report he is full assist. denies CP, SOB, abdominal pain, N, V. Review of Systems Review of Systems: All systems reviewed & are unremarkable except as noted in HPI & below Physical Exam Physical Exam: Physical Exam: Constitutional: appearance nourished, thin Ears, Nose, Mouth and Throat: mucous membranes moist, no injection and skin n ormal, eyes normal Cardiovascular: normal S-1 and S-2 and regular rate and rhythm Respiratory: normal respiratory effort Musculoskeletal: no peripheral edema Skin: no stigmata of neurocutaneous disease noted and normal and intact Eyes: extraocular muscles intact (EOMI) NEUROLOGIC EXAMINATION: Mental status: Alert and interactive Oriented to person Speech fluent with no evidence of aphasia Cranial Nerves facial symmetry Reflexes: Deep tendon reflexes were symmetrical and graded 2/5. toes are neurtral Coordination: finger to nose in tact Gait/Stance: Posture normal. gait not assessed but was full assist to get out of bed today and to the commode Motor: Negative for pronator drift of out stretched arms with eyes closed. Strength: hand paedodontist biceps triceps bilateral 4/5 bilaterally hip flex patellar and plantar flex ext 4/5 Results & Data ([facility]) Vital Signs (Past 12 Hours) Vital Signs Temp Pulse Resp BP Pulse Ox 11/29/21 11:54 37.1 C 80 16 112/76 95 11/29/21 08:27 36.7 C 85 16 132/79 99 Laboratory Results Abnormal lab results 11/29/21 Range/Units 07:42 Sodium 135 L (136-145) mmol/L Calcium 7.7 L (8.5-10.1) mg/dl Diagnostic Findings CXR-Apparent right basilar opacity. This may represent normal right hilar structures on this rotated exam however radiographic follow-up is recommended to exclude a focus of pneumonia. MRI brain-No acute intracranial abnormalities. Mild cerebral cortical atrophy is again seen.
[2021-11-29] MEDS: IMMUN GLOBG(IGG)/MALT/IGA OV50 100 ML IV SCH (14:14)
[2021-11-29] MEDS: CETIRIZINE HCL 10 MG TABLET PO SCH (21:06)
[2021-11-29] MEDS: TAMSULOSIN HCL 0.4 MG CAP PO SCH (21:06)
[2021-11-29] MEDS: LIDOCAINE 5% 1 PATCH TD SCH (21:07)
[2021-11-30] MEDS: PANTOprazole 40 MG TAB PO SCH (08:36)
[2021-11-30] MEDS: CYANOCOBALAMIN (B-12) 500 MCG TABLET PO SCH (08:37)
[2021-11-30] MEDS: SODIUM CHLORIDE 1 GM TABLET PO SCH ×3 (08:37→20:38)
[2021-11-30] MEDS: predniSONE 20 MG TAB PO SCH (08:37)
[2021-11-30] MEDS: SULFAMETHOXAZOLE/TRIMETHOPRIM DS 800/160MG TAB PO SCH (08:37)
[2021-11-30] MEDS: APIXABAN 5 MG TABLET PO SCH ×2 (08:38→20:38)
[2021-11-30] MEDS: CARBIDOPA/LEVODOPA 25/100MG TAB PO SCH ×3 (08:38→20:38)
[2021-11-30 09:12] LABS: BUN Creatinine Ratio 19.2 (10-20); Calcium 7.4 mg/dl (8.5-10.1); Creatinine Clr Calc Pharmacy 64.5 ml/min; Est GFR (African American) 84.8 ml/min; Est GFR (Non-African American) 73.2 ml/min; Potassium 3.9 mmol/L (3.5-5.1)
[2021-11-30] MEDS: COLESTIPOL HCL 1 GM TAB PO SCH ×2 (10:06→21:56)
--- NOTE | 2021-11-30 11:20 | Hospitalist Progress Note ---
Date of Service November 30, 2021 Assessment & Plan (1) Generalized weakness: Plan: This is a 76-year-old male who has significant past medical history of chronic atrial fibrillation anticoagulated with Eliquis, SIADH and chronic hyponatremia on fluid restriction and sodium chloride tablets, CIDP on chronic prednisone therapy, Parkinson's disease, CKD stage III, BPH, pulmonary pretension, diastolic dysfunction who presents ED due to unable to walk. Recent hospitalization 11/07-11/12 secondary to E. coli bacteremia. Presented to ED 11/27 secondary to recent fall after losing balance, inability to walk and fatigue. 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 Generalized Weakness Ambulatory dysfunction admit to med/surg PT/OT afebrile, no sign of infection CIDP on chronic prednisone 40mg daily also on bactrim 3x/wk due to immunosuppression appreciate neurology recs MRI resulted: no acute abnormality Discussed with Dr. Brown who discussed with primary neurologist Dr. Rizzo Agreed to give IVIG 2mg/kg over 3 days, day #2 Per neuro continue prednisone, PT/OT Parkinson Disease continue sinemet PT/OT SIADH Hyponatremia exacerbated in ED 130, improved with IVF likely due to mild dehydration Serum osm 273, urine osm 437, random sodium 68 on admission On sodium chloride tablets as well as 1500 mL fluid restriction and Na 132 today, continue current tx plan bmp in a.m. Chronic atrial fibrillation Anticoagulated on Eliquis Currently not on rate controlling agent DVT prophylaxis: Eliquis Dispo: med/surg, continue IVIG, last dose tomorrow then plan for [facility] likely tomorrow or sunday Code: DNR/DNI PCP: Servando Patient requests for his to be given periodic updates on care. Ms. Block Hector, contact #[phone]. Discussed with regarding starting IVIG, she was in agreement. Pt was seen and examined in collaboration with Dr. Cross, please see addendum Admission and Anticipated Discharge Date Admission Date: November 29, 2021 Supervising Physician Co-Signing Physician Notes delayed entry date of service noted above Attending Addendum: care coordinated with MELANIE Sarah Morin please refer to her notes for full details, I agree with her notes patient seen and examined, records reviewed by myself as well on exam, patient seen in bedside chair, having his lunch States he feels somewhat stronger Able to ambulate to the bathroom with 2 assists No other new focal neurologic symptoms no other symptoms VS noted and reviewed oriented x3, not in distress, speaks in sentences with no effort nor accessory muscle use normal rate, regular rhythm, no murmurs clear breath sounds bilaterally non distended, soft, nontender no bipedal edema, erythema, warmth Motor strength lower extremities 4/5 Labs noted and reviewed ASSESSMENT AND PLAN CIDP flareup On IVIG day number 2 out of 3 Prednisone continued Neurology service on board-appreciate the recommendations other diagnoses and plan of care as per MELANIE Morin's notes Brayan Cross MD Subjective Patient was seen and evaluated in room 377 bed 2 Follow-up generalized weakness, status post recent hospitalization secondary to E. coli bacteremia. He offers no acute concerns today. Continues to feel generally weak. Overall has good energy and feels like, "I cannot walk, not been able to." He admits to having a BM yesterday. He denies fever, chills, sweats, lightheadedness, dizziness, chest pain, shortness of breath, nausea, vomiting, abdominal pain. Also has a good appetite. Review of Systems Review of Systems: All systems reviewed & are unremarkable except as noted in HPI & below Physical Exam Physical Exam: Gen: WD/WN, elderly, M, NAD, A&O x3, lying in bed HEENT: Normocephalic, atraumatic, conjunctivae moist, sclerae anicteric, mucous membranes moist. Lung: Clear to Auscultation bilaterally, no wheezes/rales/rhonchi Heart: IRR/IRR, regular rhythm, no murmurs, rubs, or gallops Abdomen: Soft, NT, ND +BS x 4 Extremities: No edema, generalized weakness throughout 4/5, foot drop noted Skin: Warm, no rash, negative turgor. Results & Data Results & Data ([facility]) Vital Signs (Past 12 Hours) Vital Signs Temp Pulse Resp BP Pulse Ox 11/30/21 08:06 36.8 C 76 16 134/87 97 11/29/21 23:20 37.1 C 69 16 132/88 96 Laboratory Results Short CBC 11/27/21 11/28/21 11/28/21 Range/Units 18:38 00:34 04:17 Sodium 130 L 131 L 135 L (136-145) mmol/L 11/29/21 11/30/21 Range/Units 07:42 07:49 Sodium 135 L 132 L (136-145) mmol/L BMP 11/30/21 07:49 Sodium 132 L Potassium 3.9 Chloride 103 Carbon Dioxide 24 BUN 19 Creatinine 0.99 D Glucose 80 Calcium 7.4 L Medications Administered Current Inpatient Medications Acetaminophen (Acetaminophen 325 Mg Tab) 650 mg PO Q4H PRN PRN Reason: pain/fever Stop: 12/27/21 22:23 Apixaban (Apixaban 5 Mg Tablet) 5 mg PO BID [facility] Stop: 12/28/21 08:59 Last Admin: 11/30/21 08:38 Dose: 5 mg Documented by: Carbidopa/Levodopa (Carbidopa/Levodopa 25/100mg Tab) 1 tab PO TID [facility] Stop: 12/28/21 08:59 Last Admin: 11/30/21 08:38 Dose: 1 tab Documented by: Cetirizine HCl (Cetirizine Hcl 10 Mg Tablet) 10 mg PO PM [facility] Stop: 12/28/21 20:59 Last Admin: 11/29/21 21:06 Dose: 10 mg Documented by: Colestipol HCl (Colestipol Hcl 1 Gm Tab) 1 gm PO BID@1000,2200 [facility] Stop: 12/28/21 09:59 Last Admin: 11/30/21 10:06 Dose: 1 gm Documented by: Cyanocobalamin (Cyanocobalamin (B-12) 500 Mcg Tablet) 1,000 mcg PO QAM [facility] Stop: 12/28/21 08:59 Last Admin: 11/30/21 08:37 Dose: 1,000 mcg Documented by: Fluticasone Propionate (Fluticasone Propionate Na Spr 16 Gm Btl) 2 sprays NA DAILY PRN PRN Reason: Congestion Stop: 12/28/21 04:11 Promethazine HCl 12.5 mg/ (Sodium Chloride) 50.5 mls @ 202 mls/hr IV Q6H PRN PRN Reason: Nausea And Vomiting Stop: 12/27/21 22:23 Immune Globulin (Octagam 10%) 200 mls @ 44.34 mls/hr IV 1200,1300 [facility]; Protocol Stop: 12/01/21 17:31 Last Titration: 11/29/21 16:14 Dose: Infused Documented by: Immune Globulin (Octagam 10%) 100 mls @ 44.34 mls/hr IV TODAY@1100 [facility]; Protocol Stop: 12/01/21 13:16 Last Titration: 11/29/21 14:58 Dose: Infused Documented by: Lidocaine (Lidocaine 5% 1 Patch) 1 patch TD DAILY@2100 [facility] Stop: 12/28/21 20:59 Last Admin: 11/29/21 21:07 Dose: Not Given Documented by: Miscellaneous (Remove Lidoderm Patch) 1 ea N/A DAILY@0900 [facility] Stop: 12/28/21 08:59 Last Admin: 11/30/21 08:39 Dose: Not Given Documented by: Pantoprazole Sodium (Pantoprazole 40 Mg Tab) 40 mg PO [facility] Stop: 12/28/21 08:59 Last Admin: 11/30/21 08:36 Dose: 40 mg Documented by: Prednisone (Prednisone 20 Mg Tab) 40 mg PO [facility] Stop: 12/28/21 08:59 Last Admin: 11/30/21 08:37 Dose: 40 mg Documented by: Sodium Chloride (Sodium Chloride 1 Gm Tablet) 1 gm PO TID [facility] Stop: 12/28/21 08:59 Last Admin: 11/30/21 08:37 Dose: 1 gm Documented by: Tamsulosin HCl (Tamsulosin Hcl 0.4 Mg Cap) 0.4 mg PO HS [facility] Stop: 12/28/21 20:59 Last Admin: 11/29/21 21:06 Dose: 0.4 mg Documented by: Trimethoprim/Sulfamethoxazole (Sulfamethoxazole/Trimethoprim Ds 800/160mg Tab) 1 tab PO MoWeFr@0900 [facility] Stop: 12/28/21 08:59 Last Admin: 11/30/21 08:37 Dose: 1 tab Documented by:
[2021-11-30] MEDS: IMMUN GLOBG(IGG)/MALT/IGA OV50 100 ML IV SCH (11:22)
[2021-11-30] MEDS: IMMUN GLOBG(IGG)/MALT/IGA OV50 200 ML IV SCH ×2 (12:34→14:34)
--- NOTE | 2021-11-30 13:17 | Neurology Progress Note ---
Date of Service November 30, 2021 Assessment & Plan (1) CIDP (chronic inflammatory demyelinating polyneuropathy): Plan: 1. continue prednisone 40 mg daily 2. receiving IV IG daily 3. PT/OT for discharge needs. 4. will need rehab prior to return home 5. follow with Dr Rizzo He will coordinate follow up with [facility] . 6. will sign off for now but will be available for questions concerns. (2) Parkinson disease: Plan: 1. continue Sinemet 25/100 mg (1) tablet TID Admission and Anticipated Discharge Date Admission Date: November 29, 2021 Supervising Physician Co-Signing Physician Notes I have seen and discussed above patient with Dr Tami Newell, neurology Patient seen and examined exam unchanged patient was able to ambulate with therapy today with the assistance of 2 and a walker no change in prednisone. Patient is doing well tomorrow will be day 3 of IVIG and the patient could be discharged to rehabilitation thereafter. Tami Mcclelland Reid is a 76 year old male who presented to [facility] ED 11/27/2021 for an evaluation of weakness. He has had similar episodes in the past and has a history of Parkinson's. He was seen in at [facility] earlier this month with similar issues. He went to stand up from the table and could not get out of the chair. After multiple attempts at trying to stand he had to call 911. He was not found to be febrile or hypoxic and no pain anywhere. he is lying supine in bed. PT was working with him today and was able to partially stand from sitting but still needed some help. denies CP, SOB, abdominal pain, one sided weakness Physical Exam Physical Exam: Physical Exam: Constitutional: appearance nourished, thin Ears, Nose, Mouth and Throat: mucous membranes moist, no injection and skin normal, eyes normal Cardiovascular: normal S-1 and S-2 and regular rate and rhythm Respiratory: normal respiratory effort Musculoskeletal: no peripheral edema Skin: no stigmata of neurocutaneous disease noted and normal and intact Eyes: extraocular muscles intact (EOMI) decreased blink, right eye miotic left eye dilated (from old injury to eye), decreased blink NEUROLOGIC EXAMINATION: Mental status: Alert and interactive Oriented to person Speech fluent with no evidence of aphasia Cranial Nerves facial symmetry Reflexes: Deep tendon reflexes were symmetrical and graded 2/5. toes are neutral Coordination: finger to nose in tact, no reaching tremor, resting tremor R>L bilateral UE cogwheeling. Gait/Stance: Posture lying in bed Motor: Negative for pronator drift of out stretched arms with eyes closed. Strength: hand manager of pmo biceps triceps bilateral 4+/5 bilaterally hip flex patellar and plantar flex ext 4/5 Results & Data ([facility]) Vital Signs (Past 12 Hours) Vital Signs Temp Pulse Resp BP Pulse Ox 11/30/21 12:32 36.9 C 94 H 16 134/74 96 11/30/21 11:26 36.7 C 90 16 117/74 98 11/30/21 08:06 36.8 C 76 16 134/87 97 Laboratory Results Abnormal lab results 11/30/21 Range/Units 07:49 Sodium 132 L (136-145) mmol/L Calcium 7.4 L (8.5-10.1) mg/dl Diagnostic Findings no new imaging
[2021-11-30] MEDS: CETIRIZINE HCL 10 MG TABLET PO SCH (20:38)
[2021-11-30] MEDS: LIDOCAINE 5% 1 PATCH TD SCH (20:39)
[2021-11-30] MEDS: TAMSULOSIN HCL 0.4 MG CAP PO SCH (20:39)
[2021-12-01 08:23] LABS: BUN Creatinine Ratio 16.4 (10-20); Calcium 7.6 mg/dl (8.5-10.1); Creatinine Clr Calc Pharmacy 52.4 ml/min; Est GFR (African American) 65.9 ml/min; Est GFR (Non-African American) 56.8 ml/min; Potassium 3.9 mmol/L (3.5-5.1)
[2021-12-01] MEDS: predniSONE 20 MG TAB PO SCH (08:55)
[2021-12-01] MEDS: CYANOCOBALAMIN (B-12) 500 MCG TABLET PO SCH (08:55)
[2021-12-01] MEDS: PANTOprazole 40 MG TAB PO SCH (08:56)
[2021-12-01] MEDS: SODIUM CHLORIDE 1 GM TABLET PO SCH ×3 (08:56→19:54)
[2021-12-01] MEDS: CARBIDOPA/LEVODOPA 25/100MG TAB PO SCH ×3 (08:56→19:55)
[2021-12-01] MEDS: APIXABAN 5 MG TABLET PO SCH ×2 (08:56→19:55)
[2021-12-01] MEDS: COLESTIPOL HCL 1 GM TAB PO SCH ×2 (10:22→21:21)
[2021-12-01] MEDS: IMMUN GLOBG(IGG)/MALT/IGA OV50 100 ML IV SCH (11:15)
[2021-12-01] MEDS: IMMUN GLOBG(IGG)/MALT/IGA OV50 200 ML IV SCH ×2 (12:25→13:26)
--- NOTE | 2021-12-01 16:27 | Hospitalist Progress Note ---
Date of Service December 01, 2021 Assessment & Plan (1) Generalized weakness: Plan: This is a 76-year-old male who has significant past medical history of chronic atrial fibrillation anticoagulated with Eliquis, SIADH and chronic hyponatremia on fluid restriction and sodium chloride tablets, CIDP on chronic prednisone therapy, Parkinson's disease, CKD stage III, BPH, pulmonary pretension, diastolic dysfunction who presents ED due to unable to walk. Recent hospitalization 11/07-11/12 secondary to E. coli bacteremia. Presented to ED 11/27 secondary to recent fall after losing balance, inability to walk and fatigue. 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 Generalized Weakness Ambulatory dysfunction admit to med/surg PT/OT Afebrile, no sign of infection CIDP on chronic prednisone 40mg daily also on bactrim 3x/wk due to immunosuppression appreciate neurology recs MRI resulted: no acute abnormality Discussed with Dr. Brown who discussed with primary neurologist Dr. Rizzo Agreed to give IVIG 2mg/kg over 3 days, day #3 Per neuro continue prednisone, PT/OT Parkinson Disease continue sinemet PT/OT SIADH Hyponatremia exacerbated in ED 130, improved with IVF -> Na of 133 today likely due to mild dehydration Serum osm 273, urine osm 437, random sodium 68 on admission On sodium chloride tablets as well as 1500 mL fluid restriction and Na 132 today, continue current tx plan bmp in a.m. Chronic atrial fibrillation Anticoagulated on Eliquis Currently not on rate controlling agent DVT prophylaxis: Eliquis Dispo: med/surg, received last dose of IVIG and will plan for [facility] tomorrow Code: DNR/DNI PCP: Servando Patient requests for his to be given periodic updates on care. Ms. Block Hector, contact #[phone]. Discussed with regarding starting IVIG, she was in agreement. Pt was seen and examined in collaboration with Dr. Cross, please see addendum Admission and Anticipated Discharge Date Admission Date: November 29, 2021 Supervising Physician Co-Signing Physician Notes Attending Addendum: care coordinated with MELANIE Ifeoma Kaur please refer to her notes for full details, I agree with her notes patient seen and examined, records reviewed by myself as well on exam, patient seen resting in bed, sleeping but easily awakened Comfortable not in distress States he feels fine overall Continues to improve compared to previous days no other new symptoms VS noted and reviewed oriented x3, not in distress, speaks in sentences with no effort nor accessory muscle use normal rate, regular rhythm, no murmurs clear breath sounds bilaterally non distended, soft, nontender no bipedal edema, erythema, warmth Motor strength 4/5 lower extremities, 5/5 upper extremity Labs noted and reviewed ASSESSMENT AND PLAN CIDP flareup Continue IVIG day 3 out of 3 Continue prednisone Seems to be improving overall Neurology service on board other diagnoses and plan of care as per MELANIE Sarah Morin's notes Brayan Cross MD Subjective Seen and examined in 377-2 in follow-up for generalized weakness, status post recent hospitalization secondary to E. coli bacteremia. No new complaints today. Continues to feel generally weak. Denies fever, chills, lightheadedness, chest pain, shortness of breath, nausea, vomiting, abdominal pain. Has a good appetite. Bowel movement last night. Review of Systems Review of Systems: At least ten systems reviewed and negative except as noted in the HPI. Physical Exam Physical Exam: Gen: WD/WN, NAD, sitting in bedside chair, A&Ox3 HEENT: Normocephalic, atraumatic, conjunctivae moist, sclerae anicteric, mucous membranes moist Lung: Clear to Auscultation bilaterally, no wheezes/rales/rhonchi Heart: Irregular rate & rhythm, no murmurs, rubs, or gallops Abdomen: Soft, NT, ND +BS x 4 Extremities: No edema, generalized weakness throughout 4/5, foot drop noted Skin: Warm, no rash Results & Data Results & Data ([facility]) Vital Signs (Past 12 Hours) Vital Signs Temp Pulse Resp BP Pulse Ox 12/01/21 15:19 36.7 C 83 16 119/77 96 12/01/21 08:11 36.5 C 70 16 113/74 96 Laboratory Results [facility] 12/01/21 07:42 Sodium 133 L Potassium 3.9 Chloride 104 Carbon Dioxide 24 BUN 20 Creatinine 1.22 Glucose 83 Calcium 7.6 L Diagnostic Findings Chest X-Ray 11/27/21 18:23 XR chest 1V portable CLINICAL HISTORY: weakness COMPARISON STUDY: Chest CT December 31, 2020. Chest radiograph November 07, 2021. FINDINGS: Exam is compromised given difficulty positioning. No pneumothorax or pleural effusion is noted. Patient is rotated. There is apparent right basilar opacity. Left lung is clear. There is no evidence for pulmonary edema. Several old right rib fractures are present. IMPRESSION: Apparent right basilar opacity. This may represent normal right hilar structures on this rotated exam however radiographic follow-up is recommended to exclude a focus of pneumonia. ACT 112: Negative or not required by law. Electronically signed by: Tk Vick M.D. 11/27/2021 7:[address] 11/27/21 18:[address] DOSE: 1425.10 mGy.cm HISTORY: weakness TECHNIQUE: Multiaxial CT images of the head were performed without the use of intravenous contrast. Automated exposure control was utilized for this study. A dose lowering technique was utilized adhering to the principles of ALARA. Comparison: Head CT 12/29/2020. Findings: There are a few partially opacified ethmoid air cells, unchanged. The mastoid air cells are clear. Multifocal lucencies within the occipital bone posteriorly remain unchanged and favor arachnoid granulations. The calvarium and skull base are intact. There is no mass, hematoma, midline shift, acute infarct. White matter hypodensity is nonspecific but suggestive of microvascular ischemic change. The ventricles and sulci demonstrate mild age-related involutional changes. Mild motion artifact. Impression: Mild motion artifact. No definite acute intracranial abnormality. ACT 112: Negative or not required by law. Electronically signed by: Yonatan Beebe M.D. 11/27/2021 7:05 PM Brain MRI 11/28/21 17:51 MR brain wo con CLINICAL HISTORY: sudden onset genl weakness. COMPARISON STUDY: 10/14/2020 TECHNIQUE: Multiplanar multisequence images of the Brain were performed without IV contrast. Diffusion weighted imaging and ADC mapping was also performed. FINDINGS: This study is again degraded by patient motion artifact. Extra-axial space: There is no evidence for a subdural hematoma, There are no extra-axial fluid collections. Ventricles and cisterns: The ventricles are mildly dilated bilaterally. There is no evidence for midline shift or mass effect. Parenchyma: There is no evidence for an acute hemorrhage or infarct. No acute diffusion abnormalities are noted on diffusion weighted imaging or ADC mapping. There is normal saravia-white differentiation. There is mild cerebral cortical atrophy present. The sulci and gyri appear normal without effacement. The midline structures are unremarkable. The posterior fossa structures appear normal. There is no evidence for mass lesion. Osseous structures: The paranasal sinuses are well aerated. The mastoid air cells are well aerated. Soft tissues: No focal soft tissue abnormalities are identified. IMPRESSION: 1. No acute intracranial abnormalities. 2. Mild cerebral cortical atrophy is again seen. ACT 112: Negative or not required by law. Electronically signed by: Andrews Reyes M.D. 11/29/2021 9:06 AM
[2021-12-01] MEDS: CETIRIZINE HCL 10 MG TABLET PO SCH (19:55)
[2021-12-01] MEDS: LIDOCAINE 5% 1 PATCH TD SCH (19:55)
[2021-12-01] MEDS: TAMSULOSIN HCL 0.4 MG CAP PO SCH (19:55)
[2021-12-02] MEDS: APIXABAN 5 MG TABLET PO SCH (08:45)
[2021-12-02] MEDS: SULFAMETHOXAZOLE/TRIMETHOPRIM DS 800/160MG TAB PO SCH (08:45)
[2021-12-02] MEDS: PANTOprazole 40 MG TAB PO SCH (08:45)
[2021-12-02] MEDS: CYANOCOBALAMIN (B-12) 500 MCG TABLET PO SCH (08:45)
[2021-12-02] MEDS: SODIUM CHLORIDE 1 GM TABLET PO SCH ×2 (08:45→15:02)
[2021-12-02] MEDS: predniSONE 20 MG TAB PO SCH (08:45)
[2021-12-02] MEDS: CARBIDOPA/LEVODOPA 25/100MG TAB PO SCH ×2 (08:45→15:02)
[2021-12-02] MEDS: COLESTIPOL HCL 1 GM TAB PO SCH (10:15)
--- NOTE | 2021-12-02 15:28 | Discharge Summary ---
Date of Service December 02, 2021 Admission HPI Per Admitting Provider History obtained from patient and records. Medical history significant for chronic diastolic heart failure (EF 60%, TTE 2019), A. 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 Last confinement 3 weeks ago for severe sepsis secondary to E. coli UTI. Patient discharged to rehab on cefdinir course. Patient discharged home last week. Patient had a fall at home after losing balance a few days ago. Since being home, patient noted double vision, finger numbness, inability to walk, grabbing at things that are not there, and fatigue. Involuntary jerking during sleep as per documentation. Patient worried about possible CIDP exacerbation. Patient neurologist recommended office evaluation next week. IVIG treatment possibly to be restarted as per note. Patient noted worsening generalized weakness today. Patient unable to get out of the chair to stand up. No chest pain, no S OB, no headache. Appetite okay as per patient. Following 1.5 L daily fluid restriction for SIADH. 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 Admission Exam Per Admitting Provider GENERAL: Comfortable, pleasant, dysarthric (? chronic ), no respiratory distress SKIN: Pallor , warm HEENT: Alopecia, pale palpebral conjunctivae, no ptosis, lower lip asymmetry, buccal mucosa NECK : Supple, no tenderness CHEST : Decreased breath sounds, no tenderness HEART : Irregular, no obvious murmurs ABDOMEN: no distention, nontender EXTREMITIES : Minimal LE swelling/tenderness, no other conspicuous deformities n oted NEUROLOGIC : Coherent, lower lip symmetry, mild dysarthria, MMTS BUE 4/5, BLE 3/5, intention tremors, gait and stance not assessed Principal Diagnosis Generalized weakness Possible CIDP flare SIADH Discharge Exam Gen: WD/WN, NAD, sitting in bedside chair, A&Ox3 HEENT: Normocephalic, atraumatic, conjunctivae moist, sclerae anicteric, mucous membranes moist Lung: Clear to Auscultation bilaterally, no wheezes/rales/rhonchi Heart: Irregular rate & rhythm, no murmurs, rubs or gallops Abdomen: Soft, NT, ND +BS x 4 Extremities: No edema, generalized weakness throughout 4/5, foot drop noted Skin: Warm, no rash Discharge Data Allergies Allergy/AdvReac Type Severity Reaction Status Date / Time lovastatin [From Mevacor] Allergy Unknown Muscle Pain Verified 11/27/21 20:36 shellfish derived Allergy Unknown Vomiting Verified 11/27/21 20:36 acetaminophen [From Percocet] AdvReac Gastrointestinal Verified 11/27/21 20:36 Upset oxycodone [From Percocet] AdvReac Gastrointestinal Verified 11/27/21 20:36 Upset tramadol [From Ultram] AdvReac Unverified 11/27/21 20:51 states that this makes him seem "Out of it" Consultations 11/27/21 19:51 ED Decision to Admit Stat 11/27/21 22:24 Consult Neurology Routine Ordered Studies 11/27/21 18:23 CT head/brain wo con Stat 11/28/21 17:51 MRI Brain [MR brain wo con] Routine Hospital Course (1) Generalized weakness: (2) CIDP (chronic inflammatory demyelinating polyneuropathy): (3) Parkinson disease: (4) SIADH (syndrome of inappropriate ADH production): (5) Chronic atrial fibrillation: This is a 76-year-old male who has significant past medical history of chronic atrial fibrillation anticoagulated with Eliquis, SIADH and chronic hyponatremia on fluid restriction and sodium chloride tablets, CIDP on chronic prednisone therapy, Parkinson's disease, CKD stage III, BPH, pulmonary pretension, diastolic dysfunction who presents ED due to ambulatory dysfunction. Evaluated by neurology who felt it was difficult to say whether or not CIDP flare was contributing to weakness and ambulatory dysfunction since he has been ill recently with E. coli bacteremia and also has underlying Parkinson's Disease. Patient received IVIG 2mg/kg over 3 day period and prednisone was continued, per neurology. Also with SIADH exacerbation likely due to dehydration that is back to baseline. Continue 1,500 ml fluid restruction and sodium chloride tablets. No signs or symptoms of ongoing infection. Blood cultures without growth. Patient to be discharged to [facility] for acute rehab. Hemodynamically stable at time of discharge. Attending Addendum: care coordinated with MELANIE Kaur please refer to her notes for full details, I agree with her notes patient seen and examined, records reviewed by myself as well on exam, patient seen sitting up in bed comfortable states he feels better overall feeling stronger no new neurologic deficits no other symptoms VS noted and reviewed oriented x 3, not in distress, speaks in sentences with no effort nor accessory muscle use normal rate, regular rhythm, no murmurs clear breath sounds bilaterally non distended, soft, nontender no bipedal edema, erythema, warmth motor strength 4/5 on all extremities ASSESSMENT AND PLAN CIDP Flare up - s/p IVIg clinically improving - resume usual Prednisone regimen transition to [facility] Rehab ff up with Neuro other diagnoses and plan of care as per MELANIE Kaur's notes Brayan Cross MD Total Time Total Time Spent Total Time Spent (In Minutes): 40 Discharge Plan Discharge Items Patient Disposition: Transfer Inpatient Rehab Fac Reason For Visit: HYPONATREMIA, WEAKNESS Discharge Diagnosis: Generalized weakness Possible CIDP flare SIADH Activity: Resume your previous activity Non-emergency contact: Primary Care Provider Call non-emergency contact if: you have any medication questions, your symptoms worsen, your pain is not controlled and you have a fever Follow-up/Referrals: Wilmer Al MD [Primary Care Provider] - Diet: Heart Healthy Fluids: 1500ml (6 cups) Addtl Attending Provider Instructions: You were admitted for generalized weakness and ambulatory dysfunction in setting of CIDP (Chronic Inflammatory Demyelinating Polyneuropathy) and Parkinsons disease. Neurology evaluated and recommended giving IVIG 2mg/kg over 3 days, continuing prednisone PT/OT evaluation, rehab recommended Continue fluid restriction of 1500 ml and sodium chloride tablets for SIADH (low sodium) MEDICATION CHANGES: No medication changes. Continue all home medications as before. RECOMMENDATIONS FOR FOLLOW-UP: Follow up with Dr. Al once discharged from [facility] OTHER INSTRUCTIONS: Seek medical attention if you have: * temperature above 101 * chest pain or trouble breathing * abdominal pain, nausea, vomiting * diarrhea, dark stools or bloody stools * any unanswered questions or concerns Call 911 if symptoms are severe. Please take good care of yourself. Call if you have any questions or problems. You can reach a [facility] hospitalist on duty at [facility] 24 hours a day by calling [phone]. Ifeoma Kaur PA-C [facility] Hospitalist Pending Studies at Discharge: No Stand-Alone Forms: My [facility] Skilled Items Patient informed of condition?: Yes DNR: Yes Discharge Level of Care: Acute rehab Communicable Disease: No Discharge Prognosis: Stable Lines: None Urinary Catheter: No Medications and DC Order Prescriptions: Continued Eliquis 5 mg Tablet 5 mg PO BID RF: 0 cyanocobalamin (vitamin B-12) 1,000 mcg Tablet 1,000 mcg PO QAM RF: 0 fluticasone propionate [Flonase Allergy Relief] 50 mcg/actuation [place],Suspension 2 spray INTRANASAL DAILY PRN (Reason: Congestion) RF: 0 acetaminophen 500 mg Capsule 1,000 mg PO Q6H PRN (Reason: Pain) RF: 0 dicyclomine 10 mg Capsule 10 mg PO TID RF: 0 loperamide 2 mg Capsule 2 mg PO QID PRN (Reason: Diarrhea) Qty: 30 RF: 0 colestipol 1 gram tablet 1 g PO BID RF: 0 cetirizine 10 mg Capsule 10 mg PO PM RF: 0 omeprazole 20 mg Capsule,Delayed Release(Dr/Ec) 20 mg PO QAM RF: 0 sulfamethoxazole-trimethoprim 800-160 mg tablet 1 tab PO MOWEFR RF: 0 potassium chloride [Klor-Con M20] 20 mEq tablet,ER particles/crystals 20 meq PO BID RF: 0 prednisone 20 mg tablet 40 mg PO QAM RF: 0 cholecalciferol (vitamin D3) [Vitamin D3] 25 mcg (1,000 unit) Tablet 25 mcg PO QAM RF: 0 lidocaine 5 % Adhesive Patch,Medicated 1 patch transdermal HS Qty: 0 RF: 0 carbidopa-levodopa 25-100 mg tablet 1 tab PO TID RF: 0 tamsulosin 0.4 mg capsule 0.4 mg PO HS RF: 0 sodium chloride 1 gram Tablet 1 g PO TID Qty: 30 RF: 0 Discharge Orders: Discharge Order (Routine); Ordered 12/02/21 Ordered By: Ifeoma Kaur Admission Data Admit Date/Time: 11/29/21 11:20 Attending Provider: Brayan Cross Admit Provider: Guillermo Palacios Primary Care Provider: Wilmer Al Other Providers: Tami Reza ; Chidi Cottrell ; Tami Newell ; Taurus Rizzo. ; [facility] ; Harvey Paz ; Ifeoma Kaur Other Interventions: Discharge Summary Assessment (RN) Last Done: 12/02/21 13:02
== END 2021-12-02 16:10 | DRG 95 ==
LOC: 3N 18:12 → ED 18:12 → 3N 21:59 → SUATTDRO 11-29 11:20

== ENCOUNTER 2022-03-08 13:59 | Inpatient (IN) ==
--- NOTE | 2022-03-08 14:57 | Emergency Department Note ---
History of Present Illness General Chief complaint: Edema To Extremity Stated complaint: R WRIST PAIN, WEAKNESS, EDEMA TO EXTREMITIES Time Seen by Provider: 03/08/22 14:15 Source: patient and family () History of Present Illness Provider complaint: Right arm swelling Onset (ago): week(s) 2 Location: upper extremity and right Pain Consistency: + constant Quality: + other (Swelling and pain to the wrist) Relieved By: + none Associated symptoms: + shortness of breath and + weakness; no chest pain, no cough, no fever/chills, no headaches or no nausea/vomiting This is a 76-year-old male brought in from the long term for evaluation of generalized weakness, right arm swelling and wrist pain and shortness of breath. He has been having generalized weakness for very long time but his states that it seems to be worse over the past week. He is not eating and drinking very much. He has a history of CIPD. He also has Parkinson's. They noticed his right arm has been swollen for about 2 weeks. He does hold the arm in a dependent position when he is lying in bed. It is often off of the bed or stretcher. He has had shortness of breath and has a history of CHF. He denies any chest pain or fever. He has had no cough or cold symptoms, abdominal pain, vomiting or diarrhea. He is on Eliquis for atrial fibrillation. He states he takes it religiously. Home Medications Medication Instructions Recorded Confirmed Type omeprazole 20 mg capsule,delayed 20 mg PO QAM 09/12/18 03/08/22 History release apixaban 5 mg tablet (Eliquis) 5 mg PO BID 05/12/20 03/08/22 History cyanocobalamin (vitamin B-12) 1,000 mcg PO QAM 05/12/20 03/08/22 History 1,000 mcg tablet dicyclomine 10 mg capsule 10 mg PO TID PRN 05/12/20 03/08/22 History fluticasone propionate 50 2 spray INTRANASAL DAILY PRN 05/12/20 03/08/22 History mcg/actuation nasal spray,suspension (Flonase Allergy Relief) loperamide 2 mg capsule 2 mg PO QID PRN #30 cap 05/22/20 03/08/22 Rx cetirizine 10 mg capsule 10 mg PO HS 10/14/20 03/08/22 History colestipol 1 gram tablet 1 g PO BID 10/14/20 03/08/22 History carbidopa 25 mg-levodopa 100 mg 1 tab PO TID 12/29/20 03/08/22 History tablet tamsulosin 0.4 mg capsule 0.4 mg PO HS 12/29/20 03/08/22 History sodium chloride 1 gram tablet 1 g PO TID #30 tab 01/08/21 03/08/22 Rx cholecalciferol (vitamin D3) 25 25 mcg PO QAM 11/07/21 03/08/22 History mcg (1,000 unit) tablet (Vitamin D3) potassium chloride 20 mEq 20 meq PO BID 11/07/21 03/08/22 History tablet,extended release(part/cryst) (Klor-Con M) escitalopram oxalate 10 mg tablet 10 mg PO QAM 01/05/22 03/08/22 History trolamine salicylate 10 % topical 1 applic TOPICAL Q6H PRN 03/08/22 03/08/22 History cream (Aspercreme) Allergies Allergy/AdvReac Type Severity Reaction Status Date / Time lovastatin [From Mevacor] Allergy Unknown Muscle Pain Verified 03/08/22 15:52 shellfish derived Allergy Unknown Vomiting Verified 03/08/22 15:52 oxycodone [From Percocet] AdvReac Gastrointestinal Verified 03/08/22 15:52 Upset tramadol [From Ultram] AdvReac Verified 03/08/22 15:52 states that this makes him seem "Out of it" Past Med/Surg History Medical History Chronic atrial fibrillation CKD (chronic kidney disease) stage 3, GFR 30-59 ml/min GERD (gastroesophageal reflux disease) Parkinson disease "mild"- following with Dr. Rizzo/ERICK Francois's sonal Surgical History History of colonoscopy 11/2017 scattered diverticulosis History of esophagogastroduodenoscopy (EGD) 11/2017 Priscila pruitt, esophagitis History of eye surgery CATARACT LEFT History of hernia repair Family History Father Colon cancer Mother , age 48, of influenza pneumonia Pneumonia Sister Rheumatoid arthritis Social History Smoking Status: Never smoker Second Hand Exposure: No; Hx Alcohol Use: No Hx Substance Use: No Preferred Language: Nepali Communication Ability: Effective Visual Impairment: No Limitations Hearing Ability: Normal Promotions Specialist Required: No Beliefs That Will Affect Care: None marital status: Current Living Situation: Spouse Current Living Situation Comment: at home Feels Safe at Home: Yes Assistive Devices: Walker Review of Systems See HPI for pertinent positives & negatives. and A total of 10 systems reviewed and were otherwise negative Physical Exam Vital Signs Vital Signs - 24 hr 03/08/22 14:10 03/08/22 14:40 03/08/22 14:55 Temperature 36.5 C Temperature Source Oral Pulse Rate 84 Pulse Rate [Left Apical] 80 Pulse Rhythm Regular Pulse Rhythm [Left Apical] Regular Pulse Strength Normal Pulse Strength [Left Apical] Normal Respiratory Rate 20 20 Respiratory Effort / Characteristics Non-Labored Non-Labored Respiratory Depth Normal Normal Blood Pressure 112/78 Blood Pressure [Left Arm] 111/79 Blood Pressure Mean 89 Blood Pressure Mean [Left Arm] 89 Blood Pressure Position Lying Blood Pressure Position [Left Arm] Lying Pulse Oximetry 98 98 98 Oxygen Delivery Method Room Air Room Air Room Air Sepsis Recent Fever Within 48 Hours No Sepsis New/Unexplained Change in Mental Status No Sepsis Action Taken by Nursing No Action Required Constitutional: Vital signs reviewed. Eyes: Pupils are equal round reactive to light. Conjunctiva are noninjected. ENT: Pharynx is clear without erythema or exudate. Mucous membranes are moist. Neck supple without meningeal signs. Respiratory: Clear to auscultation bilaterally. Breath sounds are equal bilaterally. Cardiovascular: Irregularly irregular rhythm. Normal rate. GI: Soft, nondistended and nontender. Bowel sounds are present. Musculoskeletal: Diffuse edema to the right upper extremity which is held in a dependent position off of the stretcher. Normal distal pulses. Abrasions to the wrist and hand. No evidence of cellulitis. Integumentary: No cyanosis. or jaundice. Neurological: The patient is awake and alert. Normal speech. Psychiatric: Normal affect. Course Administered Medications Discontinued Medications Magnesium Sulfate/Dextrose (Magnesium Sulfate / D5w) 1 gm in 100 mls @ 100 mls/hr IV Q1H ROSEANN Stop: 03/08/22 18:35 Last Admin: 03/08/22 18:37 Dose: 100 mls/hr Documented by: [id number] Infusion: 03/08/22 18:34 Dose: 100 mls/hr Documented by: [id number] Admin: 03/08/22 17:34 Dose: 100 mls/hr Documented by: [id number] Medical Decision Making Differential Diagnosis CIPD flare, DVT, dependent edema, CHF exacerbation, metabolic derangement, anemia Medical Records Attestation: I reviewed the patient's medical records. I did perform a limited focused review of portions of the patient's old chart on the electronic medical record. The patient was admitted in November for generalized weakness and CIPD flare. He was seen again in December for generalized weakness and A. fib. Home Medications Current Medication List: was personally reviewed by me Laboratory Data Attestation: I reviewed the patient's lab results. Result diagrams: 03/08/22 14:52 03/08/22 14:52 Lab Results 03/08/22 03/08/22 03/08/22 Range/Units 14:52 14:52 14:52 WBC 4.65 L (4.8-10.8) K/uL RBC 4.39 L (4.7-6.1) M/uL Hgb 13.1 L (14.0-18.0) g/dL Hct 39.2 L (42-52) % MCV 89.3 (80-100) fL MCH 29.8 (25-34) pg MCHC 33.4 (32-36) g/dL RDW Std Deviation 54.6 H (36.4-46.3) fL RDW Coeff of [place] 16.8 H (11.5-14.5) % Plt Count 115 L (130-400) K/uL MPV 10.6 H (7.4-10.4) fL Immature Gran % (Auto) 0.4 % Neut % (Auto) 80.7 % Lymph % (Auto) 10.1 % [place] % (Auto) 7.3 % Eos % (Auto) 1.3 % Baso % (Auto) 0.2 % Neut # (Auto) 3.75 (1.4-6.5) K/uL Lymph # (Auto) 0.47 L (1.2-3.4) K/uL [place] # (Auto) 0.34 (0.11-0.59) K/uL Eos # (Auto) 0.06 (0-0.5) K/uL Baso # (Auto) 0.01 (0-0.2) K/uL Immature Gran # (Auto) 0.02 (0.00-0.02) K/uL Ovalocytes 1+ Echinocytes 1+ Acanthocytes (Spur) 1+ Sodium 130 L (136-145) mmol/L Potassium 4.3 (3.5-5.1) mmol/L Chloride 101 (98-107) mmol/L Carbon Dioxide 25 (21-32) mmol/L Anion Gap 4 (3-11) BUN 15 (6-23) mg/dl Creatinine 0.85 (0.6-1.4) mg/dl Est Cr Clr Drug Dosing 70.4 ml/min Est GFR ( Amer) 97.4 ml/min Est GFR (Non-Af Amer) 84.0 ml/min BUN/Creatinine Ratio 17.6 (10-20) Glucose 89 (70-99(Fasting)) mg/dl Calcium 7.9 L (8.5-10.1) mg/dl Magnesium 1.4 L (1.7-2.4) mg/dl Total Bilirubin 0.9 (0.2-1.0) mg/dl AST 32 (13-39) U/L ALT 5 L (7-52) U/L Alkaline Phosphatase 132 H (34-104) U/L Troponin I High Sens 19.1 (0-20) pg/ml Total Protein 5.3 L (6.0-8.3) gm/dl Albumin 2.7 L (3.4-5.0) gm/dl Globulin 2.6 (2.5-4.0) gm/dl Albumin/Globulin Ratio 1.0 (0.9-2) TSH 2.560 (0.300-4.500) uIu/ml Urine Color Urine Appearance (Clear) Urine pH (4.5-7.5) Ur Specific [place] (1.000-1.030) Urine Protein (Negative) Urine Glucose (UA) (Negative) Urine Ketones (Negative) Urine Blood (Negative) Urine Nitrite (Negative) Urine Bilirubin (Negative) Urine Urobilinogen (Negative) Ur Leukocyte Esterase (Negative) 03/08/22 Range/Units 15:43 WBC (4.8-10.8) K/uL RBC (4.7-6.1) M/uL Hgb (14.0-18.0) g/dL Hct (42-52) % MCV (80-100) fL MCH (25-34) pg MCHC (32-36) g/dL RDW Std Deviation (36.4-46.3) fL RDW Coeff of [place] (11.5-14.5) % Plt Count (130-400) K/uL MPV (7.4-10.4) fL Immature Gran % (Auto) % Neut % (Auto) % Lymph % (Auto) % [place] % (Auto) % Eos % (Auto) % Baso % (Auto) % Neut # (Auto) (1.4-6.5) K/uL Lymph # (Auto) (1.2-3.4) K/uL [place] # (Auto) (0.11-0.59) K/uL Eos # (Auto) (0-0.5) K/uL Baso # (Auto) (0-0.2) K/uL Immature Gran # (Auto) (0.00-0.02) K/uL Ovalocytes Echinocytes Acanthocytes (Spur) Sodium (136-145) mmol/L Potassium (3.5-5.1) mmol/L Chloride (98-107) mmol/L Carbon Dioxide (21-32) mmol/L Anion Gap (3-11) BUN (6-23) mg/dl Creatinine (0.6-1.4) mg/dl Est Cr Clr Drug Dosing ml/min Est GFR ( Amer) ml/min Est GFR (Non-Af Amer) ml/min BUN/Creatinine Ratio (10-20) Glucose (70-99(Fasting)) mg/dl Calcium (8.5-10.1) mg/dl Magnesium (1.7-2.4) mg/dl Total Bilirubin (0.2-1.0) mg/dl AST (13-39) U/L ALT (7-52) U/L Alkaline Phosphatase (34-104) U/L Troponin I High Sens (0-20) pg/ml Total Protein (6.0-8.3) gm/dl Albumin (3.4-5.0) gm/dl Globulin (2.5-4.0) gm/dl Albumin/Globulin Ratio (0.9-2) TSH (0.300-4.500) uIu/ml Urine Color Yellow Urine Appearance Clear (Clear) Urine pH 6.0 (4.5-7.5) Ur Specific [place] 1.015 (1.000-1.030) Urine Protein Negative (Negative) Urine Glucose (UA) Negative (Negative) Urine Ketones Negative (Negative) Urine Blood Negative (Negative) Urine Nitrite Negative (Negative) Urine Bilirubin Negative (Negative) Urine Urobilinogen Negative (Negative) Ur Leukocyte Esterase Negative (Negative) Imaging Data Radiologist's Impression: Chest X-Ray 03/08/22 14:49 XR chest 1V portable CLINICAL HISTORY: weakness TECHNIQUE: Single frontal radiograph of the chest was obtained. Comparison: Comparison is made to chest radiograph 01/05/2022 FINDINGS: No lines and tubes are seen. Cardiomegaly is noted. The lungs are clear. No evidence of pleural effusion or pneumothorax. IMPRESSION: No acute chest disease. Cardiomegaly is noted. ACT 112: Negative or not required by law. Electronically signed by: Wayne Marie M.D. 03/08/2022 3:39 PM Venous Doppler Study 03/08/22 14:54 ULTRASOUND RIGHT UPPER EXTREMITY VENOUS CLINICAL HISTORY: Right arm swelling. COMPARISON STUDY: No priors. TECHNIQUE: Real-time, grayscale, and color Doppler sonography of the deep veins of the right upper extremity is performed. Compression and augmentation were utilized. FINDINGS: There is no sonographic evidence of deep venous thrombosis identified in the right upper extremity. The right internal jugular, axillary, and brachial veins are patent and normally compressible. Normal venous waveforms and augmentation are seen within the right subclavian vein. The cephalic and basilic veins are clear. The visualized radial and ulnar veins are patent. IMPRESSION: There is no sonographic evidence of deep venous thrombosis identified in the right upper extremity. ACT 112: Negative or not required by law. Electronically signed by: Cuba Taylor M.D. 03/08/2022 5:25 PM ECG Data Attestation: I personally reviewed and interpreted this ECG as follows: Indication: + weakness Rate (beats per minute): 79 Rhythm: + atrial fibrillation ECG [place]: + Normal ECG ST segments: no ST elevation ECG Findings: + Other (Low voltage QRS); no PVCs Comparison ECG Date: from (January 05, 2022) Change: no significant change MDM Narrative I did evaluate the patient as noted above. Patient is presenting with right arm swelling and pain for the past 2 weeks. He also complains of generalized weakness but his states that he is always weak and he has not been eating very much over the past week. IV access was established. I did place an order for continuous cardiac monitoring. The monitor showed atrial fibrillation at a rate of 80 bpm. I did order and personally review the patient's 12-lead EKG as described above. He has no acute ischemic changes. I did order and personally reviewed the images of the patient's chest x-ray as described above. Chest x- ray is unremarkable. I did order a urine analysis. There is no evidence of urinary tract infection. I did order and review the patient's blood work as noted in the electronic medical record. CBC demonstrates a chronic pancytopenia. CMP shows chronic hypocalcemia and hyponatremia. Magnesium is 1.4. He was given IV magnesium. High-sensitivity troponin is negative. I did order a Doppler ultrasound the right upper extremity. I did review the images myself as well as the radiology report as described above. There is no evidence of DVT. I suspect the swelling is largely due to positioning as he often has it dangle off of the bed. He and his were informed of the test results. He will be hospitalized for further care and evaluation. The case was discussed with the hospitalist and case aide. Resident Physician Supervision Note: I did perform an independent evaluation and examination of this patient as described. I also saw this patient in conjunction with the resident, Dr. Diaz, and guided management for the patient. Impression & Plan Generalized weakness, CIDP (chronic inflammatory demyelinating polyneuropathy), Hypomagnesemia, Hyponatremia, Hypocalcemia, Pancytopenia, Edema of right upper arm, Anticoagulated Discharge Plan Visit Data Chief Complaint: Edema To Extremity Stated Complaint: R WRIST PAIN, WEAKNESS, EDEMA TO EXTREMITIES ED Provider: Mohsen Chavez ED Midlevel Provider: Christian Diaz Discharge Problem: Generalized weakness, CIDP (chronic inflammatory demyelinating polyneuropathy), Hypomagnesemia, Hyponatremia, Hypocalcemia, Pancytopenia, Edema of right upper arm, Anticoagulated Patient Disposition: Being Evaluated by Hospitalist Forms Stand Alone Forms: My [facility] Prescriptions Prescriptions: No Action Eliquis 5 mg Tablet 5 mg PO BID RF: 0 cyanocobalamin (vitamin B-12) 1,000 mcg Tablet 1,000 mcg PO QAM RF: 0 fluticasone propionate [Flonase Allergy Relief] 50 mcg/actuation [place],Suspension 2 spray INTRANASAL DAILY PRN (Reason: Congestion) RF: 0 dicyclomine 10 mg Capsule 10 mg PO TID PRN (Reason: CRAMPING OR DIARRHEA) RF: 0 loperamide 2 mg Capsule 2 mg PO QID PRN (Reason: Diarrhea) Qty: 30 RF: 0 colestipol 1 gram tablet 1 g PO BID RF: 0 cetirizine 10 mg Capsule 10 mg PO HS RF: 0 omeprazole 20 mg Capsule,Delayed Release(Dr/Ec) 20 mg PO QAM RF: 0 potassium chloride [Klor-Con M20] 20 mEq tablet,ER particles/crystals 20 meq PO BID RF: 0 cholecalciferol (vitamin D3) [Vitamin D3] 25 mcg (1,000 unit) Tablet 25 mcg PO QAM RF: 0 trolamine salicylate [Aspercreme] 10 % Cream 1 applic TOPICAL Q6H PRN (Reason: Pain) RF: 0 carbidopa-levodopa 25-100 mg tablet 1 tab PO TID RF: 0 tamsulosin 0.4 mg capsule 0.4 mg PO HS RF: 0 sodium chloride 1 gram Tablet 1 g PO TID Qty: 30 RF: 0 escitalopram oxalate 10 mg tablet 10 mg PO QAM RF: 0 Referrals Referrals: Wilmer Al MD [Primary Care Provider] -
[2022-03-08 15:04] LABS: Basophils # (auto) 0.01 K/uL (0-0.2); Basophils % (auto) 0.2 %; Eosinophils # (auto) 0.06 K/uL (0-0.5); Eosinophils % (auto) 1.3 %; Hematocrit (blood only) 39.2 % (42-52); Hemoglobin 13.1 g/dL (14.0-18.0); Immature Granulocytes # (auto) 0.02 K/uL (0.00-0.02); Immature Granulocytes % (auto) 0.4 %; Lymphocytes # (auto) 0.47 K/uL (1.2-3.4); Lymphocytes % (auto) 10.1 %; Mean Corpuscular Hemoglobin 29.8 pg (25-34); Mean Corpuscular Hgb Conc 33.4 g/dL (32-36); Mean Corpuscular Volume 89.3 fL (80-100); Mean Platelet Volume 10.6 fL (7.4-10.4); Monocytes # (auto) 0.34 K/uL (0.11-0.59); Monocytes % (auto) 7.3 %; Neutrophils # (auto) 3.75 K/uL (1.4-6.5); Neutrophils % (auto) 80.7 %; Platelet Count 115 K/uL (130-400); RDW Coefficient of Variation 16.8 % (11.5-14.5); RDW Standard Deviation 54.6 fL (36.4-46.3); Red Blood Count 4.39 M/uL (4.7-6.1); White Blood Count 4.65 K/uL (4.8-10.8)
[2022-03-08 15:35] LABS: Troponin I High Sensitivity 19.1 pg/ml (0-20)
[2022-03-08 15:36] LABS: Albumin Level 2.7 gm/dl (3.4-5.0); BUN Creatinine Ratio 17.6 (10-20); Bilirubin,Total 0.9 mg/dl (0.2-1.0); Calcium 7.9 mg/dl (8.5-10.1); Creatinine Clr Calc Pharmacy 70.4 ml/min; Est GFR (African American) 97.4 ml/min; Globulin 2.6 gm/dl (2.5-4.0); Magnesium 1.4 mg/dl (1.7-2.4); Potassium 4.3 mmol/L (3.5-5.1); Total Protein 5.3 gm/dl (6.0-8.3)
[2022-03-08 15:37] LABS: Acanthocytes 1+; Echinocytes 1+; Ovalocytes 1+
--- NOTE | 2022-03-08 15:40 | Communication Note ---
Date of Service: March 08, 2022 I participated in the care and plan for this patient. For plan and disposition please see attending provider's note. Resident Activity Tracking Resident Involvement: Resident Care Provided Care Provided: Adult ED
--- NOTE | 2022-03-08 15:40 | XRay Report ---
XR chest 1V portable CLINICAL HISTORY: weakness TECHNIQUE: Single frontal radiograph of the chest was obtained. Comparison: Comparison is made to chest radiograph 01/05/2022 FINDINGS: No lines and tubes are seen. Cardiomegaly is noted. The lungs are clear. No evidence of pleural effus ion or pneumothorax. IMPRESSION: No acute chest disease. Cardiomegaly is noted. ACT 112: Negative or not required by law. Electronically signed by: Wayne Marie M.D. 03/08/2022 3:39 PM
[2022-03-08 15:57] LABS: Appearance Urine Clear (Clear); Bilirubin Urine Negative (Negative); Blood Urine Negative (Negative); Color Urine Yellow; Glucose Urine UA Negative (Negative); Ketones Urine Negative (Negative); Leukocyte Esterase Urine Negative (Negative); Nitrite Urine Negative (Negative); Protein Urine Negative (Negative); Specific Gravity Urine 1.015 (1.000-1.030); Urobilinogen Urine Negative (Negative)
--- NOTE | 2022-03-08 17:27 | Ultrasound Report ---
ULTRASOUND RIGHT UPPER EXTREMITY VENOUS CLINICAL HISTORY: Right arm swelling. COMPARISON STUDY: No priors. TECHNIQUE: Real-time, grayscale, and color Doppler sonography of the deep veins of the right upper ex tremity is performed. Compression and augmentation were utilized. FINDINGS: There is no sonographic evidence of deep venous thrombosis identified in the right upper ex tremity. The right internal jugular, axillary, and brachial veins are patent and normally compressibl e. Normal venous waveforms and augmentation are seen within the right subclavian vein. The cephalic a nd basilic veins are clear. The visualized radial and ulnar veins are patent. IMPRESSION: There is no sonographic evidence of deep venous thrombosis identified in the right upper extremity. ACT 112: Negative or not required by law. Electronically signed by: Cuba Taylor M.D. 03/08/2022 5:25 PM
[2022-03-08] MEDS: MAGNESIUM SULFATE / D5W 1 GM/100 ML BAG IV SCH ×2 (17:34→18:37)
--- NOTE | 2022-03-08 18:29 | History & Physical Report ---
Date of Service March 08, 2022 Assessment & Plan (1) Generalized weakness: Plan: Patient is 76-year-old male with PMH chronic atrial fibrillation anticoagulated with Eliquis, SIADH and chronic hyponatremia on fluid restriction and sodium chloride tablets, CIDP, Parkinson's disease, CKD III, BPH, diastolic dysfunctionpresented to ER with complaint of generalized weakness, lethargy x 1 day. Denies fever, chills, nausea, vomiting. Chronic intermittent loose stools secondary to IBS, denies any increase. In ER patient afebrile, vital stable. WBC: 4.6, Hgb: 13 (at baseline), magnesium: 1.4, CXR: No acute disease. UA unremarkable ? Weakness secondary to CIDP flare, electrolyte abnormality, underlying infection blood cultures pending PT/OT eval Neurology consult (2) Hypomagnesemia: Plan: Magnesium: 1.4 In ER given 2 g magnesium sulfate Monitor (3) CIDP (chronic inflammatory demyelinating polyneuropathy): Plan: Following with neurology, Dr. Rizzo Had restarted monthly IVIG. Last given 01/2022. Had noted not having the significant improvement that he previously was after IVIG 12/2021 neurology weaned off of daily prednisone as of concern for possible steroid myopathy Neurology consult (4) Edema of right upper arm: Plan: Right upper extremity venous Doppler: Negative for DVT No erythema, warmth or discomfort or signs of cellulitis noted May be secondary to dependent edema from arm dangling Monitor (5) Parkinson disease: Plan: Continue carbidopa levodopa (6) Chronic hyponatremia: (7) SIADH (syndrome of inappropriate ADH production): Plan: Na: 130. Baseline ~130-133 Continue 1500mL fluid restriction Continue sodium tabs Monitor (8) Chronic atrial fibrillation: Plan: Chronic atrial fibrillation anticoagulated on Eliquis Rate controlled Continue Eliquis Not currently on rate control medication (9) Chronic hypokalemia: Plan: K: 4.3 Continue home potassium supplement DVT Prophylaxis On Eliquis DNR/DNI as per discussion with pt Follows with Dr Al for routine care Pt was seen and care coordinated with Dr Gutierres. See addendum History of Present Illness Chief Complaint: Weakness Primary Care Provider: Wilmer Al MD Patient is 76-year-old male with PMH chronic atrial fibrillation anticoagulated with Eliquis, SIADH and chronic hyponatremia on fluid restriction and sodium chloride tablets, CIDP, Parkinson's disease, CKD III, BPH, diastolic dysfunctionpresented to ER with complaint of weakness. History obtained from patient and patient's . Patient's reports yesterday patient seemed more more lethargic and was sleeping for most of the day. She reports he went to bed last night and was in bed until this morning. She reports at baseline he favors lying on his right side and often has right arm dangling. Patient reports last night was having pain along his entire right side. It was noted he was having some swelling to right hand that has been ongoing for approximately a week per the . Patient denies current pain to right upper extremity or any body pain currently. He states he will have intermittent abdominal cramping with certain foods he eats. Reports chronic intermittent diarrhea and has diagnosis of IBS. Gets bilateral lower extremity edema, improves with elevation. Patient's reports the past week he has had much improvement of his BLE edema. Reports shortness of breath with any type of exertion including position change that has been ongoing and denies any increased shortness of breath. Uses wheelchair, only ambulates with walker with PT. History of hospitalization 11/27/2021-12/02/2021 for weakness and was evaluated by neurology and possible CIDP flare versus weakness secondary to deconditioning from recent UTI. During that admission he received IVIG x3 days and had prednisone continued. Patient's reports his last dose of IVIG was January 2022. She reports he is not getting the response that he did last year. Is following with neurology and discussion was to hold IVIG for the month of March and revisit this in March secondary to patient not receiving significant improvement in symptoms as had in the past. Denies recent fall, fever/chills, diaphoresis, N/V melena, hematochezia, RICHARDSON, dizziness, syncope, vision changes, neck pain, CP, palpitations, cough, sore throat, choking, otalgia, rhinorrhea, paresthesias, rashes, urinary symptoms. Allergies Allergy/AdvReac Type Severity Reaction Status Date / Time lovastatin [From Mevacor] Allergy Unknown Muscle Pain Verified 03/08/22 15:52 shellfish derived Allergy Unknown Vomiting Verified 03/08/22 15:52 oxycodone [From Percocet] AdvReac Gastrointestinal Verified 03/08/22 15:52 Upset tramadol [From Ultram] AdvReac Verified 03/08/22 15:52 states that this makes him seem "Out of it" Home Medications Medication Instructions Recorded Confirmed Type omeprazole 20 mg capsule,delayed 20 mg PO QAM 09/12/18 03/08/22 History release apixaban 5 mg tablet (Eliquis) 5 mg PO BID 05/12/20 03/08/22 History cyanocobalamin (vitamin B-12) 1,000 mcg PO QAM 05/12/20 03/08/22 History 1,000 mcg tablet dicyclomine 10 mg capsule 10 mg PO TID PRN 05/12/20 03/08/22 History fluticasone propionate 50 2 spray INTRANASAL DAILY PRN 05/12/20 03/08/22 History mcg/actuation nasal spray,suspension (Flonase Allergy Relief) loperamide 2 mg capsule 2 mg PO QID PRN #30 cap 05/22/20 03/08/22 Rx cetirizine 10 mg capsule 10 mg PO HS 10/14/20 03/08/22 History colestipol 1 gram tablet 1 g PO BID 10/14/20 03/08/22 History carbidopa 25 mg-levodopa 100 mg 1 tab PO TID 12/29/20 03/08/22 History tablet tamsulosin 0.4 mg capsule 0.4 mg PO HS 12/29/20 03/08/22 History sodium chloride 1 gram tablet 1 g PO TID #30 tab 01/08/21 03/08/22 Rx cholecalciferol (vitamin D3) 25 25 mcg PO QAM 11/07/21 03/08/22 History mcg (1,000 unit) tablet (Vitamin D3) potassium chloride 20 mEq 20 meq PO BID 11/07/21 03/08/22 History tablet,extended release(part/cryst) (Klor-Con M) escitalopram oxalate 10 mg tablet 10 mg PO QAM 01/05/22 03/08/22 History trolamine salicylate 10 % topical 1 applic TOPICAL Q6H PRN 03/08/22 03/08/22 History cream (Aspercreme) Past Med/Surg History Medical History Chronic atrial fibrillation CKD (chronic kidney disease) stage 3, GFR 30-59 ml/min GERD (gastroesophageal reflux disease) Parkinson disease "mild"- following with Dr. Rizzo/ERICK Francois'yasmine ring Surgical History History of colonoscopy 11/2017 scattered diverticulosis History of esophagogastroduodenoscopy (EGD) 11/2017 Priscila ring, esophagitis History of eye surgery CATARACT LEFT History of hernia repair Family History Father Colon cancer Mother , age 48, of influenza pneumonia Pneumonia Sister Rheumatoid arthritis Social History Smoking Status: Never smoker Second Hand Exposure: No; Hx Alcohol Use: No Hx Substance Use: No Preferred Language: Welsh Communication Ability: Effective Visual Impairment: No Limitations Hearing Ability: Normal Cell Tender Helper Required: No Beliefs That Will Affect Care: None marital status: Current Living Situation: Spouse Current Living Situation Comment: at home Feels Safe at Home: Yes Assistive Devices: Walker Review of Systems Review of Systems: All systems reviewed & are unremarkable except as noted in HPI & below Physical Exam Physical Exam: General: no acute distress, WDWN, chronic ill appearing elderly male lying on right side in bed Head: normocephalic, atraumatic Eyes: PERRL, EOM's intact, conjunctiva non-injected, anicteric ENT: normal inspection external ears, nose, mucous membranes moist Neck: supple, trachea midline Lungs: clear, no respiratory distress, no wheezing/rhonchi/rales CV: Irregularly irregular, no murmur, 1+ pretibial edema RLE, trace edema LLE Abd: normal BS, soft, non-tender to palpation Ext: no cyanosis, no erythema, no calf tenderness, RUE:+ Edema right hand. No hand or arm erythema, nontender to palpation Neuro: A&O x 3, diffuse weakness throughout 4 out of 5 Skin: warm, dry, right abdominal skin fold with erythema Results & Data Results & Data ([facility]) Vital Signs (Past 12 Hours) Vital Signs Temp Pulse Pulse Resp BP BP Pulse Ox 03/08/22 14:55 98 06/08/22 14:40 80 20 111/79 98 03/08/22 14:10 36.5 C 84 20 112/78 98 Laboratory Results Short CBC 03/08/22 Range/Units 14:52 WBC 4.65 L (4.8-10.8) K/uL Hgb 13.1 L (14.0-18.0) g/dL Hct 39.2 L (42-52) % Plt Count 115 L (130-400) K/uL BMP 03/08/22 14:52 Sodium 130 L Potassium 4.3 Chloride 101 Carbon Dioxide 25 BUN 15 Creatinine 0.85 Glucose 89 Calcium 7.9 L Liver Function 03/08/22 Range/Units 14:52 Total Bilirubin 0.9 (0.2-1.0) mg/dl AST 32 (13-39) U/L ALT 5 L (7-52) U/L Alkaline Phosphatase 132 H (34-104) U/L Albumin 2.7 L (3.4-5.0) gm/dl Urine 03/08/22 Range/Units 15:43 Urine Color Yellow Urine Appearance Clear (Clear) Urine pH 6.0 (4.5-7.5) Ur Specific Mentor 1.015 (1.000-1.030) Urine Protein Negative (Negative) Urine Glucose (UA) Negative (Negative) Diagnostic Findings Chest X-Ray 03/08/22 14:49 XR chest 1V portable CLINICAL HISTORY: weakness TECHNIQUE: Single frontal radiograph of the chest was obtained. Comparison: Comparison is made to chest radiograph 01/05/2022 FINDINGS: No lines and tubes are seen. Cardiomegaly is noted. The lungs are clear. No evidence of pleural effusion or pneumothorax. IMPRESSION: No acute chest disease. Cardiomegaly is noted. ACT 112: Negative or not required by law. Electronically signed by: Wayne Marie M.D. 03/08/2022 3:39 PM Venous Doppler Study 03/08/22 14:54 ULTRASOUND RIGHT UPPER EXTREMITY VENOUS CLINICAL HISTORY: Right arm swelling. COMPARISON STUDY: No priors. TECHNIQUE: Real-time, grayscale, and color Doppler sonography of the deep veins of the right upper extremity is performed. Compression and augmentation were utilized. FINDINGS: There is no sonographic evidence of deep venous thrombosis identified in the right upper extremity. The right internal jugular, axillary, and brachial veins are patent and normally compressible. Normal venous waveforms and augmentation are seen within the right subclavian vein. The cephalic and basilic veins are clear. The visualized radial and ulnar veins are patent. IMPRESSION: There is no sonographic evidence of deep venous thrombosis identified in the right upper extremity. ACT 112: Negative or not required by law. Electronically signed by: Cuba Taylor M.D. 03/08/2022 5:25 PM Supervising Physician Co-Signing Physician Notes 76-year-old male with PMH chronic atrial fibrillation on Eliquis, SIADH and chronic hyponatremia on fluid restriction and sodium chloride tablets, CIDP, Parkinson's disease, CKD III, BPH, diastolic dysfunctionpresented to ER 03/08 with complaint of generalized weakness, lethargy x 1 day. Denies fever, chills, nausea, vomiting. Chronic intermittent loose stools secondary to IBS, denies any acute changes. Vitals are stable hemodynamically, weakness likely secondary to CIDP flareup, monitor and replete electrolytes, repleting magnesium, neurology consult, PT/OT eval. For edema of right upper, elevated right upper arm, Doppler negative for DVT, likely dependent edema due to inclination of lying on the right side all the time. Upon Exam: GENERAL: Alert and oriented x3. NAD, on RA. Weak, ill and frail looking. Leaning on right side. HEENT: No pallor, no icterus. Pupils equal, round and reactive to light. Oral mucosa moist. NECK: No JVD, no neck masses. HEART: S1 and S2 heard. Regular rate and rhythm. No murmur, no gallop. RESPIRATORY SYSTEM: Normal AP diameter. No accessory muscle use. No wheezing, no crackles. Decreased breath sounds. ABDOMEN: Soft, bowel sounds present, nontender, no distention. RUQ w/ rash, non tender. CENTRAL NERVOUS SYSTEM: No facial droop. Speech is clear. Obeys simple commands. Moves extremities. EXTREMITIES: RLE 1+ edema, LLE no edema, RUE 1-2+ pitting edema, no erythema seen. I have seen and examined the patient and have discussed the case with the provider above. I agree with the assessment and plan as stated.
[2022-03-08] MEDS ORDERED: ALUMINUM/MAGNESIUM SUSP 30 ML UDC PO PRN (20:36)
[2022-03-08] MEDS ORDERED: TROLAMINE SALICYLATE 10% CRM 255 APPLN/85 GM TUBE EXT PRN (20:36)
[2022-03-08] MEDS ORDERED: ACETAMINOPHEN 325 MG TAB PO PRN (20:36)
[2022-03-08] MEDS ORDERED: ONDANSETRON INJ 2 MG/ML 2 ML VIAL IV PRN (20:36)
[2022-03-08] MEDS ORDERED: POLYETHYLENE (MIRALAX) 17 GM PACK PO PRN (20:36)
[2022-03-08] MEDS ORDERED: DICYCLOMINE HCL 10 MG CAP PO PRN (20:36)
[2022-03-08] MEDS: APIXABAN 5 MG TABLET PO SCH (22:42)
[2022-03-08] MEDS: TAMSULOSIN HCL 0.4 MG CAP PO SCH (22:42)
[2022-03-08] MEDS: POTASSIUM CHLORIDE CRTAB 20 MEQ TABCR PO SCH (22:42)
[2022-03-08] MEDS: COLESTIPOL HCL 1 GM TAB PO SCH (22:43)
[2022-03-08] MEDS: CETIRIZINE HCL 10 MG TABLET PO SCH (22:43)
[2022-03-08] MEDS: CARBIDOPA/LEVODOPA 25/100MG TAB PO SCH (22:43)
[2022-03-08] MEDS: SODIUM CHLORIDE 1 GM TABLET PO SCH (22:43)
--- NOTE | 2022-03-09 07:11 | CT Scan Report ---
CT head/brain wo con CLINICAL HISTORY: confusion COMPARISON STUDY: 11/27/2021 CT DOSE: 614.27 mGy.cm TECHNIQUE: Standard CT of the Brain was performed without IV contrast. A dose lowering technique was utilized adhering to the principles of ALARA. FINDINGS: Extraaxial space: There is no evidence for subdural hematoma. There are no extra-axial fluid collecti ons. Ventricles and cisterns: The ventricles are mildly dilated bilaterally. There is no evidence for midl ine shift or mass effect. Parenchyma: There is no subarachnoid or intraparenchymal hemorrhage. There is no evidence for an acut e infarct or cerebral edema. There is mild cerebral cortical atrophy and decreased attenuation in the periventricular white matter representing remote small vessel disease. There are no gross mass lesio ns. Osseous structures: There is no evidence for an acute fracture. There is again mucosal thickening of a few ethmoid air cells which are unchanged. The remaining visualized paranasal sinuses are clear. Th e mastoid air cells are clear bilaterally. Soft tissues: There is no evidence for focal soft tissue swelling. IMPRESSION: 1. No acute intracerebral pathology. 2. Cerebral cortical atrophy and remote small vessel disease are again seen along with mild bilateral ethmoid sinusitis. ACT 112: Negative or not required by law. Electronically signed by: Andrews Reyes M.D. 03/09/2022 7:10 AM
--- NOTE | 2022-03-09 08:42 | Hospitalist Progress Note ---
Date of Service March 09, 2022 Assessment & Plan (1) Generalized weakness: Plan: Patient is 76-year-old male with PMH chronic atrial fibrillation anticoagulated with Eliquis, SIADH and chronic hyponatremia on fluid restriction and sodium chloride tablets, CIDP, Parkinson's disease, CKD III, BPH, diastolic dysfunctionpresented to ER with complaint of generalized weakness, lethargy x 1 day. Denies fever, chills, nausea, vomiting. Chronic intermittent loose stools secondary to IBS, denies any increase. In ER patient afebrile, vital stable. WBC: 4.6, Hgb: 13 (at baseline), magnesium: 1.4, CXR: No acute disease. UA unremarkable ? Weakness secondary to CIDP flare, electrolyte abnormality, underlying infection blood cultures pending PT/OT eval Neurology consult Seen by Dr. Rizzo, neurology, who follows with him routinely. Patient recently did not respond to IVIG, and did not tolerate steroids in the past. Discussed plasmapheresis with the patient and his , and also explained that prognosis is very poor. Patient follows with palliative medicine as outpatient. Patient and not interested in aggressive / plasmapheresis. Interested in palliative approach, possible hospice care. CM updated (2) Hypomagnesemia: Plan: Magnesium: 1.4 In ER given 2 g magnesium sulfate Monitor (3) CIDP (chronic inflammatory demyelinating polyneuropathy): Plan: Following with neurology, Dr. Rizzo Had restarted monthly IVIG. Last given 01/2022. Had noted not having the significant improvement that he previously was after IVIG 12/2021 neurology weaned off of daily prednisone as of concern for possible steroid myopathy Neurology consult (4) Edema of right upper arm: Plan: Right upper extremity venous Doppler: Negative for DVT No erythema, warmth or discomfort or signs of cellulitis noted May be secondary to dependent edema from arm dangling Monitor (5) Parkinson disease: Plan: Continue carbidopa levodopa (6) Chronic hyponatremia: (7) SIADH (syndrome of inappropriate ADH production): Plan: Na: 130. Baseline ~130-133 Continue 1500mL fluid restriction Continue sodium tabs Monitor (8) Chronic atrial fibrillation: Plan: Chronic atrial fibrillation anticoagulated on Eliquis Rate controlled Continue Eliquis Not currently on rate control medication (9) Chronic hypokalemia: Plan: K: 4.3 Continue home potassium supplement DVT Prophylaxis On Eliquis DNR/DNI as per discussion with pt Follows with Dr Al for routine care Admission and Anticipated Discharge Date Admission Date: March 08, 2022 Subjective Patient seen in follow-up of weakness Lying in bed, in no acute distress Denies fevers chills, chest pain, shortness of breath, abdominal pain, nausea or vomiting Patient follows with Dr. Rizzo, from neurology, and was seen by him this afternoon Patient apparently did not respond well to IVIG recently, or steroids in the past, discussed plasmapheresis, and per family and patient, they would prefer palliative/comfort care measures CM updated Review of Systems Review of Systems: All systems reviewed & are unremarkable except as noted in Subjective Physical Exam Physical Exam: General: chronic ill appearing elderly male in NAD Head: normocephalic, atraumatic Eyes: PERRL, EOM's intact, conjunctiva non-injected, anicteric ENT: normal inspection external ears, nose, mucous membranes moist Neck: supple, trachea midline Lungs: clear, no respiratory distress, no wheezing/rhonchi/rales CV: Irregularly irregular, no murmur, 1+ pretibial edema RLE, trace edema LLE Abd: normal BS, soft, non-tender to palpation Ext: no calf tenderness, RUE:+ Edema right hand. No hand or arm erythema, nontender to palpation Neuro: A&O x 3, diffuse weakness throughout 4 out of 5 Skin: warm, dry, right abdominal skin fold with erythema Results & Data Results & Data ([facility]) Vital Signs (Past 12 Hours) Vital Signs Temp Pulse Resp BP Pulse Ox 03/09/22 07:35 36.8 C 84 18 144/89 H 99 Laboratory Results 03/09/22 03/09/22 03/08/22 Range/Units 08:37 07:52 18:46 WBC 3.21 L (4.8-10.8) K/uL RBC 4.49 L (4.7-6.1) M/uL Hgb 13.7 L (14.0-18.0) g/dL Hct 40.5 L (42-52) % MCV 90.2 (80-100) fL MCH 30.5 (25-34) pg MCHC 33.8 (32-36) g/dL RDW Std Deviation 55.4 H (36.4-46.3) fL RDW Coeff of [place] 16.6 H (11.5-14.5) % Plt Count 118 L (130-400) K/uL MPV 10.9 H (7.4-10.4) fL Sodium 131 L (136-145) mmol/L Potassium 4.2 (3.5-5.1) mmol/L Chloride 102 (98-107) mmol/L Carbon Dioxide 23 (21-32) mmol/L Anion Gap 6 (3-11) BUN 12 (6-23) mg/dl Creatinine 0.80 (0.6-1.4) mg/dl Est Cr Clr Drug Dosing 71.3 ml/min Est GFR ( Amer) 99.9 ml/min Est GFR (Non-Af Amer) 86.2 ml/min BUN/Creatinine Ratio 15.0 (10-20) Glucose 71 (70-99(Fasting)) mg/dl Calcium 8.1 L (8.5-10.1) mg/dl Magnesium 1.9 (1.7-2.4) mg/dl SARS-CoV-2, RNA, NAAT NEGATIVE (NEGATIVE) Medications Administered Current Inpatient Medications Acetaminophen (Acetaminophen 325 Mg Tab) 650 mg PO Q4H PRN PRN Reason: Pain or Fever Stop: 04/07/22 20:35 Al Hydrox/Mg Hydrox/Simethicone (Aluminum/Magnesium Susp 30 Ml Udc) 15 ml PO Q4H PRN PRN Reason: Dyspepsia Stop: 04/07/22 20:35 Apixaban (Apixaban 5 Mg Tablet) 5 mg PO BID ROSEANN Stop: 04/07/22 20:59 Last Admin: 03/09/22 08:56 Dose: 5 mg Documented by: Carbidopa/Levodopa (Carbidopa/Levodopa 25/100mg Tab) 1 tab PO TID ROSEANN Stop: 04/07/22 20:59 Last Admin: 03/09/22 13:59 Dose: 1 tab Documented by: Cetirizine HCl (Cetirizine Hcl 10 Mg Tablet) 10 mg PO HS ROSEANN Stop: 04/07/22 20:59 Last Admin: 03/08/22 22:43 Dose: 10 mg Documented by: Colestipol HCl (Colestipol Hcl 1 Gm Tab) 1 gm PO BID@1000,2200 ROSEANN Stop: 04/07/22 21:59 Last Admin: 03/09/22 10:14 Dose: 1 gm Documented by: Cyanocobalamin (Cyanocobalamin (B-12) 500 Mcg Tablet) 1,000 mcg PO [facility] Stop: 04/08/22 08:59 Last Admin: 03/09/22 08:55 Dose: 1,000 mcg Documented by: Dicyclomine HCl (Dicyclomine Hcl 10 Mg Cap) 10 mg PO TID PRN PRN Reason: CRAMPING OR DIARRHEA Stop: 04/07/22 20:35 Escitalopram Oxalate (Escitalopram Oxalate 10 Mg Tab) 10 mg PO [facility] Stop: 04/08/22 08:59 Last Admin: 03/09/22 08:56 Dose: 10 mg Documented by: Ondansetron HCl (Ondansetron Inj 2 Mg/Ml 2 Ml Vial) 4 mg IV Q6H PRN PRN Reason: Nausea Stop: 04/07/22 20:35 Pantoprazole Sodium (Pantoprazole 40 Mg Tab) 40 mg PO [facility]; Protocol Stop: 04/08/22 08:59 Last Admin: 03/09/22 08:56 Dose: 40 mg Documented by: Polyethylene Glycol (Polyethylene (Miralax) 17 Gm Pack) 17 gm PO DAILY PRN PRN Reason: Constipation Stop: 04/07/22 20:35 Potassium Chloride (Potassium Chloride Crtab 20 Meq Tabcr) 20 meq PO BID [facility] Stop: 04/07/22 20:59 Last Admin: 03/09/22 08:56 Dose: 20 meq Documented by: Sodium Chloride (Sodium Chloride 1 Gm Tablet) 1 gm PO TID [facility] Stop: 04/07/22 20:59 Last Admin: 03/09/22 13:59 Dose: 1 gm Documented by: Tamsulosin HCl (Tamsulosin Hcl 0.4 Mg Cap) 0.4 mg PO HS [facility] Stop: 04/07/22 20:59 Last Admin: 03/08/22 22:42 Dose: 0.4 mg Documented by: Trolamine Salicylate (Trolamine Salicylate 10% Crm 255 Appln/85 Gm Tube) 1 appln EXT Q6H PRN PRN Reason: muscle pain Stop: 04/07/22 20:35 Vitamin D (Cholecalciferol 1,000 Units 25 Mcg Tab) 1,000 units PO [facility] Stop: 04/08/22 08:59 Last Admin: 03/09/22 08:56 Dose: 1,000 units Documented by:
[2022-03-09] MEDS: CYANOCOBALAMIN (B-12) 500 MCG TABLET PO SCH (08:55)
[2022-03-09] MEDS: CHOLECALCIFEROL 1,000 UNITS 25 MCG TAB PO SCH (08:56)
[2022-03-09] MEDS: CARBIDOPA/LEVODOPA 25/100MG TAB PO SCH ×3 (08:56→21:32)
[2022-03-09] MEDS: APIXABAN 5 MG TABLET PO SCH ×2 (08:56→21:31)
[2022-03-09] MEDS: ESCITALOPRAM OXALATE 10 MG TAB PO SCH (08:56)
[2022-03-09] MEDS: POTASSIUM CHLORIDE CRTAB 20 MEQ TABCR PO SCH ×2 (08:56→21:31)
[2022-03-09] MEDS: PANTOprazole 40 MG TAB PO SCH (08:56)
[2022-03-09] MEDS: SODIUM CHLORIDE 1 GM TABLET PO SCH ×3 (08:56→21:32)
[2022-03-09 09:12] LABS: Hematocrit (blood only) 40.5 % (42-52); Hemoglobin 13.7 g/dL (14.0-18.0); Mean Corpuscular Hemoglobin 30.5 pg (25-34); Mean Corpuscular Hgb Conc 33.8 g/dL (32-36); Mean Corpuscular Volume 90.2 fL (80-100); Mean Platelet Volume 10.9 fL (7.4-10.4); Platelet Count 118 K/uL (130-400); RDW Coefficient of Variation 16.6 % (11.5-14.5); RDW Standard Deviation 55.4 fL (36.4-46.3); Red Blood Count 4.49 M/uL (4.7-6.1); White Blood Count 3.21 K/uL (4.8-10.8)
[2022-03-09 09:15] LABS: Calcium 8.1 mg/dl (8.5-10.1); Creatinine Clr Calc Pharmacy 71.3 ml/min; Est GFR (African American) 99.9 ml/min; Est GFR (Non-African American) 86.2 ml/min; Magnesium 1.9 mg/dl (1.7-2.4); Potassium 4.2 mmol/L (3.5-5.1)
[2022-03-09] MEDS: COLESTIPOL HCL 1 GM TAB PO SCH ×2 (10:14→22:30)
[2022-03-09] MEDS: TAMSULOSIN HCL 0.4 MG CAP PO SCH (21:31)
[2022-03-09] MEDS: CETIRIZINE HCL 10 MG TABLET PO SCH (21:32)
--- NOTE | 2022-03-09 23:09 | Electrocardiogram Report ---
Test Reason : Blood Pressure : / mmHG Vent. Rate : 079 BPM Atrial Rate : 288 BPM P-R Int : 000 ms QRS Dur : 084 ms QT Int : 384 ms P-R-T Axes : 000 000 -11 degrees QTc Int : 440 ms Atrial fibrillation Low voltage QRS Abnormal ECG When compared with ECG of 05-JAN-2022 09:04, No significant change was found Confirmed by Nicanor Salgado ([id number]) on 03/09/2022 11:08:34 PM Referred By: REFERRED SELF Confirmed By:Nicanor Salgado
--- NOTE | 2022-03-10 04:01 | Consultation Report ---
NEUROLOGY CONSULTATION NOTE DATE OF CONSULTATION: , 03/09/2022. CHIEF COMPLAINT: Weakness/lethargy. 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 The patient is currently admitted to a [facility] facility and was noted to be nauseous with poor p.o. intake yesterday. He was also less re sponsive. EMS was called and the patient was taken to the [facility]. In the ER, he was found to have a low magnesium and a low sodium level. He does have chronic low sodium, which has be en attributed to SIADH. Urinalysis was negative. He underwent evaluation of possible swelling of th e right arm and no DVT was found. He was admitted for further evaluation and neurology was consulted on admission. ALLERGIES: LOVASTATIN, SHELLFISH, OXYCODONE, TRAMADOL. PAST MEDICAL HISTORY: Pancytopenia, coagulopathy, history of urinary tract infection/sepsis, SIADH, BPH, CIDP, Parkinson's disease, atrial fibrillation, chronic kidney disease, gastroesophageal reflux disease. PAST SURGICAL HISTORY: Lumbar decompression, colonoscopy, history of EGD, hernia repair, eye surgery . FAMILY HISTORY: No family history of neuropathy. SOCIAL HISTORY: [facility] facility. He is a nondrinker. He does no t smoke cigarettes. He is . PHYSICAL EXAMINATION: Vital signs, blood pressure 132/85, pulse is 75, respiratory rate 18, temperat ure is 36.3 degrees Celsius, oxygen saturation is 99% on room air. The patient is a thin-appearing m yusef who appears chronically ill, in no acute distress. He is lethargic this afternoon and confused. He denies any pain. His speech is very soft. His eyes are midline. He has some ecchymosis in the upper extremities as well as bruising as he is on Coumadin. His eyes are noninjected. His tongue is midline without atrophy. He is following simple commands, although does nod off easily. He is movi ng all 4 extremities. He has a tremor in the upper extremities with [id number] testing. He has no ankle clonus. Dena sign is negative. Ankle dorsiflexion is strong 5/5. He is able to lift b oth legs to gravity off the bed and provide resistance. He is able to raise both arms against gravit y. No focal weakness appreciated. Sensation is intact to light touch. No significant edema noted i n the upper or lower extremities. He does have significant muscle atrophy. A few occasional myoclon ic jerks are noted in the upper extremities. DIAGNOSTIC TESTING: WBC 3.21, hemoglobin 13.7, platelet count 118. INR 1.0. Sodium 131, potassium 4.2, chloride 102, carbon dioxide 23, BUN 12, creatinine 0.80, magnesium was low at 1.4, it has been replenished to 1.9, glucose is 71, ALT is 5, which is low. AST is normal at 32. TSH is normal. Uri nalysis was negative. Head CT noncontrast showed no acute intracranial pathology. Cerebral cortical atrophy and remote small vessel disease. ASSESSMENT AND PLAN: A 76-year-old male with failure to thrive secondary due to CIDP, Parkinson's di sease/Parkinson's dementia, chronic kidney disease, pancytopenia, and atrial fibrillation on anticoag ulation, admitted for worsening weakness and fatigue/poor p.o. intake. The patient is well known to me and has not responded to IVIG recently. He did not tolerate steroids in the past. I did discuss consideration of plasmapheresis as an outpatient, although I think prognosis is very poor. I had a l reynathy discussion this afternoon and agree that given the poor prognosis, that pursuing palliative ca re approach with comfort measures is most appropriate. The patient and are agreeable to this an d would not like to pursue further plasmapheresis or aggressive management. The patient is following with palliative care medicine as an outpatient and I will certainly update the team that Mr. Hector caldwellld like to pursue hospice or comfort measure care. Otherwise, no additional diagnostic testing nec essary from a neurology standpoint at this time. The patient is scheduled to follow up with myself i n early March. Otherwise, neurology will sign off for now. Please contact myself with any additional questions or concerns. Job ID: [id number]
[2022-03-10] MEDS: POTASSIUM CHLORIDE CRTAB 20 MEQ TABCR PO SCH ×2 (08:44→20:27)
[2022-03-10] MEDS: PANTOprazole 40 MG TAB PO SCH (08:45)
[2022-03-10] MEDS: CARBIDOPA/LEVODOPA 25/100MG TAB PO SCH ×3 (08:45→20:27)
[2022-03-10] MEDS: ESCITALOPRAM OXALATE 10 MG TAB PO SCH (08:45)
[2022-03-10] MEDS: APIXABAN 5 MG TABLET PO SCH ×2 (08:45→20:26)
[2022-03-10] MEDS: CHOLECALCIFEROL 1,000 UNITS 25 MCG TAB PO SCH (08:45)
[2022-03-10] MEDS: SODIUM CHLORIDE 1 GM TABLET PO SCH ×3 (08:45→20:27)
[2022-03-10] MEDS: CYANOCOBALAMIN (B-12) 500 MCG TABLET PO SCH (08:45)
--- NOTE | 2022-03-10 10:39 | Hospitalist Progress Note ---
Date of Service March 10, 2022 Assessment & Plan (1) Generalized weakness: Plan: Patient is 76-year-old male with PMH chronic atrial fibrillation anticoagulated with Eliquis, SIADH and chronic hyponatremia on fluid restriction and sodium chloride tablets, CIDP, Parkinson's disease, CKD III, BPH, diastolic dysfunctionpresented to ER with complaint of generalized weakness, lethargy x 1 day. Denies fever, chills, nausea, vomiting. Chronic intermittent loose stools secondary to IBS, denies any increase. In ER patient afebrile, vital stable. WBC: 4.6, Hgb: 13 (at baseline), magnesium: 1.4, CXR: No acute disease. UA unremarkable ? Weakness secondary to CIDP flare, electrolyte abnormality, underlying infection blood cultures pending PT/OT eval Neurology consult Seen by Dr. Rizzo, neurology, who follows with him routinely. Patient recently did not respond to IVIG, and did not tolerate steroids in the past. Discussed plasmapheresis with the patient and his , and also explained that prognosis is very poor. Patient follows with [facility] palliative medicine as outpatient. Patient and not interested in aggressive treatments/ plasmapheresis. Interested in palliative approach, possible hospice care. CM updated , CM plans to meet patient's this afternoon to discuss further (03/10) (2) Hypomagnesemia: Plan: replete and monitor (3) CIDP (chronic inflammatory demyelinating polyneuropathy): Plan: Following with neurology, Dr. Rizzo Had restarted monthly IVIG. Last given 01/2022. Had noted not having the significant improvement that he previously was after IVIG 12/2021 neurology weaned off of daily prednisone as of concern for possible steroid myopathy Neurology consult (as above) (4) Edema of right upper arm: Plan: Right upper extremity venous Doppler: Negative for DVT No erythema, warmth or discomfort or signs of cellulitis noted May be secondary to dependent edema from arm dangling Monitor (5) Parkinson disease: Plan: Continue carbidopa levodopa (6) Chronic hyponatremia: (7) SIADH (syndrome of inappropriate ADH production): Plan: Na: 130. Baseline ~130-133 Continue 1500mL fluid restriction Continue sodium tabs Monitor (8) Chronic atrial fibrillation: Plan: Chronic atrial fibrillation anticoagulated on Eliquis Rate controlled Continue Eliquis Not currently on rate control medication (9) Chronic hypokalemia: Plan: K: 4.3 Continue home potassium supplement DVT Prophylaxis On Eliquis DNR/DNI as per discussion with pt Follows with Dr Al for routine care Admission and Anticipated Discharge Date Admission Date: March 08, 2022 Subjective Patient seen in follow-up of weakness Lying in bed, in no acute distress Denies fevers chills, chest pain, shortness of breath, abdominal pain, nausea or vomiting Patient follows with Dr. Rizzo, from neurology, and was seen by him yesterday afternoon Patient apparently did not respond well to IVIG recently, or steroids in the past, discussed plasmapheresis, and per family and patient, they would prefer palliative/comfort care measures Patient follows with [facility] palliative medicine as outpatient CM updated CM to meet with patient's this afternoon to discuss options further Review of Systems Review of Systems: All systems reviewed & are unremarkable except as noted in Subjective Physical Exam Physical Exam: General: chronic ill appearing elderly male in NAD Head: normocephalic, atraumatic Eyes: PERRL, EOM's intact, conjunctiva non-injected, anicteric ENT: normal inspection external ears, nose, mucous membranes moist Neck: supple, trachea midline Lungs: clear, no respiratory distress, no wheezing/rhonchi/rales CV: Irregularly irregular, no murmur, 1+ pretibial edema RLE, trace edema LLE Abd: normal BS, soft, non-tender to palpation Ext: no calf tenderness, RUE:+ Edema right hand. No hand or arm erythema, nontender to palpation Neuro: A&O x 3, diffuse weakness throughout 4 out of 5 Skin: warm, dry, right abdominal skin fold with erythema Results & Data Results & Data ([facility]) Vital Signs (Past 12 Hours) Vital Signs Temp Pulse Resp BP Pulse Ox 03/10/22 07:46 36.5 C 86 16 144/83 H 98 03/09/22 23:11 36.3 C L 82 14 124/75 96 Laboratory Results 03/10/22 03/10/22 Range/Units 11:36 11:36 WBC 3.43 L (4.8-10.8) K/uL RBC 4.18 L (4.7-6.1) M/uL Hgb 12.4 L (14.0-18.0) g/dL Hct 37.4 L (42-52) % MCV 89.5 (80-100) fL MCH 29.7 (25-34) pg MCHC 33.2 (32-36) g/dL RDW Std Deviation 54.8 H (36.4-46.3) fL RDW Coeff of [place] 16.8 H (11.5-14.5) % Plt Count 105 L (130-400) K/uL MPV 10.3 (7.4-10.4) fL Sodium 130 L (136-145) mmol/L Potassium 4.2 (3.5-5.1) mmol/L Chloride 102 (98-107) mmol/L Carbon Dioxide 25 (21-32) mmol/L Anion Gap 3 (3-11) BUN 12 (6-23) mg/dl Creatinine 0.91 (0.6-1.4) mg/dl Est Cr Clr Drug Dosing 62.7 ml/min Est GFR ( Amer) 93.9 ml/min Est GFR (Non-Af Amer) 81.0 ml/min BUN/Creatinine Ratio 13.2 (10-20) Glucose 86 (70-99(Fasting)) mg/dl Calcium 7.6 L (8.5-10.1) mg/dl Phosphorus 3.2 (2.5-4.9) mg/dl Magnesium 1.7 (1.7-2.4) mg/dl Medications Administered Current Inpatient Medications Acetaminophen (Acetaminophen 325 Mg Tab) 650 mg PO Q4H PRN PRN Reason: Pain or Fever Stop: 04/07/22 20:35 Al Hydrox/Mg Hydrox/Simethicone (Aluminum/Magnesium Susp 30 Ml Udc) 15 ml PO Q4H PRN PRN Reason: Dyspepsia Stop: 04/07/22 20:35 Apixaban (Apixaban 5 Mg Tablet) 5 mg PO BID ROSEANN Stop: 04/07/22 20:59 Last Admin: 03/10/22 08:45 Dose: 5 mg Documented by: Carbidopa/Levodopa (Carbidopa/Levodopa 25/100mg Tab) 1 tab PO TID ROSEANN Stop: 04/07/22 20:59 Last Admin: 03/10/22 08:45 Dose: 1 tab Documented by: Cetirizine HCl (Cetirizine Hcl 10 Mg Tablet) 10 mg PO HS ROSEANN Stop: 04/07/22 20:59 Last Admin: 03/09/22 21:32 Dose: 10 mg Documented by: Colestipol HCl (Colestipol Hcl 1 Gm Tab) 1 gm PO BID@1000,2200 [facility] Stop: 04/07/22 21:59 Last Admin: 03/10/22 10:42 Dose: 1 gm Documented by: Cyanocobalamin (Cyanocobalamin (B-12) 500 Mcg Tablet) 1,000 mcg PO QAM [facility] Stop: 04/08/22 08:59 Last Admin: 03/10/22 08:45 Dose: 1,000 mcg Documented by: Dicyclomine HCl (Dicyclomine Hcl 10 Mg Cap) 10 mg PO TID PRN PRN Reason: CRAMPING OR DIARRHEA Stop: 04/07/22 20:35 Escitalopram Oxalate (Escitalopram Oxalate 10 Mg Tab) 10 mg PO [place] Stop: 04/08/22 08:59 Last Admin: 03/10/22 08:45 Dose: 10 mg Documented by: Ondansetron HCl (Ondansetron Inj 2 Mg/Ml 2 Ml Vial) 4 mg IV Q6H PRN PRN Reason: Nausea Stop: 04/07/22 20:35 Pantoprazole Sodium (Pantoprazole 40 Mg Tab) 40 mg PO [facility]; Protocol Stop: 04/08/22 08:59 Last Admin: 03/10/22 08:45 Dose: 40 mg Documented by: Polyethylene Glycol (Polyethylene (Miralax) 17 Gm Pack) 17 gm PO DAILY PRN PRN Reason: Constipation Stop: 04/07/22 20:35 Potassium Chloride (Potassium Chloride Crtab 20 Meq Tabcr) 20 meq PO BID [facility] Stop: 04/07/22 20:59 Last Admin: 03/10/22 08:44 Dose: 20 meq Documented by: Sodium Chloride (Sodium Chloride 1 Gm Tablet) 1 gm PO TID [facility] Stop: 04/07/22 20:59 Last Admin: 03/10/22 08:45 Dose: 1 gm Documented by: Tamsulosin HCl (Tamsulosin Hcl 0.4 Mg Cap) 0.4 mg PO [facility] Stop: 04/07/22 20:59 Last Admin: 03/09/22 21:31 Dose: 0.4 mg Documented by: Trolamine Salicylate (Trolamine Salicylate 10% Crm 255 Appln/85 Gm Tube) 1 appln EXT Q6H PRN PRN Reason: muscle pain Stop: 04/07/22 20:35 Vitamin D (Cholecalciferol 1,000 Units 25 Mcg Tab) 1,000 units PO QAM [facility] Stop: 04/08/22 08:59 Last Admin: 03/10/22 08:45 Dose: 1,000 units Documented by:
[2022-03-10] MEDS: COLESTIPOL HCL 1 GM TAB PO SCH ×2 (10:42→21:49)
[2022-03-10 12:04] LABS: Hematocrit (blood only) 37.4 % (42-52); Hemoglobin 12.4 g/dL (14.0-18.0); Mean Corpuscular Hemoglobin 29.7 pg (25-34); Mean Corpuscular Hgb Conc 33.2 g/dL (32-36); Mean Corpuscular Volume 89.5 fL (80-100); Mean Platelet Volume 10.3 fL (7.4-10.4); Platelet Count 105 K/uL (130-400); RDW Coefficient of Variation 16.8 % (11.5-14.5); RDW Standard Deviation 54.8 fL (36.4-46.3); Red Blood Count 4.18 M/uL (4.7-6.1); White Blood Count 3.43 K/uL (4.8-10.8)
[2022-03-10 12:25] LABS: BUN Creatinine Ratio 13.2 (10-20); Calcium 7.6 mg/dl (8.5-10.1); Creatinine Clr Calc Pharmacy 62.7 ml/min; Est GFR (African American) 93.9 ml/min; Magnesium 1.7 mg/dl (1.7-2.4); Phosphorus 3.2 mg/dl (2.5-4.9); Potassium 4.2 mmol/L (3.5-5.1)
[2022-03-10] MEDS ORDERED: MAGNESIUM SULFATE / D5W 1 GM/100 ML BAG IV ONE (13:41)
[2022-03-10] MEDS: CETIRIZINE HCL 10 MG TABLET PO SCH (20:27)
[2022-03-10] MEDS: TAMSULOSIN HCL 0.4 MG CAP PO SCH (20:27)
--- NOTE | 2022-03-11 07:48 | Hospitalist Progress Note ---
Date of Service March 11, 2022 Assessment & Plan (1) Generalized weakness: Plan: Patient is 76-year-old male with PMH chronic atrial fibrillation anticoagulated with Eliquis, SIADH and chronic hyponatremia on fluid restriction and sodium chloride tablets, CIDP, Parkinson's disease, CKD III, BPH, diastolic dysfunctionpresented to ER with complaint of generalized weakness, lethargy x 1 day. Denies fever, chills, nausea, vomiting. Chronic intermittent loose stools secondary to IBS, denies any increase. In ER patient afebrile, vital stable. WBC: 4.6, Hgb: 13 (at baseline), magnesium: 1.4, CXR: No acute disease. UA unremarkable ? Weakness secondary to CIDP flare, electrolyte abnormality, underlying infection blood cultures pending PT/OT eval Neurology consult Seen by Dr. Rizzo, neurology, who follows with him routinely. Patient recently did not respond to IVIG, and did not tolerate steroids in the past. Discussed plasmapheresis with the patient and his , and also explained that prognosis is very poor. Patient follows with [facility] palliative medicine as outpatient. Patient and not interested in aggressive treatments/ plasmapheresis. Interested in palliative approach, possible hospice care. Plan for home hospice on Sunday (2) Hypomagnesemia: Plan: replete and monitor (3) CIDP (chronic inflammatory demyelinating polyneuropathy): Plan: Following with neurology, Dr. Rizzo Had restarted monthly IVIG. Last given 01/2022. Had noted not having the significant improvement that he previously was after IVIG 12/2021 neurology weaned off of daily prednisone as of concern for possible steroid myopathy Neurology consult (as above) (4) Edema of right upper arm: Plan: Right upper extremity venous Doppler: Negative for DVT No erythema, warmth or discomfort or signs of cellulitis noted May be secondary to dependent edema from arm dangling Monitor (5) Parkinson disease: Plan: Continue carbidopa levodopa (6) Chronic hyponatremia: (7) SIADH (syndrome of inappropriate ADH production): Plan: Na: 130. Baseline ~130-133 Continue 1500mL fluid restriction Continue sodium tabs Monitor (8) Chronic atrial fibrillation: Plan: Chronic atrial fibrillation anticoagulated on Eliquis Rate controlled Continue Eliquis Not currently on rate control medication (9) Chronic hypokalemia: Plan: K: 4.3 Continue home potassium supplement DVT Prophylaxis On Eliquis DNR/DNI as per discussion with pt Follows with Dr Al for routine care Admission and Anticipated Discharge Date Admission Date: March 08, 2022 Subjective Patient seen in follow-up of weakness Sitting up in bed, in no acute distress Denies fevers chills, chest pain, shortness of breath, abdominal pain, nausea or vomiting Patient follows with Dr. Rizzo, from neurology, and was seen by him in the hospital Patient apparently did not respond well to IVIG recently, or steroids in the past, discussed plasmapheresis, and per family and patient, they would prefer palliative/comfort care measures Patient follows with [facility] palliative medicine as outpatient CM updated - plan for home hospice on Sunday Review of Systems Review of Systems: Unobtainable due to cognitive status Physical Exam Physical Exam: General: chronic ill appearing elderly male in NAD Head: normocephalic, atraumatic Eyes: PERRL, EOM's intact, conjunctiva non-injected, anicteric ENT: normal inspection external ears, nose, mucous membranes moist Neck: supple, trachea midline Lungs: clear, no respiratory distress, no wheezing/rhonchi/rales CV: Irregularly irregular, no murmur, 1+ pretibial edema RLE, trace edema LLE Abd: normal BS, soft, non-tender to palpation Ext: no calf tenderness, RUE:+ Edema right hand. No hand or arm erythema, nontender to palpation Neuro: Awake but not answering all the questions appropriately, diffuse weakness throughout 4 out of 5 Skin: warm, dry, right abdominal skin fold with erythema Results & Data Results & Data ([facility]) Vital Signs (Past 12 Hours) Vital Signs Temp Pulse Resp BP Pulse Ox 03/11/22 00:14 36.4 C L 85 18 127/83 97 Laboratory Results 03/11/22 Range/Units 07:34 Sodium 129 L (136-145) mmol/L Potassium 4.2 (3.5-5.1) mmol/L Chloride 99 (98-107) mmol/L Carbon Dioxide 26 (21-32) mmol/L Anion Gap 4 (3-11) BUN 11 (6-23) mg/dl Creatinine 0.76 (0.6-1.4) mg/dl Est Cr Clr Drug Dosing 75.1 ml/min Est GFR ( Amer) 102.0 ml/min Est GFR (Non-Af Amer) 88.0 ml/min BUN/Creatinine Ratio 14.5 (10-20) Glucose 73 (70-99(Fasting)) mg/dl Calcium 7.9 L (8.5-10.1) mg/dl Phosphorus 3.1 (2.5-4.9) mg/dl Magnesium 1.8 (1.7-2.4) mg/dl Medications Administered Current Inpatient Medications Acetaminophen (Acetaminophen 325 Mg Tab) 650 mg PO Q4H PRN PRN Reason: Pain or Fever Stop: 04/07/22 20:35 Al Hydrox/Mg Hydrox/Simethicone (Aluminum/Magnesium Susp 30 Ml Udc) 15 ml PO Q4H PRN PRN Reason: Dyspepsia Stop: 04/07/22 20:35 Apixaban (Apixaban 5 Mg Tablet) 5 mg PO BID [facility] Stop: 04/07/22 20:59 Last Admin: 03/10/22 20:26 Dose: 5 mg Documented by: Carbidopa/Levodopa (Carbidopa/Levodopa 25/100mg Tab) 1 tab PO TID [facility] Stop: 04/07/22 20:59 Last Admin: 03/10/22 20:27 Dose: 1 tab Documented by: Cetirizine HCl (Cetirizine Hcl 10 Mg Tablet) 10 mg PO HS [facility] Stop: 04/07/22 20:59 Last Admin: 03/10/22 20:27 Dose: 10 mg Documented by: Colestipol HCl (Colestipol Hcl 1 Gm Tab) 1 gm PO BID@1000,2200 [facility] Stop: 04/07/22 21:59 Last Admin: 03/10/22 21:49 Dose: 1 gm Documented by: Cyanocobalamin (Cyanocobalamin (B-12) 500 Mcg Tablet) 1,000 mcg PO QAM [facility] Stop: 04/08/22 08:59 Last Admin: 03/10/22 08:45 Dose: 1,000 mcg Documented by: Dicyclomine HCl (Dicyclomine Hcl 10 Mg Cap) 10 mg PO TID PRN PRN Reason: CRAMPING OR DIARRHEA Stop: 04/07/22 20:35 Escitalopram Oxalate (Escitalopram Oxalate 10 Mg Tab) 10 mg PO QAM [facility] Stop: 04/08/22 08:59 Last Admin: 03/10/22 08:45 Dose: 10 mg Documented by: Ondansetron HCl (Ondansetron Inj 2 Mg/Ml 2 Ml Vial) 4 mg IV Q6H PRN PRN Reason: Nausea Stop: 04/07/22 20:35 Pantoprazole Sodium (Pantoprazole 40 Mg Tab) 40 mg PO QAM [facility]; Protocol Stop: 04/08/22 08:59 Last Admin: 03/10/22 08:45 Dose: 40 mg Documented by: Polyethylene Glycol (Polyethylene (Miralax) 17 Gm Pack) 17 gm PO DAILY PRN PRN Reason: Constipation Stop: 04/07/22 20:35 Potassium Chloride (Potassium Chloride Crtab 20 Meq Tabcr) 20 meq PO BID [facility] Stop: 04/07/22 20:59 Last Admin: 03/10/22 20:27 Dose: 20 meq Documented by: Sodium Chloride (Sodium Chloride 1 Gm Tablet) 1 gm PO TID [facility] Stop: 04/07/22 20:59 Last Admin: 03/10/22 20:27 Dose: 1 gm Documented by: Tamsulosin HCl (Tamsulosin Hcl 0.4 Mg Cap) 0.4 mg PO HS [facility] Stop: 04/07/22 20:59 Last Admin: 03/10/22 20:27 Dose: 0.4 mg Documented by: Trolamine Salicylate (Trolamine Salicylate 10% Crm 255 Appln/85 Gm Tube) 1 appln EXT Q6H PRN PRN Reason: muscle pain Stop: 04/07/22 20:35 Vitamin D (Cholecalciferol 1,000 Units 25 Mcg Tab) [facility] [place] Stop: 04/08/22 08:59 Last Admin: 03/10/22 08:45 Dose: 1,000 units Documented by:
[2022-03-11 08:31] LABS: BUN Creatinine Ratio 14.5 (10-20); Calcium 7.9 mg/dl (8.5-10.1); Creatinine Clr Calc Pharmacy 75.1 ml/min; Magnesium 1.8 mg/dl (1.7-2.4); Phosphorus 3.1 mg/dl (2.5-4.9); Potassium 4.2 mmol/L (3.5-5.1)
[2022-03-11] MEDS: CARBIDOPA/LEVODOPA 25/100MG TAB PO SCH ×4 (09:10→21:04)
[2022-03-11] MEDS: SODIUM CHLORIDE 1 GM TABLET PO SCH ×3 (09:11→21:04)
[2022-03-11] MEDS: CHOLECALCIFEROL 1,000 UNITS 25 MCG TAB PO SCH (09:11)
[2022-03-11] MEDS: ESCITALOPRAM OXALATE 10 MG TAB PO SCH (09:11)
[2022-03-11] MEDS: PANTOprazole 40 MG TAB PO SCH (09:11)
[2022-03-11] MEDS: APIXABAN 5 MG TABLET PO SCH ×2 (09:11→21:03)
[2022-03-11] MEDS: POTASSIUM CHLORIDE CRTAB 20 MEQ TABCR PO SCH ×2 (09:11→21:04)
[2022-03-11] MEDS: CYANOCOBALAMIN (B-12) 500 MCG TABLET PO SCH (09:11)
[2022-03-11] MEDS: COLESTIPOL HCL 1 GM TAB PO SCH ×2 (11:17→21:03)
[2022-03-11] MEDS: CETIRIZINE HCL 10 MG TABLET PO SCH (21:03)
[2022-03-11] MEDS: TAMSULOSIN HCL 0.4 MG CAP PO SCH (21:03)
[2022-03-12 06:27] LABS: BUN Creatinine Ratio 14.9 (10-20); Calcium 7.7 mg/dl (8.5-10.1); Creatinine Clr Calc Pharmacy 85.1 ml/min; Est GFR (African American) 107.4 ml/min; Est GFR (Non-African American) 92.7 ml/min; Magnesium 1.6 mg/dl (1.7-2.4); Phosphorus 3.4 mg/dl (2.5-4.9); Potassium 4.2 mmol/L (3.5-5.1)
[2022-03-12] MEDS: SODIUM CHLORIDE 1 GM TABLET PO SCH ×4 (08:17→20:46)
[2022-03-12] MEDS: CARBIDOPA/LEVODOPA 25/100MG TAB PO SCH ×4 (08:17→20:46)
[2022-03-12] MEDS: PANTOprazole 40 MG TAB PO SCH ×2 (08:17→10:38)
[2022-03-12] MEDS: ESCITALOPRAM OXALATE 10 MG TAB PO SCH ×2 (08:17→10:38)
[2022-03-12] MEDS: CHOLECALCIFEROL 1,000 UNITS 25 MCG TAB PO SCH ×2 (08:17→10:37)
[2022-03-12] MEDS: POTASSIUM CHLORIDE CRTAB 20 MEQ TABCR PO SCH ×3 (08:17→20:47)
[2022-03-12] MEDS: CYANOCOBALAMIN (B-12) 500 MCG TABLET PO SCH ×2 (08:17→10:38)
[2022-03-12] MEDS: APIXABAN 5 MG TABLET PO SCH ×3 (08:18→20:46)
[2022-03-12] MEDS: COLESTIPOL HCL 1 GM TAB PO SCH ×2 (10:36→22:09)
[2022-03-12] MEDS ORDERED: SODIUM CHLORIDE 0.9% 1000ML 500 ML IV ONE (10:37)
[2022-03-12] MEDS ORDERED: MAGNESIUM SULFATE / D5W 1 GM/100 ML BAG IV ONE (10:42)
--- NOTE | 2022-03-12 10:49 | Hospitalist Progress Note ---
Date of Service March 12, 2022 Assessment & Plan (1) Generalized weakness: Plan: Patient is 76-year-old male with PMH chronic atrial fibrillation anticoagulated with Eliquis, SIADH and chronic hyponatremia on fluid restriction and sodium chloride tablets, CIDP, Parkinson's disease, CKD III, BPH, diastolic dysfunctionpresented to ER with complaint of generalized weakness, lethargy x 1 day. Denies fever, chills, nausea, vomiting. Chronic intermittent loose stools secondary to IBS, denies any increase. In ER patient afebrile, vital stable. WBC: 4.6, Hgb: 13 (at baseline), magnesium: 1.4, CXR: No acute disease. UA unremarkable ? Weakness secondary to CIDP flare, electrolyte abnormality, underlying infection blood cultures negat. in 48 hrs PT/OT eval Neurology consult Seen by Dr. Rizzo, neurology, who follows with him routinely. Patient recently did not respond to IVIG, and did not tolerate steroids in the past. Discussed plasmapheresis with the patient and his , and also explained that prognosis is very poor. Patient follows with [facility] palliative medicine as outpatient. Patient and not interested in aggressive treatments/ plasmapheresis. Interested in palliative approach, possible hospice care. Plan for home hospice on Sunday/ Sunday (2) Hypomagnesemia: Plan: replete and monitor (3) CIDP (chronic inflammatory demyelinating polyneuropathy): Plan: Following with neurology, Dr. Rizzo Had restarted monthly IVIG. Last given 01/2022. Had noted not having the significant improvement that he previously was after IVIG 12/2021 neurology weaned off of daily prednisone as of concern for possible steroid myopathy Neurology consult (as above) (4) Edema of right upper arm: Plan: Right upper extremity venous Doppler: Negative for DVT No erythema, warmth or discomfort or signs of cellulitis noted May be secondary to dependent edema from arm dangling Monitor (5) Parkinson disease: Plan: Continue carbidopa levodopa (6) Chronic hyponatremia: (7) SIADH (syndrome of inappropriate ADH production): Plan: Na: 130. Baseline ~130-133 Continue 1500mL fluid restriction Continue sodium tabs Monitor (8) Chronic atrial fibrillation: Plan: Chronic atrial fibrillation anticoagulated on Eliquis Rate controlled Continue Eliquis Not currently on rate control medication (9) Chronic hypokalemia: Plan: K: 4.3 Continue home potassium supplement DVT Prophylaxis On Eliquis DNR/DNI as per discussion with pt Follows with Dr Al for routine care Admission and Anticipated Discharge Date Admission Date: March 08, 2022 Subjective Patient seen in follow-up of weakness Patient is laying in bed, in no acute distress, more lethargic today Patient follows with Dr. Rizzo, from neurology, and was seen by him in the hospital Patient apparently did not respond well to IVIG recently, or steroids in the past, discussed plasmapheresis, and per family and patient, they would prefer palliative/comfort care measures Patient follows with [facility] palliative medicine as outpatient CM updated - plan for home hospice on Sunday/Sunday Review of Systems Review of Systems: All systems reviewed & are unremarkable except as noted in Subjective Physical Exam Physical Exam: General: chronically ill appearing elderly male in NAD Head: normocephalic, atraumatic Eyes: PERRL, EOM's intact, conjunctiva non-injected, anicteric ENT: normal inspection external ears, nose, mucous membranes moist Neck: supple, trachea midline Lungs: clear, no respiratory distress, no wheezing/rhonchi/rales CV: Irregularly irregular, no murmur, 1+ pretibial edema RLE, trace edema LLE Abd: normal BS, soft, non-tender to palpation Ext: no calf tenderness, RUE:+ Edema right hand. No hand or arm erythema, nontender to palpation Neuro: Patient is more lethargic today, diffuse weakness throughout Skin: warm, dry Results & Data Results & Data ([facility]) Vital Signs (Past 12 Hours) Vital Signs Temp Pulse Resp BP Pulse Ox 03/12/22 07:18 36.6 C 84 16 139/84 96 Laboratory Results 03/12/22 Range/Units 05:47 Sodium 129 L (136-145) mmol/L Potassium 4.2 (3.5-5.1) mmol/L Chloride 100 (98-107) mmol/L Carbon Dioxide 23 (21-32) mmol/L Anion Gap 6 (3-11) BUN 10 (6-23) mg/dl Creatinine 0.67 (0.6-1.4) mg/dl Est Cr Clr Drug Dosing 85.1 ml/min Est GFR ( Amer) 107.4 ml/min Est GFR (Non-Af Amer) 92.7 ml/min BUN/Creatinine Ratio 14.9 (10-20) Glucose 71 (70-99(Fasting)) mg/dl Calcium 7.7 L (8.5-10.1) mg/dl Phosphorus 3.4 (2.5-4.9) mg/dl Magnesium 1.6 L (1.7-2.4) mg/dl Medications Administered Current Inpatient Medications Acetaminophen (Acetaminophen 325 Mg Tab) 650 mg PO Q4H PRN PRN Reason: Pain or Fever Stop: 04/07/22 20:35 Al Hydrox/Mg Hydrox/Simethicone (Aluminum/Magnesium Susp 30 Ml Udc) 15 ml PO Q4H PRN PRN Reason: Dyspepsia Stop: 04/07/22 20:35 Apixaban (Apixaban 5 Mg Tablet) 5 mg PO BID [facility] Stop: 04/07/22 20:59 Last Admin: 03/12/22 10:37 Dose: Not Given Documented by: Carbidopa/Levodopa (Carbidopa/Levodopa 25/100mg Tab) 1 tab PO TID [facility] Stop: 04/07/22 20:59 Last Admin: 03/12/22 10:37 Dose: Not Given Documented by: Cetirizine HCl (Cetirizine Hcl 10 Mg Tablet) 10 mg PO HS [facility] Stop: 04/07/22 20:59 Last Admin: 03/11/22 21:03 Dose: 10 mg Documented by: Colestipol HCl (Colestipol Hcl 1 Gm Tab) 1 gm PO BID@1000,2200 [facility] Stop: 04/07/22 21:59 Last Admin: 03/12/22 10:36 Dose: Not Given Documented by: Cyanocobalamin (Cyanocobalamin (B-12) 500 Mcg Tablet) 1,000 mcg PO QAM [facility] Stop: 04/08/22 08:59 Last Admin: 03/12/22 10:38 Dose: Not Given Documented by: Dicyclomine HCl (Dicyclomine Hcl 10 Mg Cap) 10 mg PO TID PRN PRN Reason: CRAMPING OR DIARRHEA Stop: 04/07/22 20:35 Escitalopram Oxalate (Escitalopram Oxalate 10 Mg Tab) 10 mg PO QAM [facility] Stop: 04/08/22 08:59 Last Admin: 03/12/22 10:38 Dose: Not Given Documented by: Sodium Chloride (Nss 1000ml) 500 mls @ 200 mls/hr IV .Q2H30M ONE Stop: 03/12/22 13:06 Magnesium Sulfate/Dextrose (Magnesium Sulfate / D5w) 1 gm in 100 mls @ 50 mls/hr IV ONE ONE Stop: 03/12/22 12:41 Ondansetron HCl (Ondansetron Inj 2 Mg/Ml 2 Ml Vial) 4 mg IV Q6H PRN PRN Reason: Nausea Stop: 04/07/22 20:35 Pantoprazole Sodium (Pantoprazole 40 Mg Tab) 40 mg PO QAM [facility]; Protocol Stop: 04/08/22 08:59 Last Admin: 03/12/22 10:38 Dose: Not Given Documented by: Polyethylene Glycol (Polyethylene (Miralax) 17 Gm Pack) 17 gm PO DAILY PRN PRN Reason: Constipation Stop: 04/07/22 20:35 Potassium Chloride (Potassium Chloride Crtab 20 Meq Tabcr) 20 meq PO BID [facility] Stop: 04/07/22 20:59 Last Admin: 03/12/22 10:38 Dose: Not Given Documented by: Sodium Chloride (Sodium Chloride 1 Gm Tablet) 1 gm PO TID [facility] Stop: 04/07/22 20:59 Last Admin: 03/12/22 10:38 Dose: Not Given Documented by: Tamsulosin HCl (Tamsulosin Hcl 0.4 Mg Cap) 0.4 mg PO HS [facility] Stop: 04/07/22 20:59 Last Admin: 03/11/22 21:03 Dose: 0.4 mg Documented by: Trolamine Salicylate (Trolamine Salicylate 10% Crm 255 Appln/85 Gm Tube) 1 appln EXT Q6H PRN PRN Reason: muscle pain Stop: 04/07/22 20:35 Vitamin D (Cholecalciferol 1,000 Units 25 Mcg Tab) 1,[facility] [place] Stop: 04/08/22 08:59 Last Admin: 03/12/22 10:37 Dose: Not Given Documented by:
[2022-03-12] MEDS: CETIRIZINE HCL 10 MG TABLET PO SCH (20:46)
[2022-03-12] MEDS: TAMSULOSIN HCL 0.4 MG CAP PO SCH (20:47)
--- NOTE | 2022-03-13 07:15 | Hospitalist Progress Note ---
Date of Service March 13, 2022 Assessment & Plan (1) Generalized weakness: Plan: Patient is 76-year-old male with PMH chronic atrial fibrillation anticoagulated with Eliquis, SIADH and chronic hyponatremia on fluid restriction and sodium chloride tablets, CIDP, Parkinson's disease, CKD III, BPH, diastolic dysfunctionpresented to ER with complaint of generalized weakness, lethargy x 1 day. Denies fever, chills, nausea, vomiting. Chronic intermittent loose stools secondary to IBS, denies any increase. In ER patient afebrile, vital stable. WBC: 4.6, Hgb: 13 (at baseline), magnesium: 1.4, CXR: No acute disease. UA unremarkable ? Weakness secondary to CIDP flare, electrolyte abnormality, underlying infection blood cultures negat. in 48 hrs PT/OT eval Neurology consult Seen by Dr. Rizzo, neurology, who follows with him routinely. Patient recently did not respond to IVIG, and did not tolerate steroids in the past. Discussed plasmapheresis with the patient and his , and also explained that prognosis is very poor. Patient follows with [facility] palliative medicine as outpatient. Patient and not interested in aggressive treatments/ plasmapheresis. Interested in palliative approach, possible hospice care. Plan for home hospice tomorrow (2) Hypomagnesemia: Plan: replete and monitor (3) CIDP (chronic inflammatory demyelinating polyneuropathy): Plan: Following with neurology, Dr. Rizzo Had restarted monthly IVIG. Last given 01/2022. Had noted not having the significant improvement that he previously was after IVIG 12/2021 neurology weaned off of daily prednisone as of concern for possible steroid myopathy Neurology consult (as above) (4) Edema of right upper arm: Plan: Right upper extremity venous Doppler: Negative for DVT No erythema, warmth or discomfort or signs of cellulitis noted May be secondary to dependent edema from arm dangling Monitor (5) Parkinson disease: Plan: Continue carbidopa levodopa (6) Chronic hyponatremia: (7) SIADH (syndrome of inappropriate ADH production): Plan: Na: 130. Baseline ~130-133 Continue 1500mL fluid restriction Continue sodium tabs Monitor (8) Chronic atrial fibrillation: Plan: Chronic atrial fibrillation anticoagulated on Eliquis Rate controlled Continue Eliquis Not currently on rate control medication (9) Chronic hypokalemia: Plan: K: 4.3 Continue home potassium supplement DVT Prophylaxis On Eliquis DNR/DNI as per discussion with pt Follows with Dr Al for routine care Admission and Anticipated Discharge Date Admission Date: March 08, 2022 Subjective Patient seen in follow-up of weakness Patient is laying in bed, in no acute distress, more awake today compared to yesterday. He is able to answer some questions appropriately however he does not seem to be aware that he has been in the hospital for several days. Patient follows with Dr. Rizzo, from neurology, and was seen by him in the hospital Patient apparently did not respond well to IVIG recently, or steroids in the past, discussed plasmapheresis, and per family and patient, they would prefer palliative/comfort care measures Patient follows with [facility] palliative medicine as outpatient CM updated - plan for home hospice tomorrow Review of Systems Review of Systems: All systems reviewed & are unremarkable except as noted in Subjective Physical Exam Physical Exam: General: chronically ill appearing, thin elderly male in NAD Head: normocephalic, atraumatic Eyes: PERRL, EOM's intact, conjunctiva non-injected, anicteric ENT: normal inspection external ears, nose, mucous membranes moist Neck: supple, trachea midline Lungs: clear, no respiratory distress, no wheezing/rhonchi/rales CV: Irregularly irregular, no murmur, 1+ pretibial edema RLE, trace edema LLE Abd: normal BS, soft, non-tender to palpation Ext: no calf tenderness, RUE:+ Edema right hand. No hand or arm erythema, nontender to palpation Neuro: Patient is more awake today compared to yesterday, diffuse weakness throughout Skin: warm, dry, multiple ecchymosis Results & Data Results & Data ([facility]) Vital Signs (Past 12 Hours) Vital Signs Temp Pulse Resp BP Pulse Ox 03/12/22 23:00 36.6 C 100 H 20 119/77 99 Medications Administered Current Inpatient Medications Acetaminophen (Acetaminophen 325 Mg Tab) 650 mg PO Q4H PRN PRN Reason: Pain or Fever Stop: 04/07/22 20:35 Al Hydrox/Mg Hydrox/Simethicone (Aluminum/Magnesium Susp 30 Ml Udc) 15 ml PO Q4H PRN PRN Reason: Dyspepsia Stop: 04/07/22 20:35 Apixaban (Apixaban 5 Mg Tablet) 5 mg PO BID [facility] Stop: 04/07/22 20:59 Last Admin: 03/12/22 20:46 Dose: 5 mg Documented by: Carbidopa/Levodopa (Carbidopa/Levodopa 25/100mg Tab) 1 tab PO TID [facility] Stop: 04/07/22 20:59 Last Admin: 03/12/22 20:46 Dose: 1 tab Documented by: Cetirizine HCl (Cetirizine Hcl 10 Mg Tablet) 10 mg PO HS [facility] Stop: 04/07/22 20:59 Last Admin: 03/12/22 20:46 Dose: 10 mg Documented by: Colestipol HCl (Colestipol Hcl 1 Gm Tab) 1 gm PO BID@1000,2200 [facility] Stop: 04/07/22 21:59 Last Admin: 03/12/22 22:09 Dose: 1 gm Documented by: Cyanocobalamin (Cyanocobalamin (B-12) 500 Mcg Tablet) 1,000 mcg PO QAM [facility] Stop: 04/08/22 08:59 Last Admin: 03/12/22 10:38 Dose: Not Given Documented by: Dicyclomine HCl (Dicyclomine Hcl 10 Mg Cap) 10 mg PO TID PRN PRN Reason: CRAMPING OR DIARRHEA Stop: 04/07/22 20:35 Escitalopram Oxalate (Escitalopram Oxalate 10 Mg Tab) [facility] [place]: 04/08/22 08:59 Last Admin: 03/12/22 10:38 Dose: Not Given Documented by: Ondansetron HCl (Ondansetron Inj 2 Mg/Ml 2 Ml Vial) 4 mg IV Q6H PRN PRN Reason: Nausea Stop: 04/07/22 20:35 Pantoprazole Sodium (Pantoprazole 40 Mg Tab) [facility] [place] Stop: 04/08/22 08:59 Last Admin: 03/12/22 10:38 Dose: Not Given Documented by: Polyethylene Glycol (Polyethylene (Miralax) 17 Gm Pack) 17 gm PO DAILY PRN PRN Reason: Constipation Stop: 04/07/22 20:35 Potassium Chloride (Potassium Chloride Crtab 20 Meq Tabcr) 20 meq PO BID [facility] Stop: 04/07/22 20:59 Last Admin: 03/12/22 20:47 Dose: 20 meq Documented by: Sodium Chloride (Sodium Chloride 1 Gm Tablet) 1 gm PO TID [facility] Stop: 04/07/22 20:59 Last Admin: 03/12/22 20:46 Dose: 1 gm Documented by: Tamsulosin HCl (Tamsulosin Hcl 0.4 Mg Cap) 0.4 mg PO HS [facility] Stop: 04/07/22 20:59 Last Admin: 03/12/22 20:47 Dose: 0.4 mg Documented by: Trolamine Salicylate (Trolamine Salicylate 10% Crm 255 Appln/85 Gm Tube) 1 appln EXT Q6H PRN PRN Reason: muscle pain Stop: 04/07/22 20:35 Vitamin D (Cholecalciferol 1,000 Units 25 Mcg Tab) 1,000 units PO QAM [facility] Stop: 04/08/22 08:59 Last Admin: 03/12/22 10:37 Dose: Not Given Documented by:
[2022-03-13] MEDS: ESCITALOPRAM OXALATE 10 MG TAB PO SCH (08:42)
[2022-03-13] MEDS: APIXABAN 5 MG TABLET PO SCH ×2 (08:42→20:11)
[2022-03-13] MEDS: COLESTIPOL HCL 1 GM TAB PO SCH ×2 (08:42→21:37)
[2022-03-13] MEDS: CYANOCOBALAMIN (B-12) 500 MCG TABLET PO SCH (08:42)
[2022-03-13] MEDS: CARBIDOPA/LEVODOPA 25/100MG TAB PO SCH ×3 (08:42→20:10)
[2022-03-13] MEDS: CHOLECALCIFEROL 1,000 UNITS 25 MCG TAB PO SCH (08:42)
[2022-03-13] MEDS: PANTOprazole 40 MG TAB PO SCH (08:42)
[2022-03-13] MEDS: SODIUM CHLORIDE 1 GM TABLET PO SCH ×3 (08:42→20:09)
[2022-03-13] MEDS: POTASSIUM CHLORIDE CRTAB 20 MEQ TABCR PO SCH ×2 (08:42→20:11)
[2022-03-13] MEDS: TAMSULOSIN HCL 0.4 MG CAP PO SCH (20:09)
[2022-03-13] MEDS: CETIRIZINE HCL 10 MG TABLET PO SCH (20:12)
[2022-03-14] MEDS: CARBIDOPA/LEVODOPA 25/100MG TAB PO SCH ×2 (07:35→13:57)
[2022-03-14] MEDS: CYANOCOBALAMIN (B-12) 500 MCG TABLET PO SCH (07:36)
[2022-03-14] MEDS: ESCITALOPRAM OXALATE 10 MG TAB PO SCH (07:36)
[2022-03-14] MEDS: SODIUM CHLORIDE 1 GM TABLET PO SCH ×2 (07:36→13:57)
[2022-03-14] MEDS: CHOLECALCIFEROL 1,000 UNITS 25 MCG TAB PO SCH (07:36)
[2022-03-14] MEDS: PANTOprazole 40 MG TAB PO SCH (07:36)
[2022-03-14] MEDS: APIXABAN 5 MG TABLET PO SCH (07:37)
[2022-03-14] MEDS: POTASSIUM CHLORIDE CRTAB 20 MEQ TABCR PO SCH (07:37)
[2022-03-14 08:32] LABS: Creatinine Clr Calc Pharmacy 67.9 ml/min; Est GFR (African American) 97.9 ml/min; Est GFR (Non-African American) 84.5 ml/min
--- NOTE | 2022-03-14 09:00 | Hospitalist Progress Note ---
Date of Service March 14, 2022 Assessment & Plan (1) Generalized weakness: Plan: Patient is 76-year-old male with PMH chronic atrial fibrillation anticoagulated with Eliquis, SIADH and chronic hyponatremia on fluid restriction and sodium chloride tablets, CIDP, Parkinson's disease, CKD III, BPH, diastolic dysfunctionpresented to ER with complaint of generalized weakness, lethargy x 1 day. Denies fever, chills, nausea, vomiting. Chronic intermittent loose stools secondary to IBS, denies any increase. In ER patient afebrile, vital stable. WBC: 4.6, Hgb: 13 (at baseline), magnesium: 1.4, CXR: No acute disease. UA unremarkable ? Weakness secondary to CIDP flare, electrolyte abnormality, underlying infection blood cultures negat. in 48 hrs PT/OT eval Neurology consult Seen by Dr. Rizzo, neurology, who follows with him routinely. Patient recently did not respond to IVIG, and did not tolerate steroids in the past. Discussed plasmapheresis with the patient and his , and also explained that prognosis is very poor. Patient follows with [facility] palliative medicine as outpatient. Patient and not interested in aggressive treatments/ plasmapheresis. Interested in palliative approach, possible hospice care. Plan for home hospice today (2) Hypomagnesemia: Plan: replete and monitor (3) CIDP (chronic inflammatory demyelinating polyneuropathy): Plan: Following with neurology, Dr. Rizzo Had restarted monthly IVIG. Last given 01/2022. Had noted not having the significant improvement that he previously was after IVIG 12/2021 neurology weaned off of daily prednisone as of concern for possible steroid myopathy Neurology consult (as above) (4) Edema of right upper arm: Plan: Right upper extremity venous Doppler: Negative for DVT No erythema, warmth or discomfort or signs of cellulitis noted May be secondary to dependent edema - now improved (5) Parkinson disease: Plan: Continue carbidopa levodopa (6) Chronic hyponatremia: (7) SIADH (syndrome of inappropriate ADH production): Plan: Na: 130. Baseline ~130-133 Continue 1500mL fluid restriction Continue sodium tabs Monitor (8) Chronic atrial fibrillation: Plan: Chronic atrial fibrillation anticoagulated on Eliquis Rate controlled Continue Eliquis Not currently on rate control medication (9) Chronic hypokalemia: Plan: K: 4.3 Continue home potassium supplement DVT Prophylaxis On Eliquis DNR/DNI as per discussion with pt Follows with Dr Al for routine care Admission and Anticipated Discharge Date Admission Date: March 08, 2022 Subjective Patient seen in follow-up of weakness Patient is laying in bed, in no acute distress, more awake today but still somewhat confused He is able to answer some questions appropriately Patient follows with Dr. Rizzo, from neurology, and was seen by him in the hospital Patient apparently did not respond well to IVIG recently, or steroids in the past, discussed plasmapheresis, and per family and patient, they would prefer palliative/comfort care measures Patient follows with [facility] palliative medicine as outpatient CM updated - plan for home hospice today Review of Systems Review of Systems: Unobtainable due to cognitive status Physical Exam Physical Exam: General: chronically ill appearing, thin elderly male in NAD Head: normocephalic, atraumatic Eyes: PERRL, EOM's intact, conjunctiva non-injected, anicteric ENT: normal inspection external ears, nose, mucous membranes moist Neck: supple, trachea midline Lungs: clear, no respiratory distress, no wheezing/rhonchi/rales CV: Irregularly irregular, no murmur, 1+ pretibial edema RLE, trace edema LLE Abd: normal BS, soft, non-tender to palpation Ext: no calf tenderness, RUE:+ Edema right hand. No hand or arm erythema, nontender to palpation Neuro: Patient is more awake today but still somewhat confused, diffuse weakness throughout Skin: warm, dry, multiple ecchymosis Results & Data Results & Data ([facility]) Vital Signs (Past 12 Hours) Vital Signs Temp Pulse Resp BP Pulse Ox 03/14/22 07:23 36.3 C L 81 16 129/78 98 03/14/22 00:33 36.7 C 77 18 149/81 H 94 Medications Administered Current Inpatient Medications Acetaminophen (Acetaminophen 325 Mg Tab) 650 mg PO Q4H PRN PRN Reason: Pain or Fever Stop: 04/07/22 20:35 Al Hydrox/Mg Hydrox/Simethicone (Aluminum/Magnesium Susp 30 Ml Udc) 15 ml PO Q4H PRN PRN Reason: Dyspepsia Stop: 04/07/22 20:35 Apixaban (Apixaban 5 Mg Tablet) 5 mg PO BID [facility] Stop: 04/07/22 20:59 Last Admin: 03/14/22 07:37 Dose: 5 mg Documented by: Carbidopa/Levodopa (Carbidopa/Levodopa 25/100mg Tab) 1 tab PO TID [facility] Stop: 04/07/22 20:59 Last Admin: 03/14/22 07:35 Dose: 1 tab Documented by: Cetirizine HCl (Cetirizine Hcl 10 Mg Tablet) 10 mg PO HS [facility] Stop: 04/07/22 20:59 Last Admin: 03/13/22 20:12 Dose: 10 mg Documented by: Colestipol HCl (Colestipol Hcl 1 Gm Tab) 1 gm PO BID@1000,2200 [facility] Stop: 04/07/22 21:59 Last Admin: 03/13/22 21:37 Dose: 1 gm Documented by: Cyanocobalamin (Cyanocobalamin (B-12) 500 Mcg Tablet) 1,000 mcg PO QAM [facility] Stop: 04/08/22 08:59 Last Admin: 03/14/22 07:36 Dose: 1,000 mcg Documented by: Dicyclomine HCl (Dicyclomine Hcl 10 Mg Cap) 10 mg PO TID PRN PRN Reason: CRAMPING OR DIARRHEA Stop: 04/07/22 20:35 Escitalopram Oxalate (Escitalopram Oxalate 10 Mg Tab) 10 mg PO [facility] Stop: 04/08/22 08:59 Last Admin: 03/14/22 07:36 Dose: 10 mg Documented by: Ondansetron HCl (Ondansetron Inj 2 Mg/Ml 2 Ml Vial) 4 mg IV Q6H PRN PRN Reason: Nausea Stop: 04/07/22 20:35 Pantoprazole Sodium (Pantoprazole 40 Mg Tab) [facility] [place] Stop: 04/08/22 08:59 Last Admin: 03/14/22 07:36 Dose: 40 mg Documented by: Polyethylene Glycol (Polyethylene (Miralax) 17 Gm Pack) 17 gm PO DAILY PRN PRN Reason: Constipation Stop: 04/07/22 20:35 Potassium Chloride (Potassium Chloride Crtab 20 Meq Tabcr) 20 meq PO BID [facility] Stop: 04/07/22 20:59 Last Admin: 03/14/22 07:37 Dose: 20 meq Documented by: Sodium Chloride (Sodium Chloride 1 Gm Tablet) 1 gm PO TID [facility] Stop: 04/07/22 20:59 Last Admin: 03/14/22 07:36 Dose: 1 gm Documented by: Tamsulosin HCl (Tamsulosin Hcl 0.4 Mg Cap) 0.4 mg PO HS [facility] Stop: 04/07/22 20:59 Last Admin: 03/13/22 20:09 Dose: 0.4 mg Documented by: Trolamine Salicylate (Trolamine Salicylate 10% Crm 255 Appln/85 Gm Tube) 1 appln EXT Q6H PRN PRN Reason: muscle pain Stop: 04/07/22 20:35 Vitamin D (Cholecalciferol 1,000 Units 25 Mcg Tab) 1,000 units PO QAM [facility] Stop: 04/08/22 08:59 Last Admin: 03/14/22 07:36 Dose: 1,000 units Documented by:
--- NOTE | 2022-03-14 09:13 | Discharge Summary ---
Date of Service March 14, 2022 Admission HPI Per Admitting Provider Patient is 76-year-old male with PMH chronic atrial fibrillation anticoagulated with Eliquis, SIADH and chronic hyponatremia on fluid restriction and sodium chloride tablets, CIDP, Parkinson's disease, CKD III, BPH, diastolic dysfunctionpresented to ER with complaint of weakness. History obtained from patient and patient's . Patient's reports yesterday patient seemed more more lethargic and was sleeping for most of the day. She reports he went to bed last night and was in bed until this morning. She reports at baseline he favors lying on his right side and often has right arm dangling. Patient repo rts last night was having pain along his entire right side. It was noted he was having some swelling to right hand that has been ongoing for approximately a week per the . Patient denies current pain to right upper extremity or any body pain currently. He states he will have intermittent abdominal cramping with certain foods he eats. Reports chronic intermittent diarrhea and has diagnosis of IBS. Gets bilateral lower extremity edema, improves with elevation. Patient's reports the past week he has had much improvement of his BLE edema. Reports shortness of breath with any type of exertion including position change that has been ongoing and denies any increased shortness of breath. Uses wheelchair, only ambulates with walker with PT. History of hospitalization 11/27/2021-12/02/2021 for weakness and was evaluated by neurology and possible CIDP flare versus weakness secondary to deconditioning from recent UTI. During that admission he received IVIG x3 days and had prednisone continued. Patient's reports his last dose of IVIG was January 2022. She reports he is not getting the response that he did last year. Is following with neurology and discussion was to hold IVIG for the month of March and revisit this in March secondary to patient not receiving significant improvement in symptoms as had in the past. Denies recent fall, fever/chills, diaphoresis, N/V melena, hematochezia, RICHARDSON, dizziness, syncope, vision changes, neck pain, CP, palpitations, cough, sore throat, choking, otalgia, rhinorrhea, paresthesias, rashes, urinary symptoms. Admission Exam Per Admitting Provider General: no acute distress, WDWN, chronic ill appearing elderly male lying on right side in bed Head: normocephalic, atraumatic Eyes: PERRL, EOM's intact, conjunctiva non-injected, anicteric ENT: normal inspection external ears, nose, mucous membranes moist Neck: supple, trachea midline Lungs: clear, no respiratory distress, no wheezing/rhonchi/rales CV: Irregularly irregular, no murmur, 1+ pretibial edema RLE, trace edema LLE Abd: normal BS, soft, non-tender to palpation Ext: no cyanosis, no erythema, no calf tenderness, RUE:+ Edema right hand. No hand or arm erythema, nontender to palpation Neuro: A&O x 3, diffuse weakness throughout 4 out of 5 Skin: warm, dry, right abdominal skin fold with erythema Principal Diagnosis Failure to thrive, generalized weakness, electrolyte abnormalities including chronic hyponatremia, CIDP, Parkinson's disease, CKD stage III, diastolic dysfunction Discharge Exam General: chronically ill appearing, thin elderly male in NAD Head: normocephalic, atraumatic Eyes: PERRL, EOM's intact, conjunctiva non-injected, anicteric ENT: normal inspection external ears, nose, mucous membranes moist Neck: supple, trachea midline Lungs: clear, no respiratory distress, no wheezing/rhonchi/rales CV: Irregularly irregular, no murmur, 1+ pretibial edema RLE, trace edema LLE Abd: normal BS, soft, non-tender to palpation Ext: no calf tenderness, RUE:+ Edema right hand. No hand or arm erythema, nontender to palpation Neuro: Patient is more awake today but still somewhat confused, diffuse weakness throughout Skin: warm, dry, multiple ecchymosis Discharge Data Allergies Allergy/AdvReac Type Severity Reaction Status Date / Time lovastatin [From Mevacor] Allergy Unknown Muscle Pain Verified 03/08/22 15:52 shellfish derived Allergy Unknown Vomiting Verified 03/08/22 15:52 oxycodone [From Percocet] AdvReac Gastrointestinal Verified 03/08/22 15:52 Upset tramadol [From Ultram] AdvReac Verified 03/08/22 15:52 states that this makes him seem "Out of it" Consultations 03/08/22 18:05 ED Decision to Admit Stat 03/08/22 20:36 Consult Neurology Routine Ordered Studies 03/08/22 14:54 US venous doppler UE RT Stat IMPRESSION: There is no sonographic evidence of deep venous thrombosis identified in the right upper extremity. 03/08/22 19:18 CT head/brain wo con Urgent IMPRESSION: 1. No acute intracerebral pathology. 2. Cerebral cortical atrophy and remote small vessel disease are again seen along with mild bilateral ethmoid sinusitis. Hospital Course (1) Generalized weakness: Patient is 76-year-old male with PMH chronic atrial fibrillation anticoagulated with Eliquis, SIADH and chronic hyponatremia on fluid restriction and sodium chloride tablets, CIDP, Parkinson's disease, CKD III, BPH, diastolic dysfunctionpresented to ER with complaint of generalized weakness, lethargy x 1 day. Denies fever, chills, nausea, vomiting. Chronic intermittent loose stools secondary to IBS, denies any increase. In ER patient afebrile, vital stable. WBC: 4.6, Hgb: 13 (at baseline), magnesium: 1.4, CXR: No acute disease. UA unremarkable ? Weakness secondary to CIDP flare, electrolyte abnormality, underlying infection blood cultures negat. in 48 hrs PT/OT eval Neurology consult Seen by Dr. Rzizo, neurology, who follows with him routinely. Patient recently did not respond to IVIG, and did not tolerate steroids in the past. Discussed plasmapheresis with the patient and his , and also explained that prognosis is very poor. Patient follows with [facility] palliative medicine as outpatient. Patient and not interested in aggressive treatments/ plasmapheresis. Interested in palliative approach, possible hospice care. Plan for home hospice today (2) Hypomagnesemia: replete and monitor (3) CIDP (chronic inflammatory demyelinating polyneuropathy): Following with neurology, Dr. Rizzo Had restarted monthly IVIG. Last given 01/2022. Had noted not having the significant improvement that he previously was after IVIG 12/2021 neurology weaned off of daily prednisone as of concern for possible steroid myopathy Neurology consult (as above) (4) Edema of right upper arm: Right upper extremity venous Doppler: Negative for DVT No erythema, warmth or discomfort or signs of cellulitis noted May be secondary to dependent edema - now improved (5) Parkinson disease: Continue carbidopa levodopa (6) Chronic hyponatremia: (7) SIADH (syndrome of inappropriate ADH production): Na: 130. Baseline ~130-133 Continue 1500mL fluid restriction Continue sodium tabs Monitor (8) Chronic atrial fibrillation: Chronic atrial fibrillation anticoagulated on Eliquis Rate controlled Continue Eliquis Not currently on rate control medication (9) Chronic hypokalemia: K: 4.3 Continue home potassium supplement DVT Prophylaxis On Eliquis DNR/DNI as per discussion with pt Follows with Dr Al for routine care Total Time Total Time Spent Total Time Spent (In Minutes): 40 Discharge Plan Discharge Items Patient Disposition: Hospice - Home Reason For Visit: R WRIST PAIN, WEAKNESS, EDEMA TO EXTREMITIES Discharge Diagnosis: Failure to thrive, generalized weakness, electrolyte abnormalities including chronic hyponatremia, CIDP, Parkinson's disease, CKD stage III, diastolic dysfunction Activity: Per Instructions section Non-emergency contact: Primary Care Provider Call non-emergency contact if: you have any medication questions and your symptoms worsen Follow-up/Referrals: Wilmer Al MD [Primary Care Provider] - Diet: Heart Healthy Fluids: 1500ml (6 cups) Diet Texture: Easy to Chew Addtl Attending Provider Instructions: No new medication changes made. Discuss further with hospice nurse, which medications are helpful and which are not and could be discontinued. Pending Studies at Discharge: No Stand-Alone Forms: My [employer], Smoking Cessation Medications and DC Order Prescriptions: Continued Eliquis 5 mg Tablet 5 mg PO BID RF: 0 cyanocobalamin (vitamin B-12) 1,000 mcg Tablet 1,000 mcg PO QAM RF: 0 fluticasone propionate [Flonase Allergy Relief] 50 mcg/actuation [place],Suspension 2 spray INTRANASAL DAILY PRN (Reason: Congestion) RF: 0 dicyclomine 10 mg Capsule 10 mg PO TID PRN (Reason: CRAMPING OR DIARRHEA) RF: 0 loperamide 2 mg Capsule 2 mg PO QID PRN (Reason: Diarrhea) Qty: 30 RF: 0 colestipol 1 gram tablet 1 g PO BID RF: 0 cetirizine 10 mg Capsule 10 mg PO HS RF: 0 omeprazole 20 mg Capsule,Delayed Release(Dr/Ec) 20 mg PO QAM RF: 0 potassium chloride [Klor-Con M20] 20 mEq tablet,ER particles/crystals 20 meq PO BID RF: 0 cholecalciferol (vitamin D3) [Vitamin D3] 25 mcg (1,000 unit) Tablet 25 mcg PO QAM RF: 0 trolamine salicylate [Aspercreme] 10 % Cream 1 applic TOPICAL Q6H PRN (Reason: Pain) RF: 0 carbidopa-levodopa 25-100 mg tablet 1 tab PO TID RF: 0 tamsulosin 0.4 mg capsule 0.4 mg PO HS RF: 0 sodium chloride 1 gram Tablet 1 g PO TID Qty: 30 RF: 0 escitalopram oxalate 10 mg tablet 10 mg PO QAM RF: 0 Discharge Orders: Discharge Order (Routine); Ordered 03/14/22 Ordered By: Oracio Ventura Admission Data Admit Date/Time: 03/08/22 18:48 Attending Provider: Oracio Ventura Admit Provider: Rashmi Gutierres Primary Care Provider: Wilmer Al Other Providers: Rashmi Gutierres ; Chidi Cottrell ; [facility]
[2022-03-14] MEDS: COLESTIPOL HCL 1 GM TAB PO SCH (10:18)
== END 2022-03-14 17:30 | disposition hospice, home (50) | DRG 74 ==
LOC: ED 13:59 → SUATTDRO 18:48 → 3W 18:48